=== PATIENT | female | born 1945 | race Caucasian/White ===

== ENCOUNTER → 2016-05-15 | Outpatient (CLI) | payer BC ==
[~2016-05-15] MED LIST: ACET-749 PO; ASCA500 PO; ASPCH81X PO; CALC500T83 PO; CARB1CAP10 PO; CHOL1000 PO; CHOL100010 PO; CYM20 PO; DXM/4 PO; EVS60 PO; GABA1CAP4 PO; GLUC1CAP33 PO; HYDC25 PO; HYDR25TA4 PO; IBRU1CAP; LCTX PO; MBXC PO; MISCCAP80 PO; MORP15TA PO; MORP1TAB13 PO; MRPSR15 PO; MULT-884 PO; NRN300 PO; NYSS/ PO; ONDA4TAB10 SL; OXYC-609 PO; PANT40TA PO; POLY335019 PO; POTA10TA PO; POTA10TA32 PO; PSYL48.59 PO; SENN-61 PO; TGRSR100 PO; VERA1TAB53 PO; VRPSR180 PO; ZCR40 PO
--- NOTE | 2016-05-15 10:49 | DIAGNOSTIC IMAGING REPORT ---
PET/CT HISTORY: Lymphoma LYMPHOMA TECHNIQUE: PET/CT was performed from the base of the skull through the pelvis following the intravenous administration of 15.4 mCi of F18-FDG. Non-contrast CT imaging was performed over the same range without breath-hold for attenuation correction of PET images and anatomic correlation, but not for primary interpretation as it is not of standard diagnostic quality. CT DOSE: COMPARISON: 09/20/2015 FINDINGS: HEAD AND NECK: Interval development of a 4 cm soft tissue mass occupying the bulk of the right parotid gland. SUVs are considerably increased approximately 15 at maximum. This is not seen in the prior study. The metabolic reactive node in the right cervical chain previously described has resolved. There is no significant residual diffuse CT component of the exam. CHEST: There is no FDG-avid disease in the chest. There is no axillary, mediastinal, or hilar lymphadenopathy. There is no pleural or pericardial effusion. There is no air-space disease or suspicious lung nodule. ABDOMEN/PELVIS: Below the diaphragm, tracer is distributed physiologically in the gastrointestinal and genitourinary tracts. There is no significant lymphadenopathy and no FDG-avid disease. MUSCULOSKELETAL: There is no FDG-avid or destructive bone lesion. IMPRESSION: 1. Interval development of intense metabolic activity lesion involving the right parotid gland. 2. This mass measures approximately 4 cm maximum dimension. Considerations include recurrent lymphoma, with the possibility of acute sialoadenitis considered extremely unlikely given its appearance as well as patient history. 3. The remainder of the study is unremarkable 4. The right cervical node previously described has resolved Electronically signed by: Rehan Buchanan M.D. 05/15/2016 10:48 AM Dictated Date/Time: 05/15/2016 10:41 AM
== END | disposition home or self-care (01) ==
LOC: C.PET 07:18
PROVIDERS: ATTEND Internal Medicine Hematology & Oncology
DX: C83.11 Mantle cell lymphoma, lymph nodes of head, face, and neck (principal)

== ENCOUNTER → 2016-06-18 | Outpatient (CLI) | payer BC ==
[~2016-06-18] MED LIST changes: -EVS60 PO; +RALO60TA31 PO
--- NOTE | 2016-06-18 16:52 | MAMMOGRAPHY REPORT ---
BILATERAL DIGITAL SCREENING MAMMOGRAM WITH CAD: 06/18/2016 CLINICAL HISTORY: Routine screening. Patient has no complaints. TECHNIQUE: Bilateral CC and MLO views were obtained. Additional cc views were performed with the ni pples in profile. Current study was also evaluated with a Computer Aided Detection (CAD) system. COMPARISON: Comparison is made to exams dated: 06/16/2015 mammogram, 06/15/2014 mammogram, 06/14/2013 mammogram, 06/12/2012 mammogram, 06/11/2011 mammogram, and 06/07/2009 mammogram - [facility]. BREAST COMPOSITION: There are scattered areas of fibroglandular density in both breasts. FINDINGS: There are benign-appearing rodlike, probable secretory calcifications in the breasts. No new suspicious mass, architectural distortion or cluster of microcalcifications is seen. IMPRESSION: ACR BI-RADS CATEGORY 1: NEGATIVE There is no mammographic evidence of malignancy. A 1 year screening mammogram is recommended. The p atient will receive written notification of the results. Approximately 10% of breast cancers are not detected with mammography. A negative mammographic repor t should not delay biopsy if a clinically suggestive mass is present. Leslie Gant M.D. ay/:06/18/2016 16:49:02 Security Representative: Mary Grace Lockwood, [facility] letter sent: Normal 1/2 BI-RADS Code: ACR BI-RADS Category 1: Negative
== END | disposition home or self-care (01) ==
LOC: C.MAMM 09:34
PROVIDERS: ATTEND Obstetrics & Gynecology
DX: Z12.31 Encounter for screening mammogram for malignant neoplasm of breast (principal); C83.19 Mantle cell lymphoma, extranodal and solid organ sites; C85.81 Other specified types of non-Hodgkin lymphoma, lymph nodes of head, face, and neck

== ENCOUNTER → 2016-08-01 | Outpatient (CLI) | payer BC ==
[~2016-08-01] MED LIST changes: +EVS60 PO; -RALO60TA31 PO
[2016-08-01 14:21] VITALS: BP 137/79; PULSE 78; TEMP 37.1; O2SAT 97
--- NOTE | 2016-08-01 17:56 | Radiation Oncology Follow-Up ---
Radiation Oncology Follow-Up Date of Visit Aug 01, 2016. Reason For Visit 6 month follow-up Radiation Completion Date 12/20/15 Diagnosis (1) Lymphoma Status: Chronic Onset Date: 07/07/2014 Permanent Comment: Self detected right neck mass FNA 07/07/2014 revealed malignant B-cell lymphoma Status post right parotidectomy and cervical lymph node excision 07/22/2014 Mantle cell lymphoma Stage II Status post systemic chemotherapy Left neck recurrent mass in July biopsy positive for lymphoma Mantle cell type 10/05/2015 Status post completion of radiation therapy 12/20/2015 received 4500 cGy Recurrent right neck mass March [address] revealing FDG avidity Initiation of immunotherapy with Impruvica Good response to therapy Last Edited By: Suzan Heller on Aug 01, 2016 17:51 History of Present Illness Patient was initially seen 08/11/2014. Ms. Packer is a 70-year-old female who presented with a palpable mass in the right side of the neck. She first noticed it in March 2014. Initially this was treated with antibiotics without clear improvement. Patient subsequent he noted that the mass was increasing in size and therefore on 06/23/2014 she underwent an ultrasound of the right neck mass this showed evidence of bilateral cervical adenopathy but primarily on the right neck. Maximal dimension R2 0.5 x 1.8 cm with smaller nodes in the range of 1.6 x 1.3 cm. Given the appearance they were thought to be suspicious for malignancy. On 07/07/2014 Dr. Eaton performed a fine-needle aspirate of a right parotid mass. His examination showed a 2 cm right supraclavicular mass and a 3 cm right parotid mass. The remainder of the head and neck exam was unremarkable. The final diagnosis of the FNA of the right parotid mass revealed a malignant B-cell lymphoma. The flow cytometry showed a monoclonal B-cell population with expression of CD5 and CD10. FISH studies were performed for the translocation seen in mantle cell lymphoma. This study met the criteria for presence of a t (11; 14) translocation however the number of positive signals was low and barely over the threshold for a positive result. The probe set for the BCL-2 rearrangement also showed similar findings nevertheless the presence of the translocation could not be excluded. Case: [id number]. A FNA of a right supraclavicular mass was also performed and this was nondiagnostic. Case: [id number]. The patient returned to see Dr. Santiago on 07/11/2014 to discuss these findings. The recommendation by the pathology department was that additional tissue would be important for a full diagnosis. Dr. Santiago therefore discussed with the patient additional parotid biopsies and partial neck dissection. The patient agreed. She ultimately underwent a superficial parotidectomy and partial right neck dissection on 07/22/2014. The right parotid gland and lymph node tissue confirmed mantle cell lymphoma. A lymph node labeled cervical lymph node 1 also revealed mantle cell lymphoma. Case: [id number]. Patient underwent additional staging procedures that included a PET/CT scan on 08/03/2014. The PET scan showed metabolically active lesion involving the right parotid gland with an SUV of 5.3. There is air within the tissue consistent with the patient' s history of surgery and biopsy. Several additional nodes were present deep to the posterior musculature as well as deep to the sternocleidomastoid muscle. These have SUVs extending to the 6.1 and 5.7 range respectively. Several additional nodes are present in the cervical chains bilaterally. There is evidence for a metabolically active nodes medial to the right clavicle with an SUV of 2.6 and a maximum dimension of 1.0 cm. Within the mediastinum and hilar region there is physiologic activity only. Lungs show no abnormal metabolic activity. Abdomen and pelvis show physiologic activity only. The appearance was felt to be consistent with that of a neoplastic process consistent with the patient's known diagnosis of mantle cell lymphoma confined to the soft tissue of the neck. The patient is scheduled to see Dr. Michael Castillo for medical oncology evaluation and oncologic systemic therapeutic recommendations. That appointment is scheduled for August 17. We were asked to see the patient in referral to review with her the potential roles of radiation. It is for that reason that the patient is seen in referral. Following the consultation the patient returned to Dr. Castillo and underwent systemic chemotherapy. This began as an inpatient and was given September 05 to the 2014. She then was on maintenance Rituxan until July 2015. She unfortunately developed a mass in the lower end of her right neck incision. She noted this in July. This is slowly become larger in size. Began the size of an almond. She generally has no pain associated unless it is touched. She has had no weight loss. She has no night sweats. She underwent a CT scan of the chest abdomen and pelvis 09/12/2015. Lungs were clear there is hepatic steatosis. No lymphadenopathy in the thorax. In the abdomen and pelvis questionable tiny hypodensities in the pancreas. duct is also slightly prominent. No evidence of lymphadenopathy. She went on to have a PET scan . This showed a 1.7 x 1.0 cm FDG avid right cervical lymph node. This is consistent with recurrent disease. No additional sites of FDG avid disease identified within the chest abdomen and pelvis. With this finding she was referred by Dr. Castillo to our office. Dr. Castillo will be leaving his practice this week and the patient will be following with Dr. Carnes. She has also been seen by Dr. Santiago. Her case was reviewed. The decision was to treat with radiation alone. Radiation therapy was completed 12/20/2015. She received 4500 cGy. Interim History She had been doing well until March 2016 when she developed a rapidly enlarging mass of the right neck. This was large and extended towards her ear. She was seen in medical oncology and was sent for a PET/CT. I was performed on 05/15/2016. This showed interval development of an intense metabolically active lesion involving the right parotid gland. His measures approximately 4 cm maximum dimension. With the new findings she was started on impruvica. She takes this on a monthly basis. She has received 3 cycles of treatment. It is planned that she will continue this medication until her next visit which is September. There is some difficulty with coverage of the medication. She is working with the pharmaceutical company that manufactures the medication. She also has connection to patient navigation. She feels that the mass of her right neck is 75% smaller since starting the immunotherapy. Allergies Coded Allergies: Propoxyphene (Verified Allergy, Intermediate, RASH, 02/16/15) Lisinopril (Verified Adverse Reaction, Mild, COUGH, 02/16/15) Home Medications Scheduled Ascorbic Acid (Vitamin C), 500 MG PO QAM Aspirin (Aspirin Chewable), 81 MG PO QPM Calcium (Calcium), 500 MG PO BID Cholecalciferol (Vitamin D), 1,000 INTER.UNIT PO QPM Glucosamine-Chondroitin (Glucosamine & Chondroitin 500-400 mg), 1 CAP PO BID Hydrochlorothiazide (Hctz *), 25 MG PO QAM Ibrutinib (Imbruvica), 4 TABS DAILYBB Multiple Vitamin (Multi Vitamin Daily), 1 TAB PO QAM Pantoprazole (Protonix), 40 MG PO DAILY Probiotic Product (Probiotic), DAILY Raloxifene (Evista), 60 MG PO QPM Simvastatin (Simvastatin), 40 MG PO HS Review of Systems Gastrointestinal: Symptoms: Constipation GI Comments: takes senna .metamucil , miralax last BM Oral: Symptoms: No Problems Other Oral Symptoms: dry mouth Respiratory: Symptoms: Dry Cough Respiratory Comments: dry cough in the evening Urinary: Symptoms: WNL Skin: Symptoms: No Problems Physical Exam Vital Signs Date Time Temp Pulse Resp B/P (MAP) Pulse Ox O2 Delivery O2 Flow Rate FiO2 08/01/16 14:21 37.1 78 16 137/79 97 Pain: Side: Bilateral Patient Pain Scale: 0 - 10 Initial Pain Intensity: 0.0 Fatigue: None General Appearance: no apparent distress Eyes: normal inspection, EOMI ENT: hearing grossly normal, pharynx normal Neck: supple, + pertinent finding (there is a mass of the right lateral neck which measures 4 x 7 cm. There is mild tenderness to palpation. There is no erythema or changes of the overlying skin.) Respiratory/Chest: lungs clear, no respiratory distress, no accessory muscle use Cardiovascular: regular rate, rhythm, no gallop, no murmur Extremities: no pedal edema Neurologic/Psychiatric: no motor/sensory deficits, alert, normal mood/affect Skin: warm/dry Laboratory Studies Test 05/20/16 09:10 06/18/16 08:13 06/18/16 08:21 08/01/16 15:17 White Blood Count 4.13 K/uL (4.8-10.8) 4.83 K/uL (4.8-10.8) Red Blood Count 3.97 M/uL (4.2-5.4) 3.83 M/uL (4.2-5.4) Hemoglobin 13.1 g/dL (12.0-16.0) 12.8 g/dL (12.0-16.0) Hematocrit 38.0 % (37-47) 38.0 % (37-47) Mean Corpuscular Volume 95.7 fL (80-100) 99.2 fL (80-100) Mean Corpuscular Hemoglobin 33.0 pg (25-34) 33.4 pg (25-34) Mean Corpuscular Hemoglobin Concent 34.5 g/dl (32-36) 33.7 g/dl (32-36) Platelet Count 203 K/uL (130-400) 140 K/uL (130-400) Mean Platelet Volume 10.5 fL (7.4-10.4) 12.0 fL (7.4-10.4) Neutrophils (%) (Auto) 67.6 % 66.4 % Lymphocytes (%) (Auto) 20.8 % 17.0 % Monocytes (%) (Auto) 8.0 % 13.7 % Eosinophils (%) (Auto) 2.7 % 2.1 % Basophils (%) (Auto) 0.7 % 0.6 % Neutrophils # (Auto) 2.79 K/uL (1.4-6.5) 3.21 K/uL (1.4-6.5) Lymphocytes # (Auto) 0.86 K/uL (1.2-3.4) 0.82 K/uL (1.2-3.4) Monocytes # (Auto) 0.33 K/uL (0.11-0.59) 0.66 K/uL (0.11-0.59) Eosinophils # (Auto) 0.11 K/uL (0-0.5) 0.10 K/uL (0-0.5) Basophils # (Auto) 0.03 K/uL (0-0.2) 0.03 K/uL (0-0.2) RDW Standard Deviation 44.1 fL (36.4-46.3) 46.6 fL (36.4-46.3) RDW Coefficient of Variation 12.6 % (11.5-14.5) 12.7 % (11.5-14.5) Immature Granulocyte % (Auto) 0.2 % 0.2 % Immature Granulocyte # (Auto) 0.01 K/uL (0.00-0.02) 0.01 K/uL (0.00-0.02) Sodium Level 141 mmol/L (136-145) 142 mmol/L (136-145) Potassium Level 3.5 mmol/L (3.5-5.1) 3.6 mmol/L (3.5-5.1) Chloride Level 103 mmol/L (98-107) 105 mmol/L (98-107) Carbon Dioxide Level 31 mmol/L (21-32) 34 mmol/L (21-32) Anion Gap 7.0 mmol/L (3-11) 3.0 mmol/L (3-11) Blood Urea Nitrogen 16 mg/dl (7-18) 12 mg/dl (7-18) Creatinine 0.87 mg/dl (0.60-1.20) 0.87 mg/dl (0.60-1.20) Est Creatinine Clear Calc Drug Dose 56.3 ml/min 56.3 ml/min Estimated GFR () 77.7 77.7 Estimated GFR (Non- 67.0 67.0 BUN/Creatinine Ratio 18.5 (10-20) 13.9 (10-20) Random Glucose 109 mg/dl (70-99) 83 mg/dl (70-99) Calcium Level 9.1 mg/dl (8.5-10.1) 9.1 mg/dl (8.5-10.1) Total Bilirubin 0.7 mg/dl (0.2-1) 0.8 mg/dl (0.2-1) Aspartate Amino Transferase (AST) 23 U/L (15-37) 27 U/L (15-37) Alanine Aminotransferase (ALT) 33 U/L (12-78) 44 U/L (12-78) Alkaline Phosphatase 31 U/L (45-117) 27 U/L (45-117) Lactate Dehydrogenase 213 U/L (84-246) 220 U/L (84-246) Total Protein 6.9 gm/dl (6.4-8.2) 6.7 gm/dl (6.4-8.2) Albumin 3.9 gm/dl (3.4-5.0) 3.9 gm/dl (3.4-5.0) Globulin 3.0 gm/dl (2.5-4.0) 2.8 gm/dl (2.5-4.0) Albumin/Globulin Ratio 1.3 (0.9-2) 1.4 (0.9-2) Carcinoembryonic Antigen < 0.5 ng/ml (0-2.5) Thyroid Stimulating Hormone (TSH) 4.900 uIu/ml (0.300-4.500) Assessment & Plan Plan: Continue follow-up with medical oncology. She continues on the immunotherapy. She will contact the patient navigation if she has difficulty with coverage of the medication. We asked her to return to our office in 1 year. She may call if she has any questions or concerns in the interim. Total Time In Follow-Up I spent 20 minutes speaking to the patient and performing examination. I spent 15 minutes reviewing information and completing this note. Copy To Shahzad Norton MD; Jaime Chaves MD Problem Qualifiers (1) Lymphoma: Lymphoma type: non-Hodgkin Non-Hodgkin lymphoma type: non-follicular Non- follicular lymphoma type: mantle cell Lymphoma site: neck Qualified Codes: C83.11 - Mantle cell lymphoma, lymph nodes of head, face, and neck
== END | disposition home or self-care (01) ==
LOC: C.ONC 14:15
PROVIDERS: ATTEND Physician Assistant Medical
DX: Z08 Encounter for follow-up examination after completed treatment for malignant neoplasm (principal); Z92.3 Personal history of irradiation; Z85.72 Personal history of non-Hodgkin lymphomas

== ENCOUNTER → 2016-08-26 | Outpatient (CLI) | payer BC ==
[~2016-08-26] MED LIST changes: -LCTX PO
--- NOTE | 2016-08-26 11:40 | DIAGNOSTIC IMAGING REPORT ---
PET/CT SKULL-THIGH HISTORY: 70-year-old female with history of mantle cell lymphoma of the head presents for restaging. COMPARISON: PET CT 05/15/2016, 09/20/2015, 01/30/2015, 08/03/2014 TECHNIQUE: The patient was injected with 14.16 mCi of F-18 fluorodeoxyglucose (FDG) and an emission scan was performed from the skull vertex to the toes. Noncontrast CT was performed for attenuation correction and anatomic localization. The blood glucose level was 87 mg/dl. FINDINGS: Head and Neck: Large soft tissue mass of the right neck in the region of the parotid gland is again seen measuring 3.6 x 3.7 cm in AP and transverse dimension, previously 4.6 x 3.6 cm on study dated 05/15/2016. This mass is markedly hypermetabolic with SUV max of 8.3, previously 17.3. Several mildly prominent level 2 lymph nodes on the right below the level of the hypermetabolic mass are seen with mild FDG activity, similar to and slightly above that of blood pool. For example, a 7 x 9 mm lymph node seen on image [address] series demonstrates SUV max of 3.0. No left-sided hypermetabolic activity identified. Chest: There is a physiologic distribution of activity, with no hypermetabolic mediastinal, hilar or pulmonary foci. Abdomen and Pelvis: There is a physiologic distribution of activity within the liver, spleen, adrenal glands, gastrointestinal and urinary tracts, with no hypermetabolic foci. Musculoskeletal System and Extremities: There is a physiologic distribution of activity within the bone marrow, with no hypermetabolic foci. Likely hemangioma involves the L4 vertebral body. Additional CT Findings: Left pectoral pacer is present. Prior cholecystectomy. Nonspecific low attenuating lesion near the kalin hepatis measures 1.3 x 1.3 cm as seen on image 78 of the axial series and is unchanged. IMPRESSION: 1. Large hypermetabolic soft tissue mass of the right neck in the region of the parotid gland has slightly decreased in size from comparison and has also decreased in FDG avidity. Findings suggest partial response to therapy. 2. Mildly prominent level 2 lymph nodes on the right just below the large soft tissue mass demonstrate SUV max similar to and slightly above that of blood pool. Findings may reflect progression of disease or inflammatory response. 3. No hypermetabolic activity within the chest, abdomen or pelvis. Electronically signed by: Connor Hsu 08/26/2016 11:38 AM Dictated Date/Time: 08/26/2016 10:37 AM
== END | disposition home or self-care (01) ==
LOC: C.PET 07:29
PROVIDERS: ATTEND Internal Medicine Hematology & Oncology
DX: C83.11 Mantle cell lymphoma, lymph nodes of head, face, and neck (principal)

== ENCOUNTER 2016-09-02 19:58 | Emergency (ER) | payer BC ==
[~2016-09-02] VITALS: Ht 154.9 cm; Wt 81.1 kg
[~2016-09-02 19:58] MED LIST changes: -ACET-749 PO; -ASPCH81X PO; -CARB1CAP10 PO; -CHOL1000 PO; -CYM20 PO; -DXM/4 PO; -EVS60 PO; -GABA1CAP4 PO; -HYDR25TA4 PO; -MBXC PO; -MORP15TA PO; -MORP1TAB13 PO; -MRPSR15 PO; -NRN300 PO; -NYSS/ PO; -ONDA4TAB10 SL; -OXYC-609 PO; -PANT40TA PO; -POLY335019 PO; -POTA10TA PO; -POTA10TA32 PO; -PSYL48.59 PO; -SENN-61 PO; -TGRSR100 PO; -VERA1TAB53 PO; -VRPSR180 PO; -ZCR40 PO
[2016-09-02 20:00] VITALS: TEMP 36.4; Ht 154.9 cm; Wt 81.1 kg
[2016-09-02] MEDS ORDERED: PROMETHAZINE HCL INJ 12.5 MG in SODIUM CHLORIDE 0.9% 50ML 50 ML IV STA (20:58)
[2016-09-02] MEDS ORDERED: MoRPHine SULFATE 4 MG/ML 1 ML CARP\\VIAL IV PRN (21:00)
--- NOTE | 2016-09-02 21:11 | EMERGENCY ROOM VISIT NOTE ---
History Report prepared by Doretha: Janell Mccoy Under the Supervision of: Dr. Sukhwinder Rader D.O. First contact with patient: 20:21 Chief Complaint: HEADACHE Stated Complaint: CA, HEADACHE, NAUSEA History of Present Illness The patient is a 70 year old female who presents to the Emergency Room with complaints of a constant headache beginning 3 days ago. The patient states that she has a lymphoma on the right side of her neck that she has completed chemotherapy and radiation for. She reports that her headache came on gradually 3 days ago and has persisted since it started. The patient complains of slightly blurry vision and squiggly lines in her vision that has resolved and vomiting. She denies any bloody vomit, fever, and chills. She notes that she has no sick contacts. She notes a history of hypertension and GERD. She rates her pain as a 10/10 in severity. She notes that she was on Imbruvica and her headache started after she stopped taking the medication. The patient reports that she took Tylenol with codeine today without relief of her symptoms. She notes that her lymphoma feels like it is getting bigger. Source of History: patient Onset: 3 days ago Position: head Symptom Intensity: 10/10 Quality: ache Timing: constant Associated Symptoms: + vomiting, No fevers, No chills Note: Pt complains of blurry vision. She denies any bloody vomit. Review of Systems See HPI for pertinent positives & negatives. A total of 10 systems reviewed and were otherwise negative. Past Medical & Surgical Medical Problems: (1) Gastroesophageal reflux disease (2) History of - hypertension (3) Lymphoma Family History No pertinent family history stated. Social History Smoking Status: Never Smoker Alcohol Use: none Drug Use: none Marital Status: Housing Status: lives with family Occupation Status: retired Current/Historical Medications Scheduled Ascorbic Acid (Vitamin C), 500 MG PO QAM Aspirin (Aspirin Chewable), 81 MG PO QPM Calcium (Calcium), 500 MG PO BID Cholecalciferol (Vitamin D), 1,000 INTER.UNIT PO QPM Glucosamine-Chondroitin (Glucosamine & Chondroitin 500-400 mg), 1 CAP PO BID Hydrochlorothiazide (Hctz), 25 MG PO QAM Ibrutinib (Imbruvica), 4 TABS DAILYBB Multiple Vitamin (Multi Vitamin Daily), 1 TAB PO QAM Pantoprazole (Protonix), 40 MG PO DAILY Probiotic Product (Probiotic), 1 CAP PO DAILY Raloxifene (Evista), 60 MG PO QPM Simvastatin (Simvastatin), 40 MG PO HS Scheduled PRN Acetaminophen/Codeine (Tylenol W/Codeine #3), 1 TAB PO Q4H PRN for Pain Allergies Coded Allergies: Propoxyphene (Verified Allergy, Intermediate, RASH, 02/16/15) Lisinopril (Verified Adverse Reaction, Mild, COUGH, 02/16/15) Physical Exam Vital Signs Date Time Temp Pulse Resp B/P (MAP) Pulse Ox O2 Delivery O2 Flow Rate FiO2 09/02/16 23:51 76 15 95 09/02/16 23:50 161/89 09/02/16 23:36 74 15 92 09/02/16 23:33 96 09/02/16 23:31 157/79 09/02/16 23:18 72 14 93 09/02/16 23:03 71 15 92 09/02/16 23:01 157/86 09/02/16 22:48 73 15 92 09/02/16 22:33 70 18 94 09/02/16 22:30 93 09/02/16 22:28 182/83 09/02/16 22:18 68 92 09/02/16 22:05 190/86 09/02/16 22:03 71 97 09/02/16 21:48 80 92 09/02/16 21:33 73 16 95 09/02/16 21:31 163/84 09/02/16 21:18 68 14 92 09/02/16 21:03 69 13 93 09/02/16 21:01 183/91 09/02/16 20:48 71 17 95 09/02/16 20:43 71 19 96 09/02/16 20:38 72 16 99 09/02/16 20:32 178/99 09/02/16 20:32 178/99 09/02/16 20:00 36.4 83 20 174/90 95 Room Air Physical Exam GENERAL: Patient is awake, alert, and in no acute distress. Patient is uncomfortable and is anxious appearing. EYES: The conjunctivae are clear. The pupils are round and reactive. EARS, NOSE, MOUTH AND THROAT: The nose is without any evidence of any deformity. Mucous membranes are moist tongue is midline NECK: There was tenderness and firmness noted to right lateral neck consistent with diagnosis of lymphoma RESPIRATORY: Normal respiratory effort is noted there is no evidence of wheezing rhonchi or rales CARDIOVASCULAR: Regular rate and rhythm noted there no murmurs rubs or gallops normal S1 normal S2 GASTROINTESTINAL: The abdomen is soft. Bowel sounds are present in all quadrants. Abdomen is nontender MUSCULOSKELETAL/EXTREMITIES: There is no evidence of gross deformity full range of motion is noted in the hips and shoulders SKIN: There is no obvious evidence of any rash. There are no petechiae, pallor or cyanosis noted. NEUROLOGIC: Patient is awake alert and oriented x3 strength is symmetric patellar reflexes are 2+ bilaterally Medical Decision & Procedures ER Provider Diagnostic Interpretation: CT results as stated below per my review and radiologist interpretation. CT HEAD WITHOUT CONTRAST (CT) FINDINGS: No intra or extra-axial mass lesions are visualized. There is no CT evidence of acute cortical infarction. There is no evidence of midline shift. There is no acute hemorrhage. No calvarial fractures are visualized. There are minimal white matter hypodensities likely on a small vessel basis. There is no evidence of pathologic ventricular dilatation. There is no evidence of acute sinusitis IMPRESSION: No acute intracranial findings Electronically signed by: Mohan Boone M.D. 09/02/2016 10:27 PM Dictated Date/Time: 09/02/2016 10:26 PM Laboratory Results 09/02/16 22:10 Red Blood Count 4.43, Mean Corpuscular Volume 95.0, Mean Corpuscular Hemoglobin 32.7, Mean Corpuscular Hemoglobin Concent 34.4, Mean Platelet Volume 12.0, Neutrophils (%) (Auto) 82.5, Lymphocytes (%) (Auto) 10.0, Monocytes (%) (Auto) 6.1, Eosinophils (%) (Auto) 0.3, Basophils (%) (Auto) 0.3, Neutrophils # (Auto) 6.18, Lymphocytes # (Auto) 0.75, Monocytes # (Auto) 0.46, Eosinophils # (Auto) 0.02, Basophils # (Auto) 0.02 09/02/16 22:10 Test 09/02/16 22:10 09/02/16 22:55 White Blood Count 7.49 K/uL (4.8-10.8) Red Blood Count 4.43 M/uL (4.2-5.4) Hemoglobin 14.5 g/dL (12.0-16.0) Hematocrit 42.1 % (37-47) Mean Corpuscular Volume 95.0 fL (80-100) Mean Corpuscular Hemoglobin 32.7 pg (25-34) Mean Corpuscular Hemoglobin Concent 34.4 g/dl (32-36) Platelet Count 153 K/uL (130-400) Mean Platelet Volume 12.0 fL (7.4-10.4) Neutrophils (%) (Auto) 82.5 % Lymphocytes (%) (Auto) 10.0 % Monocytes (%) (Auto) 6.1 % Eosinophils (%) (Auto) 0.3 % Basophils (%) (Auto) 0.3 % Neutrophils # (Auto) 6.18 K/uL (1.4-6.5) Lymphocytes # (Auto) 0.75 K/uL (1.2-3.4) Monocytes # (Auto) 0.46 K/uL (0.11-0.59) Eosinophils # (Auto) 0.02 K/uL (0-0.5) Basophils # (Auto) 0.02 K/uL (0-0.2) RDW Standard Deviation 42.7 fL (36.4-46.3) RDW Coefficient of Variation 12.4 % (11.5-14.5) Immature Granulocyte % (Auto) 0.8 % Immature Granulocyte # (Auto) 0.06 K/uL (0.00-0.02) Prothrombin Time 10.3 SECONDS (9.0-12.0) Prothromb Time International Ratio 1.0 (0.9-1.1) Activated Partial Thromboplast Time 24.2 SECONDS (21.0-31.0) Partial Thromboplastin Ratio 0.9 Anion Gap 11.0 mmol/L (3-11) Est Creatinine Clear Calc Drug Dose 63.0 ml/min Estimated GFR () 87.3 Estimated GFR (Non- 75.3 BUN/Creatinine Ratio 17.2 (10-20) Calcium Level 9.7 mg/dl (8.5-10.1) Total Bilirubin 1.0 mg/dl (0.2-1) Direct Bilirubin 0.2 mg/dl (0-0.2) Aspartate Amino Transf (AST/SGOT) 26 U/L (15-37) Alanine Aminotransferase (ALT/SGPT) 38 U/L (12-78) Alkaline Phosphatase 31 U/L (45-117) Total Protein 7.3 gm/dl (6.4-8.2) Albumin 4.1 gm/dl (3.4-5.0) Lipase 401 U/L (73-393) Urine Color YELLOW Urine Appearance CLEAR (CLEAR) Urine pH 6.5 (4.5-7.5) Urine Specific [place] 1.025 (1.000-1.030) Urine Protein TRACE (NEG) Urine Glucose (UA) NEG (NEG) Urine Ketones 1+ (NEG) Urine Occult Blood NEG (NEG) Urine Nitrite NEG (NEG) Urine Bilirubin NEG (NEG) Urine Urobilinogen NEG (NEG) Urine Leukocyte Esterase SMALL (NEG) Urine WBC (Auto) 10-30 /hpf (0-5) Urine RBC (Auto) 0-4 /hpf (0-4) Urine Hyaline Casts (Auto) 10-30 /lpf (0-5) Urine Epithelial Cells (Auto) 20-30 /lpf (0-5) Urine Bacteria (Auto) NEG (NEG) Laboratory results per my review. Medications Administered Medications (Trade) Dose Ordered Sig/Ant Route Start Time Stop Time Status Last Admin Dose Admin Promethazine HCl 12.5 mg/Sodium Chloride 50.5 ml @ 204 mls/hr NOW STAT IV 09/02/16 20:58 09/02/16 21:12 DC 09/02/16 22:07 204 MLS/HR Morphine Sulfate (MoRPHine SULFATE INJ) 4 mg Q15M PRN IV 09/02/16 21:00 09/16/16 20:59 09/02/16 22:05 4 MG Heparin Sodium (Porcine) (Heparin 100 Unit/ml 5ml Flush) 5 ml STK-MED ONCE .ROUTE 09/02/16 23:46 09/02/16 23:47 DC 09/02/16 23:51 5 ML ED Course 2020: The patient was evaluated in room C10. A complete history and physical examination were performed. 2057: Promethazine HCl 12.5mg/Sodium Chloride 50.5ml @ 204mls/hr IV. 2100: Morphine Sulfate 4mg PRN IV pain. 2308: I reevaluated the patient and updated her. 2333: Upon reevaluation, the patient is doing well. I discussed the results and treatment plan with the patient. She verbalized agreement of the treatment plan. The patient was discharged home. Medical Decision Differential diagnosis: Etiologies such as migraine headache, meningitis, sinusitis, CO exposure, ICH, SAH, infection, tumor, headache, sinus thrombosis, arterial dissection, as well as others were entertained. Medication Reconciliation: I attest that I have personally reviewed the patient' s current medications list. Blood pressure screening: Patient was found to have an elevated blood pressure and was referred to their primary doctor for recheck and further treatment. The patient is a 70-year-old female who presented to the emergency apartment for an evaluation of headache. The patient describes a diffuse headache which was gradual in onset. She does not have any meningismus or focal neurologic deficit. The patient has a history of lymphoma and is currently being treated for this. She has a large amount of cervical adenopathy consistent with her diagnosis. I did review the patient's previous medical records. She was treated with IV pain medication and IV antiemetics in the emergency department. On subsequent reevaluation she was feeling much better. The patient was encouraged to rest and avoid any strenuous activity. She was also encouraged to call her primary care physician as well as her oncologist in the morning to schedule a follow-up appointment. She was also encouraged return the emergency Department immediately if symptoms change worsen or the need arises. Impression Primary Impression: Acute headache Scribe Attestation The scribe's documentation has been prepared under my direction and personally reviewed by me in its entirety. I confirm that the note above accurately reflects all work, treatment, procedures, and medical decision making performed by me. Departure Information Dispostion Home / Self-Care Referrals Shahzad Norton MD (PCP) Forms HOME CARE DOCUMENTATION FORM, IMPORTANT VISIT INFORMATION Patient Instructions Headache Pain, My [facility] Additional Instructions Call your primary care physician as well as her primary oncologist in the morning. I would recommend a follow-up appointment with your family this week. Continue all medications as prescribed. Avoid any strenuous activity. Return to the emergency department immediately if symptoms change worsen or if the need arises. Problem Qualifiers Primary Impression: Acute headache Headache type: unspecified Intractability: not intractable Qualified Codes : R51 - Headache
[2016-09-02 22:19] LABS: BASO % 0.3 %; BASO ABS # 0.02 K/uL (0-0.2); COMPLETE YES; EOS % 0.3 %; HEMATOCRIT 42.1 % (37-47); IG% 0.8 %; LYMPH ABS # 0.75 K/uL (1.2-3.4); MEAN CORPUSCULAR HEMOGLOBIN 32.7 pg (25-34); MEAN CORPUSCULAR HGB CONC 34.4 g/dl (32-36); MONO % 6.1 %; NEUT % 82.5 %; PLATELET COUNT 153 K/uL (130-400); RED BLOOD COUNT 4.43 M/uL (4.2-5.4); WHITE BLOOD COUNT 7.49 K/uL (4.8-10.8)
[2016-09-02 22:28] LABS: PARTIAL THROMBOPLASTIN RATIO 0.9; PROTHROMBIN TIME (PATIENT) 10.3 SECONDS (9.0-12.0)
--- NOTE | 2016-09-02 22:29 | DIAGNOSTIC IMAGING REPORT ---
CT HEAD WITHOUT CONTRAST (CT) CLINICAL HISTORY: Headache. History of lymphoma. COMPARISON STUDY: No previous studies for comparison. TECHNIQUE: Axial CT of the brain is performed from the vertex to the skull base. IV contrast was not administered for this examination. CT DOSE: 537.48 mGy.cm FINDINGS: No intra or extra-axial mass lesions are visualized. There is no CT evidence of acute cortical infarction. There is no evidence of midline shift. There is no acute hemorrhage. No calvarial fractures are visualized. There are minimal white matter hypodensities likely on a small vessel basis. There is no evidence of pathologic ventricular dilatation. There is no evidence of acute sinusitis IMPRESSION: No acute intracranial findings Electronically signed by: Mohan Boone M.D. 09/02/2016 10:27 PM Dictated Date/Time: 09/02/2016 10:26 PM
[2016-09-02 22:36] LABS: BUN/CREATININE RATIO 17.2 (10-20); CALCIUM 9.7 mg/dl (8.5-10.1); CREATININE 0.79 mg/dl (0.60-1.20); POTASSIUM 3.6 mmol/L (3.5-5.1)
[2016-09-02 23:50] VITALS: BP 161/89
[2016-09-02 23:51] VITALS: PULSE 76; O2SAT 95
[2016-09-02 23:53] LABS: URINE APPEARANCE CLEAR (CLEAR); URINE BILIRUBIN NEG (NEG); URINE COLOR YELLOW; URINE EPITHELIAL CELL AUTO 20-30 /lpf (0-5); URINE NITRITE NEG (NEG); URINE PH 6.5 (4.5-7.5); URINE SPECIFIC GRAVITY 1.025 (1.000-1.030); UROBILINOGEN NEG (NEG)
[2016-09-02 23:57] LABS: MANUAL MICROSCOPIC REQUIRED? NO; REVIEW REQ? NO
[2016-09-10] MEDS ORDERED: VRPSR180 PO (11:52)
[2016-09-10] MEDS ORDERED: TGRSR100 PO (11:52)
[2016-09-10] MEDS ORDERED: NRN300 PO (11:52)
[2016-09-10] MEDS ORDERED: DXM/4 PO (11:52)
[2016-09-10] MEDS ORDERED: POTA10TA32 PO (12:01)
[2016-09-16] MEDS ORDERED: EVS60 PO (09:28)
[2016-09-16] MEDS ORDERED: ASPCH81X PO (09:28)
[2016-09-16] MEDS ORDERED: ZCR40 PO (09:28)
[2016-09-16] MEDS ORDERED: PANT40TA PO (14:37)
[2016-09-16] MEDS ORDERED: PSYL48.59 PO (15:10)
[2016-09-16] MEDS ORDERED: POLY335019 PO (15:10)
[2016-09-16] MEDS ORDERED: SENN-61 PO (15:10)
[2016-10-07] MEDS ORDERED: NYSS/ PO (18:35)
[2016-10-07] MEDS ORDERED: MBXC PO (18:35)
== END 2016-09-03 00:01 | disposition home or self-care (01) ==
LOC: C.EDB 19:59 → C.EDC 09-03 00:01
DX: R51 Headache (principal); I10 Essential (primary) hypertension; K21.9 Gastro-esophageal reflux disease without esophagitis; Z85.72 Personal history of non-Hodgkin lymphomas; Z79.82 Long term (current) use of aspirin; Z79.899 Other long term (current) drug therapy

== ENCOUNTER 2016-09-05 13:56 | Inpatient (IN) | payer BC, OTHER ==
[~2016-09-05] VITALS: Ht 152.4 cm; Wt 83.5 kg
[2016-09-05] VITALS (7 sets, daily range): BP systolic 176–196; BP diastolic 64–103; PULSE 61–86; TEMP 36.5–37; O2SAT 95–96; Ht 152.4 cm; Wt 83.5 kg
[~2016-09-05 13:56] MED LIST changes: -HYDC25 PO
[2016-09-05] MEDS ORDERED: ONDANSETRON INJ 2 MG/ML 2 ML VIAL IV STA (14:12)
[2016-09-05] MEDS ORDERED: MoRPHine SULFATE 4 MG/ML 1 ML CARP\\VIAL IV STA (14:12)
[2016-09-05] MEDS ORDERED: SODIUM CHLORIDE 0.9% 1000ML 1,000 ML IV SCH (14:12)
[2016-09-05] MEDS ORDERED: CHOL1000 PO (14:30)
[2016-09-05 14:32] LABS: BASO % 0.6 %; BASO ABS # 0.04 K/uL (0-0.2); COMPLETE YES; HEMATOCRIT 42.6 % (37-47); IG% 0.3 %; LYMPH % 15.9 %; MEAN CELL VOLUME 95.9 fL (80-100); MEAN CORPUSCULAR HEMOGLOBIN 33.3 pg (25-34); MEAN CORPUSCULAR HGB CONC 34.7 g/dl (32-36); MEAN PLATELET VOLUME 11.7 fL (7.4-10.4); MONO % 9.7 %; NEUT % 72.5 %; PLATELET COUNT 174 K/uL (130-400); RED BLOOD COUNT 4.44 M/uL (4.2-5.4); WHITE BLOOD COUNT 6.91 K/uL (4.8-10.8)
--- NOTE | 2016-09-05 14:33 | DIAGNOSTIC IMAGING REPORT ---
CT HEAD WITHOUT CONTRAST (CT) CLINICAL HISTORY: Stroke COMPARISON STUDY: 09/02/2016 TECHNIQUE: Axial CT of the brain is performed from the vertex to the skull base. IV contrast was not administered for this examination. CT DOSE: 537.48 mGy.cm FINDINGS: No intra or extra-axial mass lesions are visualized. There is no CT evidence of acute cortical infarction. There is no evidence of midline shift. There is no acute hemorrhage. No calvarial fractures are visualized. There are minimal white matter hypodensities likely on a small vessel basis. There is no evidence of pathologic ventricular dilatation. There is no evidence of acute sinusitis IMPRESSION: No acute intracranial findings Electronically signed by: Mohan Boone M.D. 09/05/2016 2:31 PM Dictated Date/Time: 09/05/2016 2:30 PM
[2016-09-05 14:53] LABS: PARTIAL THROMBOPLASTIN RATIO 0.9; PROTHROMBIN TIME (PATIENT) 10.2 SECONDS (9.0-12.0)
[2016-09-05 14:54] LABS: BUN/CREATININE RATIO 14.5 (10-20); CALCIUM 9.4 mg/dl (8.5-10.1); CREATININE 0.87 mg/dl (0.60-1.20)
[2016-09-05] MEDS ORDERED: MORP1TAB13 PO (15:10)
[2016-09-05] MEDS ORDERED: ONDANSETRON INJ 2 MG/ML 2 ML VIAL IV PRN (15:30)
[2016-09-05] MEDS ORDERED: HYDROmorphone INJ 2 MG/ML SYR/VIAL IV PRN (15:30)
[2016-09-05] MEDS ORDERED: MAGNESIUM HYDROXIDE SUSP 30 ML UDC PO PRN (15:30)
[2016-09-05] MEDS ORDERED: HYDROmorphone INJ 1 MG/ML SYR IV PRN (15:30)
[2016-09-05] MEDS ORDERED: ALUMINUM/MAGNESIUM/SIMETH (MAALOX MAX) 30 ML UDC PO PRN (15:30)
[2016-09-05] MEDS ORDERED: MoRPHine SULFATE CR 60 MG TAB (MS CONTIN) PO SCH (15:30)
[2016-09-05] MEDS ORDERED: POLYETHYLENE (MIRALAX) 17 GM PACK PO PRN (15:30)
[2016-09-05] MEDS ORDERED: ZOLPIDEM TARTRATE 5 MG TAB PO PRN (15:30)
--- NOTE | 2016-09-05 16:16 | History and Physical ---
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 She had undergone chemotherapy with Rituxan and Bendamustine in addition to radiation therapy. She recently developed progressive pain at the same site which has become intractable. She describes a severe R sided headache. She also states that she has had a poor appetite, nausea and one episode of vomiting the previous day. She was prescribed Morphine SR at 60 mg BID by her oncologist and states that this has not been effective. She is light headed and constipated likely due to the medication. The pt will be admitted for pain management and may also commence chemo while in the hospital. Past Medical/Surgical History Medical Problems: (1) Gastroesophageal reflux disease Status: Chronic (2) History of - hypertension Status: Chronic (3) Lymphoma Permanent Comment: Self detected right neck mass FNA 07/07/2014 revealed malignant B-cell lymphoma Status post right parotidectomy and cervical lymph node excision 07/22/2014 Mantle cell lymphoma Stage II Status post systemic chemotherapy Left neck recurrent mass in July biopsy positive for lymphoma Mantle cell type 10/05/2015 Status post completion of radiation therapy 12/20/2015 received 4500 cGy Recurrent right neck mass March [address] revealing FDG avidity Initiation of immunotherapy with Impruvica Good response to therapy Status: Chronic Family History FH: breast cancer FH: colon cancer Mother due to colon CA Father due to lung disease Social History Smoking Status: Never Smoker Drug Use: none Marital Status: Occupational Status: retired Immunizations History of Influenza Vaccine: Yes History of Tetanus Vaccine?: Yes History of Pneumococcal: Yes History of Hepatitis B Vaccine: Yes Multi-Drug Resistant Organisms History of MDRO: No Allergies Coded Allergies: Propoxyphene (Verified Allergy, Intermediate, RASH, 09/05/16) Lisinopril (Verified Adverse Reaction, Mild, COUGH, 09/05/16) Home Medications Scheduled Ascorbic Acid (Vitamin C), 500 MG PO QAM Aspirin (Aspirin Chewable), 81 MG PO QPM Calcium (Calcium), 500 MG PO BID Cholecalciferol (Vitamin D3), 1 TAB PO HS Glucosamine-Chondroitin (Glucosamine & Chondroitin 500-400 mg), 1 CAP PO BID Hydrochlorothiazide (Hctz), 25 MG PO QAM Ibrutinib (Imbruvica), 4 TABS DAILYBB Morphine Sulfate (Morphine Sulfate Er), 1 TAB PO Q3H Multiple Vitamin (Multi Vitamin Daily), 1 TAB PO QAM Pantoprazole (Protonix), 40 MG PO DAILY Polyethylene Glycol 3350 (Miralax), 17 GM PO DAILY Probiotic Product (Probiotic), 1 CAP PO DAILY Psyllium (Metamucil), 1 DOSE PO DAILY Raloxifene (Evista), 60 MG PO QPM Senna (Senokot), 1 TAB PO QAM Simvastatin (Simvastatin), 40 MG PO HS Scheduled PRN Acetaminophen/Codeine (Tylenol W/Codeine #3), 1 TAB PO Q4H PRN for Pain Review of Systems Constitutional: + weakness, + fatigue, No fever, No chills, No sweats Eyes: + problem reported ( unable to rik eye on R), No worsening of vision ENT: + problem reported (R sided facila paralyisis - unable to rik eye on R), No hearing loss, No unusual epistaxis, No nasal symptoms Respiratory: No cough, No sputum, No wheezing Cardiovascular: No chest pain, No orthopnea Abdomen: + nausea, + vomiting, + constipation, No pain Musculoskeletal: No joint pain, No muscle pain Genitourinary - Female: No dysuria, No urinary frequency, No urinary urgency Neurologic: + paralysis (paralysis of R face - CN VII), + weakness, No memory loss Psychiatric: + depression symptoms Endocrine: + fatigue Hematologic / Lymphatic: No abnormal bleeding/bruising Integumentary: No rash Allergic / Immunologic: No environmental allergies Physical Exam Vital Signs Date Time Temp Pulse Resp B/P (MAP) Pulse Ox O2 Delivery O2 Flow Rate FiO2 09/05/16 15:30 69 18 190/92 100 Nasal Cannula 2.0 09/05/16 15:00 68 16 175/92 96 Nasal Cannula 2.0 09/05/16 14:32 71 18 175/90 95 Room Air 09/05/16 14:06 99 Room Air 09/05/16 14:03 76 09/05/16 14:00 36.9 82 20 185/95 99 Room Air General Appearance: WD/WN, no apparent distress Head: normocephalic, + pertinent finding (Paralyisis - complete of R face ) Eyes: + pertinent finding (Pt cannot close R eye) ENT: normal ENT inspection, pharynx normal Neck: supple, thyroid normal Respiratory/Chest: chest non-tender, lungs clear, normal breath sounds, no respiratory distress, no accessory muscle use Cardiovascular: regular rate, rhythm, no edema, no gallop, no JVD, no murmur, normal peripheral pulses Abdomen/GI: normal bowel sounds, non tender, soft Back: normal inspection, no CVA tenderness, no muscle spasm, normal range of motion Extremities/Musculoskelatal: normal inspection, no calf tenderness, normal capillary refill, no pedal edema, normal range of motion Neurologic/Psych: normal mood/affect, normal reflexes, oriented x 3, + pertinent finding (R facial nerve paralysis) Skin: normal color, warm/dry, no rash Diagnostics Laboratory Results Results Past 24 Hours Test 09/05/16 14:15 09/05/16 14:19 Range/Units White Blood Count 6.91 4.8-10.8 K/uL Red Blood Count 4.44 4.2-5.4 M/uL Hemoglobin 14.8 12.0-16.0 g/dL Hematocrit 42.6 37-47 % Mean Corpuscular Volume 95.9 80-100 fL Mean Corpuscular Hemoglobin 33.3 25-34 pg Mean Corpuscular Hemoglobin Concent 34.7 32-36 g/dl Platelet Count 174 130-400 K/uL Mean Platelet Volume 11.7 7.4-10.4 fL Neutrophils (%) (Auto) 72.5 % Lymphocytes (%) (Auto) 15.9 % Monocytes (%) (Auto) 9.7 % Eosinophils (%) (Auto) 1.0 % Basophils (%) (Auto) 0.6 % Neutrophils # (Auto) 5.01 1.4-6.5 K/uL Lymphocytes # (Auto) 1.10 1.2-3.4 K/uL Monocytes # (Auto) 0.67 0.11-0.59 K/uL Eosinophils # (Auto) 0.07 0-0.5 K/uL Basophils # (Auto) 0.04 0-0.2 K/uL RDW Standard Deviation 44.3 36.4-46.3 fL RDW Coefficient of Variation 12.7 11.5-14.5 % Immature Granulocyte % (Auto) 0.3 % Immature Granulocyte # (Auto) 0.02 0.00-0.02 K/uL Prothrombin Time 10.2 9.0-12.0 SECONDS Prothromb Time International Ratio 1.0 0.9-1.1 Activated Partial Thromboplast Time 22.9 21.0-31.0 SECONDS Partial Thromboplastin Ratio 0.9 Sodium Level 135 136-145 mmol/L Potassium Level 3.0 3.5-5.1 mmol/L Chloride Level 94 98-107 mmol/L Carbon Dioxide Level 31 21-32 mmol/L Anion Gap 10.0 3-11 mmol/L Blood Urea Nitrogen 13 7-18 mg/dl Creatinine 0.87 0.60-1.20 mg/dl Est Creatinine Clear Calc Drug Dose 56.4 ml/min Estimated GFR () 77.7 Estimated GFR (Non- 67.0 BUN/Creatinine Ratio 14.5 10-20 Random Glucose 159 70-99 mg/dl Calcium Level 9.4 8.5-10.1 mg/dl Bedside Prothrombin Time INR 0.9 0.9-1.1 Diagnostic Radiology No acute findings on head CT Impression Assessment and Plan 70 y/o F Hx HTN, HPL, blastoid, 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 She had undergone chemotherapy with Rituxan and Bendamustine in addition to radiation therapy. She recently developed progressive pain at the same site which has become intractable. She describes a severe R sided headache. She also states that she has had a poor appetite, nausea and one episode of vomiting the previous day. She was prescribed Morphine SR at 60 mg BID by her oncologist and states that this has not been effective. She is light headed and constipated likely due to the medication. The pt will be admitted for pain management and may also commence chemo while in the hospital. 1) Mantle cell lymphoma - facial nerve invasion leading to R palsy with intractable pain. Pt will be evaluated by hematology. Will treat for intractable pain, a degree of dehydration and constipation in interim. Artificial tears provided - may be prudent to tape her R eye shut for time being. Start PRN IV Dilaudid to measure narcotic requirements. Start Gabapentin as pain is likely due to trigeminal invasion. Miralax, Reglan, Colace, Lactulose for constipation - suppository or enema PRN. 2) HTN - HCTZ held - can restart when hydrated or after initial chemo - will sub if needed 3) HPL - cont Statin 4) HypoK on initial labs - will replace - trend AM Full code - Heparin prophylaxis Total time for this admit including review of labs, meds, imaging, records - discussion with pt and ER attending - 38 min Level of Care Med/Surg Resuscitation Status FULL RESUSCITATION VTE Prophylaxis VTE Risk Assessment Done? Y/N: Yes Risk Level: Moderate Given or contraindicated: Unfractionated heparin SQ
[2016-09-05] MEDS ORDERED: BISACODYL 10 MG SUPP PR PRN (16:30)
[2016-09-05] MEDS ORDERED: SOD PHOSPHATE/SOD BIPHOSPHATE ENEMA 132 ML BTL PR PRN (16:30)
[2016-09-05] MEDS: METOCLOPRAMIDE HCL INJ 5 MG/ML 2 ML VIAL IV PRN (16:41)
[2016-09-05] MEDS ORDERED: MORP15TA PO (16:42)
[2016-09-05] MEDS: NSS + 20MEQ KCL 1000ML 1,000 ML IV SCH (17:26)
[2016-09-05] MEDS ORDERED: MAGNESIUM SULFATE 1GM / D5W 1 GM in PREMIXED IN D5W 100 ML IV ONE (17:30)
--- NOTE | 2016-09-05 18:08 | EMERGENCY ROOM VISIT NOTE ---
History Report prepared by Doretha: Cecy Kemp Under the Supervision of: Dr. Yaakov Mancia M.D. First contact with patient: 14:02 Chief Complaint: STROKE SYMPTOMS Stated Complaint: STROKE SYMPTOMS History of Present Illness The patient is a 70 year old female who presents to the Emergency Room with complaints of a facial droop beginning this morning. The patient states that she has mantle cell lymphoma and was in remission until March, but that the cancer is back. The patient reports having surgery for the cancer done 2 years ago and developed the facial droop thereafter which eventually resolved. She reports that her facial droop that began this morning was her third one since March. She has also had a severe headache that began 4 days ago. The patient reports being nauseous and vomiting yesterday and earlier in the week. She denies having a fever and numbness or weakness in her extremities. She reports that she was here 3 nights ago for a headache and had a CT scan done. The patient reports that Dr. Bauman is her cancer doctor and Dr. Norton is her PCP. Source of History: patient Onset: this morning Position: head (face) Quality: other (droop ) Timing: constant Associated Symptoms: + headache (severe ), + nausea, + vomiting, No fevers, No weakness (in extremities ) Review of Systems See HPI for pertinent positives & negatives. A total of 10 systems reviewed and were otherwise negative. Past Medical & Surgical Medical Problems: (1) Gastroesophageal reflux disease (2) History of - hypertension (3) Intractable pain (4) Lymphoma Family History FH: breast cancer FH: colon cancer Social History Smoking Status: Never Smoker Alcohol Use: none Drug Use: none Marital Status: Housing Status: lives with family Occupation Status: retired Current/Historical Medications Scheduled Ascorbic Acid (Vitamin C), 500 MG PO QAM Aspirin (Aspirin Chewable), 81 MG PO QPM Calcium (Calcium), 500 MG PO BID Cholecalciferol (Vitamin D3), 1 TAB PO HS Glucosamine-Chondroitin (Glucosamine & Chondroitin 500-400 mg), 1 CAP PO BID Hydrochlorothiazide (Hctz), 25 MG PO QAM Ibrutinib (Imbruvica), 4 TABS DAILYBB Multiple Vitamin (Multi Vitamin Daily), 1 TAB PO QAM Pantoprazole (Protonix), 40 MG PO DAILY Polyethylene Glycol 3350 (Miralax), 17 GM PO DAILY Probiotic Product (Probiotic), 1 CAP PO DAILY Psyllium (Metamucil), 1 DOSE PO DAILY Raloxifene (Evista), 60 MG PO QPM Senna (Senokot), 1 TAB PO QAM Simvastatin (Simvastatin), 40 MG PO HS Scheduled PRN Acetaminophen/Codeine (Tylenol W/Codeine #3), 1 TAB PO Q4H PRN for Pain Morphine Sulfate Ir (Morphine Sulfate Ir), 15 MG PO Q3H PRN for Pain Allergies Coded Allergies: Propoxyphene (Verified Allergy, Intermediate, RASH, 09/05/16) Lisinopril (Verified Adverse Reaction, Mild, COUGH, 09/05/16) Physical Exam Vital Signs Date Time Temp Pulse Resp B/P (MAP) Pulse Ox O2 Delivery O2 Flow Rate FiO2 09/05/16 15:30 69 18 190/92 100 Nasal Cannula 2.0 09/05/16 15:00 68 16 175/92 96 Nasal Cannula 2.0 09/05/16 14:32 71 18 175/90 95 Room Air 09/05/16 14:06 99 Room Air 09/05/16 14:03 76 09/05/16 14:00 36.9 82 20 185/95 99 Room Air Physical Exam Constitutional: Vital signs reviewed. Eyes: Pupils are equal round reactive to light. Conjunctiva are noninjected. ENT: Pharynx is clear without erythema or exudate. Mucous membranes are moist. Large firm mass to the right neck. Respiratory: Clear to auscultation bilaterally. Breath sounds are equal bilaterally. Cardiovascular: Regular rate and rhythm. No rubs or gallops. GI: Soft, nondistended and nontender. Bowel sounds are present. Musculoskeletal: No peripheral edema. No lower extremity tenderness. Integumentary: No cyanosis. Neurological: The patient is awake and alert. Cranial nerves II-XII are intact , except right facial droop with diminished sensation in right face sparing the forehead. . Motor is 5 out of 5 all extremities. Sensation is intact to light touch all extremities. Normal speech. No pronator drift. Psychiatric: Normal affect. Medical Decision & Procedures ER Provider Diagnostic Interpretation: CT results as stated below per my review and radiologist interpretation. CT HEAD WITHOUT CONTRAST (CT) CLINICAL HISTORY: Stroke COMPARISON STUDY: 09/02/2016 TECHNIQUE: Axial CT of the brain is performed from the vertex to the skull base. IV contrast was not administered for this examination. CT DOSE: 537.48 mGy.cm FINDINGS: No intra or extra-axial mass lesions are visualized. There is no CT evidence of acute cortical infarction. There is no evidence of midline shift. There is no acute hemorrhage. No calvarial fractures are visualized. There are minimal white matter hypodensities likely on a small vessel basis. There is no evidence of pathologic ventricular dilatation. There is no evidence of acute sinusitis IMPRESSION: No acute intracranial findings Electronically signed by: Mohan Boone M.D. 09/05/2016 2:31 PM Dictated Date/Time: 09/05/2016 2:30 PM Laboratory Results 09/05/16 14:15 Red Blood Count 4.44, Mean Corpuscular Volume 95.9, Mean Corpuscular Hemoglobin 33.3, Mean Corpuscular Hemoglobin Concent 34.7, Mean Platelet Volume 11.7, Neutrophils (%) (Auto) 72.5, Lymphocytes (%) (Auto) 15.9, Monocytes (%) (Auto) 9.7, Eosinophils (%) (Auto) 1.0, Basophils (%) (Auto) 0.6, Neutrophils # (Auto) 5.01, Lymphocytes # (Auto) 1.10, Monocytes # (Auto) 0.67, Eosinophils # (Auto) 0.07, Basophils # (Auto) 0.04 09/05/16 14:15 Test 09/05/16 14:15 09/05/16 14:19 White Blood Count 6.91 K/uL (4.8-10.8) Red Blood Count 4.44 M/uL (4.2-5.4) Hemoglobin 14.8 g/dL (12.0-16.0) Hematocrit 42.6 % (37-47) Mean Corpuscular Volume 95.9 fL (80-100) Mean Corpuscular Hemoglobin 33.3 pg (25-34) Mean Corpuscular Hemoglobin Concent 34.7 g/dl (32-36) Platelet Count 174 K/uL (130-400) Mean Platelet Volume 11.7 fL (7.4-10.4) Neutrophils (%) (Auto) 72.5 % Lymphocytes (%) (Auto) 15.9 % Monocytes (%) (Auto) 9.7 % Eosinophils (%) (Auto) 1.0 % Basophils (%) (Auto) 0.6 % Neutrophils # (Auto) 5.01 K/uL (1.4-6.5) Lymphocytes # (Auto) 1.10 K/uL (1.2-3.4) Monocytes # (Auto) 0.67 K/uL (0.11-0.59) Eosinophils # (Auto) 0.07 K/uL (0-0.5) Basophils # (Auto) 0.04 K/uL (0-0.2) RDW Standard Deviation 44.3 fL (36.4-46.3) RDW Coefficient of Variation 12.7 % (11.5-14.5) Immature Granulocyte % (Auto) 0.3 % Immature Granulocyte # (Auto) 0.02 K/uL (0.00-0.02) Prothrombin Time 10.2 SECONDS (9.0-12.0) Prothromb Time International Ratio 1.0 (0.9-1.1) Activated Partial Thromboplast Time 22.9 SECONDS (21.0-31.0) Partial Thromboplastin Ratio 0.9 Anion Gap 10.0 mmol/L (3-11) Est Creatinine Clear Calc Drug Dose 56.4 ml/min Estimated GFR () 77.7 Estimated GFR (Non- 67.0 BUN/Creatinine Ratio 14.5 (10-20) Calcium Level 9.4 mg/dl (8.5-10.1) Bedside Prothrombin Time INR 0.9 (0.9-1.1) Laboratory results as reviewed by me. Medications Administered Medications (Trade) Dose Ordered Sig/Ant Route Start Time Stop Time Status Last Admin Dose Admin Sodium Chloride 1,000 ml @ 50 mls/hr Q20H IV 09/05/16 14:12 09/05/16 17:03 DC 09/05/16 14:46 50 MLS/HR Morphine Sulfate (MoRPHine SULFATE INJ) 4 mg NOW STAT IV 09/05/16 14:12 09/05/16 14:18 DC 09/05/16 14:47 4 MG Ondansetron HCl (Zofran Inj) 4 mg NOW STAT IV 09/05/16 14:12 09/05/16 14:18 DC 09/05/16 14:47 4 MG Hydromorphone HCl (Dilaudid Inj) 2 mg Q3H PRN IV 09/05/16 15:30 09/19/16 15:29 09/05/16 16:15 2 MG ECG Indication: other (neurologic symptoms ) Rate (beats per minute): 68 Rhythm: normal sinus Findings: Q waves, no ectopy ED Course 1400: The patient was evaluated in room B1. A complete history and physical exam was performed. 1412: Ordered Ondansetron HCl 4 mg IV, Morphine Sulfate 4 mg IV, Sodium Chloride 1,000 ml @ 50 mls/hr IV. 1417: Dr Bauman says to get her admitted for pain control and he will start chemotherapy on her. 1445: I discussed her test results and we are still waiting for her pain medications. 1453: I spoke with Dr. Perez. We discussed the patient and her results. The patient will be further evaluated by Dr. Perez. Medical Decision This is a 70-year-old female who presents with facial droop and headache with mantle cell lymphoma. Differential diagnosis includes CVA, TIA, cranial hemorrhage, intracranial mass, metastatic disease, metabolic derangement, tumor invasion into the fascial and trigeminal nerve. I did perform a limited focused review of portions of the patient's old chart on the electronic medical record. The patient was seen here on September 02 for a headache. She had a CT scan of her head done which showed no acute findings. Blood Pressure Screening: Patient was found to have an elevated blood pressure and was referred to their primary doctor for recheck and further treatment. Medication Reconciliation: I attest that I have personally reviewed the patient' s current medication list. I did evaluate the patient as noted above. The patient is presenting with a right facial droop with numbness starting at 7 AM this morning. She states she had similar symptoms in the past after surgery for mantle cell lymphoma. She currently has a recurrence of her mantle cell lymphoma. IV access was established. 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 I did order and personally review the patient's 12-lead EKG and chest x-ray as described above. I did order and review the patient's blood work as noted in the electronic medical record. I did order a CT of the head. I did review the images myself as well as the radiology report as described above. There is no evidence of acute intracranial process. I did treat patient with morphine and Zofran IV. I did discuss case with Dr. Chaves who recommended admitting patient for pain control and initiation of chemotherapy. I did discuss case with the case technician and the hospitalist. I did discuss the test results with the patient and her . Consults Time Called: 1415 Consulting Physician: Dr. Bauman Returned Call: [phone] Dr Bauman says to get her admitted for pain control and he will start chemotherapy on her. Additional Consults: Time Called: 1430 Consulted Physician: Dr. Perez Returned Call: [phone] Additional Comments: I spoke with Dr. Perez. We discussed the patient and her results. The patient will be further evaluated by Dr. Perez. Impression Primary Impression: Mantle cell lymphoma Additional Impressions: Facial droop Right facial numbness Intractable headache Hypokalemia Scribe Attestation The scribe's documentation has been prepared under my direct and personally reviewed by me in its entirety. I confirm that the note above accurately reflects all work, treatment, procedures, and medical decision making performed by me. Departure Information Dispostion Being Evaluated By Hospitalist Referrals Shahzad Norton MD (PCP) Patient Instructions My [facility] Problem Qualifiers Primary Impression: Mantle cell lymphoma Lymphoma site: neck Qualified Codes: C83.11 - Mantle cell lymphoma, lymph nodes of head, face, and neck Additional Impressions: Intractable headache Headache type: unspecified Headache chronicity pattern: acute headache Qualified Codes: R51 - Headache
[2016-09-05] MEDS: POTASSIUM CHLR 10 MEQ / WTR 10 MEQ in PREMIXED WATER 100 ML IV SCH ×2 (18:38→20:00)
[2016-09-05] MEDS: OXYCODONE HCL 40 MG TABCR (OXYCONTIN) PO SCH (19:55)
[2016-09-05] MEDS: ASPIRIN 81 MG ECTAB PO SCH (19:56)
[2016-09-05] MEDS: POLYETHYLENE (MIRALAX) 17 GM PACK PO SCH (19:57)
[2016-09-05] MEDS: HEPARIN SOD 5000 UNIT/0.5 ML CARP SQ SCH (20:00)
[2016-09-05] MEDS ORDERED: ARTIFICIAL TEARS OP SOLN OPR PRN ×2 (20:15)
[2016-09-05] MEDS: HydrALAZINE HCL 20 MG/ML VIAL IV. PRN (20:54)
[2016-09-05] MEDS ORDERED: SIMVASTATIN 40 MG TAB PO SCH (21:00)
[2016-09-05] MEDS: ACETAMINOPHEN 325 MG TAB PO PRN (22:22)
[2016-09-05] MEDS ORDERED: NURSING VERBAL MED ORDER ONE (22:30)
[2016-09-05] MEDS: DILTIAZEM HCL 30 MG TAB PO SCH (22:35)
[2016-09-06] VITALS (11 sets, daily range): BP systolic 106–182; BP diastolic 65–91; PULSE 79–97; TEMP 36.5–37.1; O2SAT 92–99
[2016-09-06] MEDS: ACETAMINOPHEN 325 MG TAB PO PRN (03:42)
[2016-09-06] MEDS: DILTIAZEM HCL 30 MG TAB PO SCH ×4 (04:09→20:52)
[2016-09-06] MEDS: NSS + 20MEQ KCL 1000ML 1,000 ML IV SCH (04:11)
[2016-09-06] MEDS: HEPARIN SOD 5000 UNIT/0.5 ML CARP SQ SCH ×3 (05:43→20:52)
[2016-09-06] MEDS: HydrALAZINE HCL 20 MG/ML VIAL IV. PRN ×3 (05:43→23:54)
[2016-09-06 06:38] LABS: BUN/CREATININE RATIO 14.3 (10-20); CALCIUM 8.3 mg/dl (8.5-10.1); CREATININE 0.67 mg/dl (0.60-1.20); MAGNESIUM 2.5 mg/dl (1.8-2.4); POTASSIUM 3.5 mmol/L (3.5-5.1)
[2016-09-06] MEDS: OXYCODONE HCL 40 MG TABCR (OXYCONTIN) PO SCH (08:09)
[2016-09-06] MEDS: SENNA 8.6 MG TAB PO SCH (08:10)
[2016-09-06] MEDS: PANTOprazole SOD 40 MG TAB PO SCH (08:10)
[2016-09-06] MEDS: HYDROCHLOROTHIAZIDE 25 MG TAB PO SCH (08:10)
[2016-09-06] MEDS: POLYETHYLENE (MIRALAX) 17 GM PACK PO SCH ×2 (08:11→21:05)
[2016-09-06] MEDS: KETOROLAC TROMETHAMINE 15 MG/ML VIAL IV. PRN (08:18)
[2016-09-06] MEDS: METOCLOPRAMIDE HCL INJ 5 MG/ML 2 ML VIAL IV PRN ×2 (08:21→17:27)
--- NOTE | 2016-09-06 09:26 | Oncology Consultation ---
Oncology/Heme Consultation Date of Consultation: Sep 06, 2016. Attending Physician: Amadou Perez M.D. Reason for Consultation: Decline in performance status. 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 History of Present Illness Arlin is a pleasant 70-year-old female patient well-known to [facility] currently under Dr. 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 She had seen Dr. Chaves last on 08/28/2016 and had been on Ibrutinib up until that day. Over the past several days however she has developed progressive pain over the posterior right cervical region into her face. She describes a severe right-sided headache. Unfortunately this is resulted in anorexia, weight loss nausea and one episode of emesis. She was prescribed morphine SR 60 mg by mouth twice a day but unfortunately has not been effective. Arlin also complains of constipation and a minimal urinary stream. She was admitted to the hospitalist service basically for supportive care including pain management. CT scan of the head revealed no evidence of intracranial mass or vascular disease. In summary, Arlin was originally diagnosed in March 2014 with an enlarging right cervical mass. After failing antibiotic therapy and ultrasound performed in May 2014 revealed bilateral cervical lymphadenopathy. FNA revealed B-cell lymphoma that was difficult to further characterize with features of both follicular and mantle cell lymphoma. She underwent right parotidectomy with limited neck dissection in June 2014. The pathology [facility] where the diagnosis of blastoid variant mantle cell lymphoma was established. Arlin has been heavily pretreated with multiple chemotherapy regimens and radiation therapy. In May 2016 she was started on Ibrutinib which resulted in a modest transient response. According to Dr. Marilyn Paniagua's most recent clinical note, plans are underway to offer Arlin VR- CAP. However, in her present condition chemotherapy may prove to be more of a risk than benefit. Past Medical/Surgical History Medical Problems: (1) Acute headache Status: Acute (2) Facial droop Status: Acute (3) Hypokalemia Status: Acute (4) Intractable headache Status: Acute (5) Mantle cell lymphoma Status: Acute (6) Right facial numbness Status: Acute Family History FH: breast cancer FH: colon cancer Social History Smoking Status: Never Smoker Alcohol Use: none Drug Use: none Marital Status: Housing Status: lives with family Occupation Status: retired Allergies Coded Allergies: Propoxyphene (Verified Allergy, Intermediate, RASH, 09/05/16) Lisinopril (Verified Adverse Reaction, Mild, COUGH, 09/05/16) Home Medications Scheduled Ascorbic Acid (Vitamin C), 500 MG PO QAM Aspirin (Aspirin Chewable), 81 MG PO QPM Calcium (Calcium), 500 MG PO BID Cholecalciferol (Vitamin D3), 1 TAB PO HS Glucosamine-Chondroitin (Glucosamine & Chondroitin 500-400 mg), 1 CAP PO BID Hydrochlorothiazide (Hctz), 25 MG PO QAM Ibrutinib (Imbruvica), 4 TABS DAILYBB Multiple Vitamin (Multi Vitamin Daily), 1 TAB PO QAM Pantoprazole (Protonix), 40 MG PO DAILY Polyethylene Glycol 3350 (Miralax), 17 GM PO DAILY Probiotic Product (Probiotic), 1 CAP PO DAILY Psyllium (Metamucil), 1 DOSE PO DAILY Raloxifene (Evista), 60 MG PO QPM Senna (Senokot), 1 TAB PO QAM Simvastatin (Simvastatin), 40 MG PO HS Scheduled PRN Acetaminophen/Codeine (Tylenol W/Codeine #3), 1 TAB PO Q4H PRN for Pain Morphine Sulfate Ir (Morphine Sulfate Ir), 15 MG PO Q3H PRN for Pain Current Inpatient Medications Current Inpatient Medications Medications (Trade) Dose Ordered Sig/Ant Route Start Time Stop Time Status Last Admin Dose Admin Aspirin (Ecotrin Tab) 81 mg QPM PO 09/05/16 21:00 10/05/16 20:59 09/05/16 19:56 81 MG Hydrochlorothiazide (Hydrochlorothiazide Tab) 25 mg QAM PO 09/06/16 08:00 10/06/16 08:59 09/06/16 08:10 25 MG Pantoprazole Sodium (Protonix Tab) 40 mg DAILY PO 09/06/16 08:00 10/06/16 08:59 09/06/16 08:10 40 MG Senna (Senokot Tab) 8.6 mg QAM PO 09/06/16 08:00 10/06/16 08:59 09/06/16 08:10 8.6 MG Simvastatin (Zocor Tab) 40 mg HS PO 09/05/16 21:00 10/05/16 20:59 09/05/16 19:56 40 MG Polyethylene (Miralax Powder Packet) 17 gm DAILY PO 09/06/16 08:00 10/06/16 08:59 09/06/16 08:11 17 GM Heparin Sodium (Porcine) (Heparin Sq 5000 Unit/0.5ml) 5,000 unit Q8 SQ 09/05/16 22:00 10/05/16 21:59 09/05/16 20:00 5,000 UNIT Acetaminophen (Tylenol Tab) 650 mg Q4H PRN PO 09/05/16 15:30 10/05/16 15:29 09/06/16 03:42 650 MG Al Hydrox/Mg Hydrox/Simethicone (Maalox Max Susp) 15 ml Q4H PRN PO 09/05/16 15:30 10/05/16 15:29 Magnesium Hydroxide (Milk Of Magnesia Susp) 30 ml Q6H PRN PO 09/05/16 15:30 10/05/16 15:29 Polyethylene (Miralax Powder Packet) 17 gm DAILY PRN PO 09/05/16 15:30 10/05/16 15:29 Zolpidem Tartrate (Ambien Tab) 5 mg HSZ PRN PO 09/05/16 15:30 10/05/16 15:29 Hydromorphone HCl (Dilaudid Inj) 1 mg Q3H PRN IV 09/05/16 15:30 09/19/16 15:29 Hydromorphone HCl (Dilaudid Inj) 2 mg Q3H PRN IV 09/05/16 15:30 09/19/16 15:29 09/05/16 16:15 2 MG Metoclopramide HCl (Reglan Inj) 10 mg Q6H PRN IV 09/05/16 16:30 10/05/16 16:29 09/06/16 08:21 10 MG Sodium Biphosphate/ Sodium Phosphate (Fleet Enema) 132 ml DAILY PRN CO 09/05/16 16:30 10/05/16 16:29 Polyethylene (Miralax Powder Packet) 17 gm HS PO 09/05/16 21:00 10/05/16 20:59 09/05/16 19:57 17 GM Potassium Chloride/Sodium Chloride 1,000 ml @ 125 mls/hr Q8H IV 09/05/16 18:00 09/06/16 09:59 09/06/16 04:11 125 MLS/HR Bisacodyl (Dulcolax Supp) 10 mg DAILY PRN CO 09/05/16 16:30 10/05/16 16:29 Oxycodone HCl (Oxycontin Tab) 40 mg Q12H PO 09/05/16 20:00 09/19/16 19:59 09/06/16 08:09 40 MG Artificial Tears (Artificial Tears) 2 drops Q2H PRN OPR 09/05/16 20:15 10/05/16 20:14 Hydralazine HCl (HydrALAZINE INJ) 10 mg Q6 PRN IV. 09/05/16 21:00 10/05/16 20:59 09/06/16 05:43 10 MG Ketorolac Tromethamine (Toradol Inj) 15 mg Q6H PRN IV. 09/05/16 22:30 09/10/16 22:29 09/06/16 08:18 15 MG Diltiazem HCl (Cardizem Tab) 30 mg Q6H PO 09/05/16 22:30 10/05/16 22:29 09/06/16 04:09 30 MG Review of Systems Constitutional: + weight loss, + fatigue Eyes: + problem reported (left sided ptosis) ENT: + problem reported (right-sided facial pain, with associated facial droop) Respiratory: No cough, No sputum, No wheezing, No shortness of breath, No dyspnea on exertion, No dyspnea at rest, No hemoptysis, No problem reported Cardiovascular: No chest pain, No orthopnea, No PND, No edema, No claudication , No palpitations, No problem reported Abdomen: + nausea, + constipation Musculoskeletal: No joint pain, No muscle pain, No swelling, No calf pain, No problem reported Genitourinary - Female: + urinary retention Neurologic: + paralysis (facial paralysis) Psychiatric: No depression symptoms, No anhedonism, No anxiety, No insomnia, No substance abuse, No problem reported Endocrine: No fatigue, No excessive thirst, No excessive urination, No problem reported Hematologic / Lymphatic: No abnormal bleeding/bruising, No clotting problems, No swollen lymph nodes, No night sweats, No problem reported Integumentary: No rash, No itch, No new/changing skin lesions, No color change , No bleeding, No problem reported Physical Exam Date Time Temp Pulse Resp B/P (MAP) Pulse Ox O2 Delivery O2 Flow Rate FiO2 09/06/16 07:36 36.9 95 16 177/77 (110) 97 Room Air 09/06/16 05:44 176/84 (114) 09/06/16 04:14 36.5 80 18 181/84 (116) 95 Room Air 09/06/16 00:00 Room Air 09/05/16 23:52 181/84 (116) 09/05/16 22:39 37.0 86 14 193/103 (133) 96 Room Air 09/05/16 22:02 186/83 (117) 09/05/16 20:25 36.9 75 14 183/91 (121) 95 Room Air 09/05/16 17:52 66 176/83 (114) 09/05/16 17:45 36.5 61 12 196/64 (108) 95 Nasal Cannula 2.0 09/05/16 16:56 36.5 61 12 196/64 Nasal Cannula 2.0 09/05/16 16:45 64 16 191/99 95 09/05/16 16:00 67 16 185/93 98 Nasal Cannula 2.0 09/05/16 15:30 69 18 190/92 100 Nasal Cannula 2.0 09/05/16 15:00 68 16 175/92 96 Nasal Cannula 2.0 09/05/16 14:32 71 18 175/90 95 Room Air 09/05/16 14:06 99 Room Air 09/05/16 14:03 76 09/05/16 14:00 36.9 82 20 185/95 99 Room Air Head: normocephalic, atraumatic ENT: normal ENT inspection Neck: + pertinent finding (right posterior cervical mass) Respiratory/Chest: chest non-tender, lungs clear, normal breath sounds Cardiovascular: regular rate, rhythm, no edema, no JVD, no murmur Abdomen/GI: normal bowel sounds, non tender, soft, no organomegaly Extremities/Musculoskelatal: normal inspection, no calf tenderness, no pedal edema Skin: normal color, warm/dry, no rash Lymphatic: + cervical node abnormality Laboratory Results Last 24 Hours Test 09/05/16 14:15 09/05/16 14:19 09/05/16 14:24 09/06/16 05:24 White Blood Count 6.91 K/uL Red Blood Count 4.44 M/uL Hemoglobin 14.8 g/dL Hematocrit 42.6 % Mean Corpuscular Volume 95.9 fL Mean Corpuscular Hemoglobin 33.3 pg Mean Corpuscular Hemoglobin Concent 34.7 g/dl Platelet Count 174 K/uL Mean Platelet Volume 11.7 fL Neutrophils (%) (Auto) 72.5 % Lymphocytes (%) (Auto) 15.9 % Monocytes (%) (Auto) 9.7 % Eosinophils (%) (Auto) 1.0 % Basophils (%) (Auto) 0.6 % Neutrophils # (Auto) 5.01 K/uL Lymphocytes # (Auto) 1.10 K/uL Monocytes # (Auto) 0.67 K/uL Eosinophils # (Auto) 0.07 K/uL Basophils # (Auto) 0.04 K/uL RDW Standard Deviation 44.3 fL RDW Coefficient of Variation 12.7 % Immature Granulocyte % (Auto) 0.3 % Immature Granulocyte # (Auto) 0.02 K/uL Prothrombin Time 10.2 SECONDS Prothromb Time International Ratio 1.0 Activated Partial Thromboplast Time 22.9 SECONDS Partial Thromboplastin Ratio 0.9 Sodium Level 135 mmol/L 133 mmol/L Potassium Level 3.0 mmol/L 3.5 mmol/L Chloride Level 94 mmol/L 97 mmol/L Carbon Dioxide Level 31 mmol/L 30 mmol/L Anion Gap 10.0 mmol/L 6.0 mmol/L Blood Urea Nitrogen 13 mg/dl 10 mg/dl Creatinine 0.87 mg/dl 0.67 mg/dl Est Creatinine Clear Calc Drug Dose 56.4 ml/min 73.2 ml/min Estimated GFR () 77.7 102.5 Estimated GFR (Non- 67.0 88.4 BUN/Creatinine Ratio 14.5 14.3 Random Glucose 159 mg/dl 111 mg/dl Calcium Level 9.4 mg/dl 8.3 mg/dl Bedside Prothrombin Time INR 0.9 Bedside Glucose 150 mg/dl Magnesium Level 2.5 mg/dl Assessment & Plan 1 declining performance status 2. Right-sided facial pain/paralysis 3. Nausea and vomiting 4. Constipation 5. Blastoid variant mantle cell lymphoma. In summary, Arlin's pleasant 70-year-old female patient currently under the care here at the [facility] for recurrent blastoid variant mantle cell lymphoma. Over the past several days his complained of facial pain and inability to eat nausea and vomiting and constipation. She was last in the office on 28 August discussing therapeutic options with Dr. Marilyn Paniagua. Unfortunately, this heavily pretreated patient has not sustained a durable response. Last course of therapy was in the form of Ibrutinib which provided a very modest transient response. Informally discussed the case with Dr. Chaves and he is aware of her admission. Agree with current medical management to provide IV hydration, electrolyte replacement, and adequate pain management. Arlin is concerned because of her inability to eat and had inquired about placing a feeding tube. Dr. Chaves informed me if her performance status improves he plans to administer VR-CAP starting Saturday 09/09. We will continue to periodically follow her during her hospitalization. Thank you for allowing us to participate in her care.
[2016-09-06] MEDS ORDERED: SODIUM CHLORIDE 0.9% 1000ML 1,000 ML IV SCH (11:52)
[2016-09-06] MEDS ORDERED: BISACODYL 10 MG SUPP PR STA (11:52)
[2016-09-06] MEDS ORDERED: NALOXONE HCL 0.4 MG/1 ML VIAL/CARP IV PRN (12:00)
[2016-09-06] MEDS ORDERED: HYDROmorphone HCL 0.5MG/ML 50 ML CASSETTE IV PRN (12:00)
--- NOTE | 2016-09-06 13:50 | Progress Note ---
Subjective Date of Service: Sep 06, 2016. Subjective this pt is in significant pain , she had questions regarding nutrition and mentioned that Dr Bauman wanted her nutrition to improved as he was considering chemotherapy for her next week and due to her facial pain she had not been eating, we discussed a nasogastric feeding tube, she prefers to have augmented oral nutrition even with ensure boost etc and improved pain control to see if this helps her eat Problem List Medical Problems: (1) Acute headache Status: Acute (2) Facial droop Status: Acute (3) Hypokalemia Status: Acute (4) Intractable headache Status: Acute (5) Mantle cell lymphoma Status: Acute (6) Right facial numbness Status: Acute Review of Systems Constitutional: + weakness, + problem reported (haedache and right facial pain) , No fever, No chills Respiratory: No cough, No sputum, No shortness of breath Cardiac: No chest pain, No orthopnea, No PND, No edema Abdomen: No pain, No nausea, No vomiting, No diarrhea Female : No dysuria, No urinary frequency Neurologic: + weakness, + numbness/tingling, No memory loss, No paralysis Objective Vital Signs Date Time Temp Pulse Resp B/P (MAP) Pulse Ox O2 Delivery O2 Flow Rate FiO2 09/06/16 07:36 36.9 95 16 177/77 (110) 97 Room Air 09/06/16 05:44 176/84 (114) 09/06/16 04:14 36.5 80 18 181/84 (116) 95 Room Air 09/06/16 00:00 Room Air 09/05/16 23:52 181/84 (116) 09/05/16 22:39 37.0 86 14 193/103 (133) 96 Room Air 09/05/16 22:02 186/83 (117) 09/05/16 20:25 36.9 75 14 183/91 (121) 95 Room Air 09/05/16 17:52 66 176/83 (114) 09/05/16 17:45 36.5 61 12 196/64 (108) 95 Nasal Cannula 2.0 09/05/16 16:56 36.5 61 12 196/64 Nasal Cannula 2.0 09/05/16 16:45 64 16 191/99 95 09/05/16 16:00 67 16 185/93 98 Nasal Cannula 2.0 09/05/16 15:30 69 18 190/92 100 Nasal Cannula 2.0 09/05/16 15:00 68 16 175/92 96 Nasal Cannula 2.0 09/05/16 14:32 71 18 175/90 95 Room Air 09/05/16 14:06 99 Room Air 09/05/16 14:03 76 09/05/16 14:00 36.9 82 20 185/95 99 Room Air Physical Exam General Appearance: WD/WN, + moderate distress Eyes: + pertinent finding (rigth facial droop and lid closure issues) Respiratory/Chest: chest non-tender, lungs clear, normal breath sounds Cardiovascular: regular rate, rhythm, no murmur Abdomen: normal bowel sounds, non tender, soft Extremities: no pedal edema, no calf tenderness Laboratory Results Last 24 Hours Test 09/05/16 14:15 09/05/16 14:19 09/05/16 14:24 09/06/16 05:24 White Blood Count 6.91 K/uL Red Blood Count 4.44 M/uL Hemoglobin 14.8 g/dL Hematocrit 42.6 % Mean Corpuscular Volume 95.9 fL Mean Corpuscular Hemoglobin 33.3 pg Mean Corpuscular Hemoglobin Concent 34.7 g/dl Platelet Count 174 K/uL Mean Platelet Volume 11.7 fL Neutrophils (%) (Auto) 72.5 % Lymphocytes (%) (Auto) 15.9 % Monocytes (%) (Auto) 9.7 % Eosinophils (%) (Auto) 1.0 % Basophils (%) (Auto) 0.6 % Neutrophils # (Auto) 5.01 K/uL Lymphocytes # (Auto) 1.10 K/uL Monocytes # (Auto) 0.67 K/uL Eosinophils # (Auto) 0.07 K/uL Basophils # (Auto) 0.04 K/uL RDW Standard Deviation 44.3 fL RDW Coefficient of Variation 12.7 % Immature Granulocyte % (Auto) 0.3 % Immature Granulocyte # (Auto) 0.02 K/uL Prothrombin Time 10.2 SECONDS Prothromb Time International Ratio 1.0 Activated Partial Thromboplast Time 22.9 SECONDS Partial Thromboplastin Ratio 0.9 Sodium Level 135 mmol/L 133 mmol/L Potassium Level 3.0 mmol/L 3.5 mmol/L Chloride Level 94 mmol/L 97 mmol/L Carbon Dioxide Level 31 mmol/L 30 mmol/L Anion Gap 10.0 mmol/L 6.0 mmol/L Blood Urea Nitrogen 13 mg/dl 10 mg/dl Creatinine 0.87 mg/dl 0.67 mg/dl Est Creatinine Clear Calc Drug Dose 56.4 ml/min 73.2 ml/min Estimated GFR () 77.7 102.5 Estimated GFR (Non- 67.0 88.4 BUN/Creatinine Ratio 14.5 14.3 Random Glucose 159 mg/dl 111 mg/dl Calcium Level 9.4 mg/dl 8.3 mg/dl Bedside Prothrombin Time INR 0.9 Bedside Glucose 150 mg/dl Magnesium Level 2.5 mg/dl Assessment and Plan 70 y/o F with intractable head and facial pain at site of previous resection of tumor, failing out patient management, severe constipation from pain meds Hx HTN, HPL, blastoid, 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 She had undergone chemotherapy with Rituxan and Bendamustine in addition to radiation therapy.. Mantle cell lymphoma - facial nerve invasion leading to R palsy with intractable pain. PRN IV Dilaudid to measure narcotic requirements. Gabapentin as pain is likely due to trigeminal invasion. 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 HTN - HCTZ held - follow prn meds if needed Full code - Heparin prophylaxis
[2016-09-06] MEDS: GABAPENTIN 300 MG CAP PO SCH ×2 (14:39→21:05)
[2016-09-06] MEDS: DEXAMETHASONE INJ 4 MG in SYRINGE 0 ML IV SCH ×2 (14:52→20:52)
[2016-09-06] MEDS: SODIUM CHLORIDE 0.9% 1000ML 1,000 ML IV SCH (17:22)
[2016-09-06] MEDS: BOOST PLUS VANILLA PO SCH ×2 (17:22)
[2016-09-06] MEDS ORDERED: NURSING VERBAL MED ORDER ONE ×3 (19:00→19:15)
[2016-09-06] MEDS ORDERED: MoRPHine SULFATE 2 MG/ML CARP IV PRN (19:15)
[2016-09-06] MEDS ORDERED: MoRPHine SULFATE 4 MG/ML 1 ML CARP\\VIAL IV PRN ×2 (19:15)
[2016-09-06] MEDS ORDERED: DOCUSATE SODIUM/SENNA 50/8.6MG TAB PO SCH (20:00)
[2016-09-06] MEDS: CARBAMAZEPINE 100 MG TABCR PO SCH (21:06)
[2016-09-06] MEDS: ASPIRIN 81 MG ECTAB PO SCH (21:06)
[2016-09-07] VITALS (8 sets, daily range): BP systolic 157–192; BP diastolic 77–93; PULSE 83–101; TEMP 36.6–37.2; O2SAT 92–96
[2016-09-07] MEDS: METOCLOPRAMIDE HCL INJ 5 MG/ML 2 ML VIAL IV PRN (00:53)
[2016-09-07] MEDS: SODIUM CHLORIDE 0.9% 1000ML 1,000 ML IV SCH ×3 (00:54→20:17)
[2016-09-07] MEDS: KETOROLAC TROMETHAMINE 15 MG/ML VIAL IV. PRN ×2 (01:37→08:16)
[2016-09-07] MEDS ORDERED: OXYCODONE HCL IR 5 MG TAB (IMMEDIATE RELEASE) PO STA (01:46)
[2016-09-07] MEDS ORDERED: ONDANSETRON INJ 2 MG/ML 2 ML VIAL IV STA (01:46)
[2016-09-07] MEDS ORDERED: ONDANSETRON INJ 2 MG/ML 2 ML VIAL IV PRN (02:00)
[2016-09-07] MEDS: DILTIAZEM HCL 30 MG TAB PO SCH ×4 (03:59→22:05)
[2016-09-07] MEDS: ACETAMINOPHEN 325 MG TAB PO PRN (03:59)
[2016-09-07] MEDS: HEPARIN SOD 5000 UNIT/0.5 ML CARP SQ SCH ×3 (06:00→20:21)
[2016-09-07] MEDS: DEXAMETHASONE INJ 4 MG in SYRINGE 0 ML IV SCH ×3 (06:03→22:05)
[2016-09-07] MEDS: CARBAMAZEPINE 100 MG TABCR PO SCH ×2 (07:58→20:18)
[2016-09-07] MEDS: GABAPENTIN 300 MG CAP PO SCH ×3 (07:58→20:16)
[2016-09-07] MEDS: HYDROCHLOROTHIAZIDE 25 MG TAB PO SCH (07:58)
[2016-09-07] MEDS: POLYETHYLENE (MIRALAX) 17 GM PACK PO SCH ×2 (08:00→20:22)
[2016-09-07] MEDS: SENNA 8.6 MG TAB PO SCH (08:00)
[2016-09-07] MEDS: HydrALAZINE HCL 20 MG/ML VIAL IV. PRN (08:15)
[2016-09-07] MEDS: PANTOprazole SOD 40 MG TAB PO SCH (08:15)
[2016-09-07] MEDS: BOOST PLUS VANILLA PO SCH ×6 (08:16→17:00)
[2016-09-07] MEDS ORDERED: LORAZEPAM 2 MG/ML 1 ML VIAL ONE (09:09)
[2016-09-07] MEDS ORDERED: LORAZEPAM INJ 0.5 MG in SYRINGE 0.75 ML IV ONE (09:15)
[2016-09-07] MEDS ORDERED: NURSING VERBAL MED ORDER ONE (09:15)
[2016-09-07] MEDS ORDERED: LORAZEPAM 2 MG/ML 1 ML VIAL IV PRN ×2 (13:00)
[2016-09-07] MEDS ORDERED: LORAZEPAM 0.5 MG TAB PO PRN (13:00)
--- NOTE | 2016-09-07 13:07 | Progress Note ---
Subjective Date of Service: Sep 07, 2016. Subjective this pt had a difficult night and she required Ativan which had left her sleepy during my visit, her is at the bedside and was updated Problem List Medical Problems: (1) Acute headache Status: Acute (2) Facial droop Status: Acute (3) Hypokalemia Status: Acute (4) Intractable headache Status: Acute (5) Mantle cell lymphoma Status: Acute (6) Right facial numbness Status: Acute Review of Systems Constitutional: No fever, No chills Eyes: + eye pain, + problem reported (facial pain) Respiratory: No cough, No shortness of breath, No dyspnea on exertion Abdomen: + nausea, + vomiting, No pain, No diarrhea Psychiatric: + depression symptoms, + anxiety Objective Vital Signs Date Time Temp Pulse Resp B/P (MAP) Pulse Ox O2 Delivery O2 Flow Rate FiO2 09/07/16 07:22 37.0 84 16 176/77 (110) 94 Room Air 09/07/16 03:54 36.7 96 18 186/79 (114) 92 Room Air 09/07/16 01:35 183/79 (113) 09/07/16 00:00 Room Air 09/06/16 23:27 36.9 93 18 179/82 (114) 93 Room Air 09/06/16 22:44 88 162/80 (107) 09/06/16 19:45 36.9 97 18 179/91 (120) 99 Room Air 09/06/16 16:12 92 Room Air 09/06/16 16:07 36.6 79 18 177/74 (108) 92 Room Air 09/06/16 12:48 93 161/73 (102) 09/06/16 11:53 37.1 92 16 182/91 (121) 93 Room Air 09/06/16 09:56 90 164/78 (106) 09/06/16 08:30 Room Air Physical Exam General Appearance: WD/WN, + moderate distress Neck: supple, no JVD Respiratory/Chest: chest non-tender, lungs clear, normal breath sounds Cardiovascular: regular rate, rhythm, + JVD Abdomen: normal bowel sounds, non tender, soft Neurologic/Psychiatric: alert Assessment and Plan 70 y/o F with intractable head and facial pain at site of previous resection of tumor, failing out patient management, severe constipation from pain meds Hx HTN, HPL, blastoid, 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 She had undergone chemotherapy with Rituxan and Bendamustine in addition to radiation therapy.. Mantle cell lymphoma - facial nerve invasion leading to R palsy with intractable pain. did not tolerate diluadid, change back to morphine, will try tegretol and Gabapentin as pain is likely due to trigeminal invasion will treat like trigeminal neuralgia. intractable headache, conitnue prn morphine and steroids, consider pain consult Severe constipation Miralax, Reglan, Colace, Lactulose for constipation - suppository PRN without help eye mel paralysis, concern for dry cornea, supply eye drops and facial mask HTN - HCTZ held - follow prn meds if needed Full code - Heparin prophylaxis
[2016-09-07] MEDS ORDERED: LORAZEPAM INJ 1 MG in SYRINGE 0.5 ML IV PRN (13:15)
[2016-09-07] MEDS ORDERED: LORAZEPAM INJ 0.5 MG in SYRINGE 0.75 ML IV PRN (13:15)
[2016-09-07] MEDS: ASPIRIN 81 MG ECTAB PO SCH (20:17)
[2016-09-08 03:48] VITALS: BP 179/90; PULSE 85; TEMP 36.9; O2SAT 93
[2016-09-08] MEDS: DEXAMETHASONE INJ 4 MG in SYRINGE 0 ML IV SCH ×3 (05:06→21:59)
[2016-09-08] MEDS: DILTIAZEM HCL 30 MG TAB PO SCH (05:06)
[2016-09-08] MEDS: HEPARIN SOD 5000 UNIT/0.5 ML CARP SQ SCH ×3 (05:07→20:41)
[2016-09-08 06:52] LABS: HEMATOCRIT 39.5 % (37-47); MEAN CELL VOLUME 96.3 fL (80-100); MEAN CORPUSCULAR HGB CONC 33.2 g/dl (32-36); MEAN PLATELET VOLUME 11.2 fL (7.4-10.4); PLATELET COUNT 216 K/uL (130-400)
[2016-09-08 07:16] VITALS: BP 161/81; PULSE 87; TEMP 37.1; O2SAT 94
[2016-09-08] MEDS: POLYETHYLENE (MIRALAX) 17 GM PACK PO SCH ×2 (08:00→20:34)
[2016-09-08] MEDS: SODIUM CHLORIDE 0.9% 1000ML 1,000 ML IV SCH ×3 (08:12→19:54)
[2016-09-08] MEDS: BOOST PLUS VANILLA PO SCH ×6 (08:13→16:41)
[2016-09-08] MEDS: GABAPENTIN 300 MG CAP PO SCH ×3 (08:13→20:35)
[2016-09-08] MEDS: CARBAMAZEPINE 100 MG TABCR PO SCH ×2 (08:13→20:34)
[2016-09-08] MEDS: HYDROCHLOROTHIAZIDE 25 MG TAB PO SCH (08:14)
[2016-09-08] MEDS: PANTOprazole SOD 40 MG TAB PO SCH (08:14)
[2016-09-08] MEDS: SENNA 8.6 MG TAB PO SCH (08:14)
[2016-09-08] MEDS: VERAPAMIL HCL 180 MG TABCR PO SCH (11:09)
[2016-09-08 11:26] VITALS: BP 159/80; PULSE 85; TEMP 36.9; O2SAT 93
--- NOTE | 2016-09-08 12:17 | Progress Note ---
Subjective Date of Service: Sep 08, 2016. Subjective pt had a good night, facial pain and headache are better, nausea resolving and pt is eating more Problem List Medical Problems: (1) Acute headache Status: Acute (2) Facial droop Status: Acute (3) Hypokalemia Status: Acute (4) Intractable headache Status: Acute (5) Mantle cell lymphoma Status: Acute (6) Right facial numbness Status: Acute Review of Systems Constitutional: + weakness, No fever, No chills Eyes: + problem reported (excess tears right eye) Cardiac: + chest pain, + edema Abdomen: + pain, + nausea, + vomiting, + diarrhea Musculoskeletal: + muscle pain, No joint pain Neurologic: + paralysis (rigth face), No memory loss Objective Vital Signs Date Time Temp Pulse Resp B/P (MAP) Pulse Ox O2 Delivery O2 Flow Rate FiO2 09/08/16 11:26 36.9 85 18 159/80 (106) 93 Room Air 09/08/16 08:00 Room Air 09/08/16 07:16 37.1 87 16 161/81 (107) 94 Room Air 09/08/16 03:48 36.9 85 20 179/90 (119) 93 Room Air 09/08/16 00:00 Room Air 09/07/16 23:18 36.8 98 20 177/82 (113) 93 Room Air 09/07/16 19:19 36.9 18 157/91 (113) 95 Room Air 09/07/16 16:15 83 170/83 (112) 09/07/16 16:00 Room Air 09/07/16 15:09 37.2 100 20 192/93 (126) 95 Room Air Physical Exam General Appearance: WD/WN, + mild distress Eyes: PERRL, EOMI, + pertinent finding (cannot approximate right lids of eye requiring wetting and patching at times) Neck: supple, thyroid normal Respiratory/Chest: chest non-tender, lungs clear, no respiratory distress Cardiovascular: regular rate, rhythm, no murmur Laboratory Results Last 24 Hours Test 09/08/16 06:14 White Blood Count 9.50 K/uL Red Blood Count 4.10 M/uL Hemoglobin 13.1 g/dL Hematocrit 39.5 % Mean Corpuscular Volume 96.3 fL Mean Corpuscular Hemoglobin 32.0 pg Mean Corpuscular Hemoglobin Concent 33.2 g/dl RDW Standard Deviation 44.9 fL RDW Coefficient of Variation 13.0 % Platelet Count 216 K/uL Mean Platelet Volume 11.2 fL Assessment and Plan 70 y/o F with intractable head and facial pain at site of previous resection of tumor, failing out patient management, severe constipation from pain meds Hx HTN, HPL, blastoid, 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 She had undergone chemotherapy with Rituxan and Bendamustine in addition to radiation therapy.. Mantle cell lymphoma - facial nerve invasion leading to R palsy with intractable pain. did not tolerate diluadid, controlled with morphine, facial pain improved with tegretol and Gabapentin as thought maybe similar to trigeminal neuralgia. intractable headache, better now /10 conitnue prn morphine and steroids, consider pain consult Severe constipation climnically improved, Miralax, Reglan, Colace, Lactulose for constipation - suppository PRN eye mel paralysis, concern for dry cornea, supply eye drops and facial mask HTN - HCTZ held - follow prn meds if needed Full code - Heparin prophylaxis
[2016-09-08 15:39] VITALS: BP 147/75; PULSE 81; TEMP 36.8; O2SAT 95
[2016-09-08 19:19] VITALS: BP 159/80; PULSE 78; TEMP 36.9; O2SAT 95
[2016-09-08] MEDS: ASPIRIN 81 MG ECTAB PO SCH (20:36)
[2016-09-08 23:03] VITALS: BP 163/78; PULSE 71; TEMP 37; O2SAT 94
[2016-09-09] VITALS (7 sets, daily range): BP systolic 160–174; BP diastolic 76–88; PULSE 62–84; TEMP 36.7–37; O2SAT 93–96
[2016-09-09] MEDS: DEXAMETHASONE INJ 4 MG in SYRINGE 0 ML IV SCH ×3 (05:47→20:38)
[2016-09-09] MEDS: HEPARIN SOD 5000 UNIT/0.5 ML CARP SQ SCH ×3 (05:47→20:40)
[2016-09-09] MEDS: BOOST PLUS VANILLA PO SCH ×6 (08:00→17:00)
[2016-09-09] MEDS: GABAPENTIN 300 MG CAP PO SCH ×3 (08:18→20:38)
[2016-09-09] MEDS: CARBAMAZEPINE 100 MG TABCR PO SCH ×2 (08:18→20:38)
[2016-09-09] MEDS: PANTOprazole SOD 40 MG TAB PO SCH (08:18)
[2016-09-09] MEDS: HYDROCHLOROTHIAZIDE 25 MG TAB PO SCH (08:18)
[2016-09-09] MEDS: SENNA 8.6 MG TAB PO SCH (08:18)
[2016-09-09] MEDS: VERAPAMIL HCL 180 MG TABCR PO SCH (08:19)
[2016-09-09] MEDS: SODIUM CHLORIDE 0.9% 1000ML 1,000 ML IV SCH (08:19)
[2016-09-09] MEDS: POLYETHYLENE (MIRALAX) 17 GM PACK PO SCH ×2 (08:20→20:37)
--- NOTE | 2016-09-09 11:14 | Hematology/Oncology Prog Note ---
Hematology/Onc Progress Note Date of Service Sep 09, 2016. Diagnoses Blastoid variant of mantle cell lymphoma Medications Medications Administered Medications (Trade) Dose Ordered Sig/Ant Route Start Time Stop Time Status Last Admin Dose Admin Sodium Chloride 1,000 ml @ 50 mls/hr Q20H IV 09/05/16 14:12 09/05/16 17:03 DC 09/05/16 14:46 50 MLS/HR Morphine Sulfate (MoRPHine SULFATE INJ) 4 mg NOW STAT IV 09/05/16 14:12 09/05/16 14:18 DC 09/05/16 14:47 4 MG Ondansetron HCl (Zofran Inj) 4 mg NOW STAT IV 09/05/16 14:12 09/05/16 14:18 DC 09/05/16 14:47 4 MG Aspirin (Ecotrin Tab) 81 mg QPM PO 09/05/16 21:00 10/05/16 20:59 09/08/16 20:36 81 MG Hydrochlorothiazide (Hydrochlorothiazide Tab) 25 mg QAM PO 09/06/16 08:00 10/06/16 08:59 09/09/16 08:18 25 MG Pantoprazole Sodium (Protonix Tab) 40 mg DAILY PO 09/06/16 08:00 10/06/16 08:59 09/09/16 08:18 40 MG Senna (Senokot Tab) 8.6 mg QAM PO 09/06/16 08:00 10/06/16 08:59 09/09/16 08:18 8.6 MG Simvastatin (Zocor Tab) 40 mg HS PO 09/05/16 21:00 09/06/16 13:54 DC 09/05/16 19:56 40 MG Polyethylene (Miralax Powder Packet) 17 gm DAILY PO 09/06/16 08:00 10/06/16 08:59 09/09/16 08:20 17 GM Heparin Sodium (Porcine) (Heparin Sq 5000 Unit/0.5ml) 5,000 unit Q8 SQ 09/05/16 22:00 10/05/16 21:59 09/08/16 20:41 5,000 UNIT Acetaminophen (Tylenol Tab) 650 mg Q4H PRN PO 09/05/16 15:30 10/05/16 15:29 09/07/16 03:59 650 MG Al Hydrox/Mg Hydrox/Simethicone (Maalox Max Susp) 15 ml Q4H PRN PO 09/05/16 15:30 10/05/16 15:29 09/07/16 01:37 15 ML Hydromorphone HCl (Dilaudid Inj) 2 mg Q3H PRN IV 09/05/16 15:30 09/06/16 13:54 DC 09/05/16 16:15 2 MG Metoclopramide HCl (Reglan Inj) 10 mg Q6H PRN IV 09/05/16 16:30 10/05/16 16:29 09/07/16 00:53 10 MG Polyethylene (Miralax Powder Packet) 17 gm HS PO 09/05/16 21:00 10/05/16 20:59 09/08/16 20:34 17 GM Potassium Chloride 10 meq/ Prmx 100 ml @ 100 mls/hr Q1H IV 09/05/16 18:30 09/05/16 20:29 DC 09/05/16 20:00 100 MLS/HR Magnesium Sulfate 1 gm/Prmx 100 ml @ 100 mls/hr 1730 ONCE IV 09/05/16 17:30 09/05/16 18:29 DC 09/05/16 17:29 100 MLS/HR Potassium Chloride/Sodium Chloride 1,000 ml @ 125 mls/hr Q8H IV 09/05/16 18:00 09/06/16 09:59 DC 09/06/16 04:11 125 MLS/HR Bisacodyl (Dulcolax Supp) 10 mg DAILY PRN MI 09/05/16 16:30 10/05/16 16:29 09/06/16 12:02 10 MG Oxycodone HCl (Oxycontin Tab) 40 mg Q12H PO 09/05/16 20:00 09/19/16 19:59 Future Hold 09/06/16 08:09 40 MG Artificial Tears (Artificial Tears) 2 drops Q2H PRN OPR 09/05/16 20:15 10/05/16 20:14 09/06/16 09:30 2 DROPS Hydralazine HCl (HydrALAZINE INJ) 10 mg Q6 PRN IV. 09/05/16 21:00 10/05/16 20:59 09/07/16 08:15 10 MG Ketorolac Tromethamine (Toradol Inj) 15 mg Q6H PRN IV. 09/05/16 22:30 09/10/16 22:29 09/07/16 08:16 15 MG Diltiazem HCl (Cardizem Tab) 30 mg Q6H PO 09/05/16 22:30 09/08/16 07:42 DC 09/08/16 05:06 30 MG Hydromorphone HCl (Dilaudid [employer]) 25 mg PRN PRN IV 09/06/16 12:00 09/06/16 19:04 DC 09/06/16 12:43 25 MG Sodium Chloride 1,000 ml @ 15 mls/hr Q24H IV 09/06/16 11:52 09/06/16 19:05 DC 09/06/16 12:47 15 MLS/HR Gabapentin (Neurontin Cap) 300 mg TID PO 09/06/16 14:00 10/06/16 13:59 09/09/16 08:18 300 MG Dexamethasone Sodium Phosphate 4 mg/Syringe 1 ml @ 1 mls/min Q8H IV 09/06/16 14:00 10/06/16 13:59 09/09/16 05:47 1 MLS/MIN Carbamazepine (Tegretol-Xr) 100 mg BID PO 09/06/16 20:00 10/06/16 19:59 09/09/16 08:18 100 MG Enteral Nutritional Formula (Boost Plus Vanilla) 1 can TIDM PO 09/06/16 17:00 10/06/16 16:59 09/08/16 16:41 1 CAN Sodium Chloride 1,000 ml @ 80 mls/hr [id number] IV 09/06/16 15:30 10/06/16 15:29 09/09/16 08:19 80 MLS/HR Morphine Sulfate (MoRPHine SULFATE INJ) 2 mg Q4H PRN IV 09/06/16 19:15 09/20/16 19:14 09/06/16 21:07 2 MG Morphine Sulfate (MoRPHine SULFATE INJ) 4 mg Q4H PRN IV 09/06/16 19:15 09/20/16 19:14 09/06/16 23:55 4 MG Ondansetron HCl (Zofran Inj) 4 mg NOW STAT IV 09/07/16 01:46 09/07/16 01:58 DC 09/07/16 02:05 4 MG Ondansetron HCl (Zofran Inj) 4 mg Q4H PRN IV 09/07/16 02:00 10/07/16 01:59 09/07/16 08:15 4 MG Oxycodone HCl (Roxicodone Immediate Rel Tab) 10 mg NOW STAT PO 09/07/16 01:46 09/07/16 01:58 DC 09/07/16 02:06 10 MG Lorazepam (Ativan Inj) 2 mg STK-MED ONCE .ROUTE 09/07/16 09:09 09/07/16 09:10 DC 09/07/16 09:13 0.5 MG Verapamil HCl (Calan-Sr Tab) 180 mg QAM PO 09/08/16 08:00 10/08/16 07:59 09/09/16 08:19 180 MG Subjective She continues to have swelling and pain involving posterior aspect of the parotid area with a large fixed mass in this area Review of Systems: Constitutional: Negative for weight loss, night sweats, or fever Eyes: Negative for event change of vision ENT: She has a large fixed mass in the right parotid posterior to the parotid area with swelling. The right eye is currently covered with a patch Cardiovascular: Negative for chest pain, palpitations, dizziness, diaphoresis Respiratory: Negative for new shortness of breath,hemoptysis, or purulent cough Gastrointestinal: Negative for diarrhea, hematemesis, melena, nausea, vomiting , or dyspepsia Integumentary (skin): Negative for rash or jaundice discoloration Genitourinary: Negative for urinary frequency, hematuria, or dysuria Neurological: Negative for weakness, seizure activity, headache, or dizziness Lymphatic/Hematologic: Negative for petechiae, bleeding or new adenopathy Musculoskeletal: Negative for new joint or back pain Allergic/Immunologic: Negative for unusual rash or pruritis. Vital Signs Vital Signs Past 12 Hours Date Time Temp Pulse Resp B/P (MAP) Pulse Ox O2 Delivery O2 Flow Rate FiO2 09/09/16 07:48 36.8 84 16 174/84 (114) 96 Room Air 09/09/16 03:51 36.8 75 18 168/88 (114) 93 Room Air 09/09/16 00:00 Room Air Physical Exam Constitutional: vitals are stable. Eyes:. The left eye is tearing . The right eye is currently covered with a patched ENT: External examination was negative for masses. Neck: large fixed mass high in the cervical area that extends posteriorly behind the parotid Respiratory: Lung sounds were generally clear bilaterally Cardiovascular: Heart was RRR without significant murmur, gallops aoe rubs Gastrointestinal: No palpable hepatic or splenomegaly. The abdomen was soft with normal bowel sounds. Lymphatic system: there was no palpable peripheral lymphadenopathy Musculoskeletal System: The musculoskeletal system seemed concordant with age. Skin: The skin was negative for jaundice. Neurologic exam: The exam was negative for any focal findings. Deep tendon reflexes were equal and symmetrical. Psychiatric exam: Was essentially negative with normal mood and effect. 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 This progressed within treatment time with imbruvica. I did review the areas that were radiated in the past and this might be an area that could be irradiated. It does appear to be outside of the original area that was irradiated in October of last year. She is on steroids. I will ask for radiation therapy consultation. Regards systemic therapy I will review her records with Dr. Chaves that we might be able to deliver Rituxan or another monoclonal) either in the hospital shortly after discharge along with radiation therapy
[2016-09-09] MEDS: ACETAMINOPHEN 325 MG TAB PO PRN (11:53)
[2016-09-09] MEDS ORDERED: METOPROLOL TARTRATE 25 MG TAB PO STA (13:58)
[2016-09-09] MEDS ORDERED: SENNA 8.6 MG TAB PO ONE (15:30)
[2016-09-09] MEDS: PSYLLIUM 58.6% PWD PACK S\\F PO SCH (16:01)
--- NOTE | 2016-09-09 17:31 | Progress Note ---
Subjective Date of Service: Sep 09, 2016. Subjective Pt evaluation today including: conversation w/ patient, physical exam, chart review, lab review, review of inpatient medication list Pain: markedly improved on right face/neck PO Intake: improved Voiding: no voiding problems feels overall much better pain on face much improved still with elevated BPs anxious to get home seen by radiation oncology - plan is for outpatient radiation treatment to the right neck mass no bowel movement in 2-3 days Problem List Medical Problems: (1) Acute headache Status: Acute (2) Facial droop Status: Acute (3) Hypokalemia Status: Acute (4) Intractable headache Status: Acute (5) Mantle cell lymphoma Status: Acute (6) Right facial numbness Status: Acute Review of Systems Constitutional: No fever Respiratory: No shortness of breath, No dyspnea on exertion Cardiac: No chest pain, No orthopnea Abdomen: No pain Objective Vital Signs Date Time Temp Pulse Resp B/P (MAP) Pulse Ox O2 Delivery O2 Flow Rate FiO2 09/09/16 15:15 36.8 70 20 169/82 (111) 96 Room Air 09/09/16 11:39 36.7 77 16 160/80 (106) 95 09/09/16 08:30 Room Air 09/09/16 07:48 36.8 84 16 174/84 (114) 96 Room Air 09/09/16 03:51 36.8 75 18 168/88 (114) 93 Room Air 09/09/16 00:00 Room Air 09/08/16 23:03 37.0 71 18 163/78 (106) 94 Room Air 09/08/16 19:19 36.9 78 20 159/80 (106) 95 Room Air Physical Exam General Appearance: no apparent distress ENT: pharynx normal Neck: no JVD, + pertinent finding (mass, angle of jaw and inferior to such - very large in size) Respiratory/Chest: lungs clear, no respiratory distress, no accessory muscle use Cardiovascular: regular rate, rhythm, no gallop, no murmur Abdomen: normal bowel sounds, non tender, soft, no organomegaly Extremities: no pedal edema Neurologic/Psychiatric: alert, oriented x 3, + facial droop (right face - [place] Palsy) Assessment and Plan 70yo female - 1. facial pain/headache on right - improved. wean steroids to q12h. pain meds prn. cont gabapentin & tegretol if this was nerve pain in etiology. 2. mantel cell lymphoma - to have outpatient radiation oncology soon. Dr. Carnes and Dr. Chaves to discuss whether to initiate additional chemotherapy. 3. hypokalemia - recheck BMP in am. 4. hyponatremia - recheck BMP in am. 5. constipation - give additional senna this afternoon along with metamucil. Cont miralax. May need dulcolax suppos or enema if not improving. 6. FEN - d/c fluids. 7. HTN - likely exacerbated by the decadron. Already on HCTZ and verapamil. Metoprolol 25mg po x 1 and reassess. 8. DVT proph - heparin TID. Anticipate d/c in am. Continued [facility] stay due to: inadequate oral pain control Discharge planning: home
--- NOTE | 2016-09-09 17:57 | Medical Student: [facility] ---
Med Student Progress Note Date of Service Sep 09, 2016. Subjective Pt evaluation today including: conversation w/ patient Mrs. 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 In March 2016, she had recurrence of her mantel cell lymphoma and PET CT showed FDG avidity. She was then started on Ibrutinib for 3 months and just stopped that chemotherapy on August 28. She started to developed severe right sided CHERRY on August on September 03 she came to the ER where she was treated with morphine and antiemetics. She then returned on 09/05 for worsening CHERRY pain. 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 She then had a right parotidectomy and cervical lymph node excision on 07/22/14. She also underwent radiation and chemotherapy with Rituxan and Bendamustine. Today, her right sided CHERRY is much improved. She disclosed to me that at one point over the weekend her pain was so severe she wanted to . Additionally, she advanced to a normal diet yesterday and is tolerating that well. She continues to be constipated however and has not had a bowel movement since last Friday. She denies chest pain, SOB, abdominal pain, and diarrhea. She also denies pain of her right neck where her mantel cell lymphoma has recurred. Review of Systems Constitutional: + problem reported (right sided CHERRY ), No fever, No chills Eyes: + problem reported (patch over right eye ), No worsening of vision ENT: No hearing loss Respiratory: No cough, No sputum, No wheezing, No shortness of breath Cardiac: No chest pain, No edema, No palpitations Abdomen: + constipation, No pain, No nausea, No vomiting, No diarrhea Musculoskeletal: No joint pain, No muscle pain Female : No dysuria, No urinary frequency Endo: No fatigue Skin: No rash, No itch Objective Vital Signs Date Time Temp Pulse Resp B/P (MAP) Pulse Ox O2 Delivery O2 Flow Rate FiO2 09/09/16 15:15 36.8 70 20 169/82 (111) 96 Room Air 09/09/16 11:39 36.7 77 16 160/80 (106) 95 09/09/16 08:30 Room Air 09/09/16 07:48 36.8 84 16 174/84 (114) 96 Room Air 09/09/16 03:51 36.8 75 18 168/88 (114) 93 Room Air 09/09/16 00:00 Room Air 09/08/16 23:03 37.0 71 18 163/78 (106) 94 Room Air 09/08/16 19:19 36.9 78 20 159/80 (106) [address] HEAD WITHOUT CONTRAST (CT) CLINICAL HISTORY: Stroke COMPARISON STUDY: 09/02/2016 TECHNIQUE: Axial CT of the brain is performed from the vertex to the skull base. IV contrast was not administered for this examination. CT DOSE: 537.48 mGy.cm FINDINGS: No intra or extra-axial mass lesions are visualized. There is no CT evidence of acute cortical infarction. There is no evidence of midline shift. There is no acute hemorrhage. No calvarial fractures are visualized. There are minimal white matter hypodensities likely on a small vessel basis. There is no evidence of pathologic ventricular dilatation. There is no evidence of acute sinusitis IMPRESSION: No acute intracranial findings Physical Exam General Appearance: WD/WN, no apparent distress Eyes: bilateral eyes normal inspection, bilateral eyes PERRL, bilateral eyes EOMI ENT: normal ENT inspection, pharynx normal Neck: supple, no JVD, + adenopathy present, + pertinent finding (right sided firm nonmobile mass over posterior right cervical chain ) Respiratory/Chest: lungs clear, normal breath sounds, no respiratory distress, no accessory muscle use Cardiovascular: regular rate, rhythm, no edema, no gallop, no JVD, no murmur Abdomen: normal bowel sounds, non tender, soft, no organomegaly Extremities: normal inspection, no pedal edema, no calf tenderness Neurologic/Psychiatric: oriented x 3, + abnormal systems testing laboratory technician II-XII (CN V: decreased sensation over right side of face, especially V3 distribution, CN VII right sided facial droop ) Skin: normal color, warm/dry, no rash Assessment and Plan Assessment and Plan: Assessment: Mrs. 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 Head CT on 09/05 was negative for any acute intracranial pathology. The patient's nausea and right sided CHERRY have improved significantly since admission. She has experienced right facial nerve palsy and decreased sensation over the right side of her face since the parotidectomy in 2014. Her paralysis had actually worsened on admission and has since been improving. She is currently being managed for recurrence of her mantel cell lymphoma, improving CHERRY pain, constipation, and eyelid paralysis. Plan: Recurrence of Mantel Cell Lymphoma - discovered in March 2016 in her right posterior cervical chain region -facial nerve invasion with right palsy, pain and decreased sensation -continue morphine 2-4 mg q4hr depending on pain level -continue Tegretol 100 mg BID for neuropathic pain -continue gabapentin 300 mg TID for neuropathic pain -continue Toradol 15 mg q6hr for pain -Dr. Carnes consulted and recommendations appreciated - will discuss case with patient's primary oncologist Dr. Acuna for further chemotherapy. 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 I agree with her documentation as above. Great note. Lorenzo Menjivar MD Continued [facility] stay due to: inadequate oral pain control Discharge planning: home
--- NOTE | 2016-09-09 19:02 | Radiation Oncology Consult ---
Radiation Oncology Consult Date / Reason Sep 09, 2016. Physicians Medical Oncologist: Dr. Ricci Carnes Radiation Oncologist: Dr. Rupa Rothman Other Providers: Dr. Michael Menjivar Diagnosis (1) Lymphoma Onset Date: 07/07/2014 Permanent Comment: Self detected right neck mass FNA 07/07/2014 revealed malignant B-cell lymphoma Status post right parotidectomy and cervical lymph node excision 07/22/2014 revealed blastoid variant Mantle cell lymphoma, Stage IIE Status post systemic chemotherapy Left neck recurrent mass in July biopsy positive for lymphoma Mantle cell type 10/05/2015 Status post completion of radiation therapy 12/20/2015 received 4500 cGy Recurrent right neck mass March [address] revealing FDG avidity Initiation of immunotherapy with Ibrutinib - started May 2016 PET/CT in 08/2016 showed stable disease Patient admitted to hospital for pain control, further management Last Edited By: Rupa Rothman on Sep 09, 2016 19:02 History of Present Illness Ms. Packer is a 70-year-old female with a history as above. In summary, Ms. 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 She has previously been treated with chemotherapy and did undergo a course of radiation therapy which completed in November 2015. She was treated for radiation therapy for recurrent disease in the right lower cervical lymph node chain and did have a good response to treatment. Unfortunately, the patient did present with recurrent disease involving the right parotid gland in 2016 and was treated with Ibrutinib underneath the supervision of Dr. Jaime Paniagua for medical oncology. She did have a follow-up PET/CT scan on 2016 which revealed a large hypermetabolic soft tissue mass of the right neck involving the parotid gland that was slightly decreased in size suggesting a partial response to therapy as well as to mildly prominent level II lymph nodes on the right. Clinically, the patient's overall status has declined and she is having right facial nerve palsy and progression of the mass in the right parotid region. The patient was admitted to the hospital for pain management and further workup and evaluation. The patient has been seen by Dr. Ricci Carnes from medical oncology who is recommended consideration of radiation therapy with or without systemic chemotherapy. Pacemaker Hx Pacemaker: No Past History Past Medical/Surgical History: Reflux, Cancer, Hypertension Social History Smoking Status: Never Smoker Hx Tobacco Use In Past Year?: No Do You Dip or Chew Tobacco: No Hx Alcohol Use: No Hx Substance Use : No Allergies Coded Allergies: Propoxyphene (Verified Allergy, Intermediate, RASH, 09/05/16) Lisinopril (Verified Adverse Reaction, Mild, COUGH, 09/05/16) Home Medications Scheduled Ascorbic Acid (Vitamin C), 500 MG PO QAM Aspirin (Aspirin Chewable), 81 MG PO QPM Calcium (Calcium), 500 MG PO BID Cholecalciferol (Vitamin D3), 1 TAB PO HS Glucosamine-Chondroitin (Glucosamine & Chondroitin 500-400 mg), 1 CAP PO BID Hydrochlorothiazide (Hctz), 25 MG PO QAM Ibrutinib (Imbruvica), 4 TABS DAILYBB Multiple Vitamin (Multi Vitamin Daily), 1 TAB PO QAM Pantoprazole (Protonix), 40 MG PO DAILY Polyethylene Glycol 3350 (Miralax), 17 GM PO DAILY Probiotic Product (Probiotic), 1 CAP PO DAILY Psyllium (Metamucil), 1 DOSE PO DAILY Raloxifene (Evista), 60 MG PO QPM Senna (Senokot), 1 TAB PO QAM Simvastatin (Simvastatin), 40 MG PO HS Scheduled PRN Acetaminophen/Codeine (Tylenol W/Codeine #3), 1 TAB PO Q4H PRN for Pain Morphine Sulfate Ir (Morphine Sulfate Ir), 15 MG PO Q3H PRN for Pain Review of Systems Extremities: Hx Deep Vein Thrombosis: No Eyes: Hx Cataracts: Yes Ear/Hearing: Ear Side: Bilateral Hearing Ability: Normal Hearing Aid: None Edema: Present?: Yes Location Body Site Modifier: Right Type: Non-pitting Pain Management Side: Right Patient Preferred Pain Scale: 0 - 10 Initial Pain Intensity: 0.0 Physical Exam Height: 5 (Feet) 0.00 (Inches) 152.4 (Centimeters) 1.5240 (Meters) Weight: 181 (Pounds) 10.5 (Ounces) 82.400 (Kilograms) 36156.000 (Grams) Date Time Temp Pulse Resp B/P (MAP) Pulse Ox O2 Delivery O2 Flow Rate FiO2 09/09/16 16:20 Room Air 09/09/16 15:15 36.8 70 20 169/82 (111) 96 Room Air 09/09/16 11:39 36.7 77 16 160/80 (106) 95 09/09/16 08:30 Room Air 09/09/16 07:48 36.8 84 16 174/84 (114) 96 Room Air 09/09/16 03:51 36.8 75 18 168/88 (114) 93 Room Air 09/09/16 00:00 Room Air 09/08/16 23:03 37.0 71 18 163/78 (106) 94 Room Air 09/08/16 19:19 36.9 78 20 159/80 (106) 95 Room Air General Appearance: WD/WN, no apparent distress Head: normocephalic, atraumatic Eyes: normal inspection ENT: normal ENT inspection Neck: + pertinent finding (Large right preauricular mass extending into the neck that is fixed; the mass is fixed, non-ulcerative and measures at least 5 to 10 cm in greatest dimension) Respiratory/Chest: chest non-tender, lungs clear, normal breath sounds, no respiratory distress, no accessory muscle use Cardiovascular: regular rate, rhythm, no edema, no gallop, no JVD, no murmur Abdomen/GI: normal bowel sounds, non tender, soft, no organomegaly, no pulsatile mass Back: normal inspection, no CVA tenderness Extremities: normal inspection, no calf tenderness Neurologic/Psych: no motor/sensory deficits (Right facial droop), alert, oriented x 3, + abnormal set up mold technician II-XII, + pertinent finding Skin: normal color, warm/dry, no rash Imaging Imaging studies: were reviewed Imaging Comments PET/CT SKULL-THIGH HISTORY: 70-year-old female with history of mantle cell lymphoma of the head presents for restaging. COMPARISON: PET CT 05/15/2016, 09/20/2015, 01/30/2015, 08/03/2014 TECHNIQUE: The patient was injected with 14.16 mCi of F-18 fluorodeoxyglucose (FDG) and an emission scan was performed from the skull vertex to the toes. Noncontrast CT was performed for attenuation correction and anatomic localization. The blood glucose level was 87 mg/dl. FINDINGS: Head and Neck: Large soft tissue mass of the right neck in the region of the parotid gland is again seen measuring 3.6 x 3.7 cm in AP and transverse dimension, previously 4.6 x 3.6 cm on study dated 05/15/2016. This mass is markedly hypermetabolic with SUV max of 8.3, previously 17.3. Several mildly prominent level 2 lymph nodes on the right below the level of the hypermetabolic mass are seen with mild FDG activity, similar to and slightly above that of blood pool. For example, a 7 x 9 mm lymph node seen on image [address] series demonstrates SUV max of 3.0. No left-sided hypermetabolic activity identified. Chest: There is a physiologic distribution of activity, with no hypermetabolic mediastinal, hilar or pulmonary foci. Abdomen and Pelvis: There is a physiologic distribution of activity within the liver, spleen, adrenal glands, gastrointestinal and urinary tracts, with no hypermetabolic foci. Musculoskeletal System and Extremities: There is a physiologic distribution of activity within the bone marrow, with no hypermetabolic foci. Likely hemangioma involves the L4 vertebral body. Additional CT Findings: Left pectoral pacer is present. Prior cholecystectomy. Nonspecific low attenuating lesion near the kalin hepatis measures 1.3 x 1.3 cm as seen on image 78 of the axial series and is unchanged. IMPRESSION: 1. Large hypermetabolic soft tissue mass of the right neck in the region of the parotid gland has slightly decreased in size from comparison and has also decreased in FDG avidity. Findings suggest partial response to therapy. 2. Mildly prominent level 2 lymph nodes on the right just below the large soft tissue mass demonstrate SUV max similar to and slightly above that of blood pool. Findings may reflect progression of disease or inflammatory response. 3. No hypermetabolic activity within the chest, abdomen or pelvis. Assessment & Recommendations Ms. Packer is a 70-year-old female who presents with recurrence, localized blastoid variant mantle cell lymphoma involving the right parotid gland. The patient has been previously treated with Ibrutinib underneath the supervision of Dr. Jaime Chaves from medical oncology most recently. AVC, the patient was treated with radiation therapy in November 2015 for right cervical lymph node involvement. The patient has been admitted to the hospital due to pain management and for management decisions regarding her recurrent blastoid variant mantle cell lymphoma. Dr. Ricci Carnes from medical oncology has recommended consideration of radiation therapy with or without Rituxan. We are now seeing the patient in consultation to discuss the role of radiation therapy. Today, I have discussed the case with Dr. Ricci Carnes and we did review the previous radiation therapy marshall and I did explain to him that there is a good chance we can provide meaningful radiation therapy to the right parotid mass to help palliate the patient's symptoms. I did see the patient in evaluation today and have recommended definitive radiation therapy given the fact the patient has no other evidence of disease beyond the right neck. The patient will be brought back for CT simulation in the outpatient setting. We have explained the indications, alternatives, benefits, risks and side effects of radiation therapy for head/neck cancer. We have explained the most common side effects including but are not limited to skin erythema, skin break down, hair loss, fibrosis, adhesion development, heart failure and heart disease , esophagitis, bowel obstruction, urinary symptoms, thyroid disorders, mucositis , nauesea, vomiting, diarrhea, anemia, fatigue and development of secondary malignancy. Additionally, patients suffer may have xerostomia, stomatitis, glossitis, dysphagia, aspiration, mandibular osteoradionecrosis, mucocutaneous fistula formation, lymphedema in the neck, pharyngeal edema, mucositis, loss of taste. Women may also have early onset ovarian failure leading to premature menopause and may experience infertility issues depending on her age. We have explained the CT simulation process and treatment planning. We explained what to expect before, during and after treatment on a regular basis. We did also review with the patient that overlap from her previous radiation therapy and this course of radiation therapy will increase the risk of all side effects including but not limited to carotid artery blowout, soft tissue necrosis, spinal cord myelopathy, skin fibrosis, fistula formation. The patient understands and would be willing to consent to treatment. The patient and family had multiple questions which were answered to their full satisfaction. Thank you for allowing us to participate in the care of this patient. This chart was completed in part utilizing [employer] Speech Voice Recognition software. Attempts were made to minimize the grammatical errors, random word insertions, pronoun errors and incomplete sentences. Any formal questions or concerns about the content, text or information contained within the body of this dictation should be directly addressed to the provider for clarification. Rupa Rothman MD Department of Radiation Oncology [facility] Total Time In Consultation I spent 30 minutes examining and counseling the patient. I spent 15 minutes completing this note. Copy To Ricci Carnes D.O.; Lorenzo Menjivar MD
[2016-09-09] MEDS: ASPIRIN 81 MG ECTAB PO SCH (20:38)
[2016-09-10 03:43] VITALS: BP 163/79; PULSE 66; TEMP 36.9; O2SAT 97
[2016-09-10] MEDS: HEPARIN SOD 5000 UNIT/0.5 ML CARP SQ SCH (05:38)
[2016-09-10 07:13] LABS: BUN/CREATININE RATIO 20.1 (10-20); CALCIUM 8.8 mg/dl (8.5-10.1); CREATININE 0.83 mg/dl (0.60-1.20); POTASSIUM 3.7 mmol/L (3.5-5.1)
[2016-09-10 07:30] VITALS: BP 157/79; PULSE 75; TEMP 36.8; O2SAT 96
[2016-09-10] MEDS: POLYETHYLENE (MIRALAX) 17 GM PACK PO SCH (07:58)
[2016-09-10] MEDS: BOOST PLUS VANILLA PO SCH ×4 (07:59→12:30)
[2016-09-10] MEDS: HYDROCHLOROTHIAZIDE 25 MG TAB PO SCH (07:59)
[2016-09-10] MEDS: GABAPENTIN 300 MG CAP PO SCH ×2 (07:59→13:05)
[2016-09-10] MEDS: PANTOprazole SOD 40 MG TAB PO SCH (07:59)
[2016-09-10] MEDS: DEXAMETHASONE INJ 4 MG in SYRINGE 0 ML IV SCH (08:00)
[2016-09-10] MEDS: SENNA 8.6 MG TAB PO SCH (08:00)
[2016-09-10] MEDS: CARBAMAZEPINE 100 MG TABCR PO SCH (08:00)
[2016-09-10] MEDS: PSYLLIUM 58.6% PWD PACK S\\F PO SCH (08:00)
[2016-09-10] MEDS: VERAPAMIL HCL 180 MG TABCR PO SCH (08:00)
[2016-09-10] MEDS ORDERED: BISACODYL 10 MG SUPP PR ONE (08:45)
[2016-09-10] MEDS: ACETAMINOPHEN 325 MG TAB PO PRN (09:20)
--- NOTE | 2016-09-10 10:28 | Hematology/Oncology Prog Note ---
Hematology/Onc Progress Note Date of Service Sep 10, 2016. Diagnoses Blastoid variant of mantle cell lymphoma Medications Medications Administered Medications (Trade) Dose Ordered Sig/Ant Route Start Time Stop Time Status Last Admin Dose Admin Sodium Chloride 1,000 ml @ 50 mls/hr Q20H IV 09/05/16 14:12 09/05/16 17:03 DC 09/05/16 14:46 50 MLS/HR Morphine Sulfate (MoRPHine SULFATE INJ) 4 mg NOW STAT IV 09/05/16 14:12 09/05/16 14:18 DC 09/05/16 14:47 4 MG Ondansetron HCl (Zofran Inj) 4 mg NOW STAT IV 09/05/16 14:12 09/05/16 14:18 DC 09/05/16 14:47 4 MG Aspirin (Ecotrin Tab) 81 mg QPM PO 09/05/16 21:00 10/05/16 20:59 09/09/16 20:38 81 MG Hydrochlorothiazide (Hydrochlorothiazide Tab) 25 mg QAM PO 09/06/16 08:00 10/06/16 08:59 09/10/16 07:59 25 MG Pantoprazole Sodium (Protonix Tab) 40 mg DAILY PO 09/06/16 08:00 10/06/16 08:59 09/10/16 07:59 40 MG Senna (Senokot Tab) 8.6 mg QAM PO 09/06/16 08:00 10/06/16 08:59 09/10/16 08:00 8.6 MG Simvastatin (Zocor Tab) 40 mg HS PO 09/05/16 21:00 09/06/16 13:54 DC 09/05/16 19:56 40 MG Polyethylene (Miralax Powder Packet) 17 gm DAILY PO 09/06/16 08:00 10/06/16 08:59 09/10/16 07:58 17 GM Heparin Sodium (Porcine) (Heparin Sq 5000 Unit/0.5ml) 5,000 unit Q8 SQ 09/05/16 22:00 10/05/16 21:59 09/09/16 20:40 5,000 UNIT Acetaminophen (Tylenol Tab) 650 mg Q4H PRN PO 09/05/16 15:30 10/05/16 15:29 09/10/16 09:20 650 MG Al Hydrox/Mg Hydrox/Simethicone (Maalox Max Susp) 15 ml Q4H PRN PO 09/05/16 15:30 10/05/16 15:29 09/07/16 01:37 15 ML Hydromorphone HCl (Dilaudid Inj) 2 mg Q3H PRN IV 09/05/16 15:30 09/06/16 13:54 DC 09/05/16 16:15 2 MG Metoclopramide HCl (Reglan Inj) 10 mg Q6H PRN IV 09/05/16 16:30 10/05/16 16:29 09/07/16 00:53 10 MG Polyethylene (Miralax Powder Packet) 17 gm HS PO 09/05/16 21:00 10/05/16 20:59 09/09/16 20:37 17 GM Potassium Chloride 10 meq/ Prmx 100 ml @ 100 mls/hr Q1H IV 09/05/16 18:30 09/05/16 20:29 DC 09/05/16 20:00 100 MLS/HR Magnesium Sulfate 1 gm/Prmx 100 ml @ 100 mls/hr 1730 ONCE IV 09/05/16 17:30 09/05/16 18:29 DC 09/05/16 17:29 100 MLS/HR Potassium Chloride/Sodium Chloride 1,000 ml @ 125 mls/hr Q8H IV 09/05/16 18:00 09/06/16 09:59 DC 09/06/16 04:11 125 MLS/HR Bisacodyl (Dulcolax Supp) 10 mg DAILY PRN KS 09/05/16 16:30 10/05/16 16:29 09/06/16 12:02 10 MG Oxycodone HCl (Oxycontin Tab) 40 mg Q12H PO 09/05/16 20:00 09/19/16 19:59 Future Hold 09/06/16 08:09 40 MG Artificial Tears (Artificial Tears) 2 drops Q2H PRN OPR 09/05/16 20:15 10/05/16 20:14 09/06/16 09:30 2 DROPS Hydralazine HCl (HydrALAZINE INJ) 10 mg Q6 PRN IV. 09/05/16 21:00 10/05/16 20:59 09/07/16 08:15 10 MG Ketorolac Tromethamine (Toradol Inj) 15 mg Q6H PRN IV. 09/05/16 22:30 09/10/16 22:29 09/07/16 08:16 15 MG Diltiazem HCl (Cardizem Tab) 30 mg Q6H PO 09/05/16 22:30 09/08/16 07:42 DC 09/08/16 05:06 30 MG Hydromorphone HCl (Dilaudid Biofuels Production Manager) 25 mg PRN PRN IV 09/06/16 12:00 09/06/16 19:04 DC 09/06/16 12:43 25 MG Sodium Chloride 1,000 ml @ 15 mls/hr Q24H IV 09/06/16 11:52 09/06/16 19:05 DC 09/06/16 12:47 15 MLS/HR Gabapentin (Neurontin Cap) 300 mg TID PO 09/06/16 14:00 10/06/16 13:59 09/10/16 07:59 300 MG Dexamethasone Sodium Phosphate 4 mg/Syringe 1 ml @ 1 mls/min Q8H IV 09/06/16 14:00 09/09/16 14:07 DC 09/09/16 13:47 1 MLS/MIN Carbamazepine (Tegretol-Xr) 100 mg BID PO 09/06/16 20:00 10/06/16 19:59 09/10/16 08:00 100 MG Enteral Nutritional Formula (Boost Plus Vanilla) 1 can TIDM PO 09/06/16 17:00 10/06/16 16:59 09/10/16 07:59 1 CAN Sodium Chloride 1,000 ml @ 80 mls/hr [id number] IV 09/06/16 15:30 09/09/16 14:32 DC 09/09/16 08:19 80 MLS/HR Morphine Sulfate (MoRPHine SULFATE INJ) 2 mg Q4H PRN IV 09/06/16 19:15 09/20/16 19:14 09/06/16 21:07 2 MG Morphine Sulfate (MoRPHine SULFATE INJ) 4 mg Q4H PRN IV 09/06/16 19:15 09/20/16 19:14 09/06/16 23:55 4 MG Ondansetron HCl (Zofran Inj) 4 mg NOW STAT IV 09/07/16 01:46 09/07/16 01:58 DC 09/07/16 02:05 4 MG Ondansetron HCl (Zofran Inj) 4 mg Q4H PRN IV 09/07/16 02:00 10/07/16 01:59 09/07/16 08:15 4 MG Oxycodone HCl (Roxicodone Immediate Rel Tab) 10 mg NOW STAT PO 09/07/16 01:46 09/07/16 01:58 DC 09/07/16 02:06 10 MG Lorazepam (Ativan Inj) 2 mg STK-MED ONCE .ROUTE 09/07/16 09:09 09/07/16 09:10 DC 09/07/16 09:13 0.5 MG Verapamil HCl (Calan-Sr Tab) 180 mg QAM PO 09/08/16 08:00 10/08/16 07:59 09/10/16 08:00 180 MG Dexamethasone Sodium Phosphate 4 mg/Syringe 1 ml @ 1 mls/min Q12 IV 09/09/16 21:00 10/06/16 13:59 09/10/16 08:00 1 MLS/MIN Metoprolol Tartrate (Lopressor Tab) 25 mg NOW STAT PO 09/09/16 13:58 09/09/16 14:17 DC 09/09/16 14:57 25 MG Psyllium Hydrophilic Mucilloid (Metamucil Powder) 1 pkt QAM PO 09/09/16 15:30 10/09/16 15:29 09/10/16 08:00 1 PKT Senna (Senokot Tab) 8.6 mg NOW ONCE PO 09/09/16 15:30 09/09/16 15:31 DC 09/09/16 16:01 8.6 MG Subjective Radiation did visit with the patient yesterday. I understand radiation will most likely start . She states the pain seems to be fairly tolerable Review of Systems: Constitutional: Negative for weight loss, night sweats, or fever Eyes: Negative for event change of vision ENT: Negative for epistaxis sore throat or nasal discharge Cardiovascular: Negative for chest pain, palpitations, dizziness, diaphoresis Respiratory: Negative for new shortness of breath,hemoptysis, or purulent cough Gastrointestinal: Negative for diarrhea, hematemesis, melena, nausea, vomiting , or dyspepsia Integumentary (skin): Negative for rash or jaundice discoloration Genitourinary: Negative for urinary frequency, hematuria, or dysuria Neurological: Negative for weakness, seizure activity, headache, or dizziness Lymphatic/Hematologic: Negative for petechiae, bleeding or new adenopathy Musculoskeletal: Negative for new joint or back pain Allergic/Immunologic: Negative for unusual rash or pruritis. Vital Signs Vital Signs Past 12 Hours Date Time Temp Pulse Resp B/P (MAP) Pulse Ox O2 Delivery O2 Flow Rate FiO2 09/10/16 08:00 Room Air 09/10/16 07:30 36.8 75 18 157/79 (105) 96 Room Air 09/10/16 03:43 36.9 66 16 163/79 (107) 97 Room Air 09/10/16 00:00 Room Air 09/09/16 23:11 37.0 62 20 166/80 (108) 95 Room Air Physical Exam Constitutional: vitals are stable. Eyes: Eyes are PERRLA EOMI some restricted movement of the right eye is noted ENT: External examination was negative for masses. Neck: Hard fixed at least 4-5 cm mass noted posterior to the parotid area at the right TMJ area Respiratory: Lung sounds were generally clear bilaterally Cardiovascular: Heart was RRR without significant murmur, gallops aoe rubs Gastrointestinal: No palpable hepatic or splenomegaly. The abdomen was soft with normal bowel sounds. Lymphatic system: there was no palpable peripheral lymphadenopathy Musculoskeletal System: The musculoskeletal system seemed concordant with age. Skin: The skin was negative for jaundice. Neurologic exam: The exam was negative for any focal findings. Deep tendon reflexes were equal and symmetrical. Psychiatric exam: Was essentially negative with normal mood and effect. Breast exam: Not done Extremities: Negative for edema erythema Laboratory Last 24 Hours Test 09/10/16 06:04 Sodium Level 138 mmol/L Potassium Level 3.7 mmol/L Chloride Level 105 mmol/L Carbon Dioxide Level 27 mmol/L Anion Gap 6.0 mmol/L Blood Urea Nitrogen 17 mg/dl Creatinine 0.83 mg/dl Est Creatinine Clear Calc Drug Dose 59.6 ml/min Estimated GFR () 82.2 Estimated GFR (Non- 70.9 BUN/Creatinine Ratio 20.1 Random Glucose 118 mg/dl Calcium Level 8.8 mg/dl Assessment & Plan Radiation therapy will be ongoing. The patient's pain seems to be fairly well controlled. I would anticipate discharge being very soon. We still do anticipate beginning systemic chemotherapy once radiation therapy has come to an end and we will arrange for follow-up to occur in our clinic in 10-14 days. Her pain seems for now tolerable. Thank you for your help. We will be signing off for please not hesitate to reconsult if needed
[2016-09-10 11:31] VITALS: BP 146/87; PULSE 73; TEMP 36.8; O2SAT 96
[2016-09-10] MEDS ORDERED: TGRSR100 PO (11:52)
[2016-09-10] MEDS ORDERED: DXM/4 PO (11:52)
[2016-09-10] MEDS ORDERED: NRN300 PO (11:52)
[2016-09-10] MEDS ORDERED: VRPSR180 PO (11:52)
--- NOTE | 2016-09-10 11:59 | Discharge Instructions ---
Discharge Instructions Date of Service Sep 10, 2016. Admission Reason for Admission: Intractable Pain, Lymphoma Discharge Discharge Diagnosis / Problem: right sided facial pain improved Discharge Goals Goal(s): Decrease discomfort, Improve disease control, Learn about illness, Diagnostic testing, Therapeutic intervention Activity Recommendations Activity Limitations: resume your previous activity . Instructions / Follow-Up Instructions / Follow-Up 1. Facial pain & headache: This was felt to be due to nerve pain perhaps due to compression from the tumor in your neck. Please take the following medications for pain: * Gabapentin 3 times daily * Carbamazepine 2 times daily * Dexamethasone for 5 days (start morning of 09/11) * Tylenol with Codeine as needed * if pain is worsening or not controlled with medications above, please contract Dr. Norton or Dr. Chaves 2. Hypertension: We have started you on Verapamil once daily, please start this morning of 09/11. Continue your hydrochlorothiazide as previous. Please check your blood pressure at least every other day at home and show these to Dr. Norton at time of follow up. 3. Constipation: Continue bowel regiment from home 4. Lymphoma: Please follow up with Dr. Rothman in the Radiation Oncology clinic on (09/12) 5. Please follow up with Dr. Norton within one week Return to [facility] if: * pain not controlled * fever >100.5 * severe constipation not relieved by medications * difficulty breathing * inability to eat or drink Current Hospital Diet Patient's current hospital diet: Regular Diet Discharge Diet Recommended Diet: Regular Diet Procedures Procedures Performed: CAT scan of head normal Pending Studies Studies pending at discharge: no Medical Emergencies . Who to Call and When: Medical Emergencies: If at any time you feel your situation is an emergency, please call 911 immediately. . Non-Emergent Contact Non-Emergency issues call your: Oncologist Call Non-Emergent contact if: temperature is above 100.5, your pain is not controlled, your pain is worsening, your pain is concerning you, you have any medication questions . . "Provider Documentation" section prepared by Lorenzo Menjivar. . VTE Core Measure Inpt VTE Proph given/why not?: Unfractionated heparin SQ
[2016-09-10] MEDS ORDERED: POTA10TA32 PO (12:01)
--- NOTE | 2016-09-10 17:40 | Medical Student: [facility] ---
Med Student Progress Note Date of Service Sep 10, 2016. Subjective No acute events overnight. Given Miralax, metamucil and Senna last night and this morning and still no BM. Otherwise, patient denies CHERRY, chest pain, SOB, and abdominal pain. She is having mild right neck pain however. She is ready to go home today. Review of Systems Constitutional: No fever, No chills Eyes: No worsening of vision ENT: + problem reported (pain over right neck ), No hearing loss Respiratory: No cough, No sputum, No wheezing, No shortness of breath Cardiac: No chest pain, No edema, No palpitations Abdomen: + constipation, No pain, No nausea, No vomiting, No diarrhea Musculoskeletal: No joint pain Female : No dysuria Endo: No fatigue Skin: No rash, No itch Objective Vital Signs Date Time Temp Pulse Resp B/P (MAP) Pulse Ox O2 Delivery O2 Flow Rate FiO2 09/10/16 11:31 36.8 73 18 146/87 (106) 96 Room Air 09/10/16 08:00 Room Air 09/10/16 07:30 36.8 75 18 157/79 (105) 96 Room Air 09/10/16 03:43 36.9 66 16 163/79 (107) 97 Room Air 09/10/16 00:00 Room Air 09/09/16 23:11 37.0 62 20 166/80 (108) 95 Room Air 09/09/16 19:10 36.9 67 20 164/76 (105) [address] HEAD WITHOUT CONTRAST (CT) CLINICAL HISTORY: Stroke COMPARISON STUDY: 09/02/2016 TECHNIQUE: Axial CT of the brain is performed from the vertex to the skull base. IV contrast was not administered for this examination. CT DOSE: 537.48 mGy.cm FINDINGS: No intra or extra-axial mass lesions are visualized. There is no CT evidence of acute cortical infarction. There is no evidence of midline shift. There is no acute hemorrhage. No calvarial fractures are visualized. There are minimal white matter hypodensities likely on a small vessel basis. There is no evidence of pathologic ventricular dilatation. There is no evidence of acute sinusitis IMPRESSION: No acute intracranial findings Physical Exam General Appearance: WD/WN, no apparent distress Eyes: bilateral eyes normal inspection, bilateral eyes PERRL, bilateral eyes EOMI ENT: + pertinent finding (hard, fixed, immobile mass over posterior cervical area of right neck ) Neck: thyroid normal, no JVD, + adenopathy present Respiratory/Chest: lungs clear, normal breath sounds, no respiratory distress, no accessory muscle use Cardiovascular: regular rate, rhythm, no edema, no gallop, no JVD, no murmur Abdomen: normal bowel sounds, non tender, soft, no organomegaly Extremities: no pedal edema, no calf tenderness Neurologic/Psychiatric: alert, + 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 Head CT on 09/05 was negative for any acute intracranial pathology. The patient's nausea and right sided CHERRY have improved significantly since admission. She has experienced right facial nerve palsy and decreased sensation over the right side of her face since the parotidectomy in 2014. Her paralysis had actually worsened on admission and has since been improving. She is currently being managed for recurrence of her mantel cell lymphoma, improving CHERRY pain, constipation, and eyelid paralysis. Plan: Recurrence of Mantel Cell Lymphoma - discovered in March 2016 in her right posterior cervical chain region -facial nerve invasion with right palsy, pain and decreased sensation -continue Tegretol 100 mg BID for neuropathic pain -continue gabapentin 300 mg TID for neuropathic pain -Dr. Carnes consulted and recommendations appreciated - agreed to f/u appointment outpatient to discuss resuming chemotherapy -Dr. Rothman consulted and recommendations appreciated - f/u with Dr. 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
--- NOTE | 2016-09-12 11:09 | Discharge Summary ---
Discharge Summary Date of Service Sep 12, 2016. Discharge Summary Admission Date: Sep 05, 2016 at 15:34 Discharge Date: Sep 10, 2016 Discharge Disposition: Home Principal Diagnosis: right-sided facial pain/headache - resolved Problems/Secondary Diagnoses: 1. mild hyponatremia & hypokalemia - resolved 2. blastoid mantle cell lymphoma 3. right-sided facial paralysis 4. right parotidectomy with limited neck dissection in June 2014 5. HTN 6. Hyperlipidemia 7. GERD 8. constipation Immunizations: Have You Had Influenza Vaccine: Yes History of Tetanus Vaccine?: Yes History of Pneumococcal: Yes History of Hepatitis B Vaccine: Yes Procedures: CT head - normal Consultations: 1. radiation oncology - Rupa Rothman MD 2. hematology/oncology - Claudy Carey DO Medication Reconciliation New Medications: Dexamethasone (Decadron) 4 Mg Tab 4 MG PO QAM for 5 Days, #5 TAB start morning of 09/11 Potassium Chloride Microencaps (Potassium Chloride Er) 10 Meq Tab 1 TAB PO DAILY for 30 Days, #30 TAB 5 Refills Carbamazepine (Tegretol-Xr) 100 Mg Tab 100 MG PO BID, #60 TAB 5 Refills for nerve pain of the face Gabapentin (Gabapentin) 300 Mg Cap 300 MG PO TID, #90 CAP 5 Refills for nerve pain of the face Verapamil HCl (Verapamil HCl ER) 180 Mg Tabcr 180 MG PO QAM, #30 TAB 5 Refills Continued Medications: Acetaminophen/Codeine (Tylenol W/Codeine #3) 300 Mg/30 Mg Tab 1 TAB PO Q4H PRN for Pain, TAB Ascorbic Acid (Vitamin C) 500 Mg Tab 500 MG PO QAM Aspirin (Aspirin Chewable) 81 Mg Chew 81 MG PO QPM, TAB Calcium (Calcium) 500 Mg Tab 500 MG PO BID Cholecalciferol (Vitamin D3) 1,000 Unit Tab 1 TAB PO HS, TAB Glucosamine-Chondroitin (Glucosamine & Chondroitin 500-400 mg) 1 Cap Cap 1 CAP PO BID Hydrochlorothiazide (Hctz) 25 Mg Tab 25 MG PO QAM, TAB Multiple Vitamin (Multi Vitamin Daily) 1 Tab Tab 1 TAB PO QAM Pantoprazole (Protonix) 40 Mg Tab 40 MG PO DAILY, TAB Polyethylene Glycol 3350 (Miralax) 1 Pow Pow 17 GM PO DAILY Probiotic Product (Probiotic) 1 Cap Cap 1 CAP PO DAILY Psyllium (Metamucil) 48.57 % Pow 1 DOSE PO DAILY Raloxifene (Evista) 60 Mg Tab 60 MG PO QPM Senna (Senokot) 8.6 Mg Tab 1 TAB PO QAM, TAB Simvastatin (Simvastatin) 40 Mg Tab 40 MG PO HS Discontinued Medications: Ibrutinib (Imbruvica) 140 Mg Cap 4 TABS DAILYBB Morphine Sulfate Ir (Morphine Sulfate Ir) 15 Mg Tab 15 MG PO Q3H PRN for Pain, TAB Referrals At Discharge Follow up Referrals: Oncology/Hematology Referral - 09/12/16 with Veeral. Rothman MD Discharge Exam Physical Exam: General Appearance: no apparent distress, + obese ENT: pharynx normal, + pertinent finding (right-sided Gilbert's Palsy) Neck: + pertinent finding (large mass at the angle of the jaw/upper right neck) Respiratory/Chest: lungs clear, no respiratory distress, no accessory muscle use Cardiovascular: regular rate, rhythm, no gallop, no murmur, normal peripheral pulses Abdomen / GI: normal bowel sounds, non tender, soft, no organomegaly Extremities: no pedal edema Neurologic/Psychiatric: alert, oriented x 3, + facial droop (right - complete facial paralysis ) Hospital Course HISTORY OF PRESENT ILLNESS: 70yo female with history of blastoid, mantle cell lymphoma with invasion into the parotid gland who had developed right-sided facial paralysis 10/2014. She underwent surgical resection of the mass and subsequently chemotherapy with Rituxan and Bendamustine in addition to radiation therapy. She recently developed progressive pain at the same site which has become intractable. She describes a severe right-sided headache. She also states that she has had a poor appetite, nausea and one episode of vomiting the previous day. She was prescribed Morphine SR at 60 mg BID by her oncologist and states that this has not been effective for her pain. She is light-headed and constipated likely due to the medication. HOSPITAL COURSE: The patient's severe facial pain/headache on the right was felt to be neuropathic in origin. She was treated with a combination of IV steroids, tegretol, gabapentin, and narcotics. With these measures her pain/headache ultimately improved and then finally resolved. She will discharge home on a short course of oral dexamethasone and remain on tegretol/gabapentin - potentially long-term. With improvement in her pain she was finally able to eat and tolerate a diet. She was seen in consult by oncology for her mantle cell lymphoma and they felt that a course of radiation would be best. For that reason Dr. Rupa Rothman from radiation oncology was consulted. He will arrange outpatient follow-up to initiate additional radiation therapy. She may resume additional chemotherapy in the future under the direction of Dr. Jaime Chaves. Other issues addressed included hyponatremia & hypokalemia both felt secondary to poor oral intake in the setting of her severe right-sided facial pain. Chronic HCTZ use may have contributed as well. She will take a low-dose potassium supplement after discharge. High blood pressure was problematic while hospitalized part of which may have been due to pain. [id number] she was started on verapamil in addition to her HCTZ. Her BPs improved prior to discharge with the verapamil. Lastly, the patient had significant constipation - likely multifactorial - and will remain on an aggressive bowel regimen after discharge. Total Time Spent: Greater than 30 minutes This includes examination of the patient, discharge planning, medication reconciliation, and communication with other providers. Discharge Instructions Please refer to the electronic Patient Visit Report (Discharge Instructions) for additional information. Follow-Up 1. Dr. Shahzad Norton on FridaySeptember 17 at 3:[address] Rupa Rothman, radiation oncology, on September [address] Jaime Chaves, oncology, within 1-2 weeks Additional Copies To Shahzad Norton MD; Jaime Chaves MD; Veeral. Rothman MD
[2016-09-16] MEDS ORDERED: EVS60 PO (09:28)
[2016-09-16] MEDS ORDERED: ZCR40 PO (09:28)
[2016-09-16] MEDS ORDERED: ASPCH81X PO (09:28)
[2016-09-16] MEDS ORDERED: PANT40TA PO (14:37)
[2016-09-16] MEDS ORDERED: PSYL48.59 PO (15:10)
[2016-09-16] MEDS ORDERED: POLY335019 PO (15:10)
[2016-09-16] MEDS ORDERED: SENN-61 PO (15:10)
[2016-10-07] MEDS ORDERED: MBXC PO (18:35)
[2016-10-07] MEDS ORDERED: NYSS/ PO (18:35)
== END 2016-09-10 13:38 | disposition home or self-care (01) | DRG 841 ==
LOC: C.EDB 13:58 → C.4E 15:34 → ENRESERV 16:28
PROVIDERS: ADMIT Internal Medicine; ATTEND Internal Medicine
DX: C83.11 Mantle cell lymphoma, lymph nodes of head, face, and neck (principal); C79.49 Secondary malignant neoplasm of other parts of nervous system; G51.9 Disorder of facial nerve, unspecified; K21.9 Gastro-esophageal reflux disease without esophagitis; R51 Headache; E87.6 Hypokalemia; I10 Essential (primary) hypertension; E78.5 Hyperlipidemia, unspecified; K59.00 Constipation, unspecified; Z92.3 Personal history of irradiation; Z79.52 Long term (current) use of systemic steroids; Z80.3 Family history of malignant neoplasm of breast; Z80.0 Family history of malignant neoplasm of digestive organs; Z79.82 Long term (current) use of aspirin; Z79.899 Other long term (current) drug therapy

== ENCOUNTER 2016-09-16 19:07 | Inpatient (IN) | payer BC, OTHER ==
[~2016-09-16] VITALS: Ht 152.4 cm; Wt 78.5 kg
[~2016-09-16 19:07] MED LIST changes: +ASPCH81X PO; +CHOL1000 PO; -CHOL100010 PO; +DXM/4 PO; +EVS60 PO; -IBRU1CAP; +NRN300 PO; +PANT40TA PO; +POLY335019 PO; +POTA10TA32 PO; +PSYL48.59 PO; +SENN-61 PO; +TGRSR100 PO; +VRPSR180 PO; +ZCR40 PO
[2016-09-16] MEDS ORDERED: ONDANSETRON INJ 2 MG/ML 2 ML VIAL IV STA ×2 (20:02→23:13)
[2016-09-16] MEDS ORDERED: SODIUM CHLORIDE 0.9% 1000ML 1,000 ML IV STA (20:02)
--- NOTE | 2016-09-16 20:07 | EMERGENCY ROOM VISIT NOTE ---
History Report prepared by Doretha: Jyotsna Hazel Under the Supervision of: Dr. Sukhwinder Rader D.O. First contact with patient: 19:54 Chief Complaint: HEADACHE Stated Complaint: HEADACHE, NAUSEA, VOMITING, CA PT History of Present Illness The patient is a 70 year old female who presents to the Emergency Room with complaints of a persistent headache for the past 1 week. She rates her pain as a 10/10 in severity. She also complains of persistent nausea and vomiting for the past several days. She was in the hospital until approximately 1 week ago for nausea and vomiting and received IV fluids. She states she did "really well " while she was in the hospital. The patient does have a history of lymphoma of the neck but is not currently taking chemotherapy. Her PCP is Dr. Norton with [facility]. 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 A total of 10 systems reviewed and were otherwise negative. Past Medical & Surgical Medical Problems: (1) Gastroesophageal reflux disease (2) History of - hypertension (3) Intractable pain (4) Lymphoma Family History FH: breast cancer FH: colon cancer Social History Smoking Status: Never Smoker Alcohol Use: none Drug Use: none Marital Status: Housing Status: lives with family Occupation Status: retired Current/Historical Medications Scheduled Acetaminophen/Codeine (Tylenol W/Codeine #3), 1 TAB PO Q4 Aspirin (Aspirin Chewable), 81 MG PO QPM Carbamazepine Extended Release (Tegretol Xr), 100 MG PO BID Gabapentin (Gabapentin), 300 MG PO TID Hydrochlorothiazide (Hctz), 25 MG PO QAM Polyethylene Glycol 3350 (Miralax), 17 GM PO DAILY Potassium Chloride (K-Tabs), 10 MEQ PO DAILY Psyllium (Metamucil), 1 DOSE PO DAILY Raloxifene (Evista), 60 MG PO QPM Senna (Senokot), 1 TAB PO QAM Simvastatin (Simvastatin), 40 MG PO HS Verapamil Hcl (Verapamil Hcl Er), 180 MG PO DAILY Scheduled PRN Oxycodone HCl (Oxycodone HCl), 5 MG PO Q4 PRN for Pain Pantoprazole (Protonix), 40 MG PO DAILY PRN for Dyspepsia Allergies Coded Allergies: Propoxyphene (Verified Allergy, Intermediate, RASH, 09/05/16) Lisinopril (Verified Adverse Reaction, Mild, COUGH, 09/05/16) Physical Exam Vital Signs Date Time Temp Pulse Resp B/P (MAP) Pulse Ox O2 Delivery O2 Flow Rate FiO2 09/16/16 21:06 65 09/16/16 19:12 36.7 83 18 149/97 96 Room Air Physical Exam GENERAL: Patient is awake, alert, very anxious and appears uncomfortable. EYES: The conjunctivae are clear. The pupils are round and reactive. Significant ptosis noted in right eye. EARS, NOSE, MOUTH AND THROAT: The nose is without any evidence of any deformity. Mucous membranes are moist tongue is midline NECK: Significant induration and swelling over right lateral neck consistent with patients previous history. RESPIRATORY: Normal respiratory effort is noted there is no evidence of wheezing rhonchi or rales CARDIOVASCULAR: Regular rate and rhythm noted there no murmurs rubs or gallops normal S1 normal S2 GASTROINTESTINAL: The abdomen is soft. Bowel sounds are present in all quadrants. Abdomen is nontender MUSCULOSKELETAL/EXTREMITIES: There is no evidence of gross deformity full range of motion is noted in the hips and shoulders SKIN: There is no obvious evidence of any rash. There are no petechiae, pallor or cyanosis noted. NEUROLOGIC: Patient is awake alert and oriented x3 strength is symmetric patellar reflexes are 2+ bilaterally. Right facial droop noted. Medical Decision & Procedures Laboratory Results 09/16/16 20:25 Red Blood Count 4.47, Mean Corpuscular Volume 96.0, Mean Corpuscular Hemoglobin 33.1, Mean Corpuscular Hemoglobin Concent 34.5, Mean Platelet Volume 9.9, Neutrophils (%) (Auto) 82.2, Lymphocytes (%) (Auto) 8.7, Monocytes (%) (Auto) 7.7, Eosinophils (%) (Auto) 1.0, Basophils (%) (Auto) 0.0, Neutrophils # (Auto) 6.56, Lymphocytes # (Auto) 0.69, Monocytes # (Auto) 0.61, Eosinophils # (Auto) 0.08, Basophils # (Auto) 0.00 09/16/16 20:25 Test 09/16/16 20:25 09/16/16 21:00 White Blood Count 7.97 K/uL (4.8-10.8) Red Blood Count 4.47 M/uL (4.2-5.4) Hemoglobin 14.8 g/dL (12.0-16.0) Hematocrit 42.9 % (37-47) Mean Corpuscular Volume 96.0 fL (80-100) Mean Corpuscular Hemoglobin 33.1 pg (25-34) Mean Corpuscular Hemoglobin Concent 34.5 g/dl (32-36) Platelet Count 200 K/uL (130-400) Mean Platelet Volume 9.9 fL (7.4-10.4) Neutrophils (%) (Auto) 82.2 % Lymphocytes (%) (Auto) 8.7 % Monocytes (%) (Auto) 7.7 % Eosinophils (%) (Auto) 1.0 % Basophils (%) (Auto) 0.0 % Neutrophils # (Auto) 6.56 K/uL (1.4-6.5) Lymphocytes # (Auto) 0.69 K/uL (1.2-3.4) Monocytes # (Auto) 0.61 K/uL (0.11-0.59) Eosinophils # (Auto) 0.08 K/uL (0-0.5) Basophils # (Auto) 0.00 K/uL (0-0.2) RDW Standard Deviation 45.1 fL (36.4-46.3) RDW Coefficient of Variation 12.8 % (11.5-14.5) Immature Granulocyte % (Auto) 0.4 % Immature Granulocyte # (Auto) 0.03 K/uL (0.00-0.02) Anion Gap 8.0 mmol/L (3-11) Est Creatinine Clear Calc Drug Dose 52.5 ml/min Estimated GFR () 73.6 Estimated GFR (Non- 63.5 BUN/Creatinine Ratio 20.1 (10-20) Calcium Level 9.2 mg/dl (8.5-10.1) Total Bilirubin 0.6 mg/dl (0.2-1) Direct Bilirubin 0.1 mg/dl (0-0.2) Aspartate Amino Transf (AST/SGOT) 17 U/L (15-37) Alanine Aminotransferase (ALT/SGPT) 39 U/L (12-78) Alkaline Phosphatase 35 U/L (45-117) Total Protein 7.2 gm/dl (6.4-8.2) Albumin 3.9 gm/dl (3.4-5.0) Lipase 242 U/L (73-393) Urine Color DK YELLOW Urine Appearance CLOUDY (CLEAR) Urine pH 5.5 (4.5-7.5) Urine Specific [place] 1.026 (1.000-1.030) Urine Protein NEG (NEG) Urine Glucose (UA) NEG (NEG) Urine Ketones NEG (NEG) Urine Occult Blood NEG (NEG) Urine Nitrite NEG (NEG) Urine Bilirubin NEG (NEG) Urine Urobilinogen NEG (NEG) Urine Leukocyte Esterase TRACE (NEG) Urine WBC (Auto) 5-10 /hpf (0-5) Urine RBC (Auto) 0-4 /hpf (0-4) Urine Hyaline Casts (Auto) 1-5 /lpf (0-5) Urine Epithelial Cells (Auto) >30 /lpf (0-5) Urine Bacteria (Auto) NEG (NEG) Urine Pathogenic Casts /lpf (0) Urine Mucus PRESENT (NONE PRSENT) Laboratory results per my review. Medications Administered Medications (Trade) Dose Ordered Sig/Ant Route Start Time Stop Time Status Last Admin Dose Admin Sodium Chloride 1,000 ml @ 999 mls/hr Q1H1M STAT IV 09/16/16 20:02 09/16/16 21:02 DC 09/16/16 20:02 999 MLS/HR Ondansetron HCl (Zofran Inj) 4 mg NOW STAT IV 09/16/16 20:02 09/16/16 20:03 DC 09/16/16 20:45 4 MG Morphine Sulfate (MoRPHine SULFATE INJ) 4 mg Q15M PRN IV 09/16/16 20:15 09/30/16 20:14 09/16/16 22:56 4 MG Ketorolac Tromethamine (Toradol Inj) 30 mg NOW STAT IV 09/16/16 22:41 09/16/16 22:42 DC 09/16/16 22:56 30 MG Lactated Ringer's 1,000 ml @ 100 mls/hr Q10H IV 09/16/16 22:45 10/16/16 22:44 09/17/16 02:07 100 MLS/HR Ondansetron HCl (Zofran Inj) 4 mg Q6H PRN IV 09/16/16 22:45 10/16/16 22:44 09/16/16 23:21 4 MG ED Course 1999: The patient was evaluated in room A11B. A complete history and physical examination were performed. 2001: Zofran 4 mg IV, NSS 1000 ml @ 999 mls/hr IV. 2014: Morphine Sulfate 4 mg IV. 2139: I discussed the patients case with Dr. Delatorre [facility]. The patient will be further evaluated. Medical Decision Prior records/ancillary studies reviewed. Triage Nursing notes reviewed. The patient's history was concerning for headache. Differential diagnosis: Etiologies such as migraine headache, meningitis, sinusitis, CO exposure, ICH, SAH, infection, tumor, headache, sinus thrombosis, arterial dissection, as well as others were entertained. The patient is a 71-year-old female who has a history of lymphoma who is been suffering with headaches over the last month. She was recently admitted to our facility for similar complaints. She was sent home on pain medication and I am unsure how compliant she is what this pain medication regimen. She was treated with IV fluids IV pain medicine IV antiemetics. On subsequent reevaluation she was feeling somewhat improved but because the patient's symptoms duration She was concerned that the headache would not resolve. This reason I'll discuss her case with the on-call [facility] hospitalist group. They've agreed to evaluate the patient in the emergency department for further management and disposition. I did review the patient's recent CT the head which was done earlier this month. Medication Reconcilliation Current Medication List: was personally reviewed by me Blood Pressure Screening Patient's blood pressure: Elevated blood pressure Blood pressure disposition: Referred to PCP Consults Time Called: 2138 Consulting Physician: Dr. Delatorre [facility] Returned Call: [phone] I discussed the patients case with Dr. Delatorre [facility]. The patient will be further evaluated. Impression Primary Impression: Intractable headache Additional Impression: Lymphoma Scribe Attestation The scribe's documentation has been prepared under my direction and personally reviewed by me in its entirety. I confirm that the note above accurately reflects all work, treatment, procedures, and medical decision making performed by me. Departure Information Dispostion Being Evaluated By Hospitalist Referrals Jaime Chaves MD (PCP) Patient Instructions My [facility] Problem Qualifiers Primary Impression: Intractable headache Headache type: unspecified Headache chronicity pattern: unspecified pattern Qualified Codes: R51 - Headache Additional Impression: Lymphoma Lymphoma type: unspecified type Lymphoma site: unspecified region Qualified Codes: C85.90 - Non-Hodgkin lymphoma, unspecified, unspecified site
[2016-09-16 20:39] LABS: COMPLETE YES; HEMATOCRIT 42.9 % (37-47); IG% 0.4 %; LYMPH % 8.7 %; LYMPH ABS # 0.69 K/uL (1.2-3.4); MEAN CORPUSCULAR HEMOGLOBIN 33.1 pg (25-34); MEAN CORPUSCULAR HGB CONC 34.5 g/dl (32-36); MEAN PLATELET VOLUME 9.9 fL (7.4-10.4); MONO % 7.7 %; NEUT % 82.2 %; PLATELET COUNT 200 K/uL (130-400); RED BLOOD COUNT 4.47 M/uL (4.2-5.4); WHITE BLOOD COUNT 7.97 K/uL (4.8-10.8)
[2016-09-16] MEDS: MoRPHine SULFATE 4 MG/ML 1 ML CARP\\VIAL IV PRN ×2 (20:45→22:56)
[2016-09-16 21:01] LABS: BUN/CREATININE RATIO 20.1 (10-20); CALCIUM 9.2 mg/dl (8.5-10.1); CREATININE 0.91 mg/dl (0.60-1.20)
[2016-09-16] MEDS ORDERED: POTA10TA PO (21:01)
[2016-09-16] MEDS ORDERED: GABA1CAP4 PO (21:01)
[2016-09-16] MEDS ORDERED: CARB1CAP10 PO (21:01)
[2016-09-16] MEDS ORDERED: VERA1TAB53 PO (21:01)
[2016-09-16] MEDS ORDERED: OXYC-609 PO (21:02)
[2016-09-16 21:12] LABS: URINE APPEARANCE CLOUDY (CLEAR); URINE BILIRUBIN NEG (NEG); URINE COLOR DK YELLOW; URINE EPITHELIAL CELL AUTO >30 /lpf (0-5); URINE NITRITE NEG (NEG); URINE PH 5.5 (4.5-7.5); URINE SPECIFIC GRAVITY 1.026 (1.000-1.030); UROBILINOGEN NEG (NEG)
[2016-09-16 21:15] LABS: MANUAL MICROSCOPIC REQUIRED? NO; REVIEW REQ? YES
[2016-09-16 21:24] LABS: URINE MUCUS PRESENT (NONE PRSENT)
[2016-09-16] MEDS ORDERED: ACET-749 PO (21:33)
[2016-09-16] MEDS ORDERED: HYDR25TA4 PO (21:34)
--- NOTE | 2016-09-16 22:03 | History and Physical ---
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 She was recently hospitalized for similar symptoms from to 10 September 2016 which were so severe she was unable to eat or drink. She was started on carbamazepine 100mg BID, Decadron 4mg daily (for 5 days, starting 09/11), gabapentin 300 mg TID and verapamil 180mg PO daily. She had a CT head on that occasion (09/05/16) which did not show any acute intracranial findings. Her current pain is 10/10 in severity right sided, same as previously. She denies any new motor or sensory loss, change in vision, hearing or speech. She has associated nausea since discharge and vomiting today. Taking Tylenol with codeine every 3 hours but only helping slightly. Plan is for radiation which she is due on . Past Medical/Surgical History Medical Problems: (1) Gastroesophageal reflux disease Status: Chronic (2) History of - hypertension Status: Chronic (3) Lymphoma Permanent Comment: Self detected right neck mass FNA 07/07/2014 revealed malignant B-cell lymphoma Status post right parotidectomy and cervical lymph node excision 07/22/2014 revealed blastoid variant Mantle cell lymphoma, Stage IIE Status post systemic chemotherapy Left neck recurrent mass in July biopsy positive for lymphoma Mantle cell type 10/05/2015 Status post completion of radiation therapy 12/20/2015 received 4500 cGy Recurrent right neck mass March [address] revealing FDG avidity Initiation of immunotherapy with Ibrutinib - started May 2016 PET/CT in 08/2016 showed stable disease Patient admitted to hospital for pain control, further management Status: Chronic Family History FH: breast cancer FH: colon cancer Social History Smoking Status: Never Smoker Smokeless Tobacco Use: No Alcohol Use: none Drug Use: none Marital Status: Housing status: lives with significant other (Duonebs every 4 hours while awake and every 2 hours when necessary.) Occupational Status: retired Immunizations History of Influenza Vaccine: Yes History of Tetanus Vaccine?: Yes History of Pneumococcal: Yes History of Hepatitis B Vaccine: Yes Multi-Drug Resistant Organisms History of MDRO: No Allergies Coded Allergies: Propoxyphene (Verified Allergy, Intermediate, RASH, 09/05/16) Lisinopril (Verified Adverse Reaction, Mild, COUGH, 09/05/16) Home Medications Scheduled Acetaminophen/Codeine (Tylenol W/Codeine #3), 1 TAB PO Q4 Aspirin (Aspirin Chewable), 81 MG PO QPM Carbamazepine Extended Release (Tegretol Xr), 100 MG PO BID Dexamethasone (Decadron), 4 MG PO DAILY Duloxetine HCl (Duloxetine HCl), 20 MG PO QAM Gabapentin (Gabapentin), 300 MG PO TID Hydrochlorothiazide (Hctz), 25 MG PO QAM Morphine Sulfate (Morphine Sulfate ER), 15 MG PO UD Ondasetron Odt (Zofran Odt), 4 MG SL Q6H Polyethylene Glycol 3350 (Miralax), 17 GM PO DAILY Potassium Chloride (K-Tabs), 10 MEQ PO DAILY Psyllium (Metamucil), 1 DOSE PO DAILY Raloxifene (Evista), 60 MG PO QPM Senna (Senokot), 1 TAB PO QAM Simvastatin (Simvastatin), 40 MG PO HS Verapamil Hcl (Verapamil Hcl Er), 180 MG PO DAILY Scheduled PRN Oxycodone HCl (Oxycodone HCl), 5 MG PO QID PRN for Pain Pantoprazole (Protonix), 40 MG PO DAILY PRN for Dyspepsia Physical Exam Vital Signs Date Time Temp Pulse Resp B/P (MAP) Pulse Ox O2 Delivery O2 Flow Rate FiO2 09/16/16 21:06 65 09/16/16 19:12 36.7 83 18 149/97 96 Room Air General Appearance: WD/WN, + moderate distress (from pain) Eyes: + pertinent finding (unable to close right eye) Neck: + pertinent finding (right sided neck swelling, adjacent to jaw, dark erythematous, tender to palpation) Respiratory/Chest: chest non-tender, lungs clear, normal breath sounds, no respiratory distress, no accessory muscle use Cardiovascular: regular rate, rhythm, no edema, no murmur, normal peripheral pulses Abdomen/GI: normal bowel sounds, non tender, soft Extremities/Musculoskelatal: no calf tenderness, normal capillary refill, no pedal edema Neurologic/Psych: no motor/sensory deficits (in upper or lower extremities), alert, oriented x 3, + 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 (right sided facial droop (since 09/05 )) Skin: warm/dry, + pertinent finding (neck swelling as above) Diagnostics Laboratory Results Results Past 24 Hours Test 09/16/16 20:25 09/16/16 21:00 Range/Units White Blood Count 7.97 4.8-10.8 K/uL Red Blood Count 4.47 4.2-5.4 M/uL Hemoglobin 14.8 12.0-16.0 g/dL Hematocrit 42.9 37-47 % Mean Corpuscular Volume 96.0 80-100 fL Mean Corpuscular Hemoglobin 33.1 25-34 pg Mean Corpuscular Hemoglobin Concent 34.5 32-36 g/dl Platelet Count 200 130-400 K/uL Mean Platelet Volume 9.9 7.4-10.4 fL Neutrophils (%) (Auto) 82.2 % Lymphocytes (%) (Auto) 8.7 % Monocytes (%) (Auto) 7.7 % Eosinophils (%) (Auto) 1.0 % Basophils (%) (Auto) 0.0 % Neutrophils # (Auto) 6.56 1.4-6.5 K/uL Lymphocytes # (Auto) 0.69 1.2-3.4 K/uL Monocytes # (Auto) 0.61 0.11-0.59 K/uL Eosinophils # (Auto) 0.08 0-0.5 K/uL Basophils # (Auto) 0.00 0-0.2 K/uL RDW Standard Deviation 45.1 36.4-46.3 fL RDW Coefficient of Variation 12.8 11.5-14.5 % Immature Granulocyte % (Auto) 0.4 % Immature Granulocyte # (Auto) 0.03 0.00-0.02 K/uL Sodium Level 134 136-145 mmol/L Potassium Level 4.0 3.5-5.1 mmol/L Chloride Level 98 98-107 mmol/L Carbon Dioxide Level 28 21-32 mmol/L Anion Gap 8.0 3-11 mmol/L Blood Urea Nitrogen 18 7-18 mg/dl Creatinine 0.91 0.60-1.20 mg/dl Est Creatinine Clear Calc Drug Dose 52.5 ml/min Estimated GFR () 73.6 Estimated GFR (Non- 63.5 BUN/Creatinine Ratio 20.1 10-20 Random Glucose 123 70-99 mg/dl Calcium Level 9.2 8.5-10.1 mg/dl Total Bilirubin 0.6 0.2-1 mg/dl Direct Bilirubin 0.1 0-0.2 mg/dl Aspartate Amino Transf (AST/SGOT) 17 15-37 U/L Alanine Aminotransferase (ALT/SGPT) 39 12-78 U/L Alkaline Phosphatase 35 45-117 U/L Total Protein 7.2 6.4-8.2 gm/dl Albumin 3.9 3.4-5.0 gm/dl Lipase 242 73-393 U/L Urine Color DK YELLOW Urine Appearance CLOUDY CLEAR Urine pH 5.5 4.5-7.5 Urine Specific [place] 1.026 1.000-1.030 Urine Protein NEG NEG Urine Glucose (UA) NEG NEG Urine Ketones NEG NEG Urine Occult Blood NEG NEG Urine Nitrite NEG NEG Urine Bilirubin NEG NEG Urine Urobilinogen NEG NEG Urine Leukocyte Esterase TRACE NEG Urine WBC (Auto) 5-10 0-5 /hpf Urine RBC (Auto) 0-4 0-4 /hpf Urine Hyaline Casts (Auto) 1-5 0-5 /lpf Urine Epithelial Cells (Auto) >30 0-5 /lpf Urine Bacteria (Auto) NEG NEG Urine Pathogenic Casts 0 /lpf Urine Mucus PRESENT NONE PRSENT Impression Assessment and Plan 70 year old female blastoid, mantle cell lymphoma with invasion into the parotid gland. Recent admission for similar complaints Right severe headache with right sided facial droop - secondary to local invasion of mantle cell lymphoma of facial nerve. CT head from previous admission negative for acute pathological change - observation status for intractable pain - continue outpatient medication and start oxycodone 5mg IR - increase Decadron to IV 10mg stat then Q6H 4mg EVA - pain management consult - heme/onc consult Opiate induced constipation - Continue colace, miralax, and lactulose. - monitor BM Hypertension - continue HCZT and verpamil Hyperlipidemia - cont simvastatin GERD - pantoprazole 40mg PO daily VTE Prophylaxis - heparin 5000 units Q8H SQ Code - Full as discussed with the patient Disposition - observation status for intractable pain and unable to eat and drink Attending Addendum: I have physically seen and examined this patient, have supervised the medical residents activities, and agree with the H&P as noted above with the following exceptions: NONE The patient is awake, well-developed and adequately nourished, alert and oriented 3, normocephalic and atraumatic, lying in bed and in no acute distress. HEENT--PERRL, EOMI, unable close right eye, mucous membranes and oropharynx dry. Neck-mild swelling right side of neck and jawline, tender and ecchymotic, no JVD or bruits, thyroid normal, trachea midline, no adenopathy. Heart--normal S1 and S2, no extra beats, no murmurs, rubs or gallops. Lungs--clear bilaterally with good air movement, no respiratory distress, no accessory muscle use. Abdomen--normal bowel sounds and soft, nontender and nondistended, no hernias or masses, no organomegaly. Extremities--no cyanosis, clubbing or edema. There are good distal pulses b/l. Dermatologic--normal skin turgor, normal color, warm and dry, no abnormal lymph nodes, no rash. Neurologic--right facial droop, otherwise cranial nerves II through XII grossly intact. Rheumatologic--normal range of motion, nontender, muscles and joints. Psychiatric--normal affect. Assessment and Plan: 1. Severe right-sided headache/right-sided facial droop/local invasion of mantle cell lymphoma into facial nerve. Admitted to medical surgical floor for pain management. Continue outpatient dosing of oxycodone 5 mg IR every 4 hours when necessary. Start Decadron 10 mg IV now, and then place on 4 mg IV every 6 hours. Consider Dilaudid 0.5 mg IV every 2 hours when necessary for severe breakthrough pain. Consult her oncologist. Level of Care Med/Surg Advanced Directives Existing Advance Directive: No Existing Living Will: No Existing Power of Tool Design Draftsperson: No Resuscitation Status FULL RESUSCITATION VTE Prophylaxis VTE Risk Assessment Done? Y/N: Yes Risk Level: Moderate Given or contraindicated: Unfractionated heparin SQ Additional Copies To Shahzad Norton MD Resident Tracking Resident Involvement: Resident Care Provided Care Provided: Adult [facility] Medicine
[2016-09-16] MEDS ORDERED: KETOROLAC TROMETHAMINE 30 MG/ML VIAL IV STA (22:41)
[2016-09-16] MEDS ORDERED: PANTOprazole SOD 40 MG TAB PO PRN (22:45)
[2016-09-16] MEDS ORDERED: METOCLOPRAMIDE HCL 10 MG TAB PO PRN (23:00)
[2016-09-16] MEDS ORDERED: PSYLLIUM 58.6% PWD PACK S\\F PO ONE (23:13)
[2016-09-16] MEDS ORDERED: PROMETHAZINE HCL INJ 12.5 MG in SODIUM CHLORIDE 0.9% 50ML 50 ML IV STA (23:13)
[2016-09-16] MEDS ORDERED: CARBAMAZEPINE 100 MG TABCR PO ONE (23:13)
[2016-09-16] MEDS ORDERED: PROMETHAZINE HCL INJ 12.5 MG in SODIUM CHLORIDE 0.9% 50ML 50 ML IV PRN (23:15)
[2016-09-16] MEDS ORDERED: RANITIDINE HCL 50 MG/100 ML D5W IV STA (23:19)
[2016-09-16] MEDS: ONDANSETRON INJ 2 MG/ML 2 ML VIAL IV PRN (23:21)
[2016-09-16] MEDS ORDERED: DEXAMETHASONE SOD INJ 10 MG/ML VIAL IV ONE (23:30)
[2016-09-16] MEDS ORDERED: IV FLUIDS COMPLETED PRN (23:30)
[2016-09-17] MEDS ORDERED: DEXAMETHASONE INJ 10 MG in SYRINGE 0 ML IV ONE (00:30)
[2016-09-17] MEDS: LACTATED RINGER'S 1000ML 1,000 ML IV SCH ×3 (02:07→19:09)
[2016-09-17 04:44] VITALS: BP 186/93; PULSE 76; TEMP 36.7; Ht 152.4 cm; Wt 78.5 kg
[2016-09-17 05:46] LABS: PROTHROMBIN TIME (PATIENT) 10.3 SECONDS (9.0-12.0)
[2016-09-17] MEDS: DEXAMETHASONE INJ 4 MG in SYRINGE 0 ML IV SCH ×4 (05:55→23:37)
[2016-09-17] MEDS: HEPARIN SOD 5000 UNIT/0.5 ML CARP SQ SCH ×3 (06:34→20:50)
[2016-09-17 07:37] VITALS: BP 159/85; PULSE 74; TEMP 37.1; O2SAT 95
[2016-09-17] MEDS: POLYETHYLENE (MIRALAX) 17 GM PACK PO SCH (07:57)
[2016-09-17] MEDS: HYDROCHLOROTHIAZIDE 25 MG TAB PO SCH (07:57)
[2016-09-17] MEDS: PANTOprazole SOD 40 MG TAB PO SCH (07:57)
[2016-09-17] MEDS: SENNA 8.6 MG TAB PO SCH (07:57)
[2016-09-17] MEDS: GABAPENTIN 300 MG CAP PO SCH ×3 (07:57→20:46)
[2016-09-17] MEDS: POTASSIUM CHLORIDE 10 MEQ TABCR PO SCH (07:57)
[2016-09-17] MEDS: PSYLLIUM 58.6% PWD PACK S\\F PO SCH ×2 (07:57→20:48)
[2016-09-17] MEDS: VERAPAMIL HCL 180 MG TABCR PO SCH (07:58)
[2016-09-17] MEDS: CARBAMAZEPINE 100 MG TABCR PO SCH ×2 (07:58→20:47)
[2016-09-17] MEDS ORDERED: BOOST VANILLA PO SCH ×2 (08:00)
[2016-09-17] MEDS: MoRPHine SULFATE 4 MG/ML 1 ML CARP\\VIAL IV PRN ×3 (08:48→20:57)
--- NOTE | 2016-09-17 10:35 | Pain Management Consultation ---
Pain Management Consultation Date of Consultation Sep 17, 2016. Reason for Consultation right facial pain/headaches History Mrs. Packer is a 71 year old white female that has been seen in consultation at the [facility] for right sided facial pain and headache. 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 She describes a deep ache and throbbing sensation along the right auricular region and on the top of her head. There is a constant throbbing on the right side of her face. She has been previously hospitalized with these symptoms on 09/05/16 for several days which was managed by medications while in the hospital. When she was discharged , she noticed the headache and facial pain worsening. She returned to the hospital for further medical management. Today she states that her headache is well controlled. She describes a mild aching pain along the right side of her face. Pain is 3/10 currently. She has used Morphine 4mg IV x3 over the last 12 hours and has not used any oral Oxycodone. She did get fitted for a mask so that she can receive radiation. Patient is unable to close her right eye so she is wearing an eye patch. There is a right facial droop. Patient denies any fevers, chills, vision changes, dizziness, difficulty swallowing. Case discussed with Dr. Jackson Past Medical/Surgical History (1) Gastroesophageal reflux disease (2) History of - hypertension (3) Lymphoma Family History FH: breast cancer FH: colon cancer Social / Work History Smokeless Tobacco Use: No Alcohol Use: none Drug Use: none Marital Status: Housing Status: lives with family Occupation: retired Allergies Coded Allergies: Propoxyphene (Verified Allergy, Intermediate, RASH, 09/05/16) Lisinopril (Verified Adverse Reaction, Mild, COUGH, 09/05/16) Medications Current Inpatient Medications Medications (Trade) Dose Ordered Sig/Ant Route Start Time Stop Time Status Last Admin Dose Admin Morphine Sulfate (MoRPHine SULFATE INJ) 4 mg Q15M PRN IV 09/16/16 20:15 09/30/16 20:14 09/17/16 08:48 4 MG Lactated Ringer's 1,000 ml @ 100 mls/hr Q10H IV 09/16/16 22:45 10/16/16 22:44 09/17/16 08:43 100 MLS/HR Aspirin (Ecotrin Tab) 81 mg QPM PO 09/17/16 21:00 10/17/16 20:59 Gabapentin (Neurontin Cap) 300 mg TID PO 09/17/16 08:00 10/17/16 08:59 09/17/16 07:57 300 MG Hydrochlorothiazide (Hydrochlorothiazide Tab) 25 mg QAM PO 09/17/16 08:00 10/17/16 08:59 09/17/16 07:57 25 MG Raloxifene HCl (Evista Tab) 60 mg QPM PO 09/17/16 21:00 10/17/16 20:59 Senna (Senokot Tab) 8.6 mg QAM PO 09/17/16 08:00 10/17/16 08:59 09/17/16 07:57 8.6 MG Simvastatin (Zocor Tab) 40 mg HS PO 09/17/16 21:00 10/17/16 20:59 Verapamil HCl (Calan-Sr Tab) 180 mg DAILY PO 09/17/16 08:00 10/17/16 08:59 09/17/16 07:58 180 MG Potassium Chloride (Klor-Con M10) 10 meq DAILY PO 09/17/16 08:00 10/17/16 08:59 09/17/16 07:57 10 MEQ Psyllium Hydrophilic Mucilloid (Metamucil Powder) 1 pkt DAILY PO 09/17/16 08:00 10/17/16 08:59 09/17/16 07:57 1 PKT Carbamazepine (Tegretol-Xr) 100 mg BID PO 09/17/16 08:00 10/17/16 08:59 09/17/16 07:58 100 MG Polyethylene (Miralax Powder Packet) 17 gm DAILY PO 09/17/16 08:00 10/17/16 08:59 09/17/16 07:57 17 GM Heparin Sodium (Porcine) (Heparin Sq 5000 Unit/0.5ml) 5,000 unit Q8H SQ 09/17/16 06:00 10/17/16 05:59 09/17/16 06:34 5,000 UNIT Ondansetron HCl (Zofran Inj) 4 mg Q6H PRN IV 09/16/16 22:45 10/16/16 22:44 09/16/16 23:21 4 MG Enteral Nutritional Formula (Boost) 1 can BID PO 09/17/16 08:00 10/17/16 08:59 09/17/16 08:02 1 CAN Oxycodone HCl (Roxicodone Immediate Rel Tab) 5 mg Q2H PRN PO 09/16/16 23:00 09/30/16 22:59 Miscellaneous (Iv Fluids Completed) 1 ea PRN PRN N/A 09/16/16 23:30 09/16/17 23:29 Pantoprazole Sodium (Protonix Tab) 40 mg DAILY PO 09/17/16 08:00 10/16/16 22:44 09/17/16 07:57 40 MG Psyllium Hydrophilic Mucilloid (Metamucil Powder) 1 pkt QPM PO 09/17/16 21:00 10/17/16 20:59 Promethazine HCl 12.5 mg/Sodium Chloride 50.5 ml @ 204 mls/hr Q6H PRN IV 09/16/16 23:15 10/16/16 23:14 Dexamethasone Sodium Phosphate 4 mg/Syringe 1 ml @ 1 mls/min Q6H IV 09/17/16 06:00 10/17/16 05:59 09/17/16 05:55 1 MLS/MIN Review of Systems Denies any constitutional, cardiac, pulmonary, neurological, GI, , extremity, endocrine, neuro, ENT, dermatological, or musculoskeletal complaints other than stated in HPI Physical Exam Height & Weight: Height 5 feet, 0.00 inches. Weight 78.500 (Kilograms) 173 (Pounds) Last Vital Signs Documentation Date Time Temp Pulse Resp B/P (MAP) Pulse Ox O2 Delivery O2 Flow Rate FiO2 09/17/16 08:00 Room Air 09/17/16 07:37 37.1 74 18 159/85 (109) 95 Exam: GENERAL: Mrs. Packer is a 71 y/o white female that appears her stated age. Speech and cognition is intact. Mood and affect is appropriate. DOes not appear to be in any acute distress. HEAD: Normocephalic; atraumatic. Tenderness along the right mandible. No allodynia. EYES: Wearing a patch over the right eye. ENT: No external ear discharge or lesions. No rhinorrhea or epistaxis. No mucosal lesions. NECK: There is a large mass on the right neck, underneath the right ear. Diffuse tenderness along the right side of the neck. CHEST: Regular chest respiration and excursion. NEURO: AAO x 3. Laboratory Laboratory Results (Last CBC): 09/16/16 20:25 Red Blood Count 4.47, Mean Corpuscular Volume 96.0, Mean Corpuscular Hemoglobin 33.1, Mean Corpuscular Hemoglobin Concent 34.5, Mean Platelet Volume 9.9, Neutrophils (%) (Auto) 82.2, Lymphocytes (%) (Auto) 8.7, Monocytes (%) (Auto) 7.7, Eosinophils (%) (Auto) 1.0, Basophils (%) (Auto) 0.0, Neutrophils # (Auto) 6.56 H, Lymphocytes # (Auto) 0.69 L, Monocytes # (Auto) 0.61 H, Eosinophils # ( Auto) 0.08, Basophils # (Auto) 0.00 Imaging Radiology Findings PET scan 08/26/16 1. Large hypermetabolic soft tissue mass of the right neck in the region of the parotid gland has slightly decreased in size from comparison and has also decreased in FDG avidity. Findings suggest partial response to therapy. 2. Mildly prominent level 2 lymph nodes on the right just below the large soft tissue mass demonstrate SUV max similar to and slightly above that of blood pool. Findings may reflect progression of disease or inflammatory response. 3. No hypermetabolic activity within the chest, abdomen or pelvis. Assessment 1. Lymphoma with invasion into the parotid gland 2. Right-sided cervical pain 3. Headache Recommendations 1. I have emphasized to the patient that she does have Oxycodone ordered for pain and she should try it and see if it does control her pain 2. Morphine 4mg IV has been changed from x 15 minutes to 2 hours. 3. Will check on the patient tomorrow to see if the pain is controlled and if not consider adding a long acting agent.
[2016-09-17 11:50] VITALS: BP 162/83; PULSE 74; TEMP 37.2; O2SAT 96
--- NOTE | 2016-09-17 14:54 | Family Medicine Progress Note ---
Progress Note Date of Service Sep 17, 2016. Subjective Pain: pain along right side of face PO Intake: good Voiding: no voiding problems feels her headache is better now and right sided facial pain is better controlled. denies any new onset numbness and tingling and motor weakness. she states that she has a facial droop due to her cancer. Constitutional: No fever, No chills ENT: No hearing loss Respiratory: No cough, No shortness of breath Cardiovascular: No chest pain Abdomen: + nausea, + vomiting, No pain Musculoskeletal: No joint pain Female : No dysuria Neurologic: + problem reported (pain along right side of face and a headcahe ) Endo: No fatigue Medications Current Inpatient Medications Medications (Trade) Dose Ordered Sig/Ant Route Start Time Stop Time Status Last Admin Dose Admin Lactated Ringer's 1,000 ml @ 100 mls/hr Q10H IV 09/16/16 22:45 10/16/16 22:44 09/17/16 08:43 100 MLS/HR Aspirin (Ecotrin Tab) 81 mg QPM PO 09/17/16 21:00 10/17/16 20:59 Gabapentin (Neurontin Cap) 300 mg TID PO 09/17/16 08:00 10/17/16 08:59 09/17/16 07:57 300 MG Hydrochlorothiazide (Hydrochlorothiazide Tab) 25 mg QAM PO 09/17/16 08:00 10/17/16 08:59 09/17/16 07:57 25 MG Raloxifene HCl (Evista Tab) 60 mg QPM PO 09/17/16 21:00 10/17/16 20:59 Senna (Senokot Tab) 8.6 mg QAM PO 09/17/16 08:00 10/17/16 08:59 09/17/16 07:57 8.6 MG Simvastatin (Zocor Tab) 40 mg HS PO 09/17/16 21:00 10/17/16 20:59 Verapamil HCl (Calan-Sr Tab) 180 mg DAILY PO 09/17/16 08:00 10/17/16 08:59 09/17/16 07:58 180 MG Potassium Chloride (Klor-Con M10) 10 meq DAILY PO 09/17/16 08:00 10/17/16 08:59 09/17/16 07:57 10 MEQ Psyllium Hydrophilic Mucilloid (Metamucil Powder) 1 pkt DAILY PO 09/17/16 08:00 10/17/16 08:59 09/17/16 07:57 1 PKT Carbamazepine (Tegretol-Xr) 100 mg BID PO 09/17/16 08:00 10/17/16 08:59 09/17/16 07:58 100 MG Polyethylene (Miralax Powder Packet) 17 gm DAILY PO 09/17/16 08:00 10/17/16 08:59 09/17/16 07:57 17 GM Heparin Sodium (Porcine) (Heparin Sq 5000 Unit/0.5ml) 5,000 unit Q8H SQ 09/17/16 06:00 10/17/16 05:59 09/17/16 06:34 5,000 UNIT Ondansetron HCl (Zofran Inj) 4 mg Q6H PRN IV 09/16/16 22:45 10/16/16 22:44 09/16/16 23:21 4 MG Enteral Nutritional Formula (Boost) 1 can BID PO 09/17/16 08:00 10/17/16 08:59 09/17/16 08:02 1 CAN Oxycodone HCl (Roxicodone Immediate Rel Tab) 5 mg Q2H PRN PO 09/16/16 23:00 09/30/16 22:59 Miscellaneous (Iv Fluids Completed) 1 ea PRN PRN N/A 09/16/16 23:30 09/16/17 23:29 Pantoprazole Sodium (Protonix Tab) 40 mg DAILY PO 09/17/16 08:00 10/16/16 22:44 09/17/16 07:57 40 MG Psyllium Hydrophilic Mucilloid (Metamucil Powder) 1 pkt QPM PO 09/17/16 21:00 10/17/16 20:59 Promethazine HCl 12.5 mg/Sodium Chloride 50.5 ml @ 204 mls/hr Q6H PRN IV 09/16/16 23:15 10/16/16 23:14 Dexamethasone Sodium Phosphate 4 mg/Syringe 1 ml @ 1 mls/min Q6H IV 09/17/16 06:00 10/17/16 05:59 09/17/16 11:49 1 MLS/MIN Morphine Sulfate (MoRPHine SULFATE INJ) 4 mg Q2HWA PRN IV 09/17/16 12:00 09/30/16 20:14 Objective Vital Signs Date Time Temp Pulse Resp B/P (MAP) Pulse Ox O2 Delivery O2 Flow Rate FiO2 09/17/16 11:50 37.2 74 18 162/83 (109) 96 09/17/16 08:00 Room Air 09/17/16 07:37 37.1 74 18 159/85 (109) 95 Room Air 09/17/16 04:44 36.7 76 18 186/93 Room Air 09/16/16 23:22 71 18 186/93 94 Room Air 09/16/16 21:06 65 09/16/16 19:12 36.7 83 18 149/97 96 Room Air Physical Exam General Appearance: no apparent distress Eyes: normal inspection ENT: hearing grossly normal Neck: no adenopathy Respiratory/Chest: normal breath sounds, no respiratory distress, no accessory muscle use Cardiovascular: regular rate, rhythm Abdomen: non tender, soft Extremities: non-tender, no pedal edema Neurologic/Psychiatric: alert, normal mood/affect, oriented x 3, + pertinent finding (right facial droop sec to cancer.) Skin: normal color Laboratory Results 09/16/16 20:25 Red Blood Count 4.47, Mean Corpuscular Volume 96.0, Mean Corpuscular Hemoglobin 33.1, Mean Corpuscular Hemoglobin Concent 34.5, Mean Platelet Volume 9.9, Neutrophils (%) (Auto) 82.2, Lymphocytes (%) (Auto) 8.7, Monocytes (%) (Auto) 7.7, Eosinophils (%) (Auto) 1.0, Basophils (%) (Auto) 0.0, Neutrophils # (Auto) 6.56, Lymphocytes # (Auto) 0.69, Monocytes # (Auto) 0.61, Eosinophils # (Auto) 0.08, Basophils # (Auto) 0.00 09/16/16 20:25 Test 09/16/16 20:25 09/16/16 21:00 09/17/16 05:22 White Blood Count 7.97 K/uL (4.8-10.8) Red Blood Count 4.47 M/uL (4.2-5.4) Hemoglobin 14.8 g/dL (12.0-16.0) Hematocrit 42.9 % (37-47) Mean Corpuscular Volume 96.0 fL (80-100) Mean Corpuscular Hemoglobin 33.1 pg (25-34) Mean Corpuscular Hemoglobin Concent 34.5 g/dl (32-36) Platelet Count 200 K/uL (130-400) Mean Platelet Volume 9.9 fL (7.4-10.4) Neutrophils (%) (Auto) 82.2 % Lymphocytes (%) (Auto) 8.7 % Monocytes (%) (Auto) 7.7 % Eosinophils (%) (Auto) 1.0 % Basophils (%) (Auto) 0.0 % Neutrophils # (Auto) 6.56 K/uL (1.4-6.5) Lymphocytes # (Auto) 0.69 K/uL (1.2-3.4) Monocytes # (Auto) 0.61 K/uL (0.11-0.59) Eosinophils # (Auto) 0.08 K/uL (0-0.5) Basophils # (Auto) 0.00 K/uL (0-0.2) RDW Standard Deviation 45.1 fL (36.4-46.3) RDW Coefficient of Variation 12.8 % (11.5-14.5) Immature Granulocyte % (Auto) 0.4 % Immature Granulocyte # (Auto) 0.03 K/uL (0.00-0.02) Anion Gap 8.0 mmol/L (3-11) Est Creatinine Clear Calc Drug Dose 52.5 ml/min Estimated GFR () 73.6 Estimated GFR (Non- 63.5 BUN/Creatinine Ratio 20.1 (10-20) Calcium Level 9.2 mg/dl (8.5-10.1) Total Bilirubin 0.6 mg/dl (0.2-1) Direct Bilirubin 0.1 mg/dl (0-0.2) Aspartate Amino Transf (AST/SGOT) 17 U/L (15-37) Alanine Aminotransferase (ALT/SGPT) 39 U/L (12-78) Alkaline Phosphatase 35 U/L (45-117) Total Protein 7.2 gm/dl (6.4-8.2) Albumin 3.9 gm/dl (3.4-5.0) Lipase 242 U/L (73-393) Urine Color DK YELLOW Urine Appearance CLOUDY (CLEAR) Urine pH 5.5 (4.5-7.5) Urine Specific [place] 1.026 (1.000-1.030) Urine Protein NEG (NEG) Urine Glucose (UA) NEG (NEG) Urine Ketones NEG (NEG) Urine Occult Blood NEG (NEG) Urine Nitrite NEG (NEG) Urine Bilirubin NEG (NEG) Urine Urobilinogen NEG (NEG) Urine Leukocyte Esterase TRACE (NEG) Urine WBC (Auto) 5-10 /hpf (0-5) Urine RBC (Auto) 0-4 /hpf (0-4) Urine Hyaline Casts (Auto) 1-5 /lpf (0-5) Urine Epithelial Cells (Auto) >30 /lpf (0-5) Urine Bacteria (Auto) NEG (NEG) Urine Pathogenic Casts /lpf (0) Urine Mucus PRESENT (NONE PRSENT) Prothrombin Time 10.3 SECONDS (9.0-12.0) Prothromb Time International Ratio 1.0 (0.9-1.1) Assessment and Plan 70 year old female blastoid, mantle cell lymphoma with invasion into the parotid gland. 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 - started on oxycodone IR 5 mg Q2h PRN with morphine 4 mg q2h for breakthrough pain. - continue carbamazepine , Gabapentin and Decadron 4 mg q6h - appreciate pain mgmt recs - scheduled for radiation therapy tomorrow per patient Constipation: likely sec to opioid medication - Continue colace, miralax, and lactulose. - last BM about 4-5 days ago, Dulcolax supp Hypertension - continue HCZT and verpamil ( verapamil was added during last admission) Hyperlipidemia - continue simvastatin GERD - Pantoprazole 40mg PO daily DVT Prophylaxis - heparin 5000 units Q8H SQ Code - Full Disposition In [facility] Resident Physician Supervision Note: I interviewed and examined the patient. Discussed with Dr. Trimble and agree with findings and plan as documented in the note. Any exceptions or clarifications are listed here: None Documented By: Victor Hugo Tejinder headache does better w morphine. afriad to go home without good pain control. optimistic XRT will help - notes that it did before - but also notes that it will take a while. all other ROS otherwise negative except for as above vitals noted nad breathing unlabored no pallor or icterus ongoing facial droop mantle cell lymphoma w intractable headache - controlled on IV morphine - will llook for control w PO oxycodone and then try to better tailor pain regimen she can tolerate and have relief from at home Resident Tracking Resident Involvement: Resident Care Provided Care Provided: Adult Hospital Medicine
[2016-09-17 16:12] VITALS: BP 166/81; PULSE 72; TEMP 37.2; O2SAT 94
[2016-09-17] MEDS: BOOST VANILLA PO SCH ×2 (17:00)
--- NOTE | 2016-09-17 17:08 | Oncology Consultation ---
Oncology/Heme Consultation Date of Consultation: Sep 17, 2016. Attending Physician: Alexandre Archer M.D. Reason for Consultation: Mantle cell lymphoma Pain History of Present Illness Ms. 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 She was just admitted with markedly progressive , exquisitely painful disease at the base of her skull. She is currently undergoing planning for RT and was supposed to start SURENDRA. She is on a regimen of pain medications arranged by palliative care, which helps some. However, she felt the burden of her pain was too much and decided to return to the ER. She has no pain outside this area and no other worsening issues. Past Medical/Surgical History Medical Problems: (1) Acute headache Status: Acute (2) Facial droop Status: Acute (3) Hypokalemia Status: Acute (4) Intractable headache Status: Acute (5) Intractable headache Status: Acute (6) Lymphoma Permanent Comment: Self detected right neck mass FNA 07/07/2014 revealed malignant B-cell lymphoma Status post right parotidectomy and cervical lymph node excision 07/22/2014 revealed blastoid variant Mantle cell lymphoma, Stage IIE Status post systemic chemotherapy Left neck recurrent mass in July biopsy positive for lymphoma Mantle cell type 10/05/2015 Status post completion of radiation therapy 12/20/2015 received 4500 cGy Recurrent right neck mass March [address] revealing FDG avidity Initiation of immunotherapy with Ibrutinib - started May 2016 PET/CT in 08/2016 showed stable disease Patient admitted to hospital for pain control, further management Status: Chronic (7) Mantle cell lymphoma Status: Acute (8) Right facial numbness Status: Acute Family History FH: breast cancer FH: colon cancer Social History Smoking Status: Never Smoker Smokeless Tobacco Use: No Alcohol Use: none Drug Use: none Marital Status: Housing Status: lives with family Occupation Status: retired Allergies Coded Allergies: Propoxyphene (Verified Allergy, Intermediate, RASH, 09/05/16) Lisinopril (Verified Adverse Reaction, Mild, COUGH, 09/05/16) Home Medications Scheduled Acetaminophen/Codeine (Tylenol W/Codeine #3), 1 TAB PO Q4 Aspirin (Aspirin Chewable), 81 MG PO QPM Carbamazepine Extended Release (Tegretol Xr), 100 MG PO BID Gabapentin (Gabapentin), 300 MG PO TID Hydrochlorothiazide (Hctz), 25 MG PO QAM Polyethylene Glycol 3350 (Miralax), 17 GM PO DAILY Potassium Chloride (K-Tabs), 10 MEQ PO DAILY Psyllium (Metamucil), 1 DOSE PO DAILY Raloxifene (Evista), 60 MG PO QPM Senna (Senokot), 1 TAB PO QAM Simvastatin (Simvastatin), 40 MG PO HS Verapamil Hcl (Verapamil Hcl Er), 180 MG PO DAILY Scheduled PRN Oxycodone HCl (Oxycodone HCl), 5 MG PO Q4 PRN for Pain Pantoprazole (Protonix), 40 MG PO DAILY PRN for Dyspepsia Current Inpatient Medications Current Inpatient Medications Medications (Trade) Dose Ordered Sig/Ant Route Start Time Stop Time Status Last Admin Dose Admin Lactated Ringer's 1,000 ml @ 100 mls/hr Q10H IV 09/16/16 22:45 10/16/16 22:44 09/17/16 08:43 100 MLS/HR Aspirin (Ecotrin Tab) 81 mg QPM PO 09/17/16 21:00 10/17/16 20:59 Gabapentin (Neurontin Cap) 300 mg TID PO 09/17/16 08:00 10/17/16 08:59 09/17/16 13:28 300 MG Hydrochlorothiazide (Hydrochlorothiazide Tab) 25 mg QAM PO 09/17/16 08:00 10/17/16 08:59 09/17/16 07:57 25 MG Raloxifene HCl (Evista Tab) 60 mg QPM PO 09/17/16 21:00 10/17/16 20:59 Senna (Senokot Tab) 8.6 mg QAM PO 09/17/16 08:00 10/17/16 08:59 09/17/16 07:57 8.6 MG Simvastatin (Zocor Tab) 40 mg HS PO 09/17/16 21:00 10/17/16 20:59 Verapamil HCl (Calan-Sr Tab) 180 mg DAILY PO 09/17/16 08:00 10/17/16 08:59 09/17/16 07:58 180 MG Potassium Chloride (Klor-Con M10) 10 meq DAILY PO 09/17/16 08:00 10/17/16 08:59 09/17/16 07:57 10 MEQ Psyllium Hydrophilic Mucilloid (Metamucil Powder) 1 pkt DAILY PO 09/17/16 08:00 10/17/16 08:59 09/17/16 07:57 1 PKT Carbamazepine (Tegretol-Xr) 100 mg BID PO 09/17/16 08:00 10/17/16 08:59 09/17/16 07:58 100 MG Polyethylene (Miralax Powder Packet) 17 gm DAILY PO 09/17/16 08:00 10/17/16 08:59 09/17/16 07:57 17 GM Heparin Sodium (Porcine) (Heparin Sq 5000 Unit/0.5ml) 5,000 unit Q8H SQ 09/17/16 06:00 10/17/16 05:59 09/17/16 13:32 5,000 UNIT Ondansetron HCl (Zofran Inj) 4 mg Q6H PRN IV 09/16/16 22:45 10/16/16 22:44 09/16/16 23:21 4 MG Oxycodone HCl (Roxicodone Immediate Rel Tab) 5 mg Q2H PRN PO 09/16/16 23:00 09/30/16 22:59 Miscellaneous (Iv Fluids Completed) 1 ea PRN PRN N/A 09/16/16 23:30 09/16/17 23:29 Pantoprazole Sodium (Protonix Tab) 40 mg DAILY PO 09/17/16 08:00 10/16/16 22:44 09/17/16 07:57 40 MG Psyllium Hydrophilic Mucilloid (Metamucil Powder) 1 pkt QPM PO 09/17/16 21:00 10/17/16 20:59 Promethazine HCl 12.5 mg/Sodium Chloride 50.5 ml @ 204 mls/hr Q6H PRN IV 09/16/16 23:15 10/16/16 23:14 Dexamethasone Sodium Phosphate 4 mg/Syringe 1 ml @ 1 mls/min Q6H IV 09/17/16 06:00 10/17/16 05:59 09/17/16 11:49 1 MLS/MIN Morphine Sulfate (MoRPHine SULFATE INJ) 4 mg Q2HWA PRN IV 09/17/16 12:00 09/30/16 20:14 09/17/16 14:47 4 MG Enteral Nutritional Formula (Boost) 1 can BIDM PO 09/17/16 17:00 10/17/16 16:59 Review of Systems Constitutional: + fatigue (due to pain), No fever, No weight loss ENT: No hearing loss, No unusual epistaxis Respiratory: No cough, No shortness of breath Cardiovascular: No chest pain Abdomen: No pain, No nausea, No vomiting Musculoskeletal: No joint pain, No muscle pain Genitourinary - Female: No dysuria, No hematuria Neurologic: No weakness, No numbness/tingling Hematologic / Lymphatic: + swollen lymph nodes, No abnormal bleeding/bruising Physical Exam Date Time Temp Pulse Resp B/P (MAP) Pulse Ox O2 Delivery O2 Flow Rate FiO2 09/17/16 16:12 37.2 72 16 166/81 (109) 94 Room Air 09/17/16 15:55 Room Air 09/17/16 11:50 37.2 74 18 162/83 (109) 96 09/17/16 08:00 Room Air 09/17/16 07:37 37.1 74 18 159/85 (109) 95 Room Air 09/17/16 04:44 36.7 76 18 186/93 Room Air 09/16/16 23:22 71 18 186/93 94 Room Air 09/16/16 21:06 65 09/16/16 19:12 36.7 83 18 149/97 96 Room Air General Appearance: WD/WN, no apparent distress Eyes: + pertinent finding (right eye covered with a bandage.) Neck: + adenopathy present (tender, markedly enlarged posterior auricular lymphadenopathy on the right) Respiratory/Chest: lungs clear, no respiratory distress Cardiovascular: regular rate, rhythm Abdomen/GI: non tender, soft Extremities/Musculoskelatal: no pedal edema, normal range of motion Neurologic/Psych: alert, oriented x 3, + facial droop (on the right) Skin: warm/dry, no rash Lymphatic: + cervical node abnormality Laboratory Results Last 24 Hours Test 09/16/16 20:25 09/16/16 21:00 09/17/16 05:22 White Blood Count 7.97 K/uL Red Blood Count 4.47 M/uL Hemoglobin 14.8 g/dL Hematocrit 42.9 % Mean Corpuscular Volume 96.0 fL Mean Corpuscular Hemoglobin 33.1 pg Mean Corpuscular Hemoglobin Concent 34.5 g/dl Platelet Count 200 K/uL Mean Platelet Volume 9.9 fL Neutrophils (%) (Auto) 82.2 % Lymphocytes (%) (Auto) 8.7 % Monocytes (%) (Auto) 7.7 % Eosinophils (%) (Auto) 1.0 % Basophils (%) (Auto) 0.0 % Neutrophils # (Auto) 6.56 K/uL Lymphocytes # (Auto) 0.69 K/uL Monocytes # (Auto) 0.61 K/uL Eosinophils # (Auto) 0.08 K/uL Basophils # (Auto) 0.00 K/uL RDW Standard Deviation 45.1 fL RDW Coefficient of Variation 12.8 % Immature Granulocyte % (Auto) 0.4 % Immature Granulocyte # (Auto) 0.03 K/uL Sodium Level 134 mmol/L Potassium Level 4.0 mmol/L Chloride Level 98 mmol/L Carbon Dioxide Level 28 mmol/L Anion Gap 8.0 mmol/L Blood Urea Nitrogen 18 mg/dl Creatinine 0.91 mg/dl Est Creatinine Clear Calc Drug Dose 52.5 ml/min Estimated GFR () 73.6 Estimated GFR (Non- 63.5 BUN/Creatinine Ratio 20.1 Random Glucose 123 mg/dl Calcium Level 9.2 mg/dl Total Bilirubin 0.6 mg/dl Direct Bilirubin 0.1 mg/dl Aspartate Amino Transf (AST/SGOT) 17 U/L Alanine Aminotransferase (ALT/SGPT) 39 U/L Alkaline Phosphatase 35 U/L Total Protein 7.2 gm/dl Albumin 3.9 gm/dl Lipase 242 U/L Urine Color DK YELLOW Urine Appearance CLOUDY Urine pH 5.5 Urine Specific [place] 1.026 Urine Protein NEG Urine Glucose (UA) NEG Urine Ketones NEG Urine Occult Blood NEG Urine Nitrite NEG Urine Bilirubin NEG Urine Urobilinogen NEG Urine Leukocyte Esterase TRACE Urine WBC (Auto) 5-10 /hpf Urine RBC (Auto) 0-4 /hpf Urine Hyaline Casts (Auto) 1-5 /lpf Urine Epithelial Cells (Auto) >30 /lpf Urine Bacteria (Auto) NEG Urine Pathogenic Casts /lpf Urine Mucus PRESENT Prothrombin Time 10.3 SECONDS Prothromb Time International Ratio 1.0 Assessment & Plan Ms. Packer has recurrent, progressive mantle cell lymphoma in her right neck. It appears to be her only site of disease, based on her PET. As a result, Dr. Carnes had arranged with radiation oncology to plan RT to the progressive lesion, given that it was her only site of disease and the likelihood of a more rapid response than with systemic therapy alone. However, unfortunately it has taken longer than anticipated to plan her therapy, due to overlapping marshall with previous RT. I spoke with Dr. Rothman from radiation oncology, who thinks he could get her started as early as tomorrow. If there is going to be a significant further delay, we could attempt some systemic therapy, but I doubt we would see a very rapid response. In the meantime, I would suggest supportive care. I will check back in tomorrow to make sure things are moving forward.
[2016-09-17] MEDS: OXYCODONE HCL IR 5 MG TAB (IMMEDIATE RELEASE) PO PRN ×2 (19:09→22:22)
[2016-09-17 20:19] VITALS: BP 162/82; PULSE 68; TEMP 37.2; O2SAT 95
[2016-09-17] MEDS: ASPIRIN 81 MG ECTAB PO SCH (20:47)
[2016-09-17] MEDS: SIMVASTATIN 40 MG TAB PO SCH (20:48)
[2016-09-17] MEDS: RALOXIFENE 60 MG TAB PO SCH (20:48)
[2016-09-17 23:37] VITALS: BP 147/78; PULSE 61; TEMP 37; O2SAT 95
[2016-09-18] VITALS (7 sets, daily range): BP systolic 161–192; BP diastolic 79–93; PULSE 64–85; TEMP 36.4–36.9; O2SAT 92–96
[2016-09-18] MEDS: OXYCODONE HCL IR 5 MG TAB (IMMEDIATE RELEASE) PO PRN ×5 (04:13→19:18)
[2016-09-18] MEDS: LACTATED RINGER'S 1000ML 1,000 ML IV SCH ×3 (05:02→23:28)
[2016-09-18] MEDS: DEXAMETHASONE INJ 4 MG in SYRINGE 0 ML IV SCH ×4 (05:04→23:27)
[2016-09-18] MEDS: HEPARIN SOD 5000 UNIT/0.5 ML CARP SQ SCH ×3 (05:06→20:39)
[2016-09-18] MEDS: VERAPAMIL HCL 180 MG TABCR PO SCH (08:17)
[2016-09-18] MEDS: BOOST VANILLA PO SCH ×4 (08:17→17:00)
[2016-09-18] MEDS: POLYETHYLENE (MIRALAX) 17 GM PACK PO SCH (08:18)
[2016-09-18] MEDS: GABAPENTIN 300 MG CAP PO SCH ×3 (08:18→20:34)
[2016-09-18] MEDS: CARBAMAZEPINE 100 MG TABCR PO SCH ×2 (08:18→20:35)
[2016-09-18] MEDS: HYDROCHLOROTHIAZIDE 25 MG TAB PO SCH (08:18)
[2016-09-18] MEDS: PANTOprazole SOD 40 MG TAB PO SCH (08:18)
[2016-09-18] MEDS: SENNA 8.6 MG TAB PO SCH (08:18)
[2016-09-18] MEDS: PSYLLIUM 58.6% PWD PACK S\\F PO SCH ×2 (08:18→20:36)
[2016-09-18] MEDS: POTASSIUM CHLORIDE 10 MEQ TABCR PO SCH (08:19)
[2016-09-18] MEDS: MoRPHine SULFATE 4 MG/ML 1 ML CARP\\VIAL IV PRN ×2 (09:28→15:55)
--- NOTE | 2016-09-18 09:46 | Pain Clinic Return Visit ---
Pain Clinic Return Visit Date of Service Sep 18, 2016. Reason For Visit Medication management Pain Location 1 - Subjective Mrs. Packer is a 71 year old white female that has been seen in consultation at the [facility] for right sided facial pain and headache. 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 She describes a deep ache and throbbing sensation along the right auricular region and on the top of her head. There is a constant throbbing and pressure feeling on the right side of her face. She has been previously hospitalized with these symptoms on 09/05/16 for several days which was managed by medications while in the hospital however upon discharge she failed conservative outpatient therapy and return for further treatment. Pain ranges between 1 and 3 out of 10 at current time. She has utilize oxycodone 20 mg and Morphine 4mg IV x3 over the last 24 hours. She reports an impairment in her pain from yesterday. Patient denies any fevers, chills, vision changes, dizziness, difficulty swallowing, or medication side effects at this time. Home Medications Scheduled Acetaminophen/Codeine (Tylenol W/Codeine #3), 1 TAB PO Q4 Aspirin (Aspirin Chewable), 81 MG PO QPM Carbamazepine Extended Release (Tegretol Xr), 100 MG PO BID Gabapentin (Gabapentin), 300 MG PO TID Hydrochlorothiazide (Hctz), 25 MG PO QAM Polyethylene Glycol 3350 (Miralax), 17 GM PO DAILY Potassium Chloride (K-Tabs), 10 MEQ PO DAILY Psyllium (Metamucil), 1 DOSE PO DAILY Raloxifene (Evista), 60 MG PO QPM Senna (Senokot), 1 TAB PO QAM Simvastatin (Simvastatin), 40 MG PO HS Verapamil Hcl (Verapamil Hcl Er), 180 MG PO DAILY Scheduled PRN Oxycodone HCl (Oxycodone HCl), 5 MG PO Q4 PRN for Pain Pantoprazole (Protonix), 40 MG PO DAILY PRN for Dyspepsia Allergies Coded Allergies: Propoxyphene (Verified Allergy, Intermediate, RASH, 09/05/16) Lisinopril (Verified Adverse Reaction, Mild, COUGH, 09/05/16) Medications & Allergies Reconciled: Yes Review of Systems 10 point review of systems was otherwise negative aside from HPI Objective Date Time Temp Pulse Resp B/P (MAP) Pulse Ox O2 Delivery O2 Flow Rate FiO2 09/18/16 07:30 36.7 85 18 165/79 (107) 96 Room Air 09/18/16 04:02 36.9 71 20 161/88 (112) 96 Room Air 09/18/16 00:00 Room Air 09/17/16 23:37 37.0 61 20 147/78 (101) 95 Room Air 09/17/16 20:19 37.2 68 18 162/82 (108) 95 Room Air 09/17/16 16:12 37.2 72 16 166/81 (109) 94 Room Air 09/17/16 15:55 Room Air 09/17/16 11:50 37.2 74 18 162/83 (109) 96 Height 5 feet, 0.00 inches. Weight 78.500 (Kilograms) 173 (Pounds) Physical Exam GENERAL: Mrs. Packer is a 71 y/o white female that appears her stated age. Speech and cognition is intact. Mood and affect is appropriate and she is not in any distress HEAD: Normocephalic; atraumatic. Tenderness along the right mandible. No allodynia. EYES: Wearing a patch over the right eye. There is right-sided facial droop ENT: No external ear discharge or lesions. No rhinorrhea or epistaxis. No mucosal lesions. NECK: There is a large mass on the right neck, underneath the right ear. Diffuse tenderness along the right side of the neck. CHEST: Regular chest respiration and excursion. NEURO: AAO x 3. Laboratory Laboratory Findings Test 08/01/16 15:17 08/28/16 11:39 09/05/16 14:15 09/05/16 14:19 Range/Units Thyroid Stimulating Hormone (TSH) 4.900 H 0.300-4.500 uIu/ml Platelet Estimate DECREASED L Giant Platelets 1+ Hypochromasia PRESENT Lactate Dehydrogenase 280 H 84-246 U/L Globulin 2.7 2.5-4.0 gm/dl Albumin/Globulin Ratio 1.5 0.9-2 PTT 22.9 21.0-31.0 SECONDS Partial Thromboplastin Ratio 0.9 POC Prothrombin Time INR 0.9 0.9-1.1 Test 09/06/16 05:24 09/16/16 20:25 09/16/16 21:00 09/17/16 05:22 Range/Units Magnesium Level 2.5 H 1.8-2.4 mg/dl White Blood Count 7.97 4.8-10.8 K/uL Red Blood Count 4.47 4.2-5.4 M/uL Hemoglobin 14.8 12.0-16.0 g/dL Hematocrit 42.9 37-47 % Mean Corpuscular Volume 96.0 80-100 fL Mean Corpuscular Hemoglobin 33.1 25-34 pg Mean Corpuscular Hemoglobin Concent 34.5 32-36 g/dl Platelet Count 200 130-400 K/uL Mean Platelet Volume 9.9 7.4-10.4 fL Neutrophils (%) (Auto) 82.2 % Lymphocytes (%) (Auto) 8.7 % Monocytes (%) (Auto) 7.7 % Eosinophils (%) (Auto) 1.0 % Basophils (%) (Auto) 0.0 % Neutrophils # (Auto) 6.56 H 1.4-6.5 K/uL Lymphocytes # (Auto) 0.69 L 1.2-3.4 K/uL Monocytes # (Auto) 0.61 H 0.11-0.59 K/uL Eosinophils # (Auto) 0.08 0-0.5 K/uL Basophils # (Auto) 0.00 0-0.2 K/uL RDW Standard Deviation 45.1 36.4-46.3 fL RDW Coefficient of Variation 12.8 11.5-14.5 % Immature Granulocyte % (Auto) 0.4 % Immature Granulocyte # (Auto) 0.03 H 0.00-0.02 K/uL Sodium Level 134 L 136-145 mmol/L Potassium Level 4.0 3.5-5.1 mmol/L Chloride Level 98 98-107 mmol/L Carbon Dioxide Level 28 21-32 mmol/L Anion Gap 8.0 3-11 mmol/L Blood Urea Nitrogen 18 7-18 mg/dl Creatinine 0.91 0.60-1.20 mg/dl Est Creatinine Clear Calc Drug Dose 52.5 ml/min Estimated GFR () 73.6 Estimated GFR (Non- 63.5 BUN/Creatinine Ratio 20.1 H 10-20 Random Glucose 123 H 70-99 mg/dl Calcium Level 9.2 8.5-10.1 mg/dl Total Bilirubin 0.6 0.2-1 mg/dl Direct Bilirubin 0.1 0-0.2 mg/dl Aspartate Amino Transferase (AST) 17 15-37 U/L Alanine Aminotransferase (ALT) 39 12-78 U/L Alkaline Phosphatase 35 L 45-117 U/L Total Protein 7.2 6.4-8.2 gm/dl Albumin 3.9 3.4-5.0 gm/dl Lipase 242 73-393 U/L Urine Color DK YELLOW Urine Appearance CLOUDY CLEAR Urine pH 5.5 4.5-7.5 Urine Specific [place] 1.026 1.000-1.030 Urine Protein NEG NEG Urine Glucose (UA) NEG NEG Urine Ketones NEG NEG Urine Occult Blood NEG NEG Urine Nitrite NEG NEG Urine Bilirubin NEG NEG Urine Urobilinogen NEG NEG Urine Leukocyte Esterase TRACE H NEG Urine WBC (Auto) 5-10 H 0-5 /hpf Urine RBC (Auto) 0-4 0-4 /hpf Urine Hyaline Casts (Auto) 1-5 0-5 /lpf Urine Epithelial Cells (Auto) >30 H 0-5 /lpf Urine Bacteria (Auto) NEG NEG Urine Pathogenic Casts 0 /lpf Urine Mucus PRESENT H NONE PRSENT Prothrombin Time 10.3 9.0-12.0 SECONDS Prothrombin Time INR 1.0 0.9-1.1 Test 09/18/16 07:57 Range/Units POC Glucose 156 H 70-90 mg/dl Assessment 1. Lymphoma with invasion into the parotid gland 2. Right-sided cervical pain 3. Headache Recommendations 1. We'll initiate Cymbalta 20 mg by mouth every morning. She was counseled on the risks and benefits of this medication and agrees to proceed. 2. Continue oxycodone as currently prescribed she understands that she should be using morphine only as a backup pain control at this time. 3. She declines long-acting narcotic at this time as she states that her pain is fairly well-controlled 4. She was given our office contact information should she have any questions we'll be happy to see her as an outpatient at that time.
[2016-09-18] MEDS: DULOXETINE HCL 20 MG CAP PO SCH (10:18)
[2016-09-18] MEDS ORDERED: BISACODYL 10 MG SUPP PR STA (16:27)
--- NOTE | 2016-09-18 16:30 | Family Medicine Progress Note ---
Progress Note Date of Service Sep 18, 2016. Subjective Pt evaluation today including: conversation w/ patient, conversation w/ family Pain: well-controlled PO Intake: tara Had a session of radiotherapy this afternoon. She states that her pain is fairly well-controlled with oxycodone and morphine as needed for breakthrough pain. Constitutional: No fever, No chills Eyes: No worsening of vision Respiratory: No cough, No shortness of breath Cardiovascular: No chest pain Breast: No breast lump Abdomen: No pain, No nausea, No vomiting Female : No dysuria Neurologic: + problem reported (right-sided facial pain), No memory loss Psychiatric: No depression symptoms Heme: No abnormal bleeding/bruising Endo: No fatigue Medications Current Inpatient Medications Medications (Trade) Dose Ordered Sig/Ant Route Start Time Stop Time Status Last Admin Dose Admin Lactated Ringer's 1,000 ml @ 100 mls/hr Q10H IV 09/16/16 22:45 10/16/16 22:44 09/18/16 13:46 100 MLS/HR Aspirin (Ecotrin Tab) 81 mg QPM PO 09/17/16 21:00 10/17/16 20:59 09/17/16 20:47 81 MG Gabapentin (Neurontin Cap) 300 mg TID PO 09/17/16 08:00 10/17/16 08:59 09/18/16 13:45 300 MG Hydrochlorothiazide (Hydrochlorothiazide Tab) 25 mg QAM PO 09/17/16 08:00 10/17/16 08:59 09/18/16 08:18 25 MG Raloxifene HCl (Evista Tab) 60 mg QPM PO 09/17/16 21:00 10/17/16 20:59 09/17/16 20:48 60 MG Senna (Senokot Tab) 8.6 mg QAM PO 09/17/16 08:00 10/17/16 08:59 09/18/16 08:18 8.6 MG Simvastatin (Zocor Tab) 40 mg HS PO 09/17/16 21:00 10/17/16 20:59 09/17/16 20:48 40 MG Verapamil HCl (Calan-Sr Tab) 180 mg DAILY PO 09/17/16 08:00 10/17/16 08:59 09/18/16 08:17 180 MG Potassium Chloride (Klor-Con M10) 10 meq DAILY PO 09/17/16 08:00 10/17/16 08:59 09/18/16 08:19 10 MEQ Psyllium Hydrophilic Mucilloid (Metamucil Powder) 1 pkt DAILY PO 09/17/16 08:00 10/17/16 08:59 09/18/16 08:18 1 PKT Carbamazepine (Tegretol-Xr) 100 mg BID PO 09/17/16 08:00 10/17/16 08:59 09/18/16 08:18 100 MG Polyethylene (Miralax Powder Packet) 17 gm DAILY PO 09/17/16 08:00 10/17/16 08:59 09/18/16 08:18 17 GM Heparin Sodium (Porcine) (Heparin Sq 5000 Unit/0.5ml) 5,000 unit Q8H SQ 09/17/16 06:00 10/17/16 05:59 09/18/16 13:46 5,000 UNIT Ondansetron HCl (Zofran Inj) 4 mg Q6H PRN IV 09/16/16 22:45 10/16/16 22:44 09/16/16 23:21 4 MG Oxycodone HCl (Roxicodone Immediate Rel Tab) 5 mg Q2H PRN PO 09/16/16 23:00 09/30/16 22:59 09/18/16 14:23 5 MG Miscellaneous (Iv Fluids Completed) 1 ea PRN PRN N/A 09/16/16 23:30 09/16/17 23:29 Pantoprazole Sodium (Protonix Tab) 40 mg DAILY PO 09/17/16 08:00 10/16/16 22:44 09/18/16 08:18 40 MG Psyllium Hydrophilic Mucilloid (Metamucil Powder) 1 pkt QPM PO 09/17/16 21:00 10/17/16 20:59 09/17/16 20:48 1 PKT Promethazine HCl 12.5 mg/Sodium Chloride 50.5 ml @ 204 mls/hr Q6H PRN IV 09/16/16 23:15 10/16/16 23:14 Dexamethasone Sodium Phosphate 4 mg/Syringe 1 ml @ 1 mls/min Q6H IV 09/17/16 06:00 10/17/16 05:59 09/18/16 11:30 1 MLS/MIN Morphine Sulfate (MoRPHine SULFATE INJ) 4 mg Q2HWA PRN IV 09/17/16 12:00 09/30/16 20:14 09/18/16 15:55 4 MG Enteral Nutritional Formula (Boost) 1 can BIDM PO 09/17/16 17:00 10/17/16 16:59 09/18/16 08:17 1 CAN Duloxetine HCl (Cymbalta Cap) 20 mg QAM PO 09/18/16 10:00 10/18/16 09:59 09/18/16 10:18 20 MG Objective Vital Signs Date Time Temp Pulse Resp B/P (MAP) Pulse Ox O2 Delivery O2 Flow Rate FiO2 09/18/16 16:00 64 18 175/82 (113) 94 09/18/16 15:19 36.6 72 18 184/91 (122) 96 Room Air 09/18/16 09:00 Room Air 09/18/16 07:30 36.7 85 18 165/79 (107) 96 Room Air 09/18/16 04:02 36.9 71 20 161/88 (112) 96 Room Air 09/18/16 00:00 Room Air 09/17/16 23:37 37.0 61 20 147/78 (101) 95 Room Air 09/17/16 20:19 37.2 68 18 162/82 (108) 95 Room Air Physical Exam General Appearance: WD/WN, no apparent distress ENT: hearing grossly normal Neck: supple Respiratory/Chest: lungs clear, normal breath sounds, no respiratory distress, no accessory muscle use Cardiovascular: regular rate, rhythm Abdomen: normal bowel sounds, non tender, soft Extremities: non-tender, no pedal edema Neurologic/Psychiatric: alert, normal mood/affect, oriented x 3, + facial droop (right-sided , incomplete closure of right eye ) Skin: normal color Laboratory Results Test 09/18/16 12:12 Bedside Glucose 112 mg/dl (70-90) Assessment and Plan 70 year old female blastoid, mantle cell lymphoma with invasion into the parotid gland. 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 - started on oxycodone IR 5 mg Q2h PRN with morphine 4 mg q2h for breakthrough pain. - continue carbamazepine , Gabapentin and Decadron 4 mg q6h - appreciate pain mgmt recs , Cymbalta 20 mg added today -Received radiation therapy today which she tolerated well - Was considering adding a long-acting pain medication to better control her pain but she declines Constipation: likely sec to opioid medication - Continue colace, miralax, and lactulose. - last BM about 4-5 days ago, Dulcolax supp Hypertension - continue HCZT and verpamil ( verapamil was added during last admission) Hyperlipidemia - continue simvastatin GERD - Pantoprazole 40mg PO daily DVT Prophylaxis - heparin 5000 units Q8H SQ Code - Full Disposition In [facility] Resident Physician Supervision Note: I interviewed and examined the patient. Discussed with Dr. Trimble and agree with findings and plan as documented in the note. Any exceptions or clarifications are listed here: None Documented By: Victor Hugo Tejinder had XRT went well. headache donig better but needing oxycodone frequently to stay ahead of pain. all other ROS otherwise negative except for as above vitals noted nad breathing unlaobred mantle cell CA w headache from invasion - improved w oxycodone - but off/on pain relief - add ms contin bid, keep oxy for breakthrough. hopefully home in next 1-2 days as pain better controlled Resident Tracking Resident Involvement: Resident Care Provided Care Provided: Adult Hospital Medicine
[2016-09-18] MEDS ORDERED: METOPROLOL TARTRATE 25 MG TAB PO ONE (20:15)
[2016-09-18] MEDS: MoRPHine SULFATE CR 15 MG TAB (MS CONTIN) PO SCH (20:35)
[2016-09-18] MEDS: ASPIRIN 81 MG ECTAB PO SCH (20:36)
[2016-09-18] MEDS: SIMVASTATIN 40 MG TAB PO SCH (20:36)
[2016-09-18] MEDS: RALOXIFENE 60 MG TAB PO SCH (20:37)
[2016-09-18] MEDS ORDERED: LOSARTAN POTASSIUM 25 MG TAB PO ONE (21:00)
[2016-09-19] MEDS: OXYCODONE HCL IR 5 MG TAB (IMMEDIATE RELEASE) PO PRN ×2 (00:01→10:13)
[2016-09-19 04:09] VITALS: BP 161/92; PULSE 78; TEMP 37.1; O2SAT 95
[2016-09-19] MEDS: HEPARIN SOD 5000 UNIT/0.5 ML CARP SQ SCH ×3 (06:00→20:17)
[2016-09-19] MEDS: DEXAMETHASONE INJ 4 MG in SYRINGE 0 ML IV SCH ×3 (06:26→17:26)
[2016-09-19] MEDS: ONDANSETRON INJ 2 MG/ML 2 ML VIAL IV PRN (06:29)
[2016-09-19 07:49] VITALS: BP 186/70; PULSE 69; TEMP 37; O2SAT 95
[2016-09-19] MEDS: SENNA 8.6 MG TAB PO SCH (08:04)
[2016-09-19] MEDS: LOSARTAN POTASSIUM 25 MG TAB PO SCH (08:04)
[2016-09-19] MEDS: PANTOprazole SOD 40 MG TAB PO SCH (08:04)
[2016-09-19] MEDS: GABAPENTIN 300 MG CAP PO SCH ×3 (08:04→20:16)
[2016-09-19] MEDS: HYDROCHLOROTHIAZIDE 25 MG TAB PO SCH (08:04)
[2016-09-19] MEDS: CARBAMAZEPINE 100 MG TABCR PO SCH ×2 (08:05→20:16)
[2016-09-19] MEDS: DULOXETINE HCL 20 MG CAP PO SCH (08:05)
[2016-09-19] MEDS: POTASSIUM CHLORIDE 10 MEQ TABCR PO SCH (08:06)
[2016-09-19] MEDS: POLYETHYLENE (MIRALAX) 17 GM PACK PO SCH (08:06)
[2016-09-19] MEDS: VERAPAMIL HCL 120 MG TABCR PO SCH (08:06)
[2016-09-19] MEDS: PSYLLIUM 58.6% PWD PACK S\\F PO SCH ×2 (08:06→20:17)
[2016-09-19] MEDS: MoRPHine SULFATE CR 15 MG TAB (MS CONTIN) PO SCH (08:12)
[2016-09-19] MEDS: BOOST VANILLA PO SCH ×4 (08:16→17:00)
--- NOTE | 2016-09-19 09:44 | Radiation Oncology Progress Nt ---
Radiation Oncology Progress Nt Date of Service Date of Service: Sep 18, 2016. Reason For Admission Dehydration/Poor Oral Intake, Intractable pain Progression of disease involving the right neck. Unable to manage symptoms properly at home. 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, Stage IIE Status post systemic chemotherapy Left neck recurrent mass in July biopsy positive for lymphoma Mantle cell type 10/05/2015 Status post completion of radiation therapy 12/20/2015 received 4500 cGy Recurrent right neck mass March [address] revealing FDG avidity Initiation of immunotherapy with Ibrutinib - started May 2016 PET/CT in 08/2016 showed stable disease Patient admitted to hospital for pain control, further management Last Edited By: Rupa Rothman on Sep 09, 2016 19:02 Subjective Pt evaluation today including: chart review, conversation w/ philatelic consultant ( Primary Team), review of inpatient medication list Radiation Therapy Has patient started Radiation: No Number of Treatments Planned: 25 Current Chemotherapy: No Additional Chemotherapy Dr. Chaves may consider concurrent chemotherapy with radiation therapy. Objective Vital Signs Date Time Temp Pulse Resp B/P (MAP) Pulse Ox O2 Delivery O2 Flow Rate FiO2 09/19/16 07:49 37.0 69 16 186/70 (108) 95 Room Air 09/19/16 07:37 Room Air 09/19/16 04:09 37.1 78 20 161/92 (115) 95 Room Air 09/18/16 23:53 Room Air 09/18/16 23:32 36.8 68 18 168/84 (112) 94 Room Air 09/18/16 19:51 36.4 69 16 192/93 (126) 95 Room Air 09/18/16 16:43 65 174/82 (112) 92 09/18/16 16:00 94 Room Air 09/18/16 16:00 64 18 175/82 (113) 94 09/18/16 15:19 36.6 72 18 184/91 (122) 96 Room Air Physical Exam General Appearance: + moderate distress ENT: + pertinent finding (Increased edema/swelling in the right neck with large mass involving right level II and pre/post auricular region on the right) Neck: + adenopathy present Laboratory Results Last 24 Hours Test 09/18/16 12:12 09/18/16 16:53 09/18/16 20:09 09/19/16 07:22 Bedside Glucose 112 mg/dl 125 mg/dl 129 mg/dl 93 mg/dl Assessment and Plan We have discussed the patients care with the primary hospital service. The primary hospital service has requested that the patient start radiation therapy while in the inpatient setting. I have also spoken with Dr. Chaves regarding this patient as well who is also in agreement. The patient was evaluated in our department and will start with radiation therapy during this hospital course. Please call us with any further questions or concerns or if the patients condition changes during her hospital admission.
[2016-09-19] MEDS: LACTATED RINGER'S 1000ML 1,000 ML IV SCH ×2 (10:06→20:22)
[2016-09-19 11:30] VITALS: BP 133/93; PULSE 80; TEMP 36.4; O2SAT 95
[2016-09-19] MEDS ORDERED: MoRPHine SULFATE CR 15 MG TAB (MS CONTIN) PO STA (11:45)
--- NOTE | 2016-09-19 14:27 | Hematology/Oncology Prog Note ---
Hematology/Onc Progress Note Date of Service Sep 19, 2016. Diagnoses Blastoid mantle cell lymphoma Medications Medications Administered Medications (Trade) Dose Ordered Sig/Ant Route Start Time Stop Time Status Last Admin Dose Admin Sodium Chloride 1,000 ml @ 999 mls/hr Q1H1M STAT IV 09/16/16 20:02 09/16/16 21:02 DC 09/16/16 20:02 999 MLS/HR Ondansetron HCl (Zofran Inj) 4 mg NOW STAT IV 09/16/16 20:02 09/16/16 20:03 DC 09/16/16 20:45 4 MG Morphine Sulfate (MoRPHine SULFATE INJ) 4 mg Q15M PRN IV 09/16/16 20:15 09/17/16 10:36 DC 09/17/16 08:48 4 MG Ketorolac Tromethamine (Toradol Inj) 30 mg NOW STAT IV 09/16/16 22:41 09/16/16 22:42 DC 09/16/16 22:56 30 MG Lactated Ringer's 1,000 ml @ 100 mls/hr Q10H IV 09/16/16 22:45 10/16/16 22:44 09/19/16 10:06 100 MLS/HR Aspirin (Ecotrin Tab) 81 mg QPM PO 09/17/16 21:00 10/17/16 20:59 09/18/16 20:36 81 MG Gabapentin (Neurontin Cap) 300 mg TID PO 09/17/16 08:00 10/17/16 08:59 09/19/16 13:23 300 MG Hydrochlorothiazide (Hydrochlorothiazide Tab) 25 mg QAM PO 09/17/16 08:00 10/17/16 08:59 09/19/16 08:04 25 MG Raloxifene HCl (Evista Tab) 60 mg QPM PO 09/17/16 21:00 10/17/16 20:59 09/18/16 20:37 60 MG Senna (Senokot Tab) 8.6 mg QAM PO 09/17/16 08:00 10/17/16 08:59 09/19/16 08:04 8.6 MG Simvastatin (Zocor Tab) 40 mg HS PO 09/17/16 21:00 10/17/16 20:59 09/18/16 20:36 40 MG Verapamil HCl (Calan-Sr Tab) 180 mg DAILY PO 09/17/16 08:00 09/18/16 20:00 DC 09/18/16 08:17 180 MG Potassium Chloride (Klor-Con M10) 10 meq DAILY PO 09/17/16 08:00 10/17/16 08:59 09/19/16 08:06 10 MEQ Psyllium Hydrophilic Mucilloid (Metamucil Powder) 1 pkt DAILY PO 09/17/16 08:00 10/17/16 08:59 09/19/16 08:06 1 PKT Carbamazepine (Tegretol-Xr) 100 mg BID PO 09/17/16 08:00 10/17/16 08:59 09/19/16 08:05 100 MG Polyethylene (Miralax Powder Packet) 17 gm DAILY PO 09/17/16 08:00 10/17/16 08:59 09/19/16 08:06 17 GM Heparin Sodium (Porcine) (Heparin Sq 5000 Unit/0.5ml) 5,000 unit Q8H SQ 09/17/16 06:00 10/17/16 05:59 09/18/16 20:39 5,000 UNIT Ondansetron HCl (Zofran Inj) 4 mg Q6H PRN IV 09/16/16 22:45 10/16/16 22:44 09/19/16 06:29 4 MG Enteral Nutritional Formula (Boost) 1 can BID PO 09/17/16 08:00 09/17/16 13:52 DC 09/17/16 08:02 1 CAN Oxycodone HCl (Roxicodone Immediate Rel Tab) 5 mg Q2H PRN PO 09/16/16 23:00 09/30/16 22:59 09/19/16 10:13 5 MG Pantoprazole Sodium (Protonix Tab) 40 mg DAILY PO 09/17/16 08:00 10/16/16 22:44 09/19/16 08:04 40 MG Psyllium Hydrophilic Mucilloid (Metamucil Powder) 1 pkt QPM PO 09/17/16 21:00 10/17/16 20:59 09/18/16 20:36 1 PKT Ondansetron HCl (Zofran Inj) 4 mg NOW STAT IV 09/16/16 23:13 09/17/16 00:15 DC 09/17/16 00:45 4 MG Carbamazepine (Tegretol-Xr) 100 mg 2313 ONCE PO 09/16/16 23:13 09/17/16 00:15 DC 09/17/16 00:38 100 MG Promethazine HCl 12.5 mg/Sodium Chloride 50.5 ml @ 204 mls/hr NOW STAT IV 09/16/16 23:13 09/17/16 00:15 DC 09/17/16 00:49 204 MLS/HR Promethazine HCl 12.5 mg/Sodium Chloride 50.5 ml @ 204 mls/hr Q6H PRN IV 09/16/16 23:15 10/16/16 23:14 09/19/16 10:07 204 MLS/HR Ranitidine HCl (zANTac IV) 50 mg NOW STAT IV 09/16/16 23:19 09/17/16 00:15 DC 09/17/16 02:07 50 MG Dexamethasone Sodium Phosphate 4 mg/Syringe 1 ml @ 1 mls/min Q6H IV 09/17/16 06:00 10/17/16 05:59 09/19/16 11:40 1 MLS/MIN Dexamethasone Sodium Phosphate 10 mg/Syringe 2.5 ml @ 1 mls/min NOW ONCE IV 09/17/16 00:30 09/17/16 00:32 DC 09/17/16 00:39 1 MLS/MIN Morphine Sulfate (MoRPHine SULFATE INJ) 4 mg Q2HWA PRN IV 09/17/16 12:00 09/30/16 20:14 09/18/16 15:55 4 MG Enteral Nutritional Formula (Boost) 1 can BIDM PO 09/17/16 17:00 10/17/16 16:59 09/19/16 08:16 1 CAN Duloxetine HCl (Cymbalta Cap) 20 mg QAM PO 09/18/16 10:00 10/18/16 09:59 09/19/16 08:05 20 MG Bisacodyl (Dulcolax Supp) 10 mg NOW STAT NM 09/18/16 16:27 09/18/16 16:29 DC 09/18/16 16:40 10 MG Morphine Sulfate (Oramorph Sr Tab) 15 mg Q12H PO 09/18/16 20:30 09/19/16 12:10 DC 09/19/16 08:12 15 MG Verapamil HCl (Calan-Sr Tab) 240 mg DAILY PO 09/19/16 08:00 10/17/16 08:59 09/19/16 08:06 240 MG Losartan Potassium (coZAAR TAB) 25 mg 2100 ONCE PO 09/18/16 21:00 09/18/16 21:01 DC 09/18/16 20:36 25 MG Losartan Potassium (coZAAR TAB) 25 mg QAM PO 09/19/16 08:00 10/19/16 07:59 09/19/16 08:04 25 MG Morphine Sulfate (Oramorph Sr Tab) 15 mg ONE STAT PO 09/19/16 11:45 09/19/16 12:05 DC 09/19/16 13:21 15 MG Subjective Ms. Packer feels better today. Her current pain regimen is helping and her energy is up. Review of Systems: Constitutional: + fatigue, No fever Eyes: No worsening of vision ENT: No hearing loss Respiratory: No shortness of breath Cardiovascular: No chest pain Abdomen: + nausea, No pain Female : No dysuria Heme: No abnormal bleeding/bruising Vital Signs Vital Signs Past 12 Hours Date Time Temp Pulse Resp B/P (MAP) Pulse Ox O2 Delivery O2 Flow Rate FiO2 09/19/16 11:30 36.4 80 18 133/93 (106) 95 Room Air 09/19/16 07:49 37.0 69 16 186/70 (108) 95 Room Air 09/19/16 07:37 Room Air 09/19/16 04:09 37.1 78 20 161/92 (115) 95 Room Air Physical Exam Constitutional: Level of Distress: NAD, chronically ill Psychiatric: Mental Status: active & alert Orientation: oriented except where noted Eyes: EOM: pertinent finding (left eye covered by eyepatch) Neck: pertinent finding (bulky cervical lymphadenopathy, stable) Lungs: Auscuitation: CTA except as noted Cardiovascular: Heart Auscultation: RRR Abdomen: Inspection & Palpation: soft, no tenderness, guarding & rebound Extremities: no edema Neurologic: Cranial Nerves: abnormal Laboratory Last 24 Hours Test 09/18/16 16:53 09/18/16 20:09 09/19/16 07:22 09/19/16 12:52 Bedside Glucose 125 mg/dl 129 mg/dl 93 mg/dl 89 mg/dl Assessment & Plan Ms. Falls looks better today. Her pain regimen seems to be working well for her , though her blood sugars are up a bit and she's a little nauseous. Hopefully, as RT shrinks her mass, her requirements will go down. For now, she is continuing with RT. I would continue with supportive care as per pain and palliative care. She has an appointment with me next Friday she should keep. Otherwise, we will sign off for now unless additional issues or questions arise.
[2016-09-19 15:57] VITALS: BP 151/80; PULSE 77; TEMP 36.9; O2SAT 95
[2016-09-19 16:00] VITALS: O2SAT 95
[2016-09-19 19:34] VITALS: BP 168/91; PULSE 93; TEMP 37; O2SAT 92
[2016-09-19] MEDS: ASPIRIN 81 MG ECTAB PO SCH (20:16)
[2016-09-19] MEDS: RALOXIFENE 60 MG TAB PO SCH (20:17)
[2016-09-19] MEDS: SIMVASTATIN 40 MG TAB PO SCH (20:17)
[2016-09-19] MEDS ORDERED: MoRPHine SULFATE CR 15 MG TAB (MS CONTIN) PO SCH (21:00)
--- NOTE | 2016-09-19 21:03 | Family Medicine Progress Note ---
Progress Note Date of Service Sep 19, 2016. Subjective Pt evaluation today including: conversation w/ patient, physical exam, chart review Pain: Decrease in pain PO Intake: Tolerating PO intake Voiding: no voiding problems Ms. Packer reports that her pain is improved, but that she still required a dose of her breakthrough morphine as her headache was still painful. She also reports nausea, for which she took zofran, but denies any episodes of vomiting. She had a bowel movement yesterday, and denies the presence of blood. She also had one session of radiotherapy today. Constitutional: No fever, No chills, No sweats, No weight loss, No weakness Respiratory: No cough, No sputum, No wheezing, No shortness of breath Cardiovascular: No chest pain, No orthopnea, No PND, No edema, No claudication Abdomen: No pain, No nausea, No vomiting Neurologic: + problem reported (headache) All Other Systems: Reviewed and Negative Medications Current Inpatient Medications Medications (Trade) Dose Ordered Sig/Ant Route Start Time Stop Time Status Last Admin Dose Admin Lactated Ringer's 1,000 ml @ 100 mls/hr Q10H IV 09/16/16 22:45 10/16/16 22:44 09/19/16 20:22 100 MLS/HR Aspirin (Ecotrin Tab) 81 mg QPM PO 09/17/16 21:00 10/17/16 20:59 09/19/16 20:16 81 MG Gabapentin (Neurontin Cap) 300 mg TID PO 09/17/16 08:00 10/17/16 08:59 09/19/16 20:16 300 MG Hydrochlorothiazide (Hydrochlorothiazide Tab) 25 mg QAM PO 09/17/16 08:00 10/17/16 08:59 09/19/16 08:04 25 MG Raloxifene HCl (Evista Tab) 60 mg QPM PO 09/17/16 21:00 10/17/16 20:59 09/19/16 20:17 60 MG Senna (Senokot Tab) 8.6 mg QAM PO 09/17/16 08:00 10/17/16 08:59 09/19/16 08:04 8.6 MG Simvastatin (Zocor Tab) 40 mg HS PO 09/17/16 21:00 10/17/16 20:59 09/19/16 20:17 40 MG Potassium Chloride (Klor-Con M10) 10 meq DAILY PO 09/17/16 08:00 10/17/16 08:59 09/19/16 08:06 10 MEQ Psyllium Hydrophilic Mucilloid (Metamucil Powder) 1 pkt DAILY PO 09/17/16 08:00 10/17/16 08:59 09/19/16 08:06 1 PKT Carbamazepine (Tegretol-Xr) 100 mg BID PO 09/17/16 08:00 10/17/16 08:59 09/19/16 20:16 100 MG Polyethylene (Miralax Powder Packet) 17 gm DAILY PO 09/17/16 08:00 10/17/16 08:59 09/19/16 08:06 17 GM Heparin Sodium (Porcine) (Heparin Sq 5000 Unit/0.5ml) 5,000 unit Q8H SQ 09/17/16 06:00 10/17/16 05:59 09/18/16 20:39 5,000 UNIT Ondansetron HCl (Zofran Inj) 4 mg Q6H PRN IV 09/16/16 22:45 10/16/16 22:44 09/19/16 06:29 4 MG Oxycodone HCl (Roxicodone Immediate Rel Tab) 5 mg Q2H PRN PO 09/16/16 23:00 09/30/16 22:59 09/19/16 10:13 5 MG Miscellaneous (Iv Fluids Completed) 1 ea PRN PRN N/A 09/16/16 23:30 09/16/17 23:29 Pantoprazole Sodium (Protonix Tab) 40 mg DAILY PO 09/17/16 08:00 10/16/16 22:44 09/19/16 08:04 40 MG Psyllium Hydrophilic Mucilloid (Metamucil Powder) 1 pkt QPM PO 09/17/16 21:00 10/17/16 20:59 09/19/16 20:17 1 PKT Promethazine HCl 12.5 mg/Sodium Chloride 50.5 ml @ 204 mls/hr Q6H PRN IV 09/16/16 23:15 10/16/16 23:14 09/19/16 10:07 204 MLS/HR Dexamethasone Sodium Phosphate 4 mg/Syringe 1 ml @ 1 mls/min Q6H IV 09/17/16 06:00 10/17/16 05:59 09/19/16 17:26 1 MLS/MIN Morphine Sulfate (MoRPHine SULFATE INJ) 4 mg Q2HWA PRN IV 09/17/16 12:00 09/30/16 20:14 09/18/16 15:55 4 MG Enteral Nutritional Formula (Boost) 1 can BIDM PO 09/17/16 17:00 10/17/16 16:59 09/19/16 17:00 1 CAN Duloxetine HCl (Cymbalta Cap) 20 mg QAM PO 09/18/16 10:00 10/18/16 09:59 09/19/16 08:05 20 MG Verapamil HCl (Calan-Sr Tab) 240 mg DAILY PO 09/19/16 08:00 10/17/16 08:59 09/19/16 08:06 240 MG Losartan Potassium (coZAAR TAB) 25 mg QAM PO 09/19/16 08:00 10/19/16 07:59 09/19/16 08:04 25 MG Morphine Sulfate (Oramorph Sr Tab) 15 mg QPM PO 09/19/16 21:00 10/03/16 20:59 09/19/16 20:17 15 MG Morphine Sulfate (Oramorph Sr Tab) 30 mg QAM PO 09/20/16 08:00 10/04/16 07:59 Objective Vital Signs Date Time Temp Pulse Resp B/P (MAP) Pulse Ox O2 Delivery O2 Flow Rate FiO2 09/19/16 19:34 37.0 93 16 168/91 (116) 92 Room Air 09/19/16 16:00 95 Room Air 09/19/16 15:57 36.9 77 18 151/80 (103) 95 Room Air 09/19/16 11:30 36.4 80 18 133/93 (106) 95 Room Air 09/19/16 07:49 37.0 69 16 186/70 (108) 95 Room Air 09/19/16 07:37 Room Air 09/19/16 04:09 37.1 78 20 161/92 (115) 95 Room Air 09/18/16 23:53 Room Air 09/18/16 23:32 36.8 68 18 168/84 (112) 94 Room Air Physical Exam General Appearance: WD/WN, no apparent distress Neck: supple, no adenopathy Respiratory/Chest: chest non-tender, lungs clear, normal breath sounds, no respiratory distress, no accessory muscle use Cardiovascular: regular rate, rhythm, no edema, no gallop, no JVD, no murmur Abdomen: normal bowel sounds, non tender, soft, no organomegaly, no pulsatile mass Neurologic/Psychiatric: + facial droop (right sided facial droop) Laboratory Results Test 09/19/16 20:11 Bedside Glucose 116 mg/dl (70-90) Assessment and Plan 70 year old female with blastoid, 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 - increased oramorph Sr to 30mg AM and 15mg at night to try and reduce need for breakthrough morphine - continue Carbamazepine, Gabapentin and Decadron 4 mg q6h - Continue cymbalta 20 mg - Received radiation therapy today which she tolerated well Constipation: likely secondary to opioid medication - Bowel movement yesterday after suppository Hypertension - continue HCZT and verapamil Hyperlipidemia - continue simvastatin GERD - Pantoprazole 40mg PO daily DVT Prophylaxis - heparin 5000 units Q8H SQ Code - Full Disposition Likely d/c tomorrow, depending on adequate pain control Resident Physician Supervision Note: I interviewed and examined the patient. Discussed with Dr. Campo and agree with findings and plan as documented in the note. Any exceptions or clarifications are listed here: None Documented By: Victor Hugo Marr feeling better but not yet great. headache still fairly bad. worse during the day germán noted nad breathing unlabored no pallor or icterus headache - improving but not yet ready for home. increase AM MS Contin. Resident Tracking Resident Involvement: Resident Care Provided Care Provided: Adult Hospital Medicine
[2016-09-19] MEDS: MoRPHine SULFATE 4 MG/ML 1 ML CARP\\VIAL IV PRN (21:50)
[2016-09-20] MEDS: DEXAMETHASONE INJ 4 MG in SYRINGE 0 ML IV SCH ×3 (00:14→11:21)
[2016-09-20 00:22] VITALS: BP 170/76; PULSE 63; TEMP 36.8; O2SAT 94
[2016-09-20 00:58] VITALS: BP 162/84; PULSE 66
[2016-09-20 04:20] VITALS: BP 160/77; PULSE 73; TEMP 37; O2SAT 95
[2016-09-20] MEDS: HEPARIN SOD 5000 UNIT/0.5 ML CARP SQ SCH ×2 (05:05→06:11)
[2016-09-20] MEDS: LACTATED RINGER'S 1000ML 1,000 ML IV SCH (06:15)
[2016-09-20] MEDS: DULOXETINE HCL 20 MG CAP PO SCH (07:48)
[2016-09-20] MEDS: LOSARTAN POTASSIUM 25 MG TAB PO SCH (07:48)
[2016-09-20] MEDS: HYDROCHLOROTHIAZIDE 25 MG TAB PO SCH (07:49)
[2016-09-20] MEDS: SENNA 8.6 MG TAB PO SCH (07:49)
[2016-09-20] MEDS: PANTOprazole SOD 40 MG TAB PO SCH (07:49)
[2016-09-20] MEDS: GABAPENTIN 300 MG CAP PO SCH (07:49)
[2016-09-20] MEDS: POTASSIUM CHLORIDE 10 MEQ TABCR PO SCH (07:50)
[2016-09-20] MEDS: PSYLLIUM 58.6% PWD PACK S\\F PO SCH (07:51)
[2016-09-20] MEDS: VERAPAMIL HCL 120 MG TABCR PO SCH (07:51)
[2016-09-20] MEDS: POLYETHYLENE (MIRALAX) 17 GM PACK PO SCH (07:51)
[2016-09-20] MEDS: CARBAMAZEPINE 100 MG TABCR PO SCH (07:51)
[2016-09-20 07:53] VITALS: BP 177/93; PULSE 78; TEMP 37; O2SAT 95
[2016-09-20] MEDS ORDERED: MoRPHine SULFATE CR 15 MG TAB (MS CONTIN) PO SCH (08:00)
[2016-09-20 08:31] LABS: HEMATOCRIT 38.8 % (37-47); MEAN CELL VOLUME 98.2 fL (80-100); MEAN CORPUSCULAR HEMOGLOBIN 33.7 pg (25-34); MEAN CORPUSCULAR HGB CONC 34.3 g/dl (32-36); MEAN PLATELET VOLUME 10.3 fL (7.4-10.4); PLATELET COUNT 164 K/uL (130-400); RED BLOOD COUNT 3.95 M/uL (4.2-5.4); WHITE BLOOD COUNT 8.05 K/uL (4.8-10.8)
[2016-09-20] MEDS: BOOST VANILLA PO SCH ×2 (08:49)
[2016-09-20] MEDS: MoRPHine SULFATE 4 MG/ML 1 ML CARP\\VIAL IV PRN (08:51)
[2016-09-20] MEDS ORDERED: POLY335019 PO (09:24)
[2016-09-20] MEDS ORDERED: MRPSR15 PO (09:24)
[2016-09-20] MEDS ORDERED: OXYC-609 PO (09:24)
[2016-09-20] MEDS ORDERED: CYM20 PO (09:24)
[2016-09-20] MEDS ORDERED: ONDA4TAB10 SL (09:24)
[2016-09-20] MEDS ORDERED: DXM/4 PO (09:25)
--- NOTE | 2016-09-20 09:36 | Discharge Instructions ---
Discharge Instructions Date of Service Sep 20, 2016. Admission Reason for Admission: Intractable Headache, Intractable Pain, Lymphoma Discharge Discharge Diagnosis / Problem: headache related to lymphoma Discharge Goals Goal(s): Decrease discomfort Activity Recommendations Activity Limitations: resume your previous activity . Instructions / Follow-Up Instructions / Follow-Up we're attacking the headache in multiple ways: "root cause" -since the main cause of the headache is the lymphoma, ultimately our hope is that with radiation treatment, things will shrink enough that pain will improve over time -continue your treatments with Dr Rothman in this regard -the steroids (decadron) are to shrink swelling surrounding the lymphoma, we will try to use that for as short a course as possible - at this point 5 more days; if you notice an increase in pain 24-72 hours after your last dose of the decadron, then Dr Norton or Dr Acuna might need to keep you on it longer nerve pain -the nerve irritation is obviously one of the biggest "fallouts" from the lymphoma causing the pain - 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 studies definitely show a strong benefit from meds in this class on settling down nerve pain, however, the medication takes weeks to truly take effect. -for now we have you on 20mg, but if the med seems to be helping "but not enough" Dr Norton can slowly increase it to as much as 120mg over time "covering the pain" -for now, since the pain is intense, and the treatments that will be more successful over the fdc take time, we'll be using narcotics to cover the pain, or to "make life livable" until the more effective fdc treatments kick in -we have you on a long acting pain medicine (MS Contin, or Morphine Sulfate controlled release) as an [id number] pain med -- at this point you're doing pretty well at 30mg in the morning, and 15mg at bedtime -as you get better with the radiation and cymbalta, hopefully Dr Norton will be able to wean this medication down -if you're noticing that you're needing the short acting pain med (see below) routinely 4 times a day or more, then he might need to think about increasing the long-acting morphine (as well as increasing the cymbalta, possibly resuming the decadron, etc) -for what's called "breakthrough pain" -- pain that is too bad to handle despite the long acting morphine, we have the short acting oxycodone as a " quick relief" med. you can take it up to every 6 hours as needed; and if you' re having pain on top of what the meds above are relieving, it's ok to take it. if you're needing it more than 4 times a day, it's a pretty good sign that the baseline pain control meds (cymbalta, MSContin, steroids) may need to be altered constipation -unfortunately a notoriously common side effect of narcotics is cement-like constipation. we want to stay ahead of this -miralax (polyethelyne glycol) is a really potent stool softener - as we discussed, while a "dose" is a capful (or 17 grams) it really has a wide range of dosing because of it coming as a powder. for reference, with children we'll sometimes go as low as 1/4 capful, and as an alternative method for a bowel prep for a colonoscopy, some gastroenterologists will use 4-5 capfuls in succession to "clean things out" -with this in mind, dose each day with a goal of having at least one bowel movement, and base today's dose on yesterday's results. so if yesterday you had a lot of diarrhea, today you might not take any miralax, but if yesterday you didn't have any bowel movement, today might be a day that you do have to stack 3-4 doses in a row until you see good results. -as a "safety net" if you have a day that you haven't had a bowel movement despite 4 doses (and/or your belly is getting uncomfortable) then it would be time to call Dr Norton for further guidance. Current Hospital Diet Patient's current hospital diet: Regular Diet Discharge Diet Recommended Diet: Regular Diet Pending Studies Studies pending at discharge: no Medical Emergencies . Who to Call and When: Medical Emergencies: If at any time you feel your situation is an emergency, please call 911 immediately. . Non-Emergent Contact Non-Emergency issues call your: Primary Care Provider, Oncologist . . "Provider Documentation" section prepared by Victor Hugo Marr. . VTE Core Measure Inpt VTE Proph given/why not?: Unfractionated heparin SQ
[2016-09-20 10:32] VITALS: BP 177/93; PULSE 78; TEMP 37; O2SAT 95
[2016-09-20 11:07] VITALS: BP 170/90; PULSE 89; TEMP 36.8; O2SAT 93
--- NOTE | 2016-09-20 11:31 | Discharge Summary ---
Discharge Summary Date of Service Sep 20, 2016. (Mario Campo M.D.) Discharge Summary Admission Date: Sep 17, 2016 at 19:01 Discharge Date: Sep 20, 2016 Discharge Disposition: Home Principal Diagnosis: Intractable headache related to lymphoma Problems/Secondary Diagnoses: (1) Lymphoma Status: Chronic Immunizations: Have You Had Influenza Vaccine: Yes History of Tetanus Vaccine?: Yes History of Pneumococcal: Yes History of Hepatitis B Vaccine: Yes (Mario Campo M.D.) Medication Reconciliation New Medications: Dexamethasone (Decadron) 4 Mg Tab 4 MG PO DAILY, #5 TAB Ondasetron Odt (Zofran Odt) 4 Mg Tab 4 MG SL Q6H for Nausea, #30 TAB Duloxetine HCl (Duloxetine HCl) 20 Mg Cap 20 MG PO QAM, #30 CAP Morphine Sulfate (Morphine Sulfate ER) 15 Mg Tabcr 15 MG PO UD, #90 2 pills (30mg) in AM, 1 pill (15mg) in PM Changed Medications: Oxycodone HCl (Oxycodone HCl) 5 Mg Tab 5 MG PO QID PRN for Pain, #90 (Changed from: Q4) Polyethylene Glycol 3350 (Miralax) 1 Pow Pow 17 GM PO DAILY, #1 BTL (Medication details modified) take 17g daily, increase as instructed prn refractory constipation Continued Medications: Acetaminophen/Codeine (Tylenol W/Codeine #3) 300 Mg/30 Mg Tab 1 TAB PO Q4, TAB Aspirin (Aspirin Chewable) 81 Mg Chew 81 MG PO QPM, TAB Carbamazepine Extended Release (Tegretol Xr) 100 Mg Tabcr 100 MG PO BID, TAB Gabapentin (Gabapentin) 300 Mg Cap 300 MG PO TID, #90 Hydrochlorothiazide (Hctz) 25 Mg Tab 25 MG PO QAM, TAB Pantoprazole (Protonix) 40 Mg Tab 40 MG PO DAILY PRN for Dyspepsia, TAB Potassium Chloride (K-Tabs) 10 Meq Tab 10 MEQ PO DAILY Psyllium (Metamucil) 48.57 % Pow 1 DOSE PO DAILY Raloxifene (Evista) 60 Mg Tab 60 MG PO QPM Senna (Senokot) 8.6 Mg Tab 1 TAB PO QAM, TAB Simvastatin (Simvastatin) 40 Mg Tab 40 MG PO HS Verapamil Hcl (Verapamil Hcl Er) 180 Mg Tab 180 MG PO DAILY, #30 Discharge Exam Ms. Packer reported that she felt better today, her headache was down to a 1/10 in severity. She denied nausea, vomiting, and reported that she had a bowel movement yesterday. She states that she is happy with her current pain management regimen, and that she feels less anxious about being discharged home after her radiotherapy today. Review of Systems: Constitutional: No fever, No chills, No sweats Respiratory: No cough, No sputum, No wheezing, No shortness of breath Cardiovascular: No chest pain, No orthopnea, No PND, No edema Abdomen: No pain, No nausea, No vomiting, No constipation Physical Exam: General Appearance: WD/WN, no apparent distress Eyes: + pertinent finding (patch over right eye) Respiratory/Chest: chest non-tender, lungs clear, normal breath sounds, no respiratory distress, no accessory muscle use Cardiovascular: regular rate, rhythm, no edema, no gallop, no JVD, no murmur , normal peripheral pulses Abdomen / GI: normal bowel sounds, non tender, soft, no organomegaly, no pulsatile mass Neurologic/Psychiatric: alert, normal mood/affect, oriented x 3, + facial droop (right sided facial droop) (Mario Campo M.D.) Hospital Course Ms. 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 Her recent CT brain on did not show any intracranial findings, and therefore this admission focused on pain management. She now reports that her pain is well-controlled with 30mg of MS Contin in the morning and 15mg at night, with oxycodone 5mg for breakthrough pain. She has also been placed on Cymbalta to try and target the neuropathic pain. She was also counselled on following up with her PCP once a week, especially if she experiences worsening pain despite her medication regimen. She will also continue her radiotherapy with Dr. Rothman in the hopes of reducing the size of her lymphoma, as well as steroids to reduce the inflammation surrounding the tumor. "root cause" Due to taking her pain medications, Ms. Packer unfortunately develops constipation as a side effect. She is currently having bowel movements, however she was prophylactically discharged with Miralax to prevent further episodes of constipation. Total Time Spent: Less than 30 minutes This includes examination of the patient, discharge planning, medication reconciliation, and communication with other providers. (Mario Campo M.D.) Resident Physician Supervision Note: I interviewed and examined the patient. Discussed with Dr. Campo and agree with findings and plan as documented in the note. Any exceptions or clarifications are listed here: None Documented By: Victor Hugo Marr feeling better feeling up to go home no new complaints had BM. vitals noted nad breathing unlabored no pallor or icterus headache - pain meds as above, titrate cymbalta. f/u PCP. as XRT and cymbalta improve situation plastic surgeon then wean pain meds. miralax for constipation (Victor Hugo Marr, D.O.) Discharge Instructions Please refer to the electronic Patient Visit Report (Discharge Instructions) for additional information. (Mario Campo M.D.) Additional Copies To Shahzad Norton MD
[2016-10-07] MEDS ORDERED: MBXC PO (18:35)
[2016-10-07] MEDS ORDERED: NYSS/ PO (18:35)
== END 2016-09-20 13:33 | disposition home or self-care (01) | DRG 841 ==
LOC: C.EDB 19:10 → C.4E 22:50 → ENRESERV 23:03 → OBSVTOIN 09-17 19:01
PROVIDERS: ADMIT Hospitalist; ATTEND Hospitalist
DX: C83.19 Mantle cell lymphoma, extranodal and solid organ sites (principal); C79.9 Secondary malignant neoplasm of unspecified site; E78.5 Hyperlipidemia, unspecified; K21.9 Gastro-esophageal reflux disease without esophagitis; I10 Essential (primary) hypertension; R29.810 Facial weakness; K59.03 Drug induced constipation; T40.2X5A Adverse effect of other opioids, initial encounter; Z80.8 Family history of malignant neoplasm of other organs or systems; Z80.3 Family history of malignant neoplasm of breast; Z79.82 Long term (current) use of aspirin; Z79.899 Other long term (current) drug therapy; Z88.8 Allergy status to other drugs, medicaments and biological substances; Z88.5 Allergy status to narcotic agent; E86.0 Dehydration

== ENCOUNTER → 2016-11-04 | Outpatient (CLI) | payer BC ==
[~2016-11-04] MED LIST changes: -ASCA500 PO; -CALC500T83 PO; -CHOL1000 PO; -DXM/4 PO; +GABA1CAP4 PO; -GLUC1CAP33 PO; +HYDR25TA4 PO; -MISCCAP80 PO; -MULT-884 PO; -NRN300 PO; +ONDA4TAB10 SL; +POTA10TA PO; -POTA10TA32 PO; -TGRSR100 PO; +VERA1TAB53 PO; -VRPSR180 PO
== END | disposition home or self-care (01) ==
LOC: C.PAPS 11:30
PROVIDERS: ATTEND Obstetrics & Gynecology
DX: Z01.419 Encounter for gynecological examination (general) (routine) without abnormal findings (principal); Z78.0 Asymptomatic menopausal state

== ENCOUNTER → 2016-11-22 | Outpatient (CLI) | payer BC ==
[2016-11-22 10:12] VITALS: BP 116/72; PULSE 73; TEMP 36.7; O2SAT 96
--- NOTE | 2016-11-22 10:58 | Radiation Oncology Follow-Up ---
Radiation Oncology Follow-Up Date of Visit Nov 22, 2016. Reason For Visit One-month follow-up Radiation Completion Date finished 12-20-2015 and 10-22-16 Diagnosis (1) Lymphoma Status: Chronic Onset Date: 07/07/2014 Permanent Comment: Self detected right neck mass FNA 07/07/2014 revealed malignant B-cell lymphoma Status post right parotidectomy and cervical lymph node excision 07/22/2014 revealed blastoid variant Mantle cell lymphoma, Stage IIE Status post systemic chemotherapy Left neck recurrent mass in July biopsy positive for lymphoma Mantle cell type 10/05/2015 Status post completion of radiation therapy 12/20/2015 received 4500 cGy Recurrent right neck mass March [address] revealing FDG avidity Initiation of immunotherapy with Ibrutinib - started May 2016 PET/CT in 08/2016 showed stable disease Patient admitted to hospital for pain control, further management Status post completion of radiation therapy 10/22/2016 received 4500 cGy Last Edited By: Suzan Heller on Oct 29, 2016 17:22 History of Present Illness Ms. Packer is a 70-year-old female with a history as above. In summary, Ms. 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 She has previously been treated with chemotherapy and did undergo a course of radiation therapy which completed in November 2015. She was treated for radiation therapy for recurrent disease in the right lower cervical lymph node chain and did have a good response to treatment. Unfortunately, the patient did present with recurrent disease involving the right parotid gland in 2016 and was treated with Ibrutinib underneath the supervision of Dr. Jaime Chaves for medical oncology. She did have a follow-up PET/CT scan on 08/26/2016 which revealed a large hypermetabolic soft tissue mass of the right neck involving the parotid gland that was slightly decreased in size suggesting a partial response to therapy as well as to mildly prominent level II lymph nodes on the right. Clinically, the patient's overall status has declined and she is having right facial nerve palsy and progression of the mass in the right parotid region. The patient was admitted to the hospital for pain management and further workup and evaluation. The patient has been seen by Dr. Ricci Carnes from medical oncology who is recommended consideration of radiation therapy with or without systemic chemotherapy. She completed radiation therapy 10/22/2016. She received 4500 cGy Interim History She's been doing well over the past month. They irritation of her mouth has steadily improved. She did have thrush and this has resolved. Again she continues with the nystatin and is hoping to be able to stop this medication. Her taste has improved. She feels this that this is back about 80%. She previously stopped in because she was having constant taste of salts in her mouth with anything she ate or drank. This is now improved. Xerostomia of the mouth has resolved. She no longer requires use of Biotene products. The right facial paralysis continues. She feels that there is some improvement in the movement of her eyelid. At that time she can better shot her eye. She has excess tearing from the eye. She is using eyedrops. She no longer requires any pain medication. She is on gabapentin and this is being decreased by Dr. Marilyn Paniagua. She is now on one pill twice daily. There are plans for a PET scan in 2 months. Allergies Coded Allergies: Propoxyphene (Verified Allergy, Intermediate, RASH, 09/05/16) Lisinopril (Verified Adverse Reaction, Mild, COUGH, 09/05/16) Home Medications Scheduled Aspirin (Aspirin Chewable), 81 MG PO QPM Gabapentin (Gabapentin), 300 MG PO BID Hydrochlorothiazide (Hctz), 25 MG PO QAM Ondasetron Odt (Zofran Odt), 4 MG SL Q6H Polyethylene Glycol 3350 (Miralax), 17 GM PO DAILY Potassium Chloride (K-Tabs), 10 MEQ PO DAILY Psyllium (Metamucil), 1 DOSE PO DAILY Raloxifene (Evista), 60 MG PO QPM Senna (Senokot), 1 TAB PO QAM Simvastatin (Simvastatin), 40 MG PO HS Verapamil Hcl (Verapamil Hcl Er), 180 MG PO DAILY Scheduled PRN Pantoprazole (Protonix), 40 MG PO DAILY PRN for Dyspepsia Review of Systems Gastrointestinal: Symptoms: WNL Oral: Symptoms: Adequate Saliva Quantity Other Oral Symptoms: " sore spot on roof of mouth, getting better " Respiratory: Symptoms: WNL Urinary: Symptoms: Nocturia Comments: nocturia times 2 - 3 Skin: Symptoms: No Problems Physical Exam Vital Signs Date Time Temp Pulse Resp B/P (MAP) Pulse Ox O2 Delivery O2 Flow Rate FiO2 11/22/16 10:12 36.7 73 16 116/72 96 Pain: Side: Bilateral Patient Pain Scale: 0 - 10 Initial Pain Intensity: 0.0 Fatigue: None General Appearance: no apparent distress Eyes: PERRL, + pertinent finding (right lid lag. Mild excess tearing.) ENT: hearing grossly normal, pharynx normal, + pertinent finding (right facial droop) Neck: supple, + pertinent finding (mild fullness below the right TMJ. The mass of the central neck has resolved. There is slight hyperpigmentation. There is no tenderness.) Respiratory/Chest: lungs clear, no respiratory distress, no accessory muscle use Cardiovascular: regular rate, rhythm, no gallop, no murmur Extremities: no pedal edema Neurologic/Psychiatric: no motor/sensory deficits, alert, normal mood/affect Laboratory Studies Test 08/28/16 11:39 09/02/16 22:10 09/02/16 22:55 09/05/16 14:15 Platelet Estimate DECREASED Giant Platelets 1+ Hypochromasia PRESENT PTT 24.2 SECONDS (21.0-31.0) 22.9 SECONDS (21.0-31.0) Partial Thromboplastin Ratio 0.9 0.9 Direct Bilirubin 0.2 mg/dl (0-0.2) Lipase 401 U/L (73-393) Urine Color YELLOW Urine Appearance CLEAR (CLEAR) Urine pH 6.5 (4.5-7.5) Urine Specific [place] 1.025 (1.000-1.030) Urine Protein TRACE (NEG) Urine Glucose (UA) NEG (NEG) Urine Ketones 1+ (NEG) Urine Occult Blood NEG (NEG) Urine Nitrite NEG (NEG) Urine Bilirubin NEG (NEG) Urine Urobilinogen NEG (NEG) Urine Leukocyte Esterase SMALL (NEG) Urine WBC (Auto) 10-30 /hpf (0-5) Urine RBC (Auto) 0-4 /hpf (0-4) Urine Hyaline Casts (Auto) 10-30 /lpf (0-5) Urine Epithelial Cells (Auto) 20-30 /lpf (0-5) Urine Bacteria (Auto) NEG (NEG) Prothrombin Time 10.2 SECONDS (9.0-12.0) Prothrombin Time INR 1.0 (0.9-1.1) Test 09/05/16 14:19 09/06/16 05:24 09/16/16 20:25 09/16/16 21:00 POC Prothrombin Time INR 0.9 (0.9-1.1) Magnesium Level 2.5 mg/dl (1.8-2.4) Direct Bilirubin 0.1 mg/dl (0-0.2) Lipase 242 U/L (73-393) Urine Color DK YELLOW Urine Appearance CLOUDY (CLEAR) Urine pH 5.5 (4.5-7.5) Urine Specific [place] 1.026 (1.000-1.030) Urine Protein NEG (NEG) Urine Glucose (UA) NEG (NEG) Urine Ketones NEG (NEG) Urine Occult Blood NEG (NEG) Urine Nitrite NEG (NEG) Urine Bilirubin NEG (NEG) Urine Urobilinogen NEG (NEG) Urine Leukocyte Esterase TRACE (NEG) Urine WBC (Auto) 5-10 /hpf (0-5) Urine RBC (Auto) 0-4 /hpf (0-4) Urine Hyaline Casts (Auto) 1-5 /lpf (0-5) Urine Epithelial Cells (Auto) >30 /lpf (0-5) Urine Bacteria (Auto) NEG (NEG) Urine Pathogenic Casts /lpf (0) Urine Mucus PRESENT (NONE PRSENT) Test 09/17/16 05:22 09/20/16 07:47 09/20/16 11:22 10/22/16 13:57 Prothrombin Time 10.3 SECONDS (9.0-12.0) Prothrombin Time INR 1.0 (0.9-1.1) POC Glucose 95 mg/dl (70-90) 119 mg/dl (70-90) White Blood Count 6.07 K/uL (4.8-10.8) Red Blood Count 3.88 M/uL (4.2-5.4) Hemoglobin 12.5 g/dL (12.0-16.0) Hematocrit 37.8 % (37-47) Mean Corpuscular Volume 97.4 fL (80-100) Mean Corpuscular Hemoglobin 32.2 pg (25-34) Mean Corpuscular Hemoglobin Concent 33.1 g/dl (32-36) Platelet Count 246 K/uL (130-400) Mean Platelet Volume 10.4 fL (7.4-10.4) Neutrophils (%) (Auto) 63.4 % Lymphocytes (%) (Auto) 19.8 % Monocytes (%) (Auto) 14.0 % Eosinophils (%) (Auto) 2.1 % Basophils (%) (Auto) 0.7 % Neutrophils # (Auto) 3.85 K/uL (1.4-6.5) Lymphocytes # (Auto) 1.20 K/uL (1.2-3.4) Monocytes # (Auto) 0.85 K/uL (0.11-0.59) Eosinophils # (Auto) 0.13 K/uL (0-0.5) Basophils # (Auto) 0.04 K/uL (0-0.2) RDW Standard Deviation 50.2 fL (36.4-46.3) RDW Coefficient of Variation 14.1 % (11.5-14.5) Immature Granulocyte % (Auto) 0.0 % Immature Granulocyte # (Auto) 0.00 K/uL (0.00-0.02) Sodium Level 137 mmol/L (136-145) Potassium Level 3.0 mmol/L (3.5-5.1) Chloride Level 100 mmol/L (98-107) Carbon Dioxide Level 30 mmol/L (21-32) Anion Gap 7.0 mmol/L (3-11) Blood Urea Nitrogen 8 mg/dl (7-18) Creatinine 0.67 mg/dl (0.60-1.20) Est Creatinine Clear Calc Drug Dose 72.0 ml/min Estimated GFR () 101.8 Estimated GFR (Non- 87.8 BUN/Creatinine Ratio 11.8 (10-20) Random Glucose 132 mg/dl (70-99) Calcium Level 8.9 mg/dl (8.5-10.1) Total Bilirubin 0.4 mg/dl (0.2-1) Aspartate Amino Transferase (AST) 25 U/L (15-37) Alanine Aminotransferase (ALT) 38 U/L (12-78) Alkaline Phosphatase 40 U/L (45-117) Lactate Dehydrogenase 248 U/L (84-246) Total Protein 6.3 gm/dl (6.4-8.2) Albumin 3.5 gm/dl (3.4-5.0) Globulin 2.8 gm/dl (2.5-4.0) Albumin/Globulin Ratio 1.3 (0.9-2) Test 11/19/16 09:05 White Blood Count 3.97 K/uL (4.8-10.8) Red Blood Count 3.78 M/uL (4.2-5.4) Hemoglobin 12.3 g/dL (12.0-16.0) Hematocrit 37.4 % (37-47) Mean Corpuscular Volume 98.9 fL (80-100) Mean Corpuscular Hemoglobin 32.5 pg (25-34) Mean Corpuscular Hemoglobin Concent 32.9 g/dl (32-36) Platelet Count 202 K/uL (130-400) Mean Platelet Volume 10.6 fL (7.4-10.4) Neutrophils (%) (Auto) 52.1 % Lymphocytes (%) (Auto) 33.0 % Monocytes (%) (Auto) 10.8 % Eosinophils (%) (Auto) 2.8 % Basophils (%) (Auto) 1.0 % Neutrophils # (Auto) 2.07 K/uL (1.4-6.5) Lymphocytes # (Auto) 1.31 K/uL (1.2-3.4) Monocytes # (Auto) 0.43 K/uL (0.11-0.59) Eosinophils # (Auto) 0.11 K/uL (0-0.5) Basophils # (Auto) 0.04 K/uL (0-0.2) RDW Standard Deviation 50.2 fL (36.4-46.3) RDW Coefficient of Variation 13.9 % (11.5-14.5) Immature Granulocyte % (Auto) 0.3 % Immature Granulocyte # (Auto) 0.01 K/uL (0.00-0.02) Sodium Level 141 mmol/L (136-145) Potassium Level 3.3 mmol/L (3.5-5.1) Chloride Level 104 mmol/L (98-107) Carbon Dioxide Level 31 mmol/L (21-32) Anion Gap 6.0 mmol/L (3-11) Blood Urea Nitrogen 12 mg/dl (7-18) Creatinine 0.59 mg/dl (0.60-1.20) Est Creatinine Clear Calc Drug Dose 81.8 ml/min Estimated GFR () 106.1 Estimated GFR (Non- 91.6 BUN/Creatinine Ratio 20.8 (10-20) Random Glucose 83 mg/dl (70-99) Calcium Level 9.2 mg/dl (8.5-10.1) Total Bilirubin 0.7 mg/dl (0.2-1) Aspartate Amino Transferase (AST) 18 U/L (15-37) Alanine Aminotransferase (ALT) 24 U/L (12-78) Alkaline Phosphatase 29 U/L (45-117) Lactate Dehydrogenase 218 U/L (84-246) Total Protein 6.6 gm/dl (6.4-8.2) Albumin 3.9 gm/dl (3.4-5.0) Globulin 2.7 gm/dl (2.5-4.0) Albumin/Globulin Ratio 1.4 (0.9-2) Assessment & Plan Plan: We discussed stopping the nystatin now that the thrush has resolved. Continue regular follow-up with Dr. Chaves area there are plans for a PET scan in 2 months. She is steadily being weaned off of gabapentin. We asked her return to our office in 6 months. She may call if she has any questions or concerns in the interim. Total Time In Follow-Up I spent 20 minutes speaking to the patient and performing examination. I spent 15 minutes reviewing information and completing a note. Copy To Shahzad Norton MD; Jaime Chaves MD Problem Qualifiers (1) Lymphoma: Lymphoma type: non-Hodgkin Non-Hodgkin lymphoma type: non-follicular Non- follicular lymphoma type: mantle cell Lymphoma site: neck Qualified Codes: C83.11 - Mantle cell lymphoma, lymph nodes of head, face, and neck
== END | disposition home or self-care (01) ==
LOC: C.ONC 09:50
PROVIDERS: ATTEND Physician Assistant Medical
DX: Z08 Encounter for follow-up examination after completed treatment for malignant neoplasm (principal); Z92.3 Personal history of irradiation; Z85.72 Personal history of non-Hodgkin lymphomas

== ENCOUNTER → 2017-01-08 | Outpatient (CLI) | payer BC ==
[~2017-01-08] MED LIST changes: -EVS60 PO; +RALO60TA31 PO
--- NOTE | 2017-01-08 11:48 | DIAGNOSTIC IMAGING REPORT ---
PET/CT HISTORY: LYMPHOMA TECHNIQUE: PET/CT was performed from the skull vertex through the pelvis following the intravenous administration of 13.5 mCi of F18-FDG. Non-contrast CT imaging was performed over the same range without breath-hold for attenuation correction of PET images and anatomic correlation, but not for primary interpretation as it is not of standard diagnostic quality. CT DOSE: COMPARISON: Head CT 08/26/2016. FINDINGS: HEAD AND NECK: Interval decrease in size with near complete resolution of the FDG uptake within the right upper cervical mass deep to the sternocleidomastoid muscle. The ill-defined soft tissue mass at this location currently measures approximately 2.5 x 2.0 cm, previous measuring 3.7 x 3.6 cm. This demonstrates an SUV max of 2, some of which could related to posttreatment changes.. Focal FDG uptake within the muscles posterior to the right C1-C2 level demonstrate an SUV max of 4. This may related to physiologic or posttreatment changes. FDG avid right cervical lymph nodes have essentially resolved in the interval. CHEST: There is no FDG-avid disease in the chest. There is no axillary, mediastinal, or hilar lymphadenopathy. There is no pleural or pericardial effusion. There is no air-space disease or suspicious lung nodule. FDG uptake within the right trapezius muscle is likely physiologic. Left subclavian Port-A-Cath terminates in the SVC. ABDOMEN/PELVIS: Below the diaphragm, tracer is distributed physiologically in the gastrointestinal and genitourinary tracts. There is no significant lymphadenopathy and no FDG-avid disease. MUSCULOSKELETAL: There is no FDG-avid or destructive bone lesion. IMPRESSION: 1. Interval decrease in size within the right upper neck mass as described above. There is also significant improvement in the FDG uptake with only mild FDG uptake remaining at this location which could be due to posttreatment changes. 2. Interval resolution of the FDG avid right cervical lymphadenopathy. 3. No FDG avid disease identified within the chest, abdomen, or pelvis. Electronically signed by: Micah Agee M.D. 01/08/2017 11:46 AM Dictated Date/Time: 01/08/2017 11:33 AM
== END | disposition home or self-care (01) ==
LOC: C.PET 07:59
PROVIDERS: ATTEND Internal Medicine Hematology & Oncology
DX: C83.11 Mantle cell lymphoma, lymph nodes of head, face, and neck (principal)

== ENCOUNTER → 2017-03-25 | Outpatient (CLI) | payer BC ==
[~2017-03-25] MED LIST changes: +CALC-51 PO; +CHOL200010 PO; +GLUC500C4 PO; +OMEG10007 PO; -ONDA4TAB10 SL
[2017-03-25 14:32] VITALS: BP 150/72; PULSE 83; TEMP 37.3; O2SAT 95
--- NOTE | 2017-03-25 15:57 | Radiation Oncology Follow-Up ---
Radiation Oncology Follow-Up Date of Visit Mar 25, 2017. 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 Packer has a history as above. In summary, Ms. 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 She has previously been treated with chemotherapy and did undergo a course of radiation therapy which completed in November 2015. She was treated for radiation therapy for recurrent disease in the right lower cervical lymph node chain and did have a good response to treatment. Unfortunately, the patient did present with recurrent disease involving the right parotid gland in 2016 and was treated with Ibrutinib underneath the supervision of Dr. Jaime Chaves for medical oncology. She did have a follow-up PET/CT scan on 08/26/2016 which revealed a large hypermetabolic soft tissue mass of the right neck involving the parotid gland that was slightly decreased in size suggesting a partial response to therapy as well as to mildly prominent level II lymph nodes on the right. Clinically, the patient's overall status has declined and she is having right facial nerve palsy and progression of the mass in the right parotid region. The patient was admitted to the hospital for pain management and further workup and evaluation. The patient has been seen by Dr. Ricci Carnes from medical oncology who is recommended consideration of radiation therapy with or without systemic chemotherapy. She completed radiation therapy 10/22/2016. She received 4500 cGy Interim History She's been doing well in regards to the treatment to her neck. She has noted no masses. She called due to a rash. She has had dryness and itching of the lower scalp for several months. More recently she has developed a rash on the right side of her neck. She did use a new type of cleansing products in this area. Previously she had some mild erythema following treatment and was prescribed fluocinonide 0.05%. She tried this medication and it did not help the rash. She also was using Aquaphor. She has been followed closely by Dr. Marilyn Paniagua and had a recheck PET scan in December. This showed decrease in size of the right upper neck mass. There was improvement of FDG activity. There was resolution of the FDG avid right cervical lymphadenopathy. There was no activity in the chest, abdomen, or pelvis. Allergies Coded Allergies: Propoxyphene (Verified Allergy, Intermediate, RASH, 09/05/16) Lisinopril (Verified Adverse Reaction, Mild, COUGH, 09/05/16) Home Medications Scheduled Aspirin (Aspirin Chewable), 81 MG PO QPM Calcium Carbonate-Vitamin D (Calcium), 1 TAB PO DAILY Cholecalciferol (Vitamin D), 1 CAP PO DAILY Fish Oil (Ona-3), 1 CAP PO DAILY Glucosamine Sulfate (Glucosamine), 1 CAP PO DAILY Polyethylene Glycol 3350 (Miralax), 17 GM PO DAILY Potassium Chloride (K-Tabs), 10 MEQ PO DAILY Psyllium (Metamucil), 1 DOSE PO DAILY Raloxifene (Evista), 60 MG PO QPM Senna (Senokot), 1 TAB PO QAM Simvastatin (Simvastatin), 40 MG PO HS Verapamil Hcl (Verapamil Hcl Er), 180 MG PO DAILY Scheduled PRN Pantoprazole (Protonix), 40 MG PO DAILY PRN for Dyspepsia Review of Systems Gastrointestinal: Symptoms: WNL GI Comments: Constipation managed with meds on eMAR Oral: Symptoms: No Problems Respiratory: Symptoms: WNL Urinary: Symptoms: WNL Skin: Symptoms: Dry Desquamation Other Skin Symptoms: Rash and flaking skin on right side of head, right neck area with pink rash Physical Exam Vital Signs Date Time Temp Pulse Resp B/P (MAP) Pulse Ox O2 Delivery O2 Flow Rate FiO2 03/25/17 14:32 37.3 83 16 150/72 95 Fatigue: None General Appearance: no apparent distress Eyes: normal inspection, EOMI ENT: normal ENT inspection, hearing grossly normal Neck: no adenopathy, thyroid normal, + pertinent finding (well-healed incision in the right neck. There is a very fine maculopapular rash over the right anterior neck.) Skin: + pertinent finding (there is dryness of the scalp with flaking and erythema coming down to the hairline at the posterior neck. The redness and dryness extends upward [place]. This does not extend to the frontal scalp.) Lymphatic: no adenopathy Pain Management Patient Reports Pain: No Pain Management Plan She denies pain therefore requires no pain management. Laboratory Laboratory Results: not applicable Pathology Pathology Results: not applicable Imaging Imaging Studies: were reviewed, and pertinent findings noted below Imaging Comments Patient: PADMAJA PACKER Address1: [address] [place] [address] Rec: [id number] Address2: Acct ID: [id number] [facility] Zip: [place] [id number] Date: 1945 Sex: F Room/Bed: Ref Phy: SC: C.PET Att Phy: Jaime Chaves MD Report #: [id number] Amrita Phy: Shahzad Norton MD Test: PETCTST Admit Phy: Publicist: RAIN Interpreting Phy: Micah Agee MD Diagnosis: C83.11 MANTLE CELL LYMPHOMA,LYMP NODES OF HEAD, Ordering Phy: Jaime Chaves MD Service Date: 01/08/17 Admit Date: 01/08/17 MNE: [id number] CONF: DICTATED BY: Micah Aege M.D.]] CC: Shahzad Norton MD O'Donnell, Sean B., MD Endcc: [~ rep ct add3]] PET/CT HISTORY: LYMPHOMA TECHNIQUE: PET/CT was performed from the skull vertex through the pelvis following the intravenous administration of 13.5 mCi of F18-FDG. Non-contrast CT imaging was performed over the same range without breath-hold for attenuation correction of PET images and anatomic correlation, but not for primary interpretation as it is not of standard diagnostic quality. CT DOSE: COMPARISON: Head CT 08/26/2016. FINDINGS: HEAD AND NECK: Interval decrease in size with near complete resolution of the FDG uptake within the right upper cervical mass deep to the sternocleidomastoid muscle. The ill-defined soft tissue mass at this location currently measures approximately 2.5 x 2.0 cm, previous measuring 3.7 x 3.6 cm. This demonstrates an SUV max of 2, some of which could related to posttreatment changes.. Focal FDG uptake within the muscles posterior to the right C1-C2 level demonstrate an SUV max of 4. This may related to physiologic or posttreatment changes. FDG avid right cervical lymph nodes have essentially resolved in the interval. CHEST: There is no FDG-avid disease in the chest. There is no axillary, mediastinal, or hilar lymphadenopathy. There is no pleural or pericardial effusion. There is no air-space disease or suspicious lung nodule. FDG uptake within the right trapezius muscle is likely physiologic. Left subclavian Port-A-Cath terminates in the SVC. ABDOMEN/PELVIS: Below the diaphragm, tracer is distributed physiologically in the gastrointestinal and genitourinary tracts. There is no significant lymphadenopathy and no FDG-avid disease. MUSCULOSKELETAL: There is no FDG-avid or destructive bone lesion. IMPRESSION: 1. Interval decrease in size within the right upper neck mass as described above. There is also significant improvement in the FDG uptake with only mild FDG uptake remaining at this location which could be due to posttreatment changes. 2. Interval resolution of the FDG avid right cervical lymphadenopathy. 3. No FDG avid disease identified within the chest, abdomen, or pelvis. Electronically signed by: Micah Agee M.D. 01/08/2017 11:46 AM Dictated Date/Time: 01/08/2017 11:33 AM Assessment & Plan Plan: The patient was seen and examined by Dr. Rothman. He did review her recent PET/CT. He discussed the rash with associated itching. She will stop the cleansing product that she had previously used on the right side of her neck. I 've asked her to provide cool compresses. She can use [id number] Benadryl cream to this rash. For the areas of erythema and dry flaking scalp I' ve asked her to try Selsun Blue. If she continues to have issues with itching she should see her primary care physician. We asked her to return to our office in 6 months. She will call if she has any questions or concerns in the interim. Assessment & Plan (Attending) I agree with note created by Suzan Heller PA-C. I reviewed the patient's chart and information with her. I have examined and evaluated the patient. I reviewed relevant clinical information and answered the patient's and/or family' s questions. [employer]GICAL [employer] FABRICATOR Total Time In Follow-Up I spent 20 minutes speaking to the patient and performing examination. I spent 15 minutes reviewing information in completing this note. AK Total Time (Attending) In Follow-Up I spent 15 minutes examining and counseling the patient. SURGICAL [employer]CE[employer] FABRICATOR Copy To Shahzad Norton MD; Jaime Chaves MD
== END | disposition home or self-care (01) ==
LOC: C.ONC 14:00
PROVIDERS: ATTEND Physician Assistant Medical
DX: R21 Rash and other nonspecific skin eruption (principal); Z85.72 Personal history of non-Hodgkin lymphomas; Z92.3 Personal history of irradiation

== ENCOUNTER → 2017-04-29 | Outpatient (CLI) | payer BC ==
[~2017-04-29] MED LIST changes: -GABA1CAP4 PO; -HYDR25TA4 PO; +OPTIRAY 320 IV PRN
--- NOTE | 2017-04-29 08:19 | DIAGNOSTIC IMAGING REPORT ---
CT HEAD COMBO CT DOSE: 1541.26 mGy.cm TECHNIQUE: Noncontrast images were obtained through the brain in the axial plane. The sequence was repeated following administration of 92 Optiray 320. A dose lowering technique was utilized adhering to the principles of ALARA. HISTORY: MENTAL CELL LYMPHOMA COMPARISON: 09/05/2016 FINDINGS: No intra or extra-axial mass lesions are visualized. There is no CT evidence of acute cortical infarction. There is no evidence of midline shift. There is no acute hemorrhage. No calvarial fractures are visualized. There are minimal white matter hypodensities likely on a small vessel basis. There is no evidence of pathologic ventricular dilatation. There is no evidence of acute sinusitis Postcontrast images reveal no pathologically enhancing masses. There is parotid gland asymmetry with increased density and infiltration of the visualized portion of the right parotid gland. This will be described separately in a CT scan of the neck. IMPRESSION: 1. No acute intracranial findings 2. Right parotid gland and periauricular asymmetry. This will be described separately in a CT scan of the neck. Electronically signed by: Mohan Boone M.D. 04/29/2017 8:18 AM Dictated Date/Time: 04/29/2017 8:14 AM
--- NOTE | 2017-04-29 08:31 | DIAGNOSTIC IMAGING REPORT ---
SOFT TISSUE NECK WITH HISTORY: 71 years-old Female MANTLE CELL LYMPHOMA follow-up study in a patient with lymphoma. History of soft tissue mass within the region of the right parotid gland. COMPARISON: PET CT 01/08/2017, CT head of same day TECHNIQUE: Multiple axial CT images of the soft tissues of the neck were obtained following the intravenous administration of 92 mL Optiray 320 IV contrast. A dose lowering technique was used consistent with the principals of ALARA. FINDINGS: There is asymmetric atrophy with ill-defined stranding within the distribution of the right parotid gland, likely posttreatment related. The previously described soft tissue mass of the right neck is not definitively identified. There is ill-defined stranding within the right posterior neck, also likely posttreatment related. The left parotid gland, submandibular glands and sublingual glands appear to be unremarkable. There is no pathologic adenopathy of the neck identified. The oral pharynx, nasopharynx and hypopharynx appear patent and within normal limits. No prevertebral soft tissue swelling. Orbits appear symmetric. No dominant thyroid nodule identified. Lung apices appear clear. Left subclavian [id number] catheter is noted with distal tip coursing into the SVC outside the [id number]. Image intracranial structures demonstrate no acute abnormality. Mastoid air cells and middle ear cavities are clear. Degenerative changes of the cervical spine. No suspicious lytic or blastic bony lesions. IMPRESSION: 1. Previously described mass of the right upper neck within the distribution of the right parotid gland is no longer identified. Asymmetric atrophy of the right parotid gland along with subcutaneous and deep tissue stranding about the right neck is likely posttreatment related. Continued follow-up recommended. 2. No new adenopathy identified. The above report was generated using voice recognition software. It may contain grammatical, syntax or spelling errors. Electronically signed by: Connor Hsu M.D. 04/29/2017 8:30 AM Dictated Date/Time: 04/29/2017 8:22 AM
== END | disposition home or self-care (01) ==
LOC: C.CTS 07:50
PROVIDERS: ATTEND Internal Medicine Hematology & Oncology
DX: C83.11 Mantle cell lymphoma, lymph nodes of head, face, and neck (principal)

== ENCOUNTER 2017-05-27 11:09 | Inpatient (IN) | payer BC, OTHER ==
[~2017-05-27] VITALS: Ht 152.4 cm; Wt 77.2 kg
[~2017-05-27 11:09] MED LIST changes: -OPTIRAY 320 IV PRN
[2017-05-27] MEDS ORDERED: METOCLOPRAMIDE HCL INJ 5 MG/ML 2 ML VIAL IV STA (11:31)
[2017-05-27] MEDS ORDERED: MoRPHine SULFATE 4 MG/ML 1 ML CARP\\VIAL IV STA (11:31)
[2017-05-27] MEDS ORDERED: OPTIRAY 320 IV PRN (11:45)
--- NOTE | 2017-05-27 11:52 | DIAGNOSTIC IMAGING REPORT ---
SINGLE VIEW CHEST CLINICAL HISTORY: Dyspnea. FINDINGS: An AP, portable, upright chest radiograph is compared to study dated 08/24/2014 and correlated with chest CT dated 01/29/2016. The examination is degraded by portable technique and patient rotation. A left subclavian central venous infusion port is unchanged in position. The cardiomediastinal silhouette is unremarkable. There is a layering right pleural effusion with right basilar consolidation. Minimal atelectasis is seen at the left lung base. No pneumothorax is seen. The skeletal structures are osteopenic. Arthritic change is noted in the shoulders and thoracic spine. Cholecystectomy clips are noted. IMPRESSION: There is a small right pleural effusion with associated right basilar consolidation. This likely represents atelectasis. Clinical correlation will be required. Electronically signed by: Kristopher Betancourt M.D. 05/27/2017 11:51 AM Dictated Date/Time: 05/27/2017 11:50 AM
[2017-05-27] MEDS ORDERED: ALBUTEROL 0.083% NEBU SOLN 3 ML VIAL INH STA (11:59)
[2017-05-27] MEDS ORDERED: POLY335019 PO (12:06)
--- NOTE | 2017-05-27 12:10 | EMERGENCY ROOM VISIT NOTE ---
History Report prepared by Doretha: Albina Da Silva Under the Supervision of: Dr. Oswaldo Alcaraz M.D. First contact with patient: 11:18 Chief Complaint: SHORTNESS OF BREATH Stated Complaint: SOB History of Present Illness The patient is a 71 year old female who presents to the Emergency Room with complaints of constant shortness of breath for the past week. She has tightness in her chest and feels constantly short of breath but she reports that her symptoms are worsened with exertion. She is also experiencing abdominal distention and bloating. She reports a 5 pound weight gain over the past week despite having no appetite and eating very little. Last night she took Miralax and stool softeners. She had a small bowel movement this morning but did not feel any better. The patient rates her current pain as an 8/10. She notes that she has not been sleeping well for the past week and feels exhausted. She also notes nausea. The patient denies chest pain and any significant cardiac history. She has never had a stress test. She has a history of non-Hodgkin's lymphoma. Source of History: patient Onset: 1 week ago Position: chest Symptom Intensity: 8/10 Quality: other (shortness of breath) Timing: constant Modifying Factors (Worsening): exertion Associated Symptoms: + nausea, No chest pain Note: Pt notes abdominal distention and bloating. Review of Systems See HPI for pertinent positives & negatives. A total of 10 systems reviewed and were otherwise negative. Past Medical & Surgical Medical Problems: (1) Gastroesophageal reflux disease (2) GI bleed (3) History of - hypertension (4) Intractable pain (5) Lymphoma Family History FH: breast cancer FH: colon cancer Social History Smoking Status: Never Smoker Alcohol Use: none Drug Use: none Marital Status: Housing Status: lives with family Occupation Status: retired Current/Historical Medications Scheduled Aspirin (Aspirin Chewable), 81 MG PO QPM Calcium Carbonate-Vitamin D (Calcium), 1 TAB PO DAILY Cholecalciferol (Vitamin D), 1 CAP PO DAILY Fish Oil ([place]-3), 1 CAP PO DAILY Glucosamine Sulfate (Glucosamine), 1 CAP PO DAILY Polyethylene Glycol 3350 (Miralax), 17 GM PO DAILY Potassium Chloride (K-Tabs), 10 MEQ PO DAILY Psyllium (Metamucil), 1 DOSE PO DAILY Raloxifene (Evista), 60 MG PO QPM Senna (Senokot), 1 TAB PO QPM Simvastatin (Simvastatin), 40 MG PO HS Verapamil Hcl (Verapamil Hcl Er), 180 MG PO DAILY Scheduled PRN Pantoprazole (Protonix), 40 MG PO DAILY PRN for Dyspepsia Allergies Coded Allergies: Propoxyphene (Verified Allergy, Intermediate, RASH, 09/05/16) Lisinopril (Verified Adverse Reaction, Mild, COUGH, 09/05/16) Physical Exam Vital Signs Date Time Temp Pulse Resp B/P (MAP) Pulse Ox O2 Delivery O2 Flow Rate FiO2 05/27/17 13:41 96 Nasal Cannula 2.0 05/27/17 13:41 93 24 146/79 96 Nasal Cannula 2.0 05/27/17 12:38 91 Room Air 05/27/17 12:31 100 21 138/82 93 Room Air 05/27/17 12:29 105 05/27/17 11:51 96 Room Air 05/27/17 11:51 96 Room Air 05/27/17 11:11 36.7 118 20 149/82 95 Room Air Physical Exam GENERAL: Awake, alert, well-appearing, in no acute distress HENT: Normocephalic, atraumatic. Oropharynx unremarkable. EYES: Normal conjunctiva. Sclera non-icteric. NECK: Supple. No nuchal rigidity. FROM. No JVD. RESPIRATORY: Clear to auscultation. CARDIAC: Regular rate, normal rhythm. Extremities warm and well perfused. Pulses equal. ABDOMEN: Soft, non-distended. Diffuse abdominal pain. No rebound or guarding. No masses. RECTAL: Heme positive, large amount of external hemorrhoids. MUSCULOSKELETAL: Chest examination reveals no tenderness. The back is symmetrical on inspection without obvious abnormality. There is no CVA tenderness to palpation. No joint edema. LOWER EXTREMITIES: Calves are equal size bilaterally and non-tender. No edema. No discoloration. NEURO: Normal sensorium. No sensory or motor deficits noted. SKIN: No rash or jaundice noted. Medical Decision & Procedures ER Provider Diagnostic Interpretation: Radiology results as stated below per my review and radiologist interpretation: SINGLE VIEW CHEST CLINICAL HISTORY: Dyspnea. FINDINGS: An AP, portable, upright chest radiograph is compared to study dated 08/24/2014 and correlated with chest CT dated 01/29/2016. The examination is degraded by portable technique and patient rotation. A left subclavian central venous infusion port is unchanged in position. The cardiomediastinal silhouette is unremarkable. There is a layering right pleural effusion with right basilar consolidation. Minimal atelectasis is seen at the left lung base. No pneumothorax is seen. The skeletal structures are osteopenic. Arthritic change is noted in the shoulders and thoracic spine. Cholecystectomy clips are noted. IMPRESSION: There is a small right pleural effusion with associated right basilar consolidation. This likely represents atelectasis. Clinical correlation will be required. Electronically signed by: Kristopher Betancourt M.D. 05/27/2017 11:51 AM Dictated Date/Time: 05/27/2017 11:[address] ANGIOGRAPHY OF THE CHEST, PULMONARY EMBOLUS PROTOCOL CLINICAL HISTORY: Chest pain and shortness of breath. Lymphoma. COMPARISON STUDY: Chest CT January 29, 2016 and PET/CT January 08, 2017. TECHNIQUE: Following IV administration of 119 mL of Optiray-320, helical axial images of the chest were obtained utilizing the pulmonary embolus protocol. Maximal intensity projections and sagittal and coronal reformats were viewed on an independent 3D workstation. IV contrast was administered without complication. A dose lowering technique was utilized adhering to the principles of ALARA. FINDINGS: No pulmonary emboli are identified although the segmental and subsegmental pulmonary arteries are suboptimally assessed due to respiratory motion. Size of the heart is normal. There is no pericardial effusion. Large right and small left pleural effusions have developed since prior PET/CT. There is a probable 0.7 cm enhancing nodule within the posterior inferior right hemithorax shown better on the abdominal CT. There has been interval development of several moderately enlarged right cardiophrenic angle lymph nodes since PET/CT of January 08, 2017. Index node measured 2.4 cm. There is no axillary or hilar lymphadenopathy. There is been interval development of enlarged bilateral internal mammary chain lymph nodes. Index left internal mammary chain node measures 1.7 cm. There is no pneumothorax. No suspicious osseous lesions are present. The abdomen and pelvis will be reported separately however there has been interval development of a large perigastric/gastric mass since prior PET/CT. IMPRESSION: 1. No pulmonary emboli identified although segmental and subsegmental pulmonary arteries suboptimally assessed due to respiratory motion. 2. Interval development of large right and small left pleural effusions with suspected 7 mm enhancing right pleural nodule. These effusions may be secondary to lymphomatous involvement. 3. Interval development of right cardiophrenic angle and bilateral internal mammary chain lymphadenopathy consistent with recurrent lymphoma. 4. Large perigastric/gastric mass which is better depicted on the abdominal CT but suggests recurrent lymphoma. Electronically signed by: Joseph Genao M.D. 05/27/2017 2:33 PM Dictated Date/Time: 05/27/2017 2:[address] SCAN OF THE ABDOMEN AND PELVIS WITH IV CONTRAST CLINICAL HISTORY: Hematochezia. History of lymphoma. COMPARISON STUDY: Abdominal CT dated 01/29/2016. PET/CT dated 01/08/2017. TECHNIQUE: Following the IV administration of 118 cc of Optiray 320, CT scan of the abdomen and pelvis is performed from the lung bases to the proximal femora. Images are reviewed in the axial, sagittal, and coronal planes. IV contrast was administered without complication. A dose lowering technique was utilized adhering to the principles of ALARA. CT DOSE: 1007.18 mGy.cm FINDINGS: Lung bases: The heart is normal in size and without pericardial effusion. There are moderate right and small left pleural effusions with associated atelectasis. Liver: The contrast-enhanced liver is normal in size, contour, and attenuation. There is no intrahepatic biliary ductal dilatation. The hepatic veins and portal veins are patent. Gallbladder: Surgically absent noting clips in the gallbladder fossa. Spleen: Normal in size and attenuation, measuring 8.6 cm in length. A subcentimeter hepatic hypodensity seen on image #80 and unchanged from prior studies. Pancreas: Moderately atrophic and grossly unremarkable. Adrenal glands: Unremarkable. Kidneys: The contrast enhanced kidneys are atrophic and without hydronephrosis. The kidneys enhance symmetrically. A 1.3 cm cyst is noted in the right lobe. Additional subcentimeter hepatic hypodensities also likely represent cysts but are too small for definitive characterization. Abdominal vasculature: The abdominal aorta is normal in course and caliber noting mild atherosclerotic calcification. Stomach and bowel: There is marked gastric wall thickening which measures up to 4 cm, with an exophytic and central necrotic mass arising from the inferior aspect of the stomach. This measures approximately 6 x 10 x 13 cm as seen on image #203. 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 No extraluminal contrast is seen. No bowel obstruction is identified. Moderate fecal retention is noted in the right colon. The appendix is not identified and reported surgically absent. Peritoneum: There is a small volume of abdominopelvic ascites. There is diffuse infiltration of the mesentery which is greatest anteriorly. Peritoneal thickening and enhancement is identified in the pelvis. Foci of peritoneal thickening and nodularity are seen along the anterior omentum and below the right hemidiaphragm. Lymphadenopathy: A right cardiophrenic node on image #56 measures 2.5 x 1.6 cm. Enlarged upper retroperitoneal node on image #134 measures 1.7 x 1.3 cm. There is no pelvic sidewall or inguinal lymphadenopathy. As noted above there is diffuse infiltration of the mesentery with numerous tiny mesenteric lymph nodes which measure up to 7 mm in short axis. Pelvic viscera: The bladder is decompressed and grossly unremarkable. The endometrium appears thickened for age, measuring up to 8 mm. No adnexal lesion is seen Skeletal structures: The skeletal structures are osteopenic. A large hemangioma is noted in the body of L4. No lytic or blastic lesions are seen. Mild spondylotic change is noted in the lumbar spine. IMPRESSION: 1. There is marked gastric wall thickening, with a large exophytic mass lesion arising from the inferior aspect of the stomach. 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 2. There are moderate right and small left pleural effusions. 3. There is a small volume of abdominopelvic ascites. 4. There is extensive infiltration of the mesentery with foci of nodularity and peritoneal thickening/enhancement. Additionally, there are numerous tiny mesenteric lymph nodes. This likely represents lymphomatous involvement. Peritonitis is considered much less likely but is the top differential consideration. Clinical correlation will be required. 5. There are enlarged right cardiophrenic and upper retroperitoneal lymph nodes. 6. There is thickening of the endometrium which measures up to 8 mm. This is a nonspecific but abnormal finding in this age group. Nonemergent pelvic ultrasound is recommended for further assessment. 7. Additional findings as above. Electronically signed by: Kristopher Betancourt M.D. 05/27/2017 2:28 PM Dictated Date/Time: 05/27/2017 2:10 PM Laboratory Results Test 05/27/17 12:15 05/27/17 12:44 05/27/17 13:15 Immature Granulocyte % (Auto) 0.3 % White Blood Count 10.78 K/uL (4.8-10.8) Red Blood Count 2.99 M/uL (4.2-5.4) Hemoglobin 8.8 g/dL (12.0-16.0) Hematocrit 27.0 % (37-47) Mean Corpuscular Volume 90.3 fL (80-100) Mean Corpuscular Hemoglobin 29.4 pg (25-34) Mean Corpuscular Hemoglobin Concent 32.6 g/dl (32-36) Platelet Count 390 K/uL (130-400) Mean Platelet Volume 9.3 fL (7.4-10.4) Neutrophils (%) (Auto) 82.0 % Lymphocytes (%) (Auto) 8.2 % Monocytes (%) (Auto) 8.6 % Eosinophils (%) (Auto) 0.6 % Basophils (%) (Auto) 0.3 % Neutrophils # (Auto) 8.85 K/uL (1.4-6.5) Lymphocytes # (Auto) 0.88 K/uL (1.2-3.4) Monocytes # (Auto) 0.93 K/uL (0.11-0.59) Eosinophils # (Auto) 0.06 K/uL (0-0.5) Basophils # (Auto) 0.03 K/uL (0-0.2) Immature Granulocyte # (Auto) 0.03 K/uL (0.00-0.02) Large Platelets 1+ Hypochromasia PRESENT Poikilocytosis PRESENT Anisocytosis PRESENT Prothrombin Time 10.2 SECONDS (9.0-12.0) Prothromb Time International Ratio 1.0 (0.9-1.1) Activated Partial Thromboplast Time 22.5 SECONDS (21.0-31.0) Partial Thromboplastin Ratio 0.9 D-Dimer 2710 ug/L FEU (0-500) Total Bilirubin 0.3 mg/dl (0.2-1) Aspartate Amino Transf (AST/SGOT) 28 U/L (15-37) Alanine Aminotransferase (ALT/SGPT) 21 U/L (12-78) Alkaline Phosphatase 28 U/L (45-117) Total Creatine Kinase 160 U/L (26-192) Creatine Kinase MB 5.9 ng/ml (0.5-3.6) Creatine Kinase MB Ratio 3.7 (0-3.0) Troponin I < 0.015 ng/ml (0-0.045) Pro-B-Type Natriuretic Peptide 129 pg/ml (0-900) Total Protein 6.0 gm/dl (6.4-8.2) Albumin 2.7 gm/dl (3.4-5.0) Globulin 3.3 gm/dl (2.5-4.0) Albumin/Globulin Ratio 0.8 (0.9-2) Lipase 112 U/L (73-393) Influenza Type A Antigen Neg for Influ A (NEG) Influenza Type B Antigen Neg for Influ B (NEG) Urine Color YELLOW Urine Appearance CLEAR (CLEAR) Urine pH 6.5 (4.5-7.5) Urine Specific [place] 1.022 (1.000-1.030) Urine Protein NEG (NEG) Urine Glucose (UA) NEG (NEG) Urine Ketones 1+ (NEG) Urine Occult Blood NEG (NEG) Urine Nitrite NEG (NEG) Urine Bilirubin NEG (NEG) Urine Urobilinogen NEG (NEG) Urine Leukocyte Esterase TRACE (NEG) Urine WBC (Auto) 1-5 /hpf (0-5) Urine RBC (Auto) 0-4 /hpf (0-4) Urine Hyaline Casts (Auto) 1-5 /lpf (0-5) Urine Epithelial Cells (Auto) 10-20 /lpf (0-5) Urine Bacteria (Auto) NEG (NEG) Labs reviewed by ED physician. Medications Administered Medications (Trade) Dose Ordered Sig/Ant Route Start Time Stop Time Status Last Admin Dose Admin Morphine Sulfate (MoRPHine SULFATE INJ) 4 mg NOW STAT IV 05/27/17 11:31 05/27/17 11:34 DC 05/27/17 12:22 4 MG Metoclopramide HCl (Reglan Inj) 10 mg NOW STAT IV 05/27/17 11:31 05/27/17 11:34 DC 05/27/17 12:22 10 MG Albuterol Sulfate (Ventolin 0.083% 2.5MG/3ML Neb) 2.5 mg NOW STAT INH 05/27/17 11:59 05/27/17 12:01 DC 05/27/17 12:23 2.5 MG Pantoprazole Sodium 80 mg/ Dextrose 120 ml @ 480 mls/hr 1245 IV 05/27/17 12:45 05/27/17 12:59 DC 05/27/17 13:12 480 MLS/HR Pantoprazole Sodium 40 mg/ Dextrose 100 ml @ 20 mls/hr Q5H IV 05/27/17 13:00 06/26/17 12:59 05/28/17 08:14 20 MLS/HR Ondansetron HCl (Zofran Inj) 4 mg Q6H PRN IV 05/27/17 15:30 06/26/17 15:29 05/28/17 11:19 4 MG ECG Per My Interpretation Indication: abdominal pain, SOB/dyspnea Rate (beats per minute): 105 Rhythm: sinus tachycardia Findings: other (no ST elevation or depression; normal axis) ED Course 1118: Past medical records reviewed. The patient was evaluated in room C12B. A complete history and physical examination was performed. 1131: Reglan 10 mg IV, Morphine sulfate 4 mg IV 1159: Albuterol sulfate 2.5 mg INH 1237: The patient informed me that she has been having black tarry stools for the past 4 days. I performed a rectal examination at this time. 1245: Pantoprazole Sodium 80 mg/Dextrose 120 ml @ 480 mls/hr IV 1255: I reevaluated the patient and she is doing well. 1300: Pantoprazole Sodium 40 mg/Dextrose 100 ml @ 20 mls/hr IV 1441: I spoke with LISSET Rodriguez. We discussed the patient's case. The patient will be evaluated by the [facility] for further management. 1444: I reassessed the patient at this time. She is resting comfortably. I discussed the results and treatment plan with the patient. I answered all pertaining questions that she had. She expressed understanding and verbalized agreement. Medical Decision Differential diagnosis: Etiologies such as infections, reactive airway disease, pneumonia, pneumothorax , COPD, CHF, cardiac ischemia, pulmonary embolism, musculoskeletal, gastrointestinal, as well as others were entertained. This is a 71-year-old female who presents the emergency department complaining of weakness along with shortness of breath. Patient is also complaining of abdominal distention. In addition the patient is anemic and does appear to have a GI bleed. For this reason the patient was given Protonix bolus as well as a drip. The patient has a diffuse amount of lymphoma on CAT scan of the chest as well as her abdomen. Based on all of these findings I feel that the patient should be admitted to the hospitalist service so I did discuss the case with the hospitalist who agreed to admit the patient. Patient was in agreement with the treatment plan. Medication Reconcilliation Current Medication List: was personally reviewed by me Blood Pressure Screening Patient's blood pressure: Elevated blood pressure Referred to hospitalist Consults Time Called: 1438 Consulting Physician: LISSET Rodriguez Returned Call: 1441 I spoke with LISSET Rodriguez. We discussed the patient's case. The patient will be evaluated by the [facility] for further management. Impression Primary Impression: Anemia Additional Impression: Abdominal mass Scribe Attestation The scribe's documentation has been prepared under my direction and personally reviewed by me in its entirety. I confirm that the note above accurately reflects all work, treatment, procedures, and medical decision making performed by me. Departure Information Dispostion Being Evaluated By Hospitalist Referrals Shahzad Norton MD (PCP) Patient Instructions My [facility] Problem Qualifiers Primary Impression: Anemia Anemia type: unspecified type Qualified Codes: D64.9 - Anemia, unspecified Additional Impression: Abdominal mass Abdominal location: generalized Qualified Codes: R19.07 - Generalized intra- abdominal and pelvic swelling, mass and lump
[2017-05-27 12:26] LABS: BASO % 0.3 %; BASO ABS # 0.03 K/uL (0-0.2); EOS % 0.6 %; EOS ABS # 0.06 K/uL (0-0.5); HEMOGLOBIN 8.8 g/dL (12.0-16.0); IG# 0.03 K/uL (0.00-0.02); LYMPH % 8.2 %; LYMPH ABS # 0.88 K/uL (1.2-3.4); MEAN CELL VOLUME 90.3 fL (80-100); MEAN CORPUSCULAR HEMOGLOBIN 29.4 pg (25-34); MEAN CORPUSCULAR HGB CONC 32.6 g/dl (32-36); MEAN PLATELET VOLUME 9.3 fL (7.4-10.4); MONO % 8.6 %; MONO ABS # 0.93 K/uL (0.11-0.59); NEUT ABS # 8.85 K/uL (1.4-6.5); PLATELET COUNT 390 K/uL (130-400); RED CELL DISTRIBUTION WIDTH CV 13.9 % (11.5-14.5); RED CELL DISTRIBUTION WIDTH SD 45.9 fL (36.4-46.3); WHITE BLOOD COUNT 10.78 K/uL (4.8-10.8)
[2017-05-27] MEDS ORDERED: PANTOprazole INJ 40 MG in SYRINGE 0 ML IV STA (12:39)
[2017-05-27 12:41] LABS: ALBUMIN 2.7 gm/dl (3.4-5.0); ALT/SGPT 21 U/L (12-78); BLOOD UREA NITROGEN 11 mg/dl (7-18); CALCIUM 8.7 mg/dl (8.5-10.1); CARBON DIOXIDE 26 mmol/L (21-32); CREATININE 0.59 mg/dl (0.60-1.20); GLUCOSE 129 mg/dl (70-99); LIPASE 112 U/L (73-393); POTASSIUM 3.7 mmol/L (3.5-5.1); SODIUM 135 mmol/L (136-145)
[2017-05-27] MEDS ORDERED: PANTOprazole INJ 80 MG in DEXTROSE 5% 100ML IV SCH (12:45)
[2017-05-27 12:46] LABS: ALKALINE PHOSPHATASE 28 U/L (45-117); AST/SGOT 28 U/L (15-37); CKMB 5.9 ng/ml (0.5-3.6)
[2017-05-27 12:55] LABS: PTT PATIENT 22.5 SECONDS (21.0-31.0)
[2017-05-27] MEDS: PANTOprazole INJ 40 MG in DEXTROSE 5% 100ML IV SCH ×3 (13:33→22:07)
[2017-05-27 13:37] LABS: INFLUENZA B ANTIGEN Neg for Influ B (NEG)
--- NOTE | 2017-05-27 14:30 | DIAGNOSTIC IMAGING REPORT ---
CT SCAN OF THE ABDOMEN AND PELVIS WITH IV CONTRAST CLINICAL HISTORY: Hematochezia. History of lymphoma. COMPARISON STUDY: Abdominal CT dated 01/29/2016. PET/CT dated 01/08/2017. TECHNIQUE: Following the IV administration of 118 cc of Optiray 320, CT scan of the abdomen and pelvis is performed from the lung bases to the proximal femora. Images are reviewed in the axial, sagittal, and coronal planes. IV contrast was administered without complication. A dose lowering technique was utilized adhering to the principles of ALARA. CT DOSE: 1007.18 mGy.cm FINDINGS: Lung bases: The heart is normal in size and without pericardial effusion. There are moderate right and small left pleural effusions with associated atelectasis. Liver: The contrast-enhanced liver is normal in size, contour, and attenuation. There is no intrahepatic biliary ductal dilatation. The hepatic veins and portal veins are patent. Gallbladder: Surgically absent noting clips in the gallbladder fossa. Spleen: Normal in size and attenuation, measuring 8.6 cm in length. A subcentimeter hepatic hypodensity seen on image #80 and unchanged from prior studies. Pancreas: Moderately atrophic and grossly unremarkable. Adrenal glands: Unremarkable. Kidneys: The contrast enhanced kidneys are atrophic and without hydronephrosis. The kidneys enhance symmetrically. A 1.3 cm cyst is noted in the right lobe. Additional subcentimeter hepatic hypodensities also likely represent cysts but are too small for definitive characterization. Abdominal vasculature: The abdominal aorta is normal in course and caliber noting mild atherosclerotic calcification. Stomach and bowel: There is marked gastric wall thickening which measures up to 4 cm, with an exophytic and central necrotic mass arising from the inferior aspect of the stomach. This measures approximately 6 x 10 x 13 cm as seen on image #203. 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 No extraluminal contrast is seen. No bowel obstruction is identified. Moderate fecal retention is noted in the right colon. The appendix is not identified and reported surgically absent. Peritoneum: There is a small volume of abdominopelvic ascites. There is diffuse infiltration of the mesentery which is greatest anteriorly. Peritoneal thickening and enhancement is identified in the pelvis. Foci of peritoneal thickening and nodularity are seen along the anterior omentum and below the right hemidiaphragm. Lymphadenopathy: A right cardiophrenic node on image #56 measures 2.5 x 1.6 cm. Enlarged upper retroperitoneal node on image #134 measures 1.7 x 1.3 cm. There is no pelvic sidewall or inguinal lymphadenopathy. As noted above there is diffuse infiltration of the mesentery with numerous tiny mesenteric lymph nodes which measure up to 7 mm in short axis. Pelvic viscera: The bladder is decompressed and grossly unremarkable. The endometrium appears thickened for age, measuring up to 8 mm. No adnexal lesion is seen Skeletal structures: The skeletal structures are osteopenic. A large hemangioma is noted in the body of L4. No lytic or blastic lesions are seen. Mild spondylotic change is noted in the lumbar spine. IMPRESSION: 1. There is marked gastric wall thickening, with a large exophytic mass lesion arising from the inferior aspect of the stomach. 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 2. There are moderate right and small left pleural effusions. 3. There is a small volume of abdominopelvic ascites. 4. There is extensive infiltration of the mesentery with foci of nodularity and peritoneal thickening/enhancement. Additionally, there are numerous tiny mesenteric lymph nodes. This likely represents lymphomatous involvement. Peritonitis is considered much less likely but is the top differential consideration. Clinical correlation will be required. 5. There are enlarged right cardiophrenic and upper retroperitoneal lymph nodes. 6. There is thickening of the endometrium which measures up to 8 mm. This is a nonspecific but abnormal finding in this age group. Nonemergent pelvic ultrasound is recommended for further assessment. 7. Additional findings as above. Electronically signed by: Kristopher Betancourt M.D. 05/27/2017 2:28 PM Dictated Date/Time: 05/27/2017 2:10 PM
--- NOTE | 2017-05-27 14:34 | DIAGNOSTIC IMAGING REPORT ---
CT ANGIOGRAPHY OF THE CHEST, PULMONARY EMBOLUS PROTOCOL CLINICAL HISTORY: Chest pain and shortness of breath. Lymphoma. COMPARISON STUDY: Chest CT January 29, 2016 and PET/CT January 08, 2017. TECHNIQUE: Following IV administration of 119 mL of Optiray-320, helical axial images of the chest were obtained utilizing the pulmonary embolus protocol. Maximal intensity projections and sagittal and coronal reformats were viewed on an independent 3D workstation. IV contrast was administered without complication. A dose lowering technique was utilized adhering to the principles of ALARA. FINDINGS: No pulmonary emboli are identified although the segmental and subsegmental pulmonary arteries are suboptimally assessed due to respiratory motion. Size of the heart is normal. There is no pericardial effusion. Large right and small left pleural effusions have developed since prior PET/CT. There is a probable 0.7 cm enhancing nodule within the posterior inferior right hemithorax shown better on the abdominal CT. There has been interval development of several moderately enlarged right cardiophrenic angle lymph nodes since PET/CT of January 08, 2017. Index node measured 2.4 cm. There is no axillary or hilar lymphadenopathy. There is been interval development of enlarged bilateral internal mammary chain lymph nodes. Index left internal mammary chain node measures 1.7 cm. There is no pneumothorax. No suspicious osseous lesions are present. The abdomen and pelvis will be reported separately however there has been interval development of a large perigastric/gastric mass since prior PET/CT. IMPRESSION: 1. No pulmonary emboli identified although segmental and subsegmental pulmonary arteries suboptimally assessed due to respiratory motion. 2. Interval development of large right and small left pleural effusions with suspected 7 mm enhancing right pleural nodule. These effusions may be secondary to lymphomatous involvement. 3. Interval development of right cardiophrenic angle and bilateral internal mammary chain lymphadenopathy consistent with recurrent lymphoma. 4. Large perigastric/gastric mass which is better depicted on the abdominal CT but suggests recurrent lymphoma. Electronically signed by: Joseph Genao M.D. 05/27/2017 2:33 PM Dictated Date/Time: 05/27/2017 2:18 PM
[2017-05-27] MEDS ORDERED: METOPROLOL TARTRATE 1 MG/ML VIAL IV PRN (15:30)
[2017-05-27] MEDS ORDERED: ACETAMINOPHEN 325 MG TAB PO PRN (15:30)
[2017-05-27] MEDS ORDERED: LORAZEPAM 0.5 MG TAB PO PRN (15:30)
--- NOTE | 2017-05-27 16:07 | History and Physical ---
History & Physical Date & Time of Service: May 27, 2017 at 15:10 Chief Complaint: SOB Primary Care Physician: Shahzad Norton MD History of Present Illness Ms. Packer has been experiencing sob especially with exertion for about a week, no cough, no cp, no recent illness. Today the sob is the worst its been so she presented to the ED. She is requiring 2L of oxygen which she does not wear at home. She has had very little appetite and has dark tarry stools. She feels weak and fatigued. She has been finished with her radiation since September and finished with chemotherapy. Pmhx: lymphoma, cholecystectomy, appendix surgery 2014, 2014 lymphoma surgery in her neck, htn ROS Constitutional: no chills, aches, sweats or fever Respiratory: see HPI Cardiac: no palpitations, edema, orthopnea or lightheadedness GI: see HPI. : no dysuria or hesitancy Extremities: no joint pain Skin: radiation rashes on hair and shoulders All other systems reviewed and negative Past Medical/Surgical History Medical Problems: (1) Acute headache (2) Chronic cholecystitis (3) Facial droop (4) Gastroesophageal reflux disease (5) History of - hypertension (6) Hypokalemia (7) Intractable headache (8) Intractable headache (9) Intractable pain (10) Lymphoma (11) Mantle cell lymphoma (12) Right facial numbness Family History FH: breast cancer FH: colon cancer non contributory Social History Smoking Status: Never Smoker Smokeless Tobacco Use: No Alcohol Use: none Drug Use: none Marital Status: Housing status: lives with significant other Occupational Status: retired Immunizations History of Influenza Vaccine: Yes History of Tetanus Vaccine?: Yes History of Pneumococcal: Yes History of Hepatitis B Vaccine: Yes Allergies Coded Allergies: Propoxyphene (Verified Allergy, Intermediate, RASH, 09/05/16) Lisinopril (Verified Adverse Reaction, Mild, COUGH, 09/05/16) Home Medications Scheduled Aspirin (Aspirin Chewable), 81 MG PO QPM Calcium Carbonate-Vitamin D (Calcium), 1 TAB PO DAILY Cholecalciferol (Vitamin D), 1 CAP PO DAILY Fish Oil ([place]-3), 1 CAP PO DAILY Glucosamine Sulfate (Glucosamine), 1 CAP PO DAILY Polyethylene Glycol 3350 (Miralax), 17 GM PO DAILY Potassium Chloride (K-Tabs), 10 MEQ PO DAILY Psyllium (Metamucil), 1 DOSE PO DAILY Raloxifene (Evista), 60 MG PO QPM Senna (Senokot), 1 TAB PO QPM Simvastatin (Simvastatin), 40 MG PO HS Verapamil Hcl (Verapamil Hcl Er), 180 MG PO DAILY Scheduled PRN Pantoprazole (Protonix), 40 MG PO DAILY PRN for Dyspepsia Physical Exam Vital Signs Date Time Temp Pulse Resp B/P (MAP) Pulse Ox O2 Delivery O2 Flow Rate FiO2 05/27/17 13:41 96 Nasal Cannula 2.0 05/27/17 13:41 93 24 146/79 96 Nasal Cannula 2.0 05/27/17 12:38 91 Room Air 05/27/17 12:31 100 21 138/82 93 Room Air 05/27/17 12:29 105 05/27/17 11:51 96 Room Air 05/27/17 11:51 96 Room Air 05/27/17 11:11 36.7 118 20 149/82 95 Room Air General: no distress Eyes: normal inspection, PERLL Respiratory: chest non tender, clear to auscultation, diminished bilateral bases , no respiratory distress, no accessory muscle use Cardiac: regular rate and rhythm, no rub or gallop, no murmur, no edema, no jvd GI/: active bowel sounds, mild diffuse tenderness to palpation, soft, distended Extremities: normal range of motion, normal strength, non tender Neuro/Psych: alert and oriented x 3, normal mood and affect Skin: pale skin, dry, pink rash upper shoulders (radiation) Diagnostics Laboratory Results Results Past 24 Hours Test 05/27/17 12:15 05/27/17 12:44 05/27/17 13:15 Range/Units White Blood Count 10.78 4.8-10.8 K/uL Red Blood Count 2.99 4.2-5.4 M/uL Hemoglobin 8.8 12.0-16.0 g/dL Hematocrit 27.0 37-47 % Mean Corpuscular Volume 90.3 80-100 fL Mean Corpuscular Hemoglobin 29.4 25-34 pg Mean Corpuscular Hemoglobin Concent 32.6 32-36 g/dl Platelet Count 390 130-400 K/uL Mean Platelet Volume 9.3 7.4-10.4 fL Neutrophils (%) (Auto) 82.0 % Lymphocytes (%) (Auto) 8.2 % Monocytes (%) (Auto) 8.6 % Eosinophils (%) (Auto) 0.6 % Basophils (%) (Auto) 0.3 % Neutrophils # (Auto) 8.85 1.4-6.5 K/uL Lymphocytes # (Auto) 0.88 1.2-3.4 K/uL Monocytes # (Auto) 0.93 0.11-0.59 K/uL Eosinophils # (Auto) 0.06 0-0.5 K/uL Basophils # (Auto) 0.03 0-0.2 K/uL RDW Standard Deviation 45.9 36.4-46.3 fL RDW Coefficient of Variation 13.9 11.5-14.5 % Immature Granulocyte % (Auto) 0.3 % Immature Granulocyte # (Auto) 0.03 0.00-0.02 K/uL Large Platelets 1+ Hypochromasia PRESENT Poikilocytosis PRESENT Anisocytosis PRESENT Prothrombin Time 10.2 9.0-12.0 SECONDS Prothromb Time International Ratio 1.0 0.9-1.1 Activated Partial Thromboplast Time 22.5 21.0-31.0 SECONDS Partial Thromboplastin Ratio 0.9 D-Dimer 2710 0-500 ug/L FEU Sodium Level 135 136-145 mmol/L Potassium Level 3.7 3.5-5.1 mmol/L Chloride Level 100 98-107 mmol/L Carbon Dioxide Level 26 21-32 mmol/L Anion Gap 9.0 3-11 mmol/L Blood Urea Nitrogen 11 7-18 mg/dl Creatinine 0.59 0.60-1.20 mg/dl Est Creatinine Clear Calc Drug Dose 79.4 ml/min Estimated GFR () 106.1 Estimated GFR (Non- 91.6 BUN/Creatinine Ratio 18.6 10-20 Random Glucose 129 70-99 mg/dl Calcium Level 8.7 8.5-10.1 mg/dl Total Bilirubin 0.3 0.2-1 mg/dl Aspartate Amino Transf (AST/SGOT) 28 15-37 U/L Alanine Aminotransferase (ALT/SGPT) 21 12-78 U/L Alkaline Phosphatase 28 45-117 U/L Total Creatine Kinase 160 26-192 U/L Creatine Kinase MB 5.9 0.5-3.6 ng/ml Creatine Kinase MB Ratio 3.7 0-3.0 Troponin I < 0.015 0-0.045 ng/ml Pro-B-Type Natriuretic Peptide 129 0-900 pg/ml Total Protein 6.0 6.4-8.2 gm/dl Albumin 2.7 3.4-5.0 gm/dl Globulin 3.3 2.5-4.0 gm/dl Albumin/Globulin Ratio 0.8 0.9-2 Lipase 112 73-393 U/L Influenza Type A Antigen Neg for Influ A NEG Influenza Type B Antigen Neg for Influ B NEG Urine Color YELLOW Urine Appearance CLEAR CLEAR Urine pH 6.5 4.5-7.5 Urine Specific [place] 1.022 1.000-1.030 Urine Protein NEG NEG Urine Glucose (UA) NEG NEG Urine Ketones 1+ NEG Urine Occult Blood NEG NEG Urine Nitrite NEG NEG Urine Bilirubin NEG NEG Urine Urobilinogen NEG NEG Urine Leukocyte Esterase TRACE NEG Urine WBC (Auto) 1-5 0-5 /hpf Urine RBC (Auto) 0-4 0-4 /hpf Urine Hyaline Casts (Auto) 1-5 0-5 /lpf Urine Epithelial Cells (Auto) 10-20 0-5 /lpf Urine Bacteria (Auto) NEG NEG Diagnostic Radiology CT SCAN OF THE ABDOMEN AND PELVIS WITH IV CONTRAST CLINICAL HISTORY: Hematochezia. History of lymphoma. COMPARISON STUDY: Abdominal CT dated 01/29/2016. PET/CT dated 01/08/2017. TECHNIQUE: Following the IV administration of 118 cc of Optiray 320, CT scan of the abdomen and pelvis is performed from the lung bases to the proximal femora. Images are reviewed in the axial, sagittal, and coronal planes. IV contrast was administered without complication. A dose lowering technique was utilized adhering to the principles of ALARA. CT DOSE: 1007.18 mGy.cm FINDINGS: Lung bases: The heart is normal in size and without pericardial effusion. There are moderate right and small left pleural effusions with associated atelectasis. Liver: The contrast-enhanced liver is normal in size, contour, and attenuation. There is no intrahepatic biliary ductal dilatation. The hepatic veins and portal veins are patent. Gallbladder: Surgically absent noting clips in the gallbladder fossa. Spleen: Normal in size and attenuation, measuring 8.6 cm in length. A subcentimeter hepatic hypodensity seen on image #80 and unchanged from prior studies. Pancreas: Moderately atrophic and grossly unremarkable. Adrenal glands: Unremarkable. Kidneys: The contrast enhanced kidneys are atrophic and without hydronephrosis. The kidneys enhance symmetrically. A 1.3 cm cyst is noted in the right lobe. Additional subcentimeter hepatic hypodensities also likely represent cysts but are too small for definitive characterization. Abdominal vasculature: The abdominal aorta is normal in course and caliber noting mild atherosclerotic calcification. Stomach and bowel: There is marked gastric wall thickening which measures up to 4 cm, with an exophytic and central necrotic mass arising from the inferior aspect of the stomach. This measures approximately 6 x 10 x 13 cm as seen on image #203. 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 No extraluminal contrast is seen. No bowel obstruction is identified. Moderate fecal retention is noted in the right colon. The appendix is not identified and reported surgically absent. Peritoneum: There is a small volume of abdominopelvic ascites. There is diffuse infiltration of the mesentery which is greatest anteriorly. Peritoneal thickening and enhancement is identified in the pelvis. Foci of peritoneal thickening and nodularity are seen along the anterior omentum and below the right hemidiaphragm. Lymphadenopathy: A right cardiophrenic node on image #56 measures 2.5 x 1.6 cm. Enlarged upper retroperitoneal node on image #134 measures 1.7 x 1.3 cm. There is no pelvic sidewall or inguinal lymphadenopathy. As noted above there is diffuse infiltration of the mesentery with numerous tiny mesenteric lymph nodes which measure up to 7 mm in short axis. Pelvic viscera: The bladder is decompressed and grossly unremarkable. The endometrium appears thickened for age, measuring up to 8 mm. No adnexal lesion is seen Skeletal structures: The skeletal structures are osteopenic. A large hemangioma is noted in the body of L4. No lytic or blastic lesions are seen. Mild spondylotic change is noted in the lumbar spine. IMPRESSION: 1. There is marked gastric wall thickening, with a large exophytic mass lesion arising from the inferior aspect of the stomach. 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 2. There are moderate right and small left pleural effusions. 3. There is a small volume of abdominopelvic ascites. 4. There is extensive infiltration of the mesentery with foci of nodularity and peritoneal thickening/enhancement. Additionally, there are numerous tiny mesenteric lymph nodes. This likely represents lymphomatous involvement. Peritonitis is considered much less likely but is the top differential consideration. Clinical correlation will be required. 5. There are enlarged right cardiophrenic and upper retroperitoneal lymph nodes. 6. There is thickening of the endometrium which measures up to 8 mm. This is a nonspecific but abnormal finding in this age group. Nonemergent pelvic ultrasound is recommended for further assessment. 7. Additional findings as above. Electronically signed by: Kristopher Betancourt M.D. 05/27/2017 2:[address] ANGIOGRAPHY OF THE CHEST, PULMONARY EMBOLUS PROTOCOL CLINICAL HISTORY: Chest pain and shortness of breath. Lymphoma. COMPARISON STUDY: Chest CT January 29, 2016 and PET/CT January 08, 2017. TECHNIQUE: Following IV administration of 119 mL of Optiray-320, helical axial images of the chest were obtained utilizing the pulmonary embolus protocol. Maximal intensity projections and sagittal and coronal reformats were viewed on an independent 3D workstation. IV contrast was administered without complication. A dose lowering technique was utilized adhering to the principles of ALARA. FINDINGS: No pulmonary emboli are identified although the segmental and subsegmental pulmonary arteries are suboptimally assessed due to respiratory motion. Size of the heart is normal. There is no pericardial effusion. Large right and small left pleural effusions have developed since prior PET/CT. There is a probable 0.7 cm enhancing nodule within the posterior inferior right hemithorax shown better on the abdominal CT. There has been interval development of several moderately enlarged right cardiophrenic angle lymph nodes since PET/CT of January 08, 2017. Index node measured 2.4 cm. There is no axillary or hilar lymphadenopathy. There is been interval development of enlarged bilateral internal mammary chain lymph nodes. Index left internal mammary chain node measures 1.7 cm. There is no pneumothorax. No suspicious osseous lesions are present. The abdomen and pelvis will be reported separately however there has been interval development of a large perigastric/gastric mass since prior PET/CT. IMPRESSION: 1. No pulmonary emboli identified although segmental and subsegmental pulmonary arteries suboptimally assessed due to respiratory motion. 2. Interval development of large right and small left pleural effusions with suspected 7 mm enhancing right pleural nodule. These effusions may be secondary to lymphomatous involvement. 3. Interval development of right cardiophrenic angle and bilateral internal mammary chain lymphadenopathy consistent with recurrent lymphoma. 4. Large perigastric/gastric mass which is better depicted on the abdominal CT but suggests recurrent lymphoma. Electronically signed by: Joseph Genao M.D. 05/27/2017 2:33 PM EKG Sinus tachycardia Otherwise normal ECG When compared with ECG of 05-SEP-2016 14:38, Vent. rate has increased BY 37 BPM Impression Assessment and Plan Ms. Packer is a 71 year old woman here for GI bleed GI bleed, SOB, abdominal distention, hemorrhagic anemia, lymphoma - admit telemetry - D-dimer was elevated at 2710 - CT negative for PE - CT abdomen showed new mass typical of lymphoma of the bowel not seen on comparison PET scan from December. Also showed small amount of ascites and small pleural effusion - Hgb 8.8 down from baseline 12 - repeat hgb now, will start q4h serial h&h if decreasing - Rapid flu negative - consult heme/onc - patient sees Dr. Chaves - prn IV metoprolol if tachycardia exceeds 120 bpm - protonix gtt, patient typed and crossed in ED - consult GI - patient sees Russ HTN - continue home verapamil DNR Hold chemoprophylaxis due to GI bleed, SCDs Advanced Directives Existing Advance Directive: Yes Existing Living Will: Yes Existing Power of Shuttle Buggy Operator: Yes ([place] ()) Resuscitation Status DNR VTE Prophylaxis Will order VTE Prophylaxis: Yes Reason for no VTE drug order: Contraindicated
[2017-05-27] MEDS ORDERED: SODIUM CHLORIDE 0.9% 1000ML 1,000 ML IV SCH (16:15)
[2017-05-27 17:14] VITALS: BP 172/74; PULSE 98; TEMP 36.9; O2SAT 93; Ht 152.4 cm; Wt 77.2 kg
[2017-05-27] MEDS ORDERED: NURSING VERBAL MED ORDER ONE (17:45)
[2017-05-27 17:51] LABS: HEMATOCRIT 26.8 % (37-47); HEMOGLOBIN 8.8 g/dL (12.0-16.0)
[2017-05-27] MEDS ORDERED: MoRPHine SULFATE 2 MG/ML CARP IV PRN (18:00)
[2017-05-27 19:40] VITALS: BP 150/80; PULSE 105; TEMP 37.1; O2SAT 92
[2017-05-27] MEDS ORDERED: PANTOprazole INJ 40 MG in SYRINGE 0 ML IV SCH (21:00)
[2017-05-27] MEDS: SIMVASTATIN 40 MG TAB PO SCH ×2 (21:40→22:07)
[2017-05-27] MEDS: RALOXIFENE 60 MG TAB PO SCH (21:40)
[2017-05-27] MEDS: SENNA 8.6 MG TAB PO SCH (21:40)
[2017-05-27 23:38] VITALS: BP 155/71; PULSE 106; TEMP 36.9; O2SAT 93
[2017-05-28] VITALS (9 sets, daily range): BP systolic 95–167; BP diastolic 62–94; PULSE 102–112; TEMP 36.4–37.6; O2SAT 91–97
[2017-05-28 02:21] LABS: HEMATOCRIT 25.7 % (37-47); HEMOGLOBIN 8.2 g/dL (12.0-16.0)
[2017-05-28] MEDS: ONDANSETRON INJ 2 MG/ML 2 ML VIAL IV PRN ×2 (02:47→11:19)
[2017-05-28] MEDS: PANTOprazole INJ 40 MG in DEXTROSE 5% 100ML IV SCH ×4 (03:44→20:29)
[2017-05-28] MEDS: POTASSIUM CHLORIDE 10 MEQ TABCR PO SCH (09:00)
[2017-05-28] MEDS: CHOLECALCIFEROL 1000 INTER.UNIT TAB PO SCH (09:00)
[2017-05-28] MEDS: PSYLLIUM 58.6% PWD PACK S\\F PO SCH (09:00)
[2017-05-28] MEDS: POLYETHYLENE (MIRALAX) 17 GM PACK PO SCH (09:00)
[2017-05-28] MEDS: CALCIUM 600MG + VIT D 400 IU TAB PO SCH (09:00)
[2017-05-28] MEDS: VERAPAMIL HCL 180 MG TABCR PO SCH (09:08)
[2017-05-28 10:21] LABS: HEMOGLOBIN 9.1 g/dL (12.0-16.0); MEAN CELL VOLUME 90.9 fL (80-100); MEAN CORPUSCULAR HEMOGLOBIN 29.5 pg (25-34); MEAN CORPUSCULAR HGB CONC 32.5 g/dl (32-36); MEAN PLATELET VOLUME 9.5 fL (7.4-10.4); PLATELET COUNT 417 K/uL (130-400); RED CELL DISTRIBUTION WIDTH CV 13.9 % (11.5-14.5); WHITE BLOOD COUNT 8.44 K/uL (4.8-10.8)
[2017-05-28 10:49] LABS: CALCIUM 8.7 mg/dl (8.5-10.1); CREATININE 0.54 mg/dl (0.60-1.20); POTASSIUM 3.8 mmol/L (3.5-5.1)
--- NOTE | 2017-05-28 11:39 | Oncology Consultation ---
Oncology/Heme Consultation Date of Consultation: May 28, 2017. Attending Physician: Florentin Nuno D.O. Reason for Consultation: Blastoid-variant mantle cell lymphoma GI bleed CT-evidence of gastric mass and lymphadenopathy History of Present Illness Ms. Packer is a 71 year old woman with blastoid-variant mantle cell lymphoma. She was initially diagnosed and treated in 2014 and has seen multiple lines of therapy. Her last two relapses have been contained to her right neck and were treated with RT. She has felt increasingly weak and short of breath over the last month or so and presented last night with severe fatigue, NICHOLAS, and melanotic stools. She was found to have a hemoglobin of 8.8 and was started on a PPI drip. She is scheduled for an EGD today. A CT in the ER last night revealed marked gastric wall thickening with a large exophytic mass lesion arising from the inferior aspect of the stomach. Also seen were extensive infiltration of the mesentery with foci of nodularity and peritoneal thickening/ enhancement, numerous tiny mesenteric lymph nodes, and enlarged right cardiophrenic and upper retroperitoneal lymph nodes. She has been fatigued to varying degrees since she finished RT in August of last year. She denies any fevers, night sweats, or weight loss. Past Medical/Surgical History Medical Problems: (1) Abdominal mass Status: Acute (2) Acute headache Status: Acute (3) Anemia Status: Acute (4) Facial droop Status: Acute (5) Hypokalemia Status: Acute (6) Intractable headache Status: Acute (7) Intractable headache Status: Acute (8) Mantle cell lymphoma Status: Acute (9) Right facial numbness Status: Acute Family History FH: breast cancer FH: colon cancer Social History Smoking Status: Never Smoker Smokeless Tobacco Use: No Alcohol Use: none Drug Use: none Marital Status: Housing Status: lives with family Occupation Status: retired Allergies Coded Allergies: Propoxyphene (Verified Allergy, Intermediate, RASH, 09/05/16) Lisinopril (Verified Adverse Reaction, Mild, COUGH, 09/05/16) Home Medications Scheduled Aspirin (Aspirin Chewable), 81 MG PO QPM Calcium Carbonate-Vitamin D (Calcium), 1 TAB PO DAILY Cholecalciferol (Vitamin D), 1 CAP PO DAILY Fish Oil ([place]-3), 1 CAP PO DAILY Glucosamine Sulfate (Glucosamine), 1 CAP PO DAILY Polyethylene Glycol 3350 (Miralax), 17 GM PO DAILY Potassium Chloride (K-Tabs), 10 MEQ PO DAILY Psyllium (Metamucil), 1 DOSE PO DAILY Raloxifene (Evista), 60 MG PO QPM Senna (Senokot), 1 TAB PO QPM Simvastatin (Simvastatin), 40 MG PO HS Verapamil Hcl (Verapamil Hcl Er), 180 MG PO DAILY Scheduled PRN Pantoprazole (Protonix), 40 MG PO DAILY PRN for Dyspepsia Current Inpatient Medications Current Inpatient Medications Medications (Trade) Dose Ordered Sig/Ant Route Start Time Stop Time Status Last Admin Dose Admin Ioversol (Optiray 320) 125 ml UD PRN IV 05/27/17 11:45 05/31/17 11:44 Pantoprazole Sodium 40 mg/ Dextrose 100 ml @ 20 mls/hr Q5H IV 05/27/17 13:00 06/26/17 12:59 05/28/17 08:14 20 MLS/HR Acetaminophen (Tylenol Tab) 650 mg Q4H PRN PO 05/27/17 15:30 06/26/17 15:29 Ondansetron HCl (Zofran Inj) 4 mg Q6H PRN IV 05/27/17 15:30 06/26/17 15:29 05/28/17 11:19 4 MG Raloxifene HCl (Evista Tab) 60 mg QPM PO 05/27/17 21:00 06/26/17 20:59 05/27/17 21:40 60 MG Senna (Senokot Tab) 8.6 mg QPM PO 05/27/17 21:00 06/26/17 20:59 05/27/17 21:40 8.6 MG Simvastatin (Zocor Tab) 40 mg HS PO 05/27/17 21:00 06/26/17 20:59 05/27/17 22:07 40 MG Verapamil HCl (Calan-Sr Tab) 180 mg DAILY PO 05/28/17 09:00 06/27/17 08:59 05/28/17 09:08 180 MG Calcium/Vitamin D (Caltrate Plus Tab) 1 tab DAILY PO 05/28/17 09:00 06/27/17 08:59 Cholecalciferol (Vitamin D Tab) 2,000 inter.unit DAILY PO 05/28/17 09:00 06/27/17 08:59 Polyethylene (Miralax Powder Packet) 17 gm DAILY PO 05/28/17 09:00 06/27/17 08:59 Potassium Chloride (Klor-Con M10) 10 meq DAILY PO 05/28/17 09:00 06/27/17 08:59 Psyllium Hydrophilic Mucilloid (Metamucil Powder) 1 pkt DAILY PO 05/28/17 09:00 06/27/17 08:59 Metoprolol Tartrate (Lopressor Iv) 5 mg Q4 PRN IV 05/27/17 15:30 06/26/17 15:29 Lorazepam (Ativan Tab) 0.5 mg Q4H PRN PO 05/27/17 15:30 06/26/17 15:29 Morphine Sulfate (MoRPHine SULFATE INJ) 2 mg Q4H PRN IV 05/27/17 18:00 06/10/17 17:59 05/27/17 17:57 2 MG Review of Systems Constitutional: + weakness, + fatigue, No fever Respiratory: + dyspnea on exertion, No cough, No hemoptysis Cardiovascular: No chest pain Abdomen: + GI bleeding, No pain Musculoskeletal: No joint pain, No muscle pain Hematologic / Lymphatic: No abnormal bleeding/bruising, No swollen lymph nodes , No night sweats Integumentary: No rash Physical Exam Date Time Temp Pulse Resp B/P (MAP) Pulse Ox O2 Delivery O2 Flow Rate FiO2 05/28/17 08:00 Room Air 05/28/17 07:23 37.0 112 20 154/79 (104) 91 Room Air 05/28/17 03:40 37.0 106 19 136/65 (88) 97 Room Air 05/28/17 03:11 Room Air 05/27/17 23:38 36.9 106 20 155/71 (99) 93 Room Air 05/27/17 23:30 Room Air 05/27/17 21:30 Room Air 05/27/17 19:40 37.1 105 20 150/80 (103) 92 Room Air 05/27/17 17:14 36.9 98 20 172/74 93 Room Air 05/27/17 16:50 22 144/82 96 05/27/17 16:42 94 22 144/82 96 Room Air 05/27/17 15:44 95 20 134/76 97 Nasal Cannula 2.0 05/27/17 13:41 96 Nasal Cannula 2.0 05/27/17 13:41 93 24 146/79 96 Nasal Cannula 2.0 05/27/17 12:38 91 Room Air 05/27/17 12:31 100 21 138/82 93 Room Air 05/27/17 12:29 105 05/27/17 11:51 96 Room Air 05/27/17 11:51 96 Room Air General Appearance: WD/WN, no apparent distress ENT: pharynx normal (mucous membranes moist) Respiratory/Chest: lungs clear Cardiovascular: regular rate, rhythm Abdomen/GI: non tender, soft Extremities/Musculoskelatal: no pedal edema Neurologic/Psych: alert, oriented x 3 Skin: no rash Lymphatic: no adenopathy Laboratory Results Last 24 Hours Test 05/27/17 12:15 05/27/17 12:44 05/27/17 13:15 05/27/17 17:43 White Blood Count 10.78 K/uL Red Blood Count 2.99 M/uL Hemoglobin 8.8 g/dL 8.8 g/dL Hematocrit 27.0 % 26.8 % Mean Corpuscular Volume 90.3 fL Mean Corpuscular Hemoglobin 29.4 pg Mean Corpuscular Hemoglobin Concent 32.6 g/dl Platelet Count 390 K/uL Mean Platelet Volume 9.3 fL Neutrophils (%) (Auto) 82.0 % Lymphocytes (%) (Auto) 8.2 % Monocytes (%) (Auto) 8.6 % Eosinophils (%) (Auto) 0.6 % Basophils (%) (Auto) 0.3 % Neutrophils # (Auto) 8.85 K/uL Lymphocytes # (Auto) 0.88 K/uL Monocytes # (Auto) 0.93 K/uL Eosinophils # (Auto) 0.06 K/uL Basophils # (Auto) 0.03 K/uL RDW Standard Deviation 45.9 fL RDW Coefficient of Variation 13.9 % Immature Granulocyte % (Auto) 0.3 % Immature Granulocyte # (Auto) 0.03 K/uL Large Platelets 1+ Hypochromasia PRESENT Poikilocytosis PRESENT Anisocytosis PRESENT Prothrombin Time 10.2 SECONDS Prothromb Time International Ratio 1.0 Activated Partial Thromboplast Time 22.5 SECONDS Partial Thromboplastin Ratio 0.9 D-Dimer 2710 ug/L FEU Sodium Level 135 mmol/L Potassium Level 3.7 mmol/L Chloride Level 100 mmol/L Carbon Dioxide Level 26 mmol/L Anion Gap 9.0 mmol/L Blood Urea Nitrogen 11 mg/dl Creatinine 0.59 mg/dl Est Creatinine Clear Calc Drug Dose 79.4 ml/min Estimated GFR () 106.1 Estimated GFR (Non- 91.6 BUN/Creatinine Ratio 18.6 Random Glucose 129 mg/dl Calcium Level 8.7 mg/dl Total Bilirubin 0.3 mg/dl Aspartate Amino Transf (AST/SGOT) 28 U/L Alanine Aminotransferase (ALT/SGPT) 21 U/L Alkaline Phosphatase 28 U/L Total Creatine Kinase 160 U/L Creatine Kinase MB 5.9 ng/ml Creatine Kinase MB Ratio 3.7 Troponin I < 0.015 ng/ml Pro-B-Type Natriuretic Peptide 129 pg/ml Total Protein 6.0 gm/dl Albumin 2.7 gm/dl Globulin 3.3 gm/dl Albumin/Globulin Ratio 0.8 Lipase 112 U/L Influenza Type A Antigen Neg for Influ A Influenza Type B Antigen Neg for Influ B Urine Color YELLOW Urine Appearance CLEAR Urine pH 6.5 Urine Specific [place] 1.022 Urine Protein NEG Urine Glucose (UA) NEG Urine Ketones 1+ Urine Occult Blood NEG Urine Nitrite NEG Urine Bilirubin NEG Urine Urobilinogen NEG Urine Leukocyte Esterase TRACE Urine WBC (Auto) 1-5 /hpf Urine RBC (Auto) 0-4 /hpf Urine Hyaline Casts (Auto) 1-5 /lpf Urine Epithelial Cells (Auto) 10-20 /lpf Urine Bacteria (Auto) NEG Test 05/28/17 01:48 05/28/17 09:59 Hemoglobin 8.2 g/dL 9.1 g/dL Hematocrit 25.7 % 28.0 % White Blood Count 8.44 K/uL Red Blood Count 3.08 M/uL Mean Corpuscular Volume 90.9 fL Mean Corpuscular Hemoglobin 29.5 pg Mean Corpuscular Hemoglobin Concent 32.5 g/dl RDW Standard Deviation 46.0 fL RDW Coefficient of Variation 13.9 % Platelet Count 417 K/uL Mean Platelet Volume 9.5 fL Sodium Level 134 mmol/L Potassium Level 3.8 mmol/L Chloride Level 99 mmol/L Carbon Dioxide Level 26 mmol/L Anion Gap 9.0 mmol/L Blood Urea Nitrogen 7 mg/dl Creatinine 0.54 mg/dl Est Creatinine Clear Calc Drug Dose 86.7 ml/min Estimated GFR () 109.3 Estimated GFR (Non- 94.3 BUN/Creatinine Ratio 13.7 Random Glucose 101 mg/dl Calcium Level 8.7 mg/dl Assessment & Plan Ms. Packer labs and imaging are very concerning for recurrence of her lymphoma, leading to an upper GI bleed. She will undergo EGD later today which will provide a final answer. If we can control her bleeding, we can plan for chemotherapy as an outpatient. However, if we cannot get her bleeding under control, we may need to consider some sort of local therapy (either RT or even surgery) prior to starting chemo. I will check back in tomorrow after her EGD to discuss further plans.
--- NOTE | 2017-05-28 15:32 | Progress Note ---
Subjective Date of Service: May 28, 2017. Subjective Pt evaluation today including: conversation w/ patient, physical exam, lab review, conversation w/ [employer] security consultant, review of inpatient medication list Pain: no pain PO Intake: NPO for EGD Voiding: no voiding problems says she feels better today, no nausea, less bloating labs reviewed, Hb was 8.2 but then went up to 9.1 BP stable, still with tachycardia discussed with Dr. Solano, plans for EGD today discussed with Dr. Chaves, needs to get bleeding under control, he will discuss chemo as outpatient Problem List Medical Problems: (1) Abdominal mass Status: Acute (2) Acute headache Status: Acute (3) Anemia Status: Acute (4) Facial droop Status: Acute (5) Hypokalemia Status: Acute (6) Intractable headache Status: Acute (7) Intractable headache Status: Acute (8) Mantle cell lymphoma Status: Acute (9) Right facial numbness Status: Acute Review of Systems Constitutional: + weakness Respiratory: + dyspnea on exertion All Other Systems: Reviewed and Negative Medications Current Inpatient Medications Medications (Trade) Dose Ordered Sig/Ant Route Start Time Stop Time Status Last Admin Dose Admin Ioversol (Optiray 320) 125 ml UD PRN IV 05/27/17 11:45 05/31/17 11:44 Pantoprazole Sodium 40 mg/ Dextrose 100 ml @ 20 mls/hr Q5H IV 05/27/17 13:00 06/26/17 12:59 05/28/17 14:20 20 MLS/HR Acetaminophen (Tylenol Tab) 650 mg Q4H PRN PO 05/27/17 15:30 06/26/17 15:29 Ondansetron HCl (Zofran Inj) 4 mg Q6H PRN IV 05/27/17 15:30 06/26/17 15:29 05/28/17 11:19 4 MG Raloxifene HCl (Evista Tab) 60 mg QPM PO 05/27/17 21:00 06/26/17 20:59 05/27/17 21:40 60 MG Senna (Senokot Tab) 8.6 mg QPM PO 05/27/17 21:00 06/26/17 20:59 05/27/17 21:40 8.6 MG Simvastatin (Zocor Tab) 40 mg HS PO 05/27/17 21:00 06/26/17 20:59 05/27/17 22:07 40 MG Verapamil HCl (Calan-Sr Tab) 180 mg DAILY PO 05/28/17 09:00 06/27/17 08:59 05/28/17 09:08 180 MG Calcium/Vitamin D (Caltrate Plus Tab) 1 tab DAILY PO 05/28/17 09:00 06/27/17 08:59 Cholecalciferol (Vitamin D Tab) 2,000 inter.unit DAILY PO 05/28/17 09:00 06/27/17 08:59 Polyethylene (Miralax Powder Packet) 17 gm DAILY PO 05/28/17 09:00 06/27/17 08:59 Potassium Chloride (Klor-Con M10) 10 meq DAILY PO 05/28/17 09:00 06/27/17 08:59 Psyllium Hydrophilic Mucilloid (Metamucil Powder) 1 pkt DAILY PO 05/28/17 09:00 06/27/17 08:59 Metoprolol Tartrate (Lopressor Iv) 5 mg Q4 PRN IV 05/27/17 15:30 06/26/17 15:29 Lorazepam (Ativan Tab) 0.5 mg Q4H PRN PO 05/27/17 15:30 06/26/17 15:29 Morphine Sulfate (MoRPHine SULFATE INJ) 2 mg Q4H PRN IV 05/27/17 18:00 06/10/17 17:59 05/27/17 17:57 2 MG Objective Vital Signs Date Time Temp Pulse Resp B/P (MAP) Pulse Ox O2 Delivery O2 Flow Rate FiO2 05/28/17 12:00 Room Air 05/28/17 12:00 36.5 107 18 167/94 (118) 92 Room Air 05/28/17 08:00 Room Air 05/28/17 07:23 37.0 112 20 154/79 (104) 91 Room Air 05/28/17 03:40 37.0 106 19 136/65 (88) 97 Room Air 05/28/17 03:11 Room Air 05/27/17 23:38 36.9 106 20 155/71 (99) 93 Room Air 05/27/17 23:30 Room Air 05/27/17 21:30 Room Air 05/27/17 19:40 37.1 105 20 150/80 (103) 92 Room Air 05/27/17 17:14 36.9 98 20 172/74 93 Room Air 05/27/17 16:50 22 144/82 96 05/27/17 16:42 94 22 144/82 96 Room Air 05/27/17 15:44 95 20 134/76 97 Nasal Cannula 2.0 Physical Exam General Appearance: WD/WN, no apparent distress Eyes: normal inspection, EOMI, sclerae normal ENT: normal ENT inspection, hearing grossly normal, pharynx normal Neck: supple, no adenopathy, no JVD, trachea midline Respiratory/Chest: chest non-tender, lungs clear, normal breath sounds, no respiratory distress, no accessory muscle use Cardiovascular: no edema, no gallop, no JVD, no murmur, + tachycardia Abdomen: normal bowel sounds, soft, no organomegaly, + tenderness (epigastric) Extremities: normal range of motion, non-tender, normal inspection, no pedal edema, no calf tenderness Neurologic/Psychiatric: matcher II-XII nml as tested, no motor/sensory deficits, alert, normal mood/affect, oriented x 3 Skin: normal color, warm/dry, no rash Laboratory Results Last 24 Hours Test 05/27/17 17:43 05/28/17 01:48 05/28/17 09:59 Hemoglobin 8.8 g/dL 8.2 g/dL 9.1 g/dL Hematocrit 26.8 % 25.7 % 28.0 % White Blood Count 8.44 K/uL Red Blood Count 3.08 M/uL Mean Corpuscular Volume 90.9 fL Mean Corpuscular Hemoglobin 29.5 pg Mean Corpuscular Hemoglobin Concent 32.5 g/dl RDW Standard Deviation 46.0 fL RDW Coefficient of Variation 13.9 % Platelet Count 417 K/uL Mean Platelet Volume 9.5 fL Sodium Level 134 mmol/L Potassium Level 3.8 mmol/L Chloride Level 99 mmol/L Carbon Dioxide Level 26 mmol/L Anion Gap 9.0 mmol/L Blood Urea Nitrogen 7 mg/dl Creatinine 0.54 mg/dl Est Creatinine Clear Calc Drug Dose 86.7 ml/min Estimated GFR () 109.3 Estimated GFR (Non- 94.3 BUN/Creatinine Ratio 13.7 Random Glucose 101 mg/dl Calcium Level 8.7 mg/dl Assessment and Plan 71 yo female with h/o Mantle cell lymphoma in the neck, presents with melena and bloating and early satiety, dyspnea - GI bleed with acute blood loss anemia most likely due to gastric mass/lymphoma seen on CT continue Protonix IV Hb was lower this AM at 8.2 but up to 9.1 later today, blood pressure stable , tachycardia Dr. Solano will take for EGD this afternoon - h/o Mantle cell lymphoma in right neck, now with lymphedema, gastric mass on CT last treatment for lymphoma was in summer had a PET scan in the fall that was normal CT beginning of April of neck was normal discussed with Dr. Chaves, will wait for bleeding to be worked up, controlled she will need chemotherapy and possible radiation to the mass patient understands this - Sinus tachycardia: likely due to anemia no evidence of PE on CTA chest - HTN: BP stable, continue Verapamil DVT prophylaxis: SCD only due to bleeding
[2017-05-28] MEDS ORDERED: PROPOFOL IV EMULSION 10 MG/ML 20 ML VIAL IV ONE (15:59)
[2017-05-28] MEDS ORDERED: LIDOCAINE HCL 2% 2 ML VIAL (20MG/ML) ONE (15:59)
--- NOTE | 2017-05-28 16:09 | Endo History and Physical ---
History & Physical Date of Service: May 28, 2017. Chief Complaint: anemia, abnl CT Referring Physician: Dr Norton History of Present Illness For EGD Past Medical History Reflux, Cancer, Hypertension Past Surgical History Hx Cardiac Surgery: No Hx Pacemaker: No Hx Abdominal Surgery: Yes (gall bladder and appendectomy) Hx Post-Op Nausea and Vomiting: No Hx Cancer Surgery: Yes (nonhodgkins lymphoma 2015) Hx Thoracic Surgery: No Hx Orthopedic: No Hx Urinary Tract Surgery: No Social History Smoking Status: Never Smoker Smokeless Tobacco Use: No Hx Substance Use: No Hx Alcohol Use: No Allergies Coded Allergies: Propoxyphene (Verified Allergy, Intermediate, RASH, 09/05/16) Lisinopril (Verified Adverse Reaction, Mild, COUGH, 09/05/16) Current Medications Reported Home Medications Medications Dose Route/Sig Max Daily Dose Days Date Category Miralax (Polyethylene Glycol 3350) 1 Pow Pow 17 Gm PO DAILY 05/27/17 Reported Glucosamine (Glucosamine Sulfate) 500 Mg Cap 1 Cap PO DAILY 03/25/17 Reported [place]-3 (Fish Oil) 1 Ea Cap 1 Cap PO DAILY 03/25/17 Reported Calcium (Calcium Carbonate-Vitamin D) 1 Tab Tab 1 Tab PO DAILY 03/25/17 Reported Vitamin D (Cholecalciferol) 2,000 Unit Cap 1 Cap PO DAILY 03/25/17 Reported Verapamil Hcl Er (Verapamil Hcl) 180 Mg Tab 180 Mg PO DAILY 09/16/16 Reported K-Tabs (Potassium Chloride) 10 Meq Tab 10 Meq PO DAILY 09/16/16 Reported Metamucil (Psyllium) 48.57 % Pow 1 Dose PO DAILY 09/05/16 Reported Senokot (Senna) 8.6 Mg Tab 1 Tab PO QPM 09/05/16 Reported Protonix (Pantoprazole Sodium) 40 Mg Tab 40 Mg PO DAILY PRN 08/01/16 Reported Simvastatin 40 Mg Tab 40 Mg PO HS 07/20/14 Reported Aspirin Chewable (Aspirin) 81 Mg Chew 81 Mg PO QPM 07/20/14 Reported Evista (Raloxifene) 60 Mg Tab 60 Mg PO QPM 07/20/14 Reported Vital Signs Weight (Kilograms): 77.500 Height (Feet): 5 Height (Inches): 0.00 Date Time Temp Pulse Resp B/P (MAP) Pulse Ox O2 Delivery O2 Flow Rate FiO2 05/28/17 15:49 37.2 113 22 168/93 (118) 93 Room Air 05/28/17 12:00 Room Air 05/28/17 12:00 36.5 107 18 167/94 (118) 92 Room Air 05/28/17 08:00 Room Air 05/28/17 07:23 37.0 112 20 154/79 (104) 91 Room Air 05/28/17 03:40 37.0 106 19 136/65 (88) 97 Room Air 05/28/17 03:11 Room Air 05/27/17 23:38 36.9 106 20 155/71 (99) 93 Room Air 05/27/17 23:30 Room Air 05/27/17 21:30 Room Air 05/27/17 19:40 37.1 105 20 150/80 (103) 92 Room Air 05/27/17 17:14 36.9 98 20 172/74 93 Room Air 05/27/17 16:50 22 144/82 96 05/27/17 16:42 94 22 144/82 96 Room Air Physical Exam General Appearance: WD/WN Respiratory/Chest: Respiratory effort: no dyspnea Cardiovascular: Heart Auscultation: RRR Abdomen: Inspection & Palpation: distended Assessment and Plan Abnl CT for EGD
[2017-05-28] MEDS ORDERED: EpHEDrine SULFATE INJ 50 MG/ML AMP IV PRN (16:15)
[2017-05-28] MEDS ORDERED: ATROPINE SULFATE 0.1 MG/ML 5ML SYR IV PRN (16:15)
[2017-05-28] MEDS ORDERED: ESMOLOL HCL 10 MG/ML 10 ML VIAL ONE (16:20)
[2017-05-28] MEDS ORDERED: LABETALOL HCL IV 5 MG/ML 20ML IV ONE (16:27)
--- NOTE | 2017-05-28 16:27 | Discharge Instructions ---
Endoscopy Patient Instructions Date / Procedure(s) Performed May 28, 2017. EGD Allergy Information Coded Allergies: Propoxyphene (Verified Allergy, Intermediate, RASH, 09/05/16) Lisinopril (Verified Adverse Reaction, Mild, COUGH, 09/05/16) Discharge Date / Findings May 28, 2017. Necrotic gastric mass Medication Instructions Restart Stopped Medication(s): resume meds Current Inpatient Medications Medications (Trade) Dose Ordered Sig/Ant Route Start Time Stop Time Status Last Admin Dose Admin Ioversol (Optiray 320) 125 ml UD PRN IV 05/27/17 11:45 05/31/17 11:44 Pantoprazole Sodium 40 mg/ Dextrose 100 ml @ 20 mls/hr Q5H IV 05/27/17 13:00 06/26/17 12:59 05/28/17 14:20 20 MLS/HR Acetaminophen (Tylenol Tab) 650 mg Q4H PRN PO 05/27/17 15:30 06/26/17 15:29 Ondansetron HCl (Zofran Inj) 4 mg Q6H PRN IV 05/27/17 15:30 06/26/17 15:29 05/28/17 11:19 4 MG Raloxifene HCl (Evista Tab) 60 mg QPM PO 05/27/17 21:00 06/26/17 20:59 05/27/17 21:40 60 MG Senna (Senokot Tab) 8.6 mg QPM PO 05/27/17 21:00 06/26/17 20:59 05/27/17 21:40 8.6 MG Simvastatin (Zocor Tab) 40 mg HS PO 05/27/17 21:00 06/26/17 20:59 05/27/17 22:07 40 MG Verapamil HCl ([place]-Sr Tab) 180 mg DAILY PO 05/28/17 09:00 06/27/17 08:59 05/28/17 09:08 180 MG Calcium/Vitamin D (Caltrate Plus Tab) 1 tab DAILY PO 05/28/17 09:00 06/27/17 08:59 Cholecalciferol (Vitamin D Tab) 2,000 inter.unit DAILY PO 05/28/17 09:00 06/27/17 08:59 Polyethylene (Miralax Powder Packet) 17 gm DAILY PO 4/4/18 09:00 06/27/17 08:59 Potassium Chloride (Klor-Con M10) 10 meq DAILY PO 05/28/17 09:00 06/27/17 08:59 Psyllium Hydrophilic Mucilloid (Metamucil Powder) 1 pkt DAILY PO 05/28/17 09:00 06/27/17 08:59 Metoprolol Tartrate (Lopressor Iv) 5 mg Q4 PRN IV 05/27/17 15:30 06/26/17 15:29 Lorazepam (Ativan Tab) 0.5 mg Q4H PRN PO 05/27/17 15:30 06/26/17 15:29 Morphine Sulfate (MoRPHine SULFATE INJ) 2 mg Q4H PRN IV 05/27/17 18:00 06/10/17 17:59 05/27/17 17:57 2 MG Provider Instructions Activity Restrictions - No exercising or heavy lifting for 24 hours. - Do not drink alcohol the day of the procedure. - Do not drive a car or operate machinery until the day after the procedure. - Do not make any important decisions or sign important papers in 24 hours after the procedure. Following Day: - Return to full activity which may include returning to work/school. Diet Start your diet with liquids and light foods (jello, soup, juice, toast). Then eat your usual diet if not nauseated. Treatment For Common After Affects For mild abdominal pain, bloating, or excessive gas: - Rest - Eat lightly - Lie on right side Follow-Up Information Follow-up with as scheduled Anesthesia Information What You Should Know You have had a procedure that required some medicine to reduce anxiety and discomfort. This treatment is called moderate sedation. After receiving the treatment, you may be sleepy, but you will be able to breathe on your own. The effects of the treatment may last for several hours. Follow these instructions along with Activity/Diet recommendations noted above: * Do NOT do anything where dizziness or clumsiness would be dangerous. * Rest quietly at home today, then you can be up and about tomorrow. * Have a responsible person stay with you the rest of today. * You may have had an I.V. today. If so, you may take the dressing off later today. Recommendations Call your doctor if: * Trouble breathing * Continuous vomiting for more than 24 hours * Temperature above 101 degrees * Severe abdominal pain or bloating * Pain not relieved by pain medicine ordered * There is increased drainage or redness from any incision * A large amount of rectal bleeding greater than 2-3 tablespoons. (If you had a polyp/s removed or have hemorrhoids, a small amount of blood - from the rectum is to be expected.) * You have any unanswered questions or concerns. IN THE EVENT OF A SERIOUS EMERGENCY, GO TO THE NEAREST EMERGENCY ROOM Your discharge instructions were prepared by provider Deon Solano. Patient Instructions Signature Page Arlin Packer Patient (or Guardian) Signature/Date: I have read and understand the instructions given to me by my caregivers. Caregiver/RN/Doctor Signature/Date: The above-named patient and/or guardian has received patient instructions on this date. + Original Patient Signature Page (only) stays with chart. Please make copy for patient.
--- NOTE | 2017-05-28 16:30 | GI REPORT ---
Procedure Date: 05/28/2017 4:16 PM Procedure: Upper GI endoscopy Indications: Acute post hemorrhagic anemia, Abnormal CT of the GI tract Medicines: Propofol total dose 200 mg IV, Lidocaine 80 mg IV Complications: No immediate complications. Estimated Blood Loss: Estimated blood loss was minimal. Procedure: Pre-Anesthesia Assessment: - Prior to the procedure, a History and Physical was performed, and patient medications, allergies and sensitivities were reviewed. The patient's tolerance of previous anesthesia was reviewed. - The risks and benefits of the procedure and the sedation options and risks were discussed with the patient. All questions were answered and informed consent was obtained. After obtaining informed consent, the endoscope was passed under direct vision. Throughout the procedure, the patient's blood pressure, pulse, and oxygen saturations were monitored continuously. The On-site loaner was introduced through the mouth, and advanced to the second part of duodenum. The upper GI endoscopy was accomplished without difficulty. The patient tolerated the procedure well. Findings: The examined esophagus was normal. A large, ulcerated, partially circumferential (involving one-half of the lumen circumference) mass with no bleeding and no stigmata of recent bleeding was found in the gastric body. Biopsies were taken with a cold forceps for histology. Estimated blood loss was minimal. The examined duodenum was normal. Impression: - Normal esophagus. 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 Biopsied. - Normal examined duodenum. Recommendation: - Return patient to [facility] for ongoing care. - Await pathology results. Deon Solano M.D. Deon Solano MD 05/28/2017 4:30:02 PM This report has been signed electronically. Note Initiated On: 05/28/2017 4:16 PM I attest to the content of the Intraoperative Record and orders documented therein, exceptions below
--- NOTE | 2017-05-28 16:36 | Anesthesiology Progress Note ---
Anesthesia Post Op Note Date & Time May 28, 2017 at 16:35 Vital Signs Pain Intensity: 0.0 Vital Signs Past 12 Hours Date Time Temp Pulse Resp B/P (MAP) Pulse Ox O2 Delivery O2 Flow Rate FiO2 05/28/17 15:49 37.2 113 22 168/93 (118) 93 Room Air 05/28/17 12:00 Room Air 05/28/17 12:00 36.5 107 18 167/94 (118) 92 Room Air 05/28/17 08:00 Room Air 05/28/17 07:23 37.0 112 20 154/79 (104) 91 Room Air Notes Mental Status: alert / awake / arousable, participated in evaluation Pt Amnestic to Procedure: Yes Nausea / Vomiting: adequately controlled Pain: adequately controlled Airway Patency, RR, SpO2: stable & adequate BP & HR: stable & adequate Hydration State: stable & adequate Anesthetic Complications: no major complications apparent
--- NOTE | 2017-05-28 17:11 | GASTROINTESTINAL CONSULTATION ---
DATE OF CONSULTATION: 05/28/2017 REASON FOR EVALUATION: GI bleeding and abnormal CAT scan. 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 She presented to the hospital with shortness of breath and was found to be anemic with melenic stools, which she has had for the last few days. Her last radiation and chemo was this past September and was to her neck area. The patient underwent a CAT scan and was noted to have a large mass in the stomach, which was felt to be possible recurrent lymphoma. EGD has been requested. PAST MEDICAL HISTORY: Remarkable for lymphoma, cholecystectomy, appendectomy, hyperlipidemia, and hypertension. MEDICATIONS: Baby aspirin, calcium, vitamin D, omega 3, glucosamine, MiraLax, K tabs, Metamucil, Evista, Senokot, simvastatin, verapamil and also Protonix. ALLERGIES: PROPOXYPHENE AND LISINOPRIL. FAMILY HISTORY: Positive for breast and colon cancer. SOCIAL HISTORY: The patient is , lives with her , does not smoke, and does not drink. REVIEW OF SYSTEMS: Positive for some weakness and shortness of breath with exertion. PHYSICAL EXAMINATION: GENERAL: The patient appears chronically ill. VITAL SIGNS: Blood pressure is 146/79 and pulse 93. LUNGS: Showed diminished breath sounds in the bases. ABDOMEN: Distended and mildly diffusely tender. EXTREMITIES: Showed no clubbing, cyanosis or edema. The patient underwent an endoscopy and was found to have a large cratered necrotic mass in the body of the stomach. Multiple biopsies were obtained. Esophagus and duodenum were normal. 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 Biopsies were obtained and further evaluation will be based on these biopsy results.
[2017-05-28 18:29] LABS: HEMATOCRIT 27.9 % (37-47); HEMOGLOBIN 8.7 g/dL (12.0-16.0)
[2017-05-28] MEDS: SIMVASTATIN 40 MG TAB PO SCH (20:30)
[2017-05-28] MEDS: SENNA 8.6 MG TAB PO SCH (20:31)
[2017-05-28] MEDS: RALOXIFENE 60 MG TAB PO SCH (20:31)
[2017-05-29] VITALS (11 sets, daily range): BP systolic 118–160; BP diastolic 65–93; PULSE 94–113; TEMP 36.5–37.5; O2SAT 87–98
[2017-05-29] MEDS: PANTOprazole INJ 40 MG in DEXTROSE 5% 100ML IV SCH ×5 (01:35→21:03)
[2017-05-29 06:52] LABS: HEMATOCRIT 26.5 % (37-47); HEMOGLOBIN 8.5 g/dL (12.0-16.0); MEAN CELL VOLUME 90.4 fL (80-100); MEAN CORPUSCULAR HGB CONC 32.1 g/dl (32-36); MEAN PLATELET VOLUME 9.5 fL (7.4-10.4); PLATELET COUNT 405 K/uL (130-400); RED CELL DISTRIBUTION WIDTH CV 14.1 % (11.5-14.5); RED CELL DISTRIBUTION WIDTH SD 46.7 fL (36.4-46.3); WHITE BLOOD COUNT 9.06 K/uL (4.8-10.8)
[2017-05-29 07:24] LABS: CALCIUM 8.4 mg/dl (8.5-10.1); CREATININE 0.64 mg/dl (0.60-1.20); POTASSIUM 3.7 mmol/L (3.5-5.1)
[2017-05-29] MEDS: PSYLLIUM 58.6% PWD PACK S\\F PO SCH (08:11)
[2017-05-29] MEDS: CALCIUM 600MG + VIT D 400 IU TAB PO SCH (08:12)
[2017-05-29] MEDS: VERAPAMIL HCL 180 MG TABCR PO SCH (08:12)
[2017-05-29] MEDS: POLYETHYLENE (MIRALAX) 17 GM PACK PO SCH (08:12)
[2017-05-29] MEDS: POTASSIUM CHLORIDE 10 MEQ TABCR PO SCH (08:13)
[2017-05-29] MEDS: CHOLECALCIFEROL 1000 INTER.UNIT TAB PO SCH (08:13)
--- NOTE | 2017-05-29 12:07 | Progress Note ---
Subjective Date of Service: May 29, 2017. Subjective Pt evaluation today including: conversation w/ patient, physical exam, lab review, conversation w/ computer consultant, review of inpatient medication list Pain: no pain PO Intake: tolerating full liquids Voiding: no voiding problems patient c/o shortness of breath, required some supplemental oxygen last night no chest pain, no cough does have some abdominal discomfort reviewed EGD with her, biopsies were taken of the gastric mass, no active bleeding Hb is 8.5 this AM discussed transfusing 1 unit of PRBC since she is symptomatic, she agreed will consult radiation oncology to evaluate the mass Problem List Medical Problems: (1) Abdominal mass Status: Acute (2) Acute headache Status: Acute (3) Anemia Status: Acute (4) Facial droop Status: Acute (5) Hypokalemia Status: Acute (6) Intractable headache Status: Acute (7) Intractable headache Status: Acute (8) Mantle cell lymphoma Status: Acute (9) Right facial numbness Status: Acute Review of Systems Constitutional: + weakness, + fatigue Respiratory: + shortness of breath, + dyspnea on exertion Abdomen: + pain (distension and discomfort) All Other Systems: Reviewed and Negative Medications Current Inpatient Medications Medications (Trade) Dose Ordered Sig/Ant Route Start Time Stop Time Status Last Admin Dose Admin Ioversol (Optiray 320) 125 ml UD PRN IV 05/27/17 11:45 05/31/17 11:44 Pantoprazole Sodium 40 mg/ Dextrose 100 ml @ 20 mls/hr Q5H IV 05/27/17 13:00 06/26/17 12:59 05/29/17 10:04 20 MLS/HR Acetaminophen (Tylenol Tab) 650 mg Q4H PRN PO 05/27/17 15:30 06/26/17 15:29 Ondansetron HCl (Zofran Inj) 4 mg Q6H PRN IV 05/27/17 15:30 06/26/17 15:29 05/28/17 11:19 4 MG Raloxifene HCl (Evista Tab) 60 mg QPM PO 05/27/17 21:00 06/26/17 20:59 05/28/17 20:31 60 MG Senna (Senokot Tab) 8.6 mg QPM PO 05/27/17 21:00 06/26/17 20:59 4/3/18 21:40 8.6 MG Simvastatin (Zocor Tab) 40 mg HS PO 05/27/17 21:00 06/26/17 20:59 05/28/17 20:30 40 MG Verapamil HCl (Calan-Sr Tab) 180 mg DAILY PO 05/28/17 09:00 06/27/17 08:59 05/29/17 08:12 180 MG Calcium/Vitamin D (Caltrate Plus Tab) 1 tab DAILY PO 05/28/17 09:00 06/27/17 08:59 05/29/17 08:12 1 TAB Cholecalciferol (Vitamin D Tab) 2,000 inter.unit DAILY PO 05/28/17 09:00 06/27/17 08:59 05/29/17 08:13 2,000 INTER.UNIT Polyethylene (Miralax Powder Packet) 17 gm DAILY PO 05/28/17 09:00 06/27/17 08:59 Potassium Chloride (Klor-Con M10) 10 meq DAILY PO 05/28/17 09:00 06/27/17 08:59 05/29/17 08:13 10 MEQ Psyllium Hydrophilic Mucilloid (Metamucil Powder) 1 pkt DAILY PO 05/28/17 09:00 06/27/17 08:59 Metoprolol Tartrate (Lopressor Iv) 5 mg Q4 PRN IV 05/27/17 15:30 06/26/17 15:29 Lorazepam (Ativan Tab) 0.5 mg Q4H PRN PO 05/27/17 15:30 06/26/17 15:29 Morphine Sulfate (MoRPHine SULFATE INJ) 2 mg Q4H PRN IV 05/27/17 18:00 06/10/17 17:59 05/27/17 17:57 2 MG Objective Vital Signs Date Time Temp Pulse Resp B/P (MAP) Pulse Ox O2 Delivery O2 Flow Rate FiO2 05/29/17 11:26 36.8 97 20 148/86 97 2.0 05/29/17 10:30 37.0 98 18 132/79 (96) 96 Nasal Cannula 2.0 05/29/17 10:15 Nasal Cannula 2.0 05/29/17 10:08 36.5 94 18 98 2.0 05/29/17 08:43 Room Air 05/29/17 07:32 36.5 94 18 131/80 (97) 98 Room Air 05/29/17 04:00 Nasal Cannula 2.0 05/29/17 03:43 93 Nasal Cannula 2.0 05/29/17 03:41 36.9 96 20 118/65 (82) 87 Room Air 05/28/17 23:59 Nasal Cannula 2.0 05/28/17 23:35 37.6 106 20 126/73 (90) 91 Room Air 05/28/17 20:00 Nasal Cannula 2.0 05/28/17 19:50 36.4 106 20 157/79 (105) 95 Nasal Cannula 2.0 05/28/17 18:17 36.8 103 161/83 (109) 93 Room Air 05/28/17 18:00 36.8 102 143/84 (103) 92 Room Air 05/28/17 17:46 36.9 103 154/69 (97) 93 Room Air 05/28/17 17:38 Room Air 05/28/17 17:34 36.9 106 20 158/79 (105) 91 Room Air 05/28/17 17:01 97 20 157/88 (111) 98 Room Air 05/28/17 16:44 98 16 158/98 (118) 98 Mask 2 05/28/17 16:31 91 16 135/81 (99) 98 Mask 4 05/28/17 15:49 37.2 113 22 168/93 (118) 93 Room Air Physical Exam General Appearance: WD/WN, no apparent distress Eyes: normal inspection, EOMI, sclerae normal ENT: normal ENT inspection, hearing grossly normal, pharynx normal Neck: supple, no adenopathy, no JVD, trachea midline Respiratory/Chest: chest non-tender, lungs clear, no respiratory distress, + decreased breath sounds, + accessory muscle use Cardiovascular: no edema, no gallop, no JVD, no murmur, + tachycardia Abdomen: normal bowel sounds, non tender, soft, no organomegaly Extremities: normal range of motion, non-tender, normal inspection, no pedal edema, no calf tenderness, pelvis stable Neurologic/Psychiatric: legal transcriber II-XII nml as tested, no motor/sensory deficits, alert, normal mood/affect, oriented x 3 Skin: normal color, warm/dry, no rash Laboratory Results Last 24 Hours Test 05/28/17 17:57 05/28/17 19:52 05/29/17 06:21 Hemoglobin 8.7 g/dL 8.5 g/dL Hematocrit 27.9 % 26.5 % Bedside Glucose 120 mg/dl White Blood Count 9.06 K/uL Red Blood Count 2.93 M/uL Mean Corpuscular Volume 90.4 fL Mean Corpuscular Hemoglobin 29.0 pg Mean Corpuscular Hemoglobin Concent 32.1 g/dl RDW Standard Deviation 46.7 fL RDW Coefficient of Variation 14.1 % Platelet Count 405 K/uL Mean Platelet Volume 9.5 fL Sodium Level 135 mmol/L Potassium Level 3.7 mmol/L Chloride Level 99 mmol/L Carbon Dioxide Level 28 mmol/L Anion Gap 8.0 mmol/L Blood Urea Nitrogen 7 mg/dl Creatinine 0.64 mg/dl Est Creatinine Clear Calc Drug Dose 73.0 ml/min Estimated GFR () 103.3 Estimated GFR (Non- 89.2 BUN/Creatinine Ratio 10.8 Random Glucose 94 mg/dl Calcium Level 8.4 mg/dl Assessment and Plan 71 yo female with h/o Mantle cell lymphoma in the neck, presents with melena and bloating and early satiety, dyspnea - GI bleed with acute blood loss anemia most likely due to gastric mass/lymphoma seen on CT continue Protonix IV Hb 8.5 this AM, will give one unit of blood since she is symptomatic with minimal exertion, even at rest no active bleeding or signs of recent bleeding seen on EGD gastric mass with biopsies taken - h/o Mantle cell lymphoma in right neck, now with lymphedema, gastric mass on CT last treatment for lymphoma was in summer had a PET scan in the fall that was normal CT beginning of April of neck was normal biopsies taken of gastric mass via EGD on 05/28, results pending will consult radiation oncology for their recommendations Dr. Chaves following, he will see patient in the office for recommendations on chemotherapy - Sinus tachycardia: likely due to anemia no evidence of PE on CTA chest HR slightly better in low 100s - HTN: BP stable, continue Verapamil consult PT/OT transfer to medical floor today DVT prophylaxis: SCD only due to bleeding
--- NOTE | 2017-05-29 16:01 | Hematology/Oncology Prog Note ---
Hematology/Onc Progress Note Date of Service May 29, 2017. Diagnoses Mantle cell lymphoma GI Bleed Medications Medications Administered Medications (Trade) Dose Ordered Sig/Ant Route Start Time Stop Time Status Last Admin Dose Admin Morphine Sulfate (MoRPHine SULFATE INJ) 4 mg NOW STAT IV 05/27/17 11:31 05/27/17 11:34 DC 05/27/17 12:22 4 MG Metoclopramide HCl (Reglan Inj) 10 mg NOW STAT IV 05/27/17 11:31 05/27/17 11:34 DC 05/27/17 12:22 10 MG Albuterol Sulfate (Ventolin 0.083% 2.5MG/3ML Neb) 2.5 mg NOW STAT INH 05/27/17 11:59 05/27/17 12:01 DC 05/27/17 12:23 2.5 MG Pantoprazole Sodium 80 mg/ Dextrose 120 ml @ 480 mls/hr 1245 IV 05/27/17 12:45 05/27/17 12:59 DC 05/27/17 13:12 480 MLS/HR Pantoprazole Sodium 40 mg/ Dextrose 100 ml @ 20 mls/hr Q5H IV 05/27/17 13:00 06/26/17 12:59 05/29/17 10:04 20 MLS/HR Ondansetron HCl (Zofran Inj) 4 mg Q6H PRN IV 05/27/17 15:30 06/26/17 15:29 05/28/17 11:19 4 MG Raloxifene HCl (Evista Tab) 60 mg QPM PO 05/27/17 21:00 06/26/17 20:59 05/28/17 20:31 60 MG Senna (Senokot Tab) 8.6 mg QPM PO 05/27/17 21:00 06/26/17 20:59 05/27/17 21:40 8.6 MG Simvastatin (Zocor Tab) 40 mg HS PO 05/27/17 21:00 06/26/17 20:59 05/28/17 20:30 40 MG Verapamil HCl (Calan-Sr Tab) 180 mg DAILY PO 05/28/17 09:00 06/27/17 08:59 05/29/17 08:12 180 MG Calcium/Vitamin D (Caltrate Plus Tab) 1 tab DAILY PO 4/4/18 09:00 06/27/17 08:59 05/29/17 08:12 1 TAB Cholecalciferol (Vitamin D Tab) 2,000 inter.unit DAILY PO 05/28/17 09:00 06/27/17 08:59 05/29/17 08:13 2,000 INTER.UNIT Potassium Chloride (Klor-Con M10) 10 meq DAILY PO 05/28/17 09:00 06/27/17 08:59 05/29/17 08:13 10 MEQ Morphine Sulfate (MoRPHine SULFATE INJ) 2 mg Q4H PRN IV 05/27/17 18:00 06/10/17 17:59 05/27/17 17:57 2 MG Subjective Ms. Packer is tired today, more so than yesterday. She also feels more short of breath. She continues to have dark stools, but denies any bright red blood. Review of Systems: Constitutional: + weakness, + fatigue Respiratory: No cough, No shortness of breath Cardiovascular: No chest pain Abdomen: + pain, + GI bleeding Heme: No abnormal bleeding/bruising Vital Signs Vital Signs Past 12 Hours Date Time Temp Pulse Resp B/P (MAP) Pulse Ox O2 Delivery O2 Flow Rate FiO2 05/29/17 14:15 36.8 100 20 153/82 97 2.0 05/29/17 13:15 37.0 99 20 160/82 95 2.0 05/29/17 12:45 36.9 113 20 153/75 94 2.0 05/29/17 12:15 37.5 107 20 159/93 95 2.0 05/29/17 11:26 36.8 97 20 148/86 97 2.0 05/29/17 10:30 37.0 98 18 132/79 (96) 96 Nasal Cannula 2.0 05/29/17 10:15 Nasal Cannula 2.0 05/29/17 10:08 36.5 94 18 98 2.0 05/29/17 08:43 Room Air 05/29/17 07:32 36.5 94 18 131/80 (97) 98 Room Air 05/29/17 04:00 Nasal Cannula 2.0 Physical Exam Constitutional: Level of Distress: NAD, chronically ill Psychiatric: Mental Status: active & alert Orientation: oriented except where noted Lungs: Auscuitation: breath sounds normal Cardiovascular: Heart Auscultation: RRR Abdomen: Inspection & Palpation: soft, no tenderness, guarding & rebound Extremities: no edema Laboratory Last 24 Hours Test 05/28/17 17:57 05/28/17 19:52 05/29/17 06:21 Hemoglobin 8.7 g/dL 8.5 g/dL Hematocrit 27.9 % 26.5 % Bedside Glucose 120 mg/dl White Blood Count 9.06 K/uL Red Blood Count 2.93 M/uL Mean Corpuscular Volume 90.4 fL Mean Corpuscular Hemoglobin 29.0 pg Mean Corpuscular Hemoglobin Concent 32.1 g/dl RDW Standard Deviation 46.7 fL RDW Coefficient of Variation 14.1 % Platelet Count 405 K/uL Mean Platelet Volume 9.5 fL Sodium Level 135 mmol/L Potassium Level 3.7 mmol/L Chloride Level 99 mmol/L Carbon Dioxide Level 28 mmol/L Anion Gap 8.0 mmol/L Blood Urea Nitrogen 7 mg/dl Creatinine 0.64 mg/dl Est Creatinine Clear Calc Drug Dose 73.0 ml/min Estimated GFR () 103.3 Estimated GFR (Non- 89.2 BUN/Creatinine Ratio 10.8 Random Glucose 94 mg/dl Calcium Level 8.4 mg/dl Assessment & Plan Ms. Packer' EGD revealed a mass in her stomach. The pathology is still pending, but preliminarily appears to be a lymphoma. This most likely represents relapse of her prior lymphoma, though we will await final confirmation. She is being transfused today, which I think is prudent, as she is quite symptomatic. If she stabilizes and is no longer bleeding, we could arrange for outpatient treatment. However, if her bleeding does not stop, we may need to consider a course of RT to her stomach to control her bleeding.
--- NOTE | 2017-05-29 16:29 | GASTROENTEROLOGY PROGRESS NOTE ---
DATE: 05/29/2017 GASTROENTEROLOGY INPATIENT PROGRESS NOTE Chart reviewed. The patient examined. The patient underwent an upper endoscopy by Dr. Solano yesterday with biopsies of a large gastric mass. Biopsies are pending at this time. The patient reports that she is feeling well overall and does have some sense of bloating. She has not, however, had nausea or vomiting today and did tolerate some liquids and solids reasonably well. She has no fever and is afebrile at 36.8, blood pressure 153/82, respirations 20, pulse 100, and pulse ox 97% on 2 liters. REVIEW OF SYSTEMS: Otherwise noncontributory based on 13-point exam. MEDICATIONS: Her medications were reviewed including verapamil, calcium, vitamin D, potassium, Metamucil, Evista, senna, simvastatin, Zofran, Lopressor, Ativan, and pantoprazole 40 mg. LABORATORY STUDIES: Today, white count 9.0, hemoglobin 8.5, hematocrit 26.5, and platelets are 405,000. Serum chemistry: Potassium 3.7, BUN and creatinine are 7 and 0.64. Influenzas A and B are negative. PHYSICAL EXAMINATION: VITAL SIGNS: The patient is on her way to radiology for a study. She is awake and alert. Ambulating well. HEART: Normal S1 and S2. LUNGS: Clear to auscultation. ABDOMEN: Mildly distended and mildly tympanitic without rebound or guarding. It is soft. There are positive bowel sounds. EXTREMITIES: Without edema. RECTAL: Deferred. The patient is with a gastric mass on EGD with a history of lymphoma. Results of biopsy pending at this time. Further recommendations to follow. All questions answered.
--- NOTE | 2017-05-29 17:27 | Radiation Oncology Consult ---
Radiation Oncology Consult Date / Reason May 29, 2017. Physicians Radiation Oncologist: Dr. Rupa Rothman Other Providers: Dr. 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, Stage IIE Status post systemic chemotherapy Left neck recurrent mass in July biopsy positive for lymphoma Mantle cell type 10/05/2015 Status post completion of radiation therapy 12/20/2015 received 4500 cGy Recurrent right neck mass March [address] revealing FDG avidity Initiation of immunotherapy with Ibrutinib - started May 2016 PET/CT in 08/2016 showed stable disease Patient admitted to hospital for pain control, further management Status post completion of radiation therapy 10/22/2016 received 4500 cGy Last Edited By: Suzan Heller on Oct 29, 2016 17:22 History of Present Illness I am seeing Ms. Packer in consultation at the request of Dr. Nuno. The patient's neighbor was also present during the consultation. ECOG PS: 2 Ms. Packer is a patient well-known to our service. She recently was treated with radiation therapy to the right neck which completed in 2016 for progressive mantle cell lymphoma. The patient has been under observation and recently presented and was admitted to the hospital due to an upper GI bleed. 05/27/2017 --- CT of chest --- IMPRESSION: 1. No pulmonary emboli identified although segmental and subsegmental pulmonary arteries suboptimally assessed due to respiratory motion. 2. Interval development of large right and small left pleural effusions with suspected 7 mm enhancing right pleural nodule. These effusions may be secondary to lymphomatous involvement. 3. Interval development of right cardiophrenic angle and bilateral internal mammary chain lymphadenopathy consistent with recurrent lymphoma. 4. Large perigastric/ gastric mass which is better depicted on the abdominal CT but suggests recurrent lymphoma. 05/27/2017 --- CT of abdomen/pelvis --- IMPRESSION: 1. There is marked gastric wall thickening, with a large exophytic mass lesion arising from the inferior aspect of the stomach. 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 2. There are moderate right and small left pleural effusions. 3. There is a small volume of abdominopelvic ascites. 4. There is extensive infiltration of the mesentery with foci of nodularity and peritoneal thickening/enhancement. Additionally, there are numerous tiny mesenteric lymph nodes. This likely represents lymphomatous involvement. Peritonitis is considered much less likely but is the top differential consideration. Clinical correlation will be required. 5. There are enlarged right cardiophrenic and upper retroperitoneal lymph nodes. 6. There is thickening of the endometrium which measures up to 8 mm. This is a nonspecific but abnormal finding in this age group. Nonemergent pelvic ultrasound is recommended for further assessment. 7. Additional findings as above. 05/28/2017 --- upper EGD by Dr. Solano --- "Findings: The examined esophagus was normal.A large, ulcerated, partially circumferential (involving one-half of the lumen circumference) mass with no bleeding and no stigmata of recent bleeding was found in the gastric body. Biopsies were taken with a cold forceps for histology. Estimated blood loss was minimal. The examined duodenum was normal." Pathology is pending. 05/29/2017 --- medical oncology evaluation by Dr. Jaime Chaves --- recommended transfusion of PRBC due to anemia. Recommended consideration of potential radiation therapy. We are now seeing the patient in consultation discussed the role of potential radiation therapy for the gastric mass. Currently, the patient complains of dark stools. She also notes some discomfort. She is currently on a liquid diet only. Pacemaker Hx Pacemaker: No Past History Past Medical/Surgical History: Cancer, High Cholesterol, Hypertension, Depression, Other Social History Smoking Status: Never Smoker Hx Tobacco Use In Past Year?: No Do You Dip or Chew Tobacco: No Hx Alcohol Use: No Hx Substance Use : No Allergies Coded Allergies: Propoxyphene (Verified Allergy, Intermediate, RASH, 09/05/16) Lisinopril (Verified Adverse Reaction, Mild, COUGH, 09/05/16) Home Medications Scheduled Aspirin (Aspirin Chewable), 81 MG PO QPM Calcium Carbonate-Vitamin D (Calcium), 1 TAB PO DAILY Cholecalciferol (Vitamin D), 1 CAP PO DAILY Fish Oil ([place]-3), 1 CAP PO DAILY Glucosamine Sulfate (Glucosamine), 1 CAP PO DAILY Polyethylene Glycol 3350 (Miralax), 17 GM PO DAILY Potassium Chloride (K-Tabs), 10 MEQ PO DAILY Psyllium (Metamucil), 1 DOSE PO DAILY Raloxifene (Evista), 60 MG PO QPM Senna (Senokot), 1 TAB PO QPM Simvastatin (Simvastatin), 40 MG PO HS Verapamil Hcl (Verapamil Hcl Er), 180 MG PO DAILY Scheduled PRN Pantoprazole (Protonix), 40 MG PO DAILY PRN for Dyspepsia Review of Systems Extremities: Hx Deep Vein Thrombosis: No Eyes: Hx Cataracts: Yes Ear/Hearing: Ear Side: Bilateral Hearing Ability: Normal Hearing Aid: None Edema: Present?: No Location Body Site Modifier: Bilateral Type: Non-pitting Degree: Trace Sexuality-Female: Patient ?: No Physical Exam Height: 5 (Feet) 0.00 (Inches) 152.4 (Centimeters) 1.5240 (Meters) Weight: 170 (Pounds) 3.1 (Ounces) 77.200 (Kilograms) 39081.000 (Grams) Date Time Temp Pulse Resp B/P (MAP) Pulse Ox O2 Delivery O2 Flow Rate FiO2 05/29/17 17:09 36.8 105 18 142/87 (105) 98 Nasal Cannula 2.0 05/29/17 14:15 36.8 100 20 153/82 97 2.0 05/29/17 13:15 37.0 99 20 160/82 95 2.0 05/29/17 12:45 36.9 113 20 153/75 94 2.0 05/29/17 12:15 37.5 107 20 159/93 95 2.0 05/29/17 11:26 36.8 97 20 148/86 97 2.0 05/29/17 10:30 37.0 98 18 132/79 (96) 96 Nasal Cannula 2.0 05/29/17 10:15 Nasal Cannula 2.0 05/29/17 10:08 36.5 94 18 98 2.0 05/29/17 08:43 Room Air 05/29/17 07:32 36.5 94 18 131/80 (97) 98 Room Air 05/29/17 04:00 Nasal Cannula 2.0 05/29/17 03:43 93 Nasal Cannula 2.0 05/29/17 03:41 36.9 96 20 118/65 (82) 87 Room Air 05/28/17 23:59 Nasal Cannula 2.0 05/28/17 23:35 37.6 106 20 126/73 (90) 91 Room Air 05/28/17 20:00 Nasal Cannula 2.0 05/28/17 19:50 36.4 106 20 157/79 (105) 95 Nasal Cannula 2.0 05/28/17 18:17 36.8 103 161/83 (109) 93 Room Air 05/28/17 18:00 36.8 102 143/84 (103) 92 Room Air 05/28/17 17:46 36.9 103 154/69 (97) 93 Room Air 05/28/17 17:38 Room Air 05/28/17 17:34 36.9 106 20 158/79 (105) 91 Room Air General Appearance: WD/WN Head: normocephalic, atraumatic Eyes: normal inspection, PERRL ENT: normal ENT inspection Neck: supple Respiratory/Chest: chest non-tender, lungs clear, normal breath sounds, no respiratory distress Cardiovascular: regular rate, rhythm, no edema, no gallop Abdomen/GI: normal bowel sounds, non tender Back: normal inspection, no CVA tenderness Extremities: normal inspection, no calf tenderness 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 Laboratory Laboratory Results: were reviewed Pathology Pathology Results: pending Imaging Imaging Studies: were reviewed, and pertinent findings noted in HPI Assessment & Recommendations Assessment: Ms. Packer is a 71-year-old female with likely progressive mantle cell lymphoma now involving the stomach (biopsy results still pending). We have been asked to evaluate the patient for consideration of radiation therapy. I have spoken with Dr. Chaves and we will review her response to her most recent blood transfusion and make a final decision regarding the role of radiation therapy tomorrow. We will bring her down today for tentative simulation to initiate tentative treatment planning for radiation therapy. We will confirm the final plan with Dr. Chaves prior to initiating treatment and also confirm the pathology results. We have explained the indications, alternatives, benefits, risks and side effects of radiation therapy to the abdomen. We have explained the most common side effects including but are not limited to skin erythema, skin break down, hair loss, fibrosis, adhesion development, radiation pneumonitis, rib and bone fracture, renal failure, kidney disease, liver disease, liver failure, bowel obstruction, bowel perforation, urinary symptoms, nausea, vomiting, diarrhea, spinal cord myelopathy, anemia, fatigue and development of secondary malignancy. Women may also have early onset ovarian failure leading to premature menopause and may experience infertility issues depending on her age. We have explained the CT simulation process and treatment planning. We explained what to expect before, during and after treatment on a regular basis. The patient understands and would be willing to consent to treatment. The patient had multiple questions which were answered to their full satisfaction. Thank you for allowing us to participate in the care of this patient. This chart was completed in part utilizing [employer] Speech Voice Recognition software. Attempts were made to minimize the grammatical errors, random word insertions, pronoun errors and incomplete sentences. Any formal questions or concerns about the content, text or information contained within the body of this dictation should be directly addressed to the provider for clarification. Rupa Rothman MD Department of Radiation Oncology [facility] Total Time In Consultation I spent 30 minutes examining and counseling the patient. I spent 15 minutes completing this note. [employer] CON[employer]YOR FEEDER Problem Qualifiers (1) Lymphoma: Lymphoma type: non-Hodgkin Non-Hodgkin lymphoma type: non-follicular Non- follicular lymphoma type: mantle cell Lymphoma site: solid organ excluding spleen Qualified Codes: C83.19 - Mantle cell lymphoma, extranodal and solid organ sites
[2017-05-29] MEDS: RALOXIFENE 60 MG TAB PO SCH (20:15)
[2017-05-29] MEDS: SIMVASTATIN 40 MG TAB PO SCH (20:15)
[2017-05-29] MEDS: SENNA 8.6 MG TAB PO SCH (20:16)
[2017-05-30 00:24] VITALS: BP 121/70; PULSE 94; TEMP 37.3; O2SAT 95
[2017-05-30] MEDS: PANTOprazole INJ 40 MG in DEXTROSE 5% 100ML IV SCH ×2 (02:31→07:25)
[2017-05-30] MEDS: CALCIUM 600MG + VIT D 400 IU TAB PO SCH (07:26)
[2017-05-30] MEDS: POTASSIUM CHLORIDE 10 MEQ TABCR PO SCH (07:27)
[2017-05-30] MEDS: CHOLECALCIFEROL 1000 INTER.UNIT TAB PO SCH (07:27)
[2017-05-30] MEDS: VERAPAMIL HCL 180 MG TABCR PO SCH (07:30)
[2017-05-30 07:47] LABS: HEMATOCRIT 31.5 % (37-47); HEMOGLOBIN 10.1 g/dL (12.0-16.0); MEAN CORPUSCULAR HEMOGLOBIN 28.9 pg (25-34); MEAN CORPUSCULAR HGB CONC 32.1 g/dl (32-36); MEAN PLATELET VOLUME 9.7 fL (7.4-10.4); PLATELET COUNT 371 K/uL (130-400); RED CELL DISTRIBUTION WIDTH CV 14.6 % (11.5-14.5); WHITE BLOOD COUNT 8.94 K/uL (4.8-10.8)
[2017-05-30 07:54] VITALS: BP 143/80; PULSE 104; TEMP 36.6; O2SAT 97
[2017-05-30 08:20] LABS: CALCIUM 8.8 mg/dl (8.5-10.1); CREATININE 0.61 mg/dl (0.60-1.20); POTASSIUM 3.9 mmol/L (3.5-5.1)
[2017-05-30] MEDS: PSYLLIUM 58.6% PWD PACK S\\F PO SCH (08:37)
[2017-05-30] MEDS: POLYETHYLENE (MIRALAX) 17 GM PACK PO SCH (08:37)
[2017-05-30] MEDS ORDERED: PANT40TA PO (13:39)
[2017-05-30] MEDS ORDERED: VRPSR240 PO (13:39)
--- NOTE | 2017-05-30 13:47 | Discharge Instructions ---
Discharge Instructions Date of Service May 30, 2017. Admission Reason for Admission: Gi Bleed Discharge Discharge Diagnosis / Problem: GI bleed, recurrent mantle cell lymphoma Discharge Goals Goal(s): Improve function, Therapeutic intervention (radiation therapy, chemotherapy) Activity Recommendations Activity Limitations: per Instructions/Follow-up section Lifting Limitations: none Exercise/Sports Limitations: as tolerated May Resume Sexual Activity: when tolerated Shower/Bathe: no limitations Driving or Machine Use: no driving until strength improves . Instructions / Follow-Up Instructions / Follow-Up Medications: - VERAPAMIL: dose increased to 240mg daily due to elevated blood pressure and fast heart rate - PROTONIX: please take every day now, no just as needed GI bleed: Hemoglobin up to 10.1 after one unit of blood transfused no further signs of active bleeding there was no bleeding seen on EGD Mantle cell lymphoma: recurrent, in stomach and in lymph nodes in abdomen and chest Dr. Rothman's office will call you about treatment on Friday, they will call you Friday morning with a time and instructions please call Dr. Chaves's office to set up appointment for later next week to discuss chemotherapy FOLLOW UP - Dr. Rothman and Dr. Chaves as above - Dr. Norton, can follow up in 2-3 weeks, call his office for appointment Current Hospital Diet Patient's current hospital diet: Low Fiber Diet Discharge Diet Recommended Diet: Regular Diet Procedures Procedures Performed: EGD, BX - pathology showed blastoid variant of B cell, mantle cell lymphoma Pending Studies Studies pending at discharge: no Medical Emergencies . Who to Call and When: Medical Emergencies: If at any time you feel your situation is an emergency, please call 911 immediately. . Non-Emergent Contact Non-Emergency issues call your: Primary Care Provider, Oncologist Call Non-Emergent contact if: your pain is worsening, you have any medication questions . . "Provider Documentation" section prepared by Florentin Nuno. . [place] Drug Monitoring Program Search Results: no issues identified
[2017-05-30 14:04] VITALS: BP 143/80; PULSE 104; TEMP 36.6; O2SAT 97
[2017-05-30 14:18] VITALS: PULSE 107; O2SAT 96
--- NOTE | 2017-05-31 15:02 | Discharge Summary ---
Discharge Summary Date of Service May 30, 2017. Discharge Summary Admission Date: May 27, 2017 at 15:41 Discharge Date: May 30, 2017 Discharge Disposition: Home Principal Diagnosis: GI bleed with acute blood loss anemia Problems/Secondary Diagnoses: Mantle cell lymphoma, recurrent, gastric mass, abdominal and thoracic lymphadenopathy Dyspnea Tachycardia Immunizations: Have You Had Influenza Vaccine: Yes History of Tetanus Vaccine?: Yes History of Pneumococcal: Yes History of Hepatitis B Vaccine: Yes Procedures: EGD with biopsy of gastric mass Consultations: Gastroenterology Oncology Medication Reconciliation Changed Medications: Verapamil HCl (Verapamil HCl ER) 240 Mg Tabcr 240 MG PO DAILY for 30 Days, #30 TABS 3 Refills (Changed from: Verapamil Hcl ( Verapamil Hcl Er) 180 Mg Tab 180 Mg PO DAILY #30 ) Continued Medications: Aspirin (Aspirin Chewable) 81 Mg Chew 81 MG PO QPM, TAB Calcium Carbonate-Vitamin D (Calcium) 1 Tab Tab 1 TAB PO DAILY Cholecalciferol (Vitamin D) 2,000 Unit Cap 1 CAP PO DAILY Fish Oil ([place]-3) 1 Ea Cap 1 CAP PO DAILY, CAP Glucosamine Sulfate (Glucosamine) 500 Mg Cap 1 CAP PO DAILY Pantoprazole (Protonix) 40 Mg Tab 40 MG PO DAILY, #30 TAB 3 Refills (This prescription has been renewed) Polyethylene Glycol 3350 (Miralax) 1 Pow Pow 17 GM PO DAILY Potassium Chloride (K-Tabs) 10 Meq Tab 10 MEQ PO DAILY Psyllium (Metamucil) 48.57 % Pow 1 DOSE PO DAILY Raloxifene (Evista) 60 Mg Tab 60 MG PO QPM Senna (Senokot) 8.6 Mg Tab 1 TAB PO QPM, TAB Simvastatin (Simvastatin) 40 Mg Tab 40 MG PO HS Discharge Exam Patient feeling well, no melena. Wanting to go home. Ambulated with respiratory therapy, did not require oxygen. HR still up in 100's, discussed increased dose of Verapamil. Discussed with Dr. Rothman, his office will contact patient on Friday morning to set up time for treatment Review of Systems: Constitutional: + weakness, No fever, No chills, No sweats, No weight loss, No fatigue, No problem reported Eyes: No worsening of vision, No eye pain, No redness, No discharge, No diplopia, No problem reported ENT: No hearing loss, No unusual epistaxis, No nasal symptoms, No sore throat, No tinnitus, No dental problems, No trouble swallowing, No problem reported Respiratory: + dyspnea on exertion, No cough, No sputum, No wheezing, No shortness of breath, No dyspnea at rest, No hemoptysis, No problem reported Cardiovascular: No chest pain, No orthopnea, No PND, No edema, No claudication, No palpitations, No problem reported Abdomen: No pain, No nausea, No vomiting, No diarrhea, No constipation, No GI bleeding, No problem reported Musculoskeletal: No joint pain, No muscle pain, No swelling, No calf pain, No problem reported Genitourinary - Female: No dysuria, No urinary frequency, No urinary urgency , No urinary incontinence Neurologic: No memory loss, No paralysis, No weakness, No numbness/tingling , No vertigo, No balance problems, No problem reported Psychiatric: No depression symptoms, No anhedonism, No anxiety, No insomnia , No substance abuse, No problem reported Endocrine: No fatigue, No excessive thirst, No excessive urination, No problem reported Hematologic / Lymphatic: No abnormal bleeding/bruising, No clotting problems , No swollen lymph nodes, No night sweats, No problem reported Integumentary: No rash, No itch, No new/changing skin lesions, No color change, No bleeding, No problem reported Physical Exam: General Appearance: WD/WN, no apparent distress Eyes: normal inspection, EOMI, sclerae normal ENT: normal ENT inspection, hearing grossly normal, pharynx normal Neck: supple, no adenopathy, no JVD, trachea midline Respiratory/Chest: chest non-tender, lungs clear, normal breath sounds, no respiratory distress, no accessory muscle use Cardiovascular: no edema, no gallop, no JVD, no murmur, normal peripheral pulses, + tachycardia Abdomen / GI: normal bowel sounds, non tender, soft, no organomegaly Extremities: normal inspection, no calf tenderness, normal capillary refill , no pedal edema, normal range of motion, pelvis stable Neurologic/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: 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, no motor/sensory deficits , alert, normal mood/affect, normal reflexes, oriented x 3 Skin: normal color, warm/dry, no rash Hospital Course 71 yo female with h/o Mantle cell lymphoma in the neck, presents with melena and bloating and early satiety, dyspnea - GI bleed with acute blood loss anemia most likely due to gastric mass/lymphoma seen on CT treated with Protonix IV while admitted, will change back to PO on discharge Hb 10.1 day of discharge after one unit of PRBC transfused on 05/29 no active bleeding or signs of recent bleeding seen on EGD gastric mass with biopsies taken - h/o Mantle cell lymphoma in right neck, now with lymphedema, gastric mass on CT last treatment for lymphoma was in summer had a PET scan in the fall that was normal CT beginning of April of neck was normal biopsies taken of gastric mass via EGD on 05/28, pathology shows mantle cell lymphomas Dr. Rothman will see patient on Friday 06/[address] Chaves following, he will see patient in the office for recommendations on chemotherapy - Sinus tachycardia: likely due to anemia no evidence of PE on CTA chest HR slightly better in low 100s increase Verapamil to 240mg daily - HTN: BP stable, continue Verapamil d/c to home Total Time Spent: Greater than 30 minutes This includes examination of the patient, discharge planning, medication reconciliation, and communication with other providers. Discharge Instructions Please refer to the electronic Patient Visit Report (Discharge Instructions) for additional information. Follow-Up Dr. Rothman on Friday 06/02 to begin radiation therapy Dr. Chaves in one week, discuss chemotherapy options Additional Copies To Shahzad Norton MD; Jaime Chaves MD; Veeral. Rothman MD
== END 2017-05-30 14:57 | disposition home or self-care (01) | DRG 841 ==
LOC: C.EDB 11:10 → C.2T 15:41 → ENRESERV 15:50 → C.MS2W 05-29 09:16 → ENRESERV 05-29 09:34
PROVIDERS: ADMIT Internal Medicine; ATTEND Internal Medicine
PROC: 0DB68ZX Excision of Stomach, Via Natural or Artificial Opening Endoscopic, Diagnostic (ICD-10-PCS; principal; 2017-05-28 15:44)
DX: C83.19 Mantle cell lymphoma, extranodal and solid organ sites (principal); K92.2 Gastrointestinal hemorrhage, unspecified; D62 Acute posthemorrhagic anemia; R06.02 Shortness of breath; R00.0 Tachycardia, unspecified; R79.1 Abnormal coagulation profile; I10 Essential (primary) hypertension; E78.5 Hyperlipidemia, unspecified; E66.9 Obesity, unspecified; Z66 Do not resuscitate; Z68.33 Body mass index [BMI] 33.0-33.9, adult; Z85.72 Personal history of non-Hodgkin lymphomas; Z92.21 Personal history of antineoplastic chemotherapy; Z92.3 Personal history of irradiation; Z90.49 Acquired absence of other specified parts of digestive tract; Z98.890 Other specified postprocedural states; Z79.810 Long term (current) use of selective estrogen receptor modulators (SERMs); Z79.82 Long term (current) use of aspirin; Z79.899 Other long term (current) drug therapy; Z88.5 Allergy status to narcotic agent; Z88.8 Allergy status to other drugs, medicaments and biological substances; Z80.3 Family history of malignant neoplasm of breast; Z80.0 Family history of malignant neoplasm of digestive organs

== ENCOUNTER 2017-06-03 20:14 | Inpatient (IN) | payer BC, OTHER ==
[~2017-06-03] VITALS: Ht 152.4 cm; Wt 81.1 kg
[~2017-06-03 20:14] MED LIST changes: -ASPCH81X PO; -CALC-51 PO; -CHOL200010 PO; -GLUC500C4 PO; -OMEG10007 PO; -POLY335019 PO; -POTA10TA PO; -PSYL48.59 PO; -RALO60TA31 PO; -SENN-61 PO; -VERA1TAB53 PO; +VRPSR240 PO; -ZCR40 PO
--- NOTE | 2017-06-03 20:50 | DIAGNOSTIC IMAGING REPORT ---
CHEST ONE VIEW PORTABLE HISTORY: 71 years-old Female SOB, lymphoma acute shortness of breath with history of lymphoma COMPARISON: Chest radiograph 05/27/2017, CTA chest 05/27/2017 TECHNIQUE: Portable AP view of the chest FINDINGS: Cardiac silhouette is mildly enlarged, unchanged. Left subclavian Fgvsyo-e-Heoy catheter is in stable positioning. Moderate right and trace left pleural effusions with mildly size of the pleural effusion on the right.] Left basilar opacities. No pneumothorax or overt pulmonary edema. Bones of the chest appear grossly intact. IMPRESSION: 1. Moderate right and small left pleural effusion with mildly increased amount of pleural fluid on the right from comparison. 2. Bibasilar opacities favor atelectasis. The above report was generated using voice recognition software. It may contain grammatical, syntax or spelling errors. Electronically signed by: Connor Hsu M.D. 06/03/2017 8:49 PM Dictated Date/Time: 06/03/2017 8:47 PM
[2017-06-03 21:13] LABS: BASO % 0.1 %; BASO ABS # 0.01 K/uL (0-0.2); EOS % 0.5 %; EOS ABS # 0.05 K/uL (0-0.5); HEMATOCRIT 30.2 % (37-47); HEMOGLOBIN 10.1 g/dL (12.0-16.0); IG# 0.03 K/uL (0.00-0.02); LYMPH % 5.7 %; LYMPH ABS # 0.62 K/uL (1.2-3.4); MEAN CELL VOLUME 88.3 fL (80-100); MEAN CORPUSCULAR HEMOGLOBIN 29.5 pg (25-34); MEAN CORPUSCULAR HGB CONC 33.4 g/dl (32-36); MEAN PLATELET VOLUME 9.4 fL (7.4-10.4); MONO % 7.1 %; MONO ABS # 0.77 K/uL (0.11-0.59); NEUT % 86.3 %; NEUT ABS # 9.41 K/uL (1.4-6.5); PLATELET COUNT 319 K/uL (130-400); RED CELL DISTRIBUTION WIDTH CV 14.5 % (11.5-14.5); RED CELL DISTRIBUTION WIDTH SD 46.3 fL (36.4-46.3); WHITE BLOOD COUNT 10.89 K/uL (4.8-10.8)
[2017-06-03 21:29] LABS: ALBUMIN 2.5 gm/dl (3.4-5.0); CALCIUM 8.7 mg/dl (8.5-10.1); CREATININE 0.61 mg/dl (0.60-1.20); POTASSIUM 4.1 mmol/L (3.5-5.1)
[2017-06-03 21:31] LABS: PTT PATIENT 23.5 SECONDS (21.0-31.0)
[2017-06-03 21:37] LABS: TOTAL PROTEIN 5.9 gm/dl (6.4-8.2)
--- NOTE | 2017-06-03 22:05 | EMERGENCY ROOM VISIT NOTE ---
History Report prepared by Doretha: Vanessa Sadler Under the Supervision of: Dr. Catrina Valladares M.D. First contact with patient: 20:18 Chief Complaint: SHORTNESS OF BREATH Stated Complaint: SOB History of Present Illness The patient is a 71 year old female who presents to the Emergency Room with complaints of worsening shortness of breath starting 4 days ago. The patient states that she got out of the hospital at that time. The patient's friend states that when she left the hospital her O2 was 91% and they didn't think she would need it at home. She reports that she was on oxygen during her stay in the hospital. 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 She reports that rad onc told her this is why she has difficulty breathing. She notes that she had her second treatment at 1330 today and was flushed pink afterwards. The patient complains of a dry mouth, hot flashes, leg swelling, and melena. She states that her stools are not as dark as they were before. The patient's friend complains of the patient being pale. The patient denies fever. The patient notes that she had a colonoscopy last Friday while in the hospital that was normal. Source of History: patient Onset: 4 days ago Position: other (global) Quality: other (shortness of breath) Timing: worsening Associated Symptoms: + melena, No fevers Note: The patient complains of being pale, a dry mouth, having hot flashes, and leg swelling. Review of Systems See HPI for pertinent positives & negatives. A total of 10 systems reviewed and were otherwise negative. Past Medical & Surgical Medical Problems: (1) Cancer (2) Gastroesophageal reflux disease (3) GI bleed (4) History of - hypertension (5) Intractable pain (6) Lymphoma (7) Shortness of breath Family History FH: breast cancer FH: colon cancer Social History Smoking Status: Never Smoker Alcohol Use: none Drug Use: none Marital Status: Housing Status: lives with family Occupation Status: retired Current/Historical Medications Scheduled Calcium Carbonate-Vitamin D (Calcium), 1 TAB PO DAILY Cholecalciferol (Vitamin D), 2,000 UNITS PO DAILY Fish Oil ([place]-3), 1 CAP PO DAILY Glucosamine Sulfate (Glucosamine), 500 MG PO DAILY Pantoprazole (Protonix), 40 MG PO DAILY Polyethylene Glycol 3350 (Miralax), 17 GM PO DAILY Psyllium (Metamucil), 1 DOSE PO DAILY Raloxifene (Evista), 60 MG PO QPM Senna (Senokot), 8.6 MG PO QPM Simvastatin (Simvastatin), 40 MG PO HS Verapamil Sust Rel (Calan Sr Ext Rel), 240 MG PO DAILY Scheduled PRN Ondansetron Hcl (Zofran), 8 MG PO Q6H PRN for Nausea Allergies Coded Allergies: Propoxyphene (Verified Allergy, Intermediate, RASH, 09/05/16) Lisinopril (Verified Adverse Reaction, Mild, COUGH, 09/05/16) Physical Exam Vital Signs Date Time Temp Pulse Resp B/P (MAP) Pulse Ox O2 Delivery O2 Flow Rate FiO2 06/03/17 21:55 101 20 176/99 94 Room Air 4.0 06/03/17 21:50 92 Room Air 06/03/17 20:51 100 06/03/17 20:24 36.8 102 22 169/92 92 Nasal Cannula 06/03/17 20:24 96 Nasal Cannula 4.0 Physical Exam Vital signs reviewed. General: Chronically ill-appearing, in no significant distress. HEENT: No scleral icterus, PERRLA, neck supple. Atraumatic. Cardiovascular: Regular rate and rhythm, no extra sounds. Pulmonary: Clear to auscultation bilaterally, normal work of breathing. Diminished right basilar lung sounds. Abdomen: Soft, nontender, distended, no tympany, positive bowel sounds. Musculoskeletal: Atraumatic, no peripheral edema. Neurologic: Patient awake alert and oriented x 3. Skin: Warm, dry, no rash Medical Decision & Procedures ER Provider Diagnostic Interpretation: Radiology results as stated below per my review and radiologist interpretation: CHEST ONE VIEW PORTABLE HISTORY: 71 years-old Female SOB, lymphoma acute shortness of breath with history of lymphoma COMPARISON: Chest radiograph 05/27/2017, CTA chest 05/27/2017 TECHNIQUE: Portable AP view of the chest FINDINGS: Cardiac silhouette is mildly enlarged, unchanged. Left subclavian [id number] catheter is in stable positioning. Moderate right and trace left pleural effusions with mildly size of the pleural effusion on the right.] Left basilar opacities. No pneumothorax or overt pulmonary edema. Bones of the chest appear grossly intact. IMPRESSION: 1. Moderate right and small left pleural effusion with mildly increased amount of pleural fluid on the right from comparison. 2. Bibasilar opacities favor atelectasis. The above report was generated using voice recognition software. It may contain grammatical, syntax or spelling errors. Electronically signed by: Connor Hsu M.D. 06/03/2017 8:49 PM Dictated Date/Time: 06/03/2017 8:47 PM Laboratory Results 06/03/17 20:59 Red Blood Count 3.42, Mean Corpuscular Volume 88.3, Mean Corpuscular Hemoglobin 29.5, Mean Corpuscular Hemoglobin Concent 33.4, Mean Platelet Volume 9.4, Neutrophils (%) (Auto) 86.3, Lymphocytes (%) (Auto) 5.7, Monocytes (%) (Auto) 7.1, Eosinophils (%) (Auto) 0.5, Basophils (%) (Auto) 0.1, Neutrophils # (Auto) 9.41, Lymphocytes # (Auto) 0.62, Monocytes # (Auto) 0.77, Eosinophils # (Auto) 0.05, Basophils # (Auto) 0.01 06/03/17 20:59 Test 06/03/17 20:59 06/03/17 21:25 White Blood Count 10.89 K/uL (4.8-10.8) Red Blood Count 3.42 M/uL (4.2-5.4) Hemoglobin 10.1 g/dL (12.0-16.0) Hematocrit 30.2 % (37-47) Mean Corpuscular Volume 88.3 fL (80-100) Mean Corpuscular Hemoglobin 29.5 pg (25-34) Mean Corpuscular Hemoglobin Concent 33.4 g/dl (32-36) Platelet Count 319 K/uL (130-400) Mean Platelet Volume 9.4 fL (7.4-10.4) Neutrophils (%) (Auto) 86.3 % Lymphocytes (%) (Auto) 5.7 % Monocytes (%) (Auto) 7.1 % Eosinophils (%) (Auto) 0.5 % Basophils (%) (Auto) 0.1 % Neutrophils # (Auto) 9.41 K/uL (1.4-6.5) Lymphocytes # (Auto) 0.62 K/uL (1.2-3.4) Monocytes # (Auto) 0.77 K/uL (0.11-0.59) Eosinophils # (Auto) 0.05 K/uL (0-0.5) Basophils # (Auto) 0.01 K/uL (0-0.2) RDW Standard Deviation 46.3 fL (36.4-46.3) RDW Coefficient of Variation 14.5 % (11.5-14.5) Immature Granulocyte % (Auto) 0.3 % Immature Granulocyte # (Auto) 0.03 K/uL (0.00-0.02) Prothrombin Time 10.5 SECONDS (9.0-12.0) Prothromb Time International Ratio 1.0 (0.9-1.1) Activated Partial Thromboplast Time 23.5 SECONDS (21.0-31.0) Partial Thromboplastin Ratio 0.9 Anion Gap 8.0 mmol/L (3-11) Est Creatinine Clear Calc Drug Dose 80.6 ml/min Estimated GFR () 105.0 Estimated GFR (Non- 90.6 BUN/Creatinine Ratio 21.4 (10-20) Calcium Level 8.7 mg/dl (8.5-10.1) Total Bilirubin 0.6 mg/dl (0.2-1) Direct Bilirubin 0.2 mg/dl (0-0.2) Aspartate Amino Transf (AST/SGOT) 31 U/L (15-37) Alanine Aminotransferase (ALT/SGPT) 24 U/L (12-78) Alkaline Phosphatase 29 U/L (45-117) Total Protein 5.9 gm/dl (6.4-8.2) Albumin 2.5 gm/dl (3.4-5.0) Urine Color DK YELLOW Urine Appearance CLEAR (CLEAR) Urine pH 6.0 (4.5-7.5) Urine Specific [place] 1.034 (1.000-1.030) Urine Protein 1+ (NEG) Urine Glucose (UA) NEG (NEG) Urine Ketones 2+ (NEG) Urine Occult Blood NEG (NEG) Urine Nitrite NEG (NEG) Urine Bilirubin NEG (NEG) Urine Urobilinogen NEG (NEG) Urine Leukocyte Esterase SMALL (NEG) Urine WBC (Auto) 10-30 /hpf (0-5) Urine RBC (Auto) 0-4 /hpf (0-4) Urine Hyaline Casts (Auto) 5-10 /lpf (0-5) Urine Epithelial Cells (Auto) >30 /lpf (0-5) Urine Bacteria (Auto) NEG (NEG) Urine Renal Epithelial Cells /lpf (0-5) Urine Crystals CALCIUM OXALATE (NONE Laboratory results per my review. Medications Administered Medications (Trade) Dose Ordered Sig/Ant Route Start Time Stop Time Status Last Admin Dose Admin Morphine Sulfate (MoRPHine SULFATE INJ) 2 mg NOW STAT IV 06/03/17 23:07 06/03/17 23:26 DC 06/04/17 00:46 2 MG ECG Per My Interpretation Indication: SOB/dyspnea Rate (beats per minute): 98 Rhythm: normal sinus Findings: no acute ischemic change, no ectopy ED Course 2024: Past medical records reviewed. The patient was evaluated in room C10. A complete history and physical examination was performed. 2137: I reevaluated the patient and she is doing okay. She states that she has never heard of having pleural effusions. 2151: I reviewed the patient's case with Dr. Chris GARCIA Hospitalist. He will evaluate the patient for further management. Medical Decision Differential diagnosis: Etiologies such as infections, reactive airway disease, pneumonia, pneumothorax , COPD, CHF, cardiac ischemia, pulmonary embolism, musculoskeletal, gastrointestinal, as well as others were entertained. This patient was evaluated and appeared to be in no significant distress. Patient is resting on nasal cannula oxygen. Chest x-ray was performed and reveals a large right and smaller left pleural effusion. Given the large size of the patient's abdomen and the pleural effusions with her anemia, I suspect this is contributing to her shortness of breath and swelling. Patient's H&H is stable today. Patient is found to be hyponatremic with a sodium of 126. Her oxygen saturations have remained stable. Patient will likely require evaluation for thoracentesis. Given her multiple medical issues, she will be evaluated by the hospitalist service for further management. Medication Reconcilliation Current Medication List: was personally reviewed by me Blood Pressure Screening Patient's blood pressure: Elevated blood pressure Will be further monitored by the hospitalist. Consults Time Called: 2144 Consulting Physician: Dr. Chris GARCIA Hospitalist Returned Call: 2151 I reviewed the patient's case with Dr. Chris GARCIA Hospitalist. He will evaluate the patient for further management. Impression Primary Impression: Shortness of breath Additional Impressions: Lymphoma Bilateral pleural effusion Anemia Hyponatremia Scribe Attestation The scribe's documentation has been prepared under my direction and personally reviewed by me in its entirety. I confirm that the note above accurately reflects all work, treatment, procedures, and medical decision making performed by me. Departure Information Dispostion Being Evaluated By Hospitalist Referrals No Doctor, Assigned (PCP) Patient Instructions My [facility] Problem Qualifiers
[2017-06-03] MEDS ORDERED: MoRPHine SULFATE 2 MG/ML CARP IV STA (23:07)
[2017-06-03] MEDS ORDERED: ONDANSETRON INJ 2 MG/ML 2 ML VIAL IV PRN (23:15)
[2017-06-03] MEDS ORDERED: MAGNESIUM HYDROXIDE SUSP 30 ML UDC PO PRN (23:15)
[2017-06-03] MEDS ORDERED: ACETAMINOPHEN 325 MG TAB PO PRN (23:15)
[2017-06-03] MEDS ORDERED: POLYETHYLENE (MIRALAX) 17 GM PACK PO PRN (23:15)
[2017-06-03] MEDS ORDERED: FUROSEMIDE INJ 20 MG in SYRINGE 0 ML IV ONE (23:15)
[2017-06-03] MEDS ORDERED: ALUMINUM/MAGNESIUM/SIMETH (MAALOX MAX) 30 ML UDC PO PRN (23:15)
[2017-06-03] MEDS ORDERED: ONDANSETRON 8 MG TAB PO PRN (23:30)
--- NOTE | 2017-06-03 23:33 | History and Physical ---
History & Physical Date & Time of Service: Jun 03, 2017 at 23:20 Chief Complaint: SOB Primary Care Physician: Shahzad Norton MD History of Present Illness Source: patient Patient is a 71 year old female with a PMH of mantle cell lymphoma, HTN, HLD, and GERD that is presenting to [facility] for worsening shortness of breath. Patient was discharged from [facility] on the 30 of May after presenting with abdominal bloating, early satiety and dyspnea. She had an CT scan of her abdomen and chest which showed a gastric mass concerning for mantle cell lymphoma, abdominal ascites, R/L pleural effusions, and retroperitoneal lymphadenopathy. She underwent an EGD and was diagnosed as having a recurrence of her mantle cell lymphoma. She had a 2 step done prior to discharge which she passed and she was therefore sent home without oxygen. She was set up to have radiation of her abdominal mantle cell lymphoma as an outpatient and today she received her second dose. She was also set up to see Dr. Chaves whom she has not seen yet since discharge. She returned to [facility] today due to worsening shortness of breath since being discharged on the . She says that her shortness of breath has gradually been getting worse since being discharged. She feels short of breath at rest and with ambulation. Associated symptoms include bilateral leg swelling (started today), increase in abdominal swelling/pain, decrease appetite, extreme fatigue and she notes she has put on 10 pounds of weight over the past two weeks. She denies any chest pain, cough, PND, fevers, chills, muscle pains, joint pains , rashes, urinary problems, diarrhea or constipation. In the ED today her vital are 36.8, 101 HR, 20 RR, 176/99 BP, 94% on 2L. Her labs were significant for a hgb of 10.1 and Na of 126. Her CXR showed moderate R pleural effusion and small left pleural effusion. Past Medical/Surgical History Medical Problems: (1) Abdominal mass (2) Acute headache (3) Anemia (4) Cancer (5) Chronic cholecystitis (6) Facial droop (7) Gastroesophageal reflux disease (8) GI bleed (9) History of - hypertension (10) Hypokalemia (11) Intractable headache (12) Intractable headache (13) Intractable pain (14) Lymphoma (15) Mantle cell lymphoma (16) Right facial numbness (17) Shortness of breath Family History FH: breast cancer FH: colon cancer Social History Smoking Status: Never Smoker Drug Use: none Marital Status: Housing status: lives with significant other Occupational Status: retired Immunizations History of Influenza Vaccine: Yes History of Tetanus Vaccine?: Yes History of Pneumococcal: Yes History of Hepatitis B Vaccine: Yes Allergies Coded Allergies: Propoxyphene (Verified Allergy, Intermediate, RASH, 09/05/16) Lisinopril (Verified Adverse Reaction, Mild, COUGH, 09/05/16) Home Medications Scheduled Calcium Carbonate-Vitamin D (Calcium), 1 TAB PO DAILY Cholecalciferol (Vitamin D), 2,000 UNITS PO DAILY Fish Oil ([place]-3), 1 CAP PO DAILY Glucosamine Sulfate (Glucosamine), 500 MG PO DAILY Pantoprazole (Protonix), 40 MG PO DAILY Polyethylene Glycol 3350 (Miralax), 17 GM PO DAILY Psyllium (Metamucil), 1 DOSE PO DAILY Raloxifene (Evista), 60 MG PO QPM Senna (Senokot), 8.6 MG PO QPM Simvastatin (Simvastatin), 40 MG PO HS Verapamil Sust Rel (Calan Sr Ext Rel), 240 MG PO DAILY Scheduled PRN Ondansetron Hcl (Zofran), 8 MG PO Q6H PRN for Nausea Review of Systems Constitutional: + weakness, + fatigue, No fever, No chills, No sweats, No weight loss Respiratory: + shortness of breath, + dyspnea on exertion, + dyspnea at rest, No cough, No sputum, No wheezing, No hemoptysis Cardiovascular: + chest pain, + edema, No orthopnea, No palpitations Abdomen: + pain, + nausea, No vomiting, No diarrhea, No constipation, No GI bleeding Musculoskeletal: + swelling, No joint pain, No muscle pain, No calf pain Genitourinary - Female: No dysuria, No urinary frequency, No urinary urgency, No hematuria Neurologic: + weakness, No numbness/tingling, No balance problems Endocrine: No fatigue, No excessive thirst, No excessive urination Integumentary: No rash, No itch, No new/changing skin lesions Physical Exam Vital Signs Date Time Temp Pulse Resp B/P (MAP) Pulse Ox O2 Delivery O2 Flow Rate FiO2 06/03/17 21:55 101 20 176/99 94 Room Air 4.0 06/03/17 21:50 92 Room Air 06/03/17 20:51 100 06/03/17 20:24 36.8 102 22 169/92 92 Nasal Cannula 06/03/17 20:24 96 Nasal Cannula 4.0 General Appearance: WD/WN, + mild distress Head: normocephalic, atraumatic Eyes: normal inspection ENT: hearing grossly normal, pharynx normal Neck: supple, no adenopathy, no JVD, no carotid bruits Respiratory/Chest: + respiratory distress (mild shortness of breath, no use of intercostal muscles), + decreased breath sounds, + crackles (crackles at the bases bilaterally) Cardiovascular: regular rate, rhythm, no murmur, normal peripheral pulses Abdomen/GI: normal bowel sounds, + tenderness (mildly tender throughout), + distended Extremities/Musculoskelatal: no calf tenderness, normal range of motion, + pedal edema (+1 edema to the midshins bilaterally) Neurologic/Psych: alert, normal mood/affect, oriented x 3 Skin: warm/dry, no rash, + pallor Diagnostics Laboratory Results Results Past 24 Hours Test 06/03/17 20:59 06/03/17 21:25 Range/Units White Blood Count 10.89 4.8-10.8 K/uL Red Blood Count 3.42 4.2-5.4 M/uL Hemoglobin 10.1 12.0-16.0 g/dL Hematocrit 30.2 37-47 % Mean Corpuscular Volume 88.3 80-100 fL Mean Corpuscular Hemoglobin 29.5 25-34 pg Mean Corpuscular Hemoglobin Concent 33.4 32-36 g/dl Platelet Count 319 130-400 K/uL Mean Platelet Volume 9.4 7.4-10.4 fL Neutrophils (%) (Auto) 86.3 % Lymphocytes (%) (Auto) 5.7 % Monocytes (%) (Auto) 7.1 % Eosinophils (%) (Auto) 0.5 % Basophils (%) (Auto) 0.1 % Neutrophils # (Auto) 9.41 1.4-6.5 K/uL Lymphocytes # (Auto) 0.62 1.2-3.4 K/uL Monocytes # (Auto) 0.77 0.11-0.59 K/uL Eosinophils # (Auto) 0.05 0-0.5 K/uL Basophils # (Auto) 0.01 0-0.2 K/uL RDW Standard Deviation 46.3 36.4-46.3 fL RDW Coefficient of Variation 14.5 11.5-14.5 % Immature Granulocyte % (Auto) 0.3 % Immature Granulocyte # (Auto) 0.03 0.00-0.02 K/uL Prothrombin Time 10.5 9.0-12.0 SECONDS Prothromb Time International Ratio 1.0 0.9-1.1 Activated Partial Thromboplast Time 23.5 21.0-31.0 SECONDS Partial Thromboplastin Ratio 0.9 Sodium Level 126 136-145 mmol/L Potassium Level 4.1 3.5-5.1 mmol/L Chloride Level 92 98-107 mmol/L Carbon Dioxide Level 26 21-32 mmol/L Anion Gap 8.0 3-11 mmol/L Blood Urea Nitrogen 13 7-18 mg/dl Creatinine 0.61 0.60-1.20 mg/dl Est Creatinine Clear Calc Drug Dose 80.6 ml/min Estimated GFR () 105.0 Estimated GFR (Non- 90.6 BUN/Creatinine Ratio 21.4 10-20 Random Glucose 104 70-99 mg/dl Calcium Level 8.7 8.5-10.1 mg/dl Total Bilirubin 0.6 0.2-1 mg/dl Direct Bilirubin 0.2 0-0.2 mg/dl Aspartate Amino Transf (AST/SGOT) 31 15-37 U/L Alanine Aminotransferase (ALT/SGPT) 24 12-78 U/L Alkaline Phosphatase 29 45-117 U/L Total Protein 5.9 6.4-8.2 gm/dl Albumin 2.5 3.4-5.0 gm/dl Urine Color DK YELLOW Urine Appearance CLEAR CLEAR Urine pH 6.0 4.5-7.5 Urine Specific [place] 1.034 1.000-1.030 Urine Protein 1+ NEG Urine Glucose (UA) NEG NEG Urine Ketones 2+ NEG Urine Occult Blood NEG NEG Urine Nitrite NEG NEG Urine Bilirubin NEG NEG Urine Urobilinogen NEG NEG Urine Leukocyte Esterase SMALL NEG Urine WBC (Auto) 10-30 0-5 /hpf Urine RBC (Auto) 0-4 0-4 /hpf Urine Hyaline Casts (Auto) 5-10 0-5 /lpf Urine Epithelial Cells (Auto) >30 0-5 /lpf Urine Bacteria (Auto) NEG NEG Urine Renal Epithelial Cells 0-5 /lpf Urine Crystals CALCIUM OXALATE NONE PRSENT Microbiology Results 06/03/17 Urine Culture, Received Pending Diagnostic Radiology CXR 1. Moderate right and small left pleural effusion with mildly increased amount of pleural fluid on the right from comparison. 2. Bibasilar opacities favor atelectasis. EKG EKG normal sinus at 98 bmp Impression Assessment and Plan 71 year old female with a PMH of mantle cell lymphoma, HTN, HLD and GERD presented to [facility] due to worsening shortness of breath secondary to bilateral pleural effusions. SOB secondary to bilateral pleural effusions - Likely secondary to malignant pleural effusions - Will obtain echo in the am to rule out CHF as cause of her effusions - O2 via nursing protocol - Morphine 2mg IV to help with shortness of breath and abdominal pain - Consult Pulmonology for pleural tap Hyponatremia secondary to dehydration - + 2 ketones in urine - 90 mls/hr of NS - recheck BMP in the AM Mantle Cell Lymphoma - First diagnosed in the R neck in 2014, has received chemo in 2014, radiation in 2015/2016, immunotherapy in 2016, stable disease recorded on imaging of neck in 08/2016 - Presented on 05/27/17 and diagnosed with worsening of MCL in gastric region with associated pleural effusions and ascites - has already received 2 doses of radiation - planned 3rd dose tomorrow, discuss with radiation oncology in the AM to make aware of patients admission - Scheduled to see Dr. Chaves in the outpatient setting - Likely main contributor to patients shortness of breath HTN - will give labetolol 50mg po one time dose as blood pressure 176/99 - continue verapamil in the AM Moderate protein malnutrition - albumin of 2.5 - secondary to carcinoma - consider Dietary consult during this admission HLD - continue simvastatin Osteoporosis - continue evista DVT prophylaxis - SCD's to knee - hold off on chemical anticoagulation due to likely need for tap in the morning DNR Resident Physician Supervision Note: I was present with Dr. Le during the history and exam. I discussed the case with the resident and agree with the findings and plan as documented in the note. Any exceptions or clarifications are listed here: 71 y/o F Hx HTN, HPL, mantle cell lymphoma - currently receiving chemo and radiation. Presents with progressive SOB and edeme. Enlarging R pleural effusion present on CXR. OE Pale, elderly F in no distress - mild tachypnea noted Decreased air at bases - R>L S1,2 R CTAB NT, ND BL edema 3+ P: Pt will likely require thoracentesis Effusions may be malignant, although we cannot entirely r/o CHF Reg her edema - there is protein malnutrition on labs which may be the cause - CHF is again a consideration The pt is pending an AM echo and we have consulted Pulm for thoracentesis - if the effusions are malignant, she will likely exhibit rapid reaccumulation and may need a thoracic surg eval. It is unclear if her protei levels can be improved presently. Supplements will be provided. Documented By: Amadou Perez Resuscitation Status VTE Prophylaxis Will order VTE Prophylaxis: Yes
[2017-06-04] VITALS (9 sets, daily range): BP systolic 119–172; BP diastolic 76–100; PULSE 96–109; TEMP 36.5–36.8; O2SAT 90–97; Ht 152.4 cm; Wt 81.1 kg
[2017-06-04] MEDS ORDERED: LABETALOL HCL 100 MG TAB PO ONE (00:45)
[2017-06-04] MEDS: SODIUM CHLORIDE 0.9% 1000ML 1,000 ML IV SCH ×3 (00:46→23:27)
[2017-06-04] MEDS ORDERED: LORAZEPAM INJ 2 MG in SYRINGE 1 ML IV ONE (03:00)
[2017-06-04 05:03] LABS: BASO % 0.2 %; BASO ABS # 0.02 K/uL (0-0.2); EOS % 0.2 %; EOS ABS # 0.02 K/uL (0-0.5); HEMATOCRIT 29.9 % (37-47); HEMOGLOBIN 9.6 g/dL (12.0-16.0); IG# 0.05 K/uL (0.00-0.02); LYMPH % 3.9 %; LYMPH ABS # 0.39 K/uL (1.2-3.4); MEAN CORPUSCULAR HEMOGLOBIN 28.6 pg (25-34); MEAN CORPUSCULAR HGB CONC 32.1 g/dl (32-36); MEAN PLATELET VOLUME 9.5 fL (7.4-10.4); MONO % 8.1 %; MONO ABS # 0.82 K/uL (0.11-0.59); NEUT % 87.1 %; NEUT ABS # 8.79 K/uL (1.4-6.5); PLATELET COUNT 325 K/uL (130-400); RED CELL DISTRIBUTION WIDTH CV 14.4 % (11.5-14.5); RED CELL DISTRIBUTION WIDTH SD 47.1 fL (36.4-46.3); WHITE BLOOD COUNT 10.09 K/uL (4.8-10.8)
[2017-06-04 05:20] LABS: ALBUMIN 2.4 gm/dl (3.4-5.0); CALCIUM 8.4 mg/dl (8.5-10.1); CREATININE 0.61 mg/dl (0.60-1.20); POTASSIUM 4.4 mmol/L (3.5-5.1)
[2017-06-04 05:25] LABS: TOTAL PROTEIN 5.8 gm/dl (6.4-8.2)
--- NOTE | 2017-06-04 06:53 | Family Medicine Progress Note ---
Progress Note Date of Service Jun 04, 2017. Subjective Pt evaluation today including: conversation w/ patient Pt was seen and examined at bedside. Had 1.4L drained by Dr. Delgado. Still requires 2L via NC. Scheduled for radiation treatment later today. Is complaining of R sided pain where the drain was done. Constitutional: No fever, No chills, No sweats ENT: No hearing loss Respiratory: + cough, + shortness of breath, No sputum, No wheezing Cardiovascular: No chest pain Abdomen: No nausea, No vomiting, No diarrhea, No constipation Female : No dysuria Objective Physical Exam Notes: General Appearance: WD/WN, no apparent distress Eyes: normal inspection, PERRL ENT: normal ENT inspection Neck: supple, no adenopathy Respiratory/Chest: chest non-tender, no respiratory distress, no accessory muscle use, + pertinent finding (bilateral crackles posteriorly in the lower lobes. wearing 2LNC. Chemoport on left upper chest. ) Cardiovascular: regular rate, rhythm, no gallop, no JVD, no murmur Abdomen: + pertinent finding (hard abdomen, diffusely TTP abdomen, mild rebound tenderness in all quadrants. ) Extremities: + pedal edema (2+ on the lower extremities) Neurologic/Psychiatric: export agent II-XII nml as tested, no motor/sensory deficits, alert, normal mood/affect, oriented x 3 Skin: normal color, warm/dry, no rash Assessment and Plan 71F with a PMH of mantle cell lymphoma, HTN, HLD and GERD presented to [facility] due to worsening shortness of breath secondary to bilateral pleural effusions. 1.4L was drained by Dr. Delgado. Pt has a new oxygen requirement. SOB and hypoxia secondary to bilateral pleural effusions Drained 1.4L from right side, serosanguineous, likely exudative based on fluid protein level of 3.6, Echo was not ordered on admission, ordering now. Per Dr. Delgado's note, will get a Duplex US of the Liver for eval for portal HTN. Will try to wean O2. Incentive Spirometry. Tylenol and Ultram PRN for pain at the site of the pleural tap. Hyponatremia secondary to dehydration + 2 ketones in urine c/w 90 mls/hr of NS recheck BMP in the AM Mantle Cell Lymphoma First diagnosed in the R neck in 2014, has received chemo in 2014, radiation in 2016/2016, immunotherapy in 2017, stable disease recorded on imaging of neck in 08/2016 Presented on 05/27/17 and diagnosed with worsening of MCL in gastric region with associated pleural effusions and ascites has already received 2 doses of radiation Rad Onc consulted (Dr. Rothman), pt will receive 3rd radiation treatment to abdomen today. HTN continue verapamil in the AM Moderate protein malnutrition albumin of 2.5 secondary to carcinoma c/w Boost Supplementation HLD continue simvastatin Osteoporosis continue evista DVT prophylaxis SCD's to knee Hold of AC if needs another tap. Tele. DNR Resident Involvement: Resident Care Provided Care Provided: Adult [facility] Medicine Reviewed: Pt Seen/Exam by Me History shortness of breath much improved after thoracentesis having pain in right flank at the site of thoracentesis. Constitutional: denies: fever Respiratory: negative: short of breath Cardiovascular: denies chest pain General Appearance: no apparent distress Respiratory: no respiratory distress, decreased breath sounds (base) Cardiovascular: regular rate, rhythm Neurologic/Psychiatric: alert, oriented x 3 Skin Characteristics: warm/dry Assessment/Plan Resident Physician Supervision Note: I independently interviewed and examined the patient and verified the ortiz history and physical, reviewed labs and image studies, discussed the case with the resident Dr. Araujo and agree with the findings and care plan.
[2017-06-04] MEDS: VERAPAMIL HCL 240 MG TABCR PO SCH (08:23)
[2017-06-04] MEDS: PANTOprazole SOD 40 MG TAB PO SCH (08:23)
[2017-06-04] MEDS: GLUCOSAMINE SULFATE 500 MG CAP PO SCH (08:24)
[2017-06-04] MEDS: BOOST PLUS VANILLA PO SCH ×3 (08:28→20:47)
--- NOTE | 2017-06-04 08:34 | Procedure Note ---
Procedure Note Date of Service Jun 04, 2017. Procedure Note Procedures: Right sided Thoracentesis Consent: obtained via the patient and placed into the chart Pre-Procedural Dx: Post-Procedural Dx: Analgesia: 8cc of 1% Liquid Lidocaine Procedure: The patient was placed in an upright position and thoracic US was used to select a spot for the procedure. A spot along the posterior axillary line was marked in the 7th intercostal space. The patient was then draped and prepped in a sterile fashion. A modified Seldinger technique was then used for catheter placement. Flowing this approximately 1500cc of serosanguineous pleural fluid was removed. The patient was then cleaned and placed at a 60 degree angle in the bed were the US was used to evaluate for possible pneumothorax. The US showed good lung sliding and starry night sign. EBL: none Complications: none
--- NOTE | 2017-06-04 08:55 | Pulmonary Consultation ---
History General Date of Service: Jun 04, 2017. Stated Complaint: Shortness Of Breath HPI The patient is a 71 year old female who presents to [facility] with complaints of Shortness Of Breath. The patient's primary care provider is Shahzad Norton MD. Patient was admitted 06/03/2017 with progressive dyspnea. She has a significant PmHx: Mantle cell lymphoma, gastric mass, abdominal in thoracic lymphadenopathy, GERD, hypertension, hyperlipidemia. She was recently admitted to [facility] 05/27/2017 through 05/30/2017 for GI bleed/melanotic stool with associated anemia requiring PRBC transfusion in which EGD EGD biopsy of the stomach was consistent with recurrent mantle cell lymphoma. CT scan of her abdomen and chest which showed a gastric mass concerning for mantle cell lymphoma, abdominal ascites, R/L pleural effusions, and retroperitoneal lymphadenopathy. She underwent an EGD and was diagnosed as having a recurrence of her mantle cell lymphoma. She had a 2 step done prior to discharge which she passed and she was therefore sent home without oxygen. She was set up to have radiation of her abdominal mantle cell lymphoma as an outpatient and today she received her second dose. Patient has been experiencing increasing dyspnea on exertion for at least a 5 week window. In the last 48 hours she noted a dramatic increase in the dyspnea to the point where she was notably dyspneic at rest within the last 24 hours. Patient is also been noting increasing early satiety with abdominal bloating but notes regular bowel movements and passing gas. During our conversation she denied: Fever, chills, productive cough, pleurisy, classic cardiac chest pain. Current workup Na: 127 Total protein: 5.8 Albumin: 2.4 Urinalysis: Possible UTI/calcium oxalate crystals Pending: Urine culture Previous imaging CTA chest/abdomen 05/27/2017: Large right-sided pleural effusion which appears to be loculated component associated with right middle lobe and associated atelectasis, subdiaphragmatic right-sided perihepatic fluid PET-CT imaging 08/26/2016: No signs of pleural effusion PmHx: 1. Mantle cell lymphoma: a. Initially diagnosed FNA 07/07/2014 b. Systemic chemotherapy c. 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 Right neck mass March 2016, XRT 10/22/2016 receive 4500 centigray e. PET-CT FDG avid: Initiation of immunotherapy with Ibrutinib - started May 2016 f. EGD 05/28/2017--biopsy consistent recurrence mantle cell lymphoma 2. Headaches 3. Hypercholesterolemia 4. Hypertension 5. Depression 6. GERD 7. History of right facial numbness PsHx: 1. right parotidectomy and cervical lymph node excision 07/22/2014 2. Appendectomy/cholecystectomy Family history Breast cancer, colon cancer, diabetes, hypertension, DVT Social history Tobacco: Never smoker Alcohol: No history of abuse, currently no use Mental status: , lives with family Occupation: Retired Allergies: Propoxyphene (Verified Allergy, Intermediate, RASH, 09/05/16) Lisinopril (Verified Adverse Reaction, Mild, COUGH, 09/05/16) Review of Systems Constitutional: reports: malaise, weakness Eyes: reports: no symptoms ENT: reports: no symptoms Cardiovascular: reports: as stated in HPI Respiratory: reports: as stated in HPI Gastrointestinal: reports: as stated in HPI Genitourinary - Female: reports: no symptoms Musculoskeletal: reports: as stated in HPI Integumentary: reports: no symptoms Neurologic: reports: no symptoms Psychiatric: reports: anxiety Endocrine: no symptoms Hematologic / Lymphatic: no symptoms Allergic / Immunologic: no symptoms Past Medical History Past Medical History: Please refer to HPI Past Surgical History: Please refer to HPI Family History FH: breast cancer FH: colon cancer Social History Please refer to [facility] Hx Tobacco Use In Past Year?: No Smoking Status: Never Smoker Marital status: Housing status: lives with significant other Occupational Status: retired Immunizations History of Influenza Vaccine: Yes History of Tetanus Vaccine?: Yes History of Pneumococcal: Yes History of Hepatitis B Vaccine: Yes History of MDRO History of MDRO: No Allergies Coded Allergies: Propoxyphene (Verified Allergy, Intermediate, RASH, 09/05/16) Lisinopril (Verified Adverse Reaction, Mild, COUGH, 09/05/16) Current Medications Reported Home Medications Medications Dose Route/Sig Max Daily Dose Days Date Category Zofran (Ondansetron HCl) 8 Mg Tab 8 Mg PO Q6H PRN 06/03/17 Reported Calan Sr Ext Rel (Verapamil HCl) 240 Mg Tabcr 240 Mg PO DAILY 06/03/17 Reported Protonix (Pantoprazole Sodium) 40 Mg Tab 40 Mg PO DAILY 06/03/17 Reported Miralax (Polyethylene Glycol 3350) 1 Pow Pow 17 Gm PO DAILY 05/27/17 Reported Glucosamine (Glucosamine Sulfate) 500 Mg Cap 500 Mg PO DAILY 03/25/17 Reported [place]-3 (Fish Oil) 1 Ea Cap 1 Cap PO DAILY 03/25/17 Reported Calcium (Calcium Carbonate-Vitamin D) 1 Tab Tab 1 Tab PO DAILY 03/25/17 Reported Vitamin D (Cholecalciferol) 2,000 Unit Cap 2,000 Units PO DAILY 03/25/17 Reported Metamucil (Psyllium) 48.57 % Pow 1 Dose PO DAILY 09/05/16 Reported Senokot (Senna) 8.6 Mg Tab 8.6 Mg PO QPM 09/05/16 Reported Simvastatin 40 Mg Tab 40 Mg PO HS 07/20/14 Reported Evista (Raloxifene) 60 Mg Tab 60 Mg PO QPM 07/20/14 Reported Physical Physical Exam Vital Signs: Date Time Temp Pulse Resp B/P (MAP) Pulse Ox O2 Delivery O2 Flow Rate FiO2 06/04/17 07:19 36.7 102 18 162/99 (120) 97 Nasal Cannula 3.0 06/04/17 04:55 Nasal Cannula 4.0 06/04/17 04:41 36.6 96 20 156/91 (112) 97 4.0 06/04/17 00:28 36.5 109 22 172/100 97 Nasal Cannula 4.0 06/03/17 23:36 89 22 170/89 96 06/03/17 21:55 101 20 176/99 94 Room Air 4.0 06/03/17 21:50 92 Room Air 06/03/17 20:51 100 06/03/17 20:24 36.8 102 22 169/92 92 Nasal Cannula 06/03/17 20:24 96 Nasal Cannula 4.0 General Appearance: uncomfortable, mild distress Head: NORMOCEPHALIC, ATRAUMATIC Eyes: PERRLA, NO DISCHARGE, EOMI, SCLERAE NORMAL ENT: NORMAL EAR EXAM, NORMAL NASAL EXAM, NORMAL MOUTH EXAM, NORMAL THROAT EXAM , NORMAL DENTAL EXAM Neck: NORMAL RANGE OF MOTION, NO TENDERNESS, TRACHEA MIDLINE, NO STRIDOR Respiratory: other (Decreased breath sounds bilaterally greatest on the right with dullness to percussion. Ultrasound evaluation notes large 1.5-2 L fluid collection appears to be free flowing on the right with small pleural effusion on the left. Cannot evaluate her to determine if there is some diaphragmatic fluid on the right) Cardiovasular: REGULAR RATE/RHYTHM, NORMAL S1S2, NO M/G/R, NO MURMUR, NO GALLOP Abdomen: other (Notably distended positive bowel sounds soft no tenderness to deep palpation mild hepatomegaly noted) Genitourinary - Female: EXTERNAL GENITALIA NORMAL Back: NORMAL INSPECTION, NO MIDLINE TENDERNESS, NO CVA TENDERNESS, NO PARAVERTEBRAL TTP Lower Extremities: NO EDEMA, NO DEFORMITY, NORMAL ROM Edema: Bilateral LE (1+) Pulses: carotid (R) (2+), carotid (L) (2+), posterior tibial (R), posterior tibial (L) (2+) Neuro: ALERT, ORIENTED x 3, other (Facial cranial nerve VII on the right side showing weakness with facial droop and eyedrop) Reflexes: biceps (R) (2+), bicpes (L) (2+), achilles (R) (2+), achilles (L) (2+ ) Babinski Testing: right (downgoing), left (downgoing) Psychiatric: NO SUICIDAL IDEATION, anxious Diagnostics Labs Results Past 24 Hours Test 06/03/17 20:59 06/03/17 21:25 06/04/17 04:37 06/04/17 08:31 Range/Units White Blood Count 10.89 10.09 4.8-10.8 K/uL Red Blood Count 3.42 3.36 4.2-5.4 M/uL Hemoglobin 10.1 9.6 12.0-16.0 g/dL Hematocrit 30.2 29.9 37-47 % Mean Corpuscular Volume 88.3 89.0 80-100 fL Mean Corpuscular Hemoglobin 29.5 28.6 25-34 pg Mean Corpuscular Hemoglobin Concent 33.4 32.1 32-36 g/dl Platelet Count 319 325 130-400 K/uL Mean Platelet Volume 9.4 9.5 7.4-10.4 fL Neutrophils (%) (Auto) 86.3 87.1 % Lymphocytes (%) (Auto) 5.7 3.9 % Monocytes (%) (Auto) 7.1 8.1 % Eosinophils (%) (Auto) 0.5 0.2 % Basophils (%) (Auto) 0.1 0.2 % Neutrophils # (Auto) 9.41 8.79 1.4-6.5 K/uL Lymphocytes # (Auto) 0.62 0.39 1.2-3.4 K/uL Monocytes # (Auto) 0.77 0.82 0.11-0.59 K/uL Eosinophils # (Auto) 0.05 0.02 0-0.5 K/uL Basophils # (Auto) 0.01 0.02 0-0.2 K/uL RDW Standard Deviation 46.3 47.1 36.4-46.3 fL RDW Coefficient of Variation 14.5 14.4 11.5-14.5 % Immature Granulocyte % (Auto) 0.3 0.5 % Immature Granulocyte # (Auto) 0.03 0.05 0.00-0.02 K/uL Prothrombin Time 10.5 9.0-12.0 SECONDS Prothromb Time International Ratio 1.0 0.9-1.1 Activated Partial Thromboplast Time 23.5 21.0-31.0 SECONDS Partial Thromboplastin Ratio 0.9 Sodium Level 126 127 136-145 mmol/L Potassium Level 4.1 4.4 3.5-5.1 mmol/L Chloride Level 92 94 98-107 mmol/L Carbon Dioxide Level 26 26 21-32 mmol/L Anion Gap 8.0 7.0 3-11 mmol/L Blood Urea Nitrogen 13 13 7-18 mg/dl Creatinine 0.61 0.61 0.60-1.20 mg/dl Est Creatinine Clear Calc Drug Dose 80.6 78.6 ml/min Estimated GFR () 105.0 105.0 Estimated GFR (Non- 90.6 90.6 BUN/Creatinine Ratio 21.4 20.5 10-20 Random Glucose 104 95 70-99 mg/dl Calcium Level 8.7 8.4 8.5-10.1 mg/dl Total Bilirubin 0.6 0.6 0.2-1 mg/dl Direct Bilirubin 0.2 0-0.2 mg/dl Aspartate Amino Transf (AST/SGOT) 31 32 15-37 U/L Alanine Aminotransferase (ALT/SGPT) 24 21 12-78 U/L Alkaline Phosphatase 29 28 45-117 U/L Total Protein 5.9 5.8 6.4-8.2 gm/dl Albumin 2.5 2.4 3.4-5.0 gm/dl Urine Color DK YELLOW Urine Appearance CLEAR CLEAR Urine pH 6.0 4.5-7.5 Urine Specific [place] 1.034 1.000-1.030 Urine Protein 1+ NEG Urine Glucose (UA) NEG NEG Urine Ketones 2+ NEG Urine Occult Blood NEG NEG Urine Nitrite NEG NEG Urine Bilirubin NEG NEG Urine Urobilinogen NEG NEG Urine Leukocyte Esterase SMALL NEG Urine WBC (Auto) 10-30 0-5 /hpf Urine RBC (Auto) 0-4 0-4 /hpf Urine Hyaline Casts (Auto) 5-10 0-5 /lpf Urine Epithelial Cells (Auto) >30 0-5 /lpf Urine Bacteria (Auto) NEG NEG Urine Renal Epithelial Cells 0-5 /lpf Urine Crystals CALCIUM OXALATE NONE PRSENT Pro-B-Type Natriuretic Peptide 164 0-900 pg/ml Globulin 3.4 2.5-4.0 gm/dl Albumin/Globulin Ratio 0.7 0.9-2 Microbiology Results 06/03/17 Urine Culture, Received Pending 06/04/17 Acid Fast Stain, Received Pending 06/04/17 Mycobacterial Culture, Received Pending 06/04/17 Gram Stain, Received Pending 06/04/17 Bacterial Culture, Received Pending Diagnostic Radiology Chest x-ray notable for large right-sided opacification consistent with pleural effusion and small costophrenic blunting of the left side Impression Assessment and Plan 71-year-old female mental cell lymphoma and progressive right-sided pleural effusion and associated dyspnea: 1. Pleural effusion: Patient is agreed to undergo thoracentesis of the right side. Please refer to that dictation. Pleural fluid will be sent off for microbiologic, cytology and chemical analysis. I did suggest we obtain an ultrasound to evaluate for possible portal hypertension associated with this patient as I do believe the pleural effusion is coming from sub-diaphragmatic process. 2. Dyspnea: Patient should be reevaluated after the thoracentesis regarding her respiratory status. She does have a dramatic improvement will continue to monitor. This time I do believe the patient has multiple etiologies for shortness of breath such as pleural effusion and a large sub-diaphragmatic mass increasing her overall work of breathing. If we do not note dramatic improvement in her respiratory status and further evaluation with CT angiogram for pneumonia, lung reexpansion and possible pulmonary emboli would be warranted.
--- NOTE | 2017-06-04 09:07 | DIAGNOSTIC IMAGING REPORT ---
SINGLE VIEW CHEST CLINICAL HISTORY: Status post thoracentesis. FINDINGS: An AP, portable, upright chest radiograph is compared to study dated 06/03/2017 and correlated with chest CT dated 05/27/2017. The examination is degraded by portable technique and patient rotation. A left subclavian central venous infusion port is unchanged in position. The cardiomediastinal silhouette is unremarkable. There are small pleural effusions with bibasilar atelectasis. The right pleural effusion has decreased in size from yesterday. No pneumothorax is seen. The bony thorax is grossly intact. IMPRESSION: 1. There are bilateral pleural effusions with associated atelectasis. The right pleural effusion has decreased in size from yesterday. 2. No pneumothorax is identified post procedure. Electronically signed by: Kristopher Betancourt M.D. 06/04/2017 9:05 AM Dictated Date/Time: 06/04/2017 9:02 AM
[2017-06-04 09:28] LABS: PLEURAL FLUID TOTAL PROTEIN 3.6 g/dl
--- NOTE | 2017-06-04 11:56 | Radiation Oncology Progress Nt ---
Radiation Oncology Progress Nt Date of Service Date of Service: Jun 04, 2017. Reason For Admission Pulmonary symptoms (Dyspnea) Requesting Physician Dr. Justyna Hancock Subjective Pt evaluation today including: physical exam, conversation with hospitalist, conversation with inpatient team, chart review, lab review, review of studies, review of inpatient medication list Patient admitted to hospital due to significant dyspnea even at rest. 06/03/2017 - CXR - IMPRESSION: 1. Moderate right and small left pleural effusion with mildly increased amount of pleural fluid on the right from comparison. 2. Bibasilar opacities favor atelectasis. 06/04/2017 - right sided thoracentesis by Dr. Delgado - findings: "The patient was placed in an upright position and thoracic US was used to select a spot for the procedure. A spot along the posterior axillary line was marked in the 7th intercostal space. The patient was then draped and prepped in a sterile fashion. A modified Seldinger technique was then used for catheter placement. Flowing this approximately 1500cc of serosanguineous pleural fluid was removed. The patient was then cleaned and placed at a 60 degree angle in the bed were the US was used to evaluate for possible pneumothorax. The US showed good lung sliding and starry night sign." 06/04/2017 - CXR - IMPRESSION: 1. There are bilateral pleural effusions with associated atelectasis. The right pleural effusion has decreased in size from yesterday. 2. No pneumothorax is identified post procedure. Radiation Therapy Has patient started Radiation: Yes Number of Treatments Received: 1 Number of Treatments Planned: 18 Current Chemotherapy: No Objective Vital Signs Date Time Temp Pulse Resp B/P (MAP) Pulse Ox O2 Delivery O2 Flow Rate FiO2 06/04/17 08:00 Nasal Cannula 4.0 06/04/17 07:19 36.7 102 18 162/99 (120) 97 Nasal Cannula 3.0 06/04/17 04:55 Nasal Cannula 4.0 06/04/17 04:41 36.6 96 20 156/91 (112) 97 4.0 06/04/17 00:28 36.5 109 22 172/100 97 Nasal Cannula 4.0 06/03/17 23:36 89 22 170/89 96 06/03/17 21:55 101 20 176/99 94 Room Air 4.0 06/03/17 21:50 92 Room Air 06/03/17 20:51 100 06/03/17 20:24 36.8 102 22 169/92 92 Nasal Cannula 06/03/17 20:24 96 Nasal Cannula 4.0 Laboratory Results Last 24 Hours Test 06/03/17 20:59 06/03/17 21:25 06/04/17 04:37 06/04/17 08:31 White Blood Count 10.89 K/uL 10.09 K/uL Red Blood Count 3.42 M/uL 3.36 M/uL Hemoglobin 10.1 g/dL 9.6 g/dL Hematocrit 30.2 % 29.9 % Mean Corpuscular Volume 88.3 fL 89.0 fL Mean Corpuscular Hemoglobin 29.5 pg 28.6 pg Mean Corpuscular Hemoglobin Concent 33.4 g/dl 32.1 g/dl Platelet Count 319 K/uL 325 K/uL Mean Platelet Volume 9.4 fL 9.5 fL Neutrophils (%) (Auto) 86.3 % 87.1 % Lymphocytes (%) (Auto) 5.7 % 3.9 % Monocytes (%) (Auto) 7.1 % 8.1 % Eosinophils (%) (Auto) 0.5 % 0.2 % Basophils (%) (Auto) 0.1 % 0.2 % Neutrophils # (Auto) 9.41 K/uL 8.79 K/uL Lymphocytes # (Auto) 0.62 K/uL 0.39 K/uL Monocytes # (Auto) 0.77 K/uL 0.82 K/uL Eosinophils # (Auto) 0.05 K/uL 0.02 K/uL Basophils # (Auto) 0.01 K/uL 0.02 K/uL RDW Standard Deviation 46.3 fL 47.1 fL RDW Coefficient of Variation 14.5 % 14.4 % Immature Granulocyte % (Auto) 0.3 % 0.5 % Immature Granulocyte # (Auto) 0.03 K/uL 0.05 K/uL Prothrombin Time 10.5 SECONDS Prothromb Time International Ratio 1.0 Activated Partial Thromboplast Time 23.5 SECONDS Partial Thromboplastin Ratio 0.9 Sodium Level 126 mmol/L 127 mmol/L Potassium Level 4.1 mmol/L 4.4 mmol/L Chloride Level 92 mmol/L 94 mmol/L Carbon Dioxide Level 26 mmol/L 26 mmol/L Anion Gap 8.0 mmol/L 7.0 mmol/L Blood Urea Nitrogen 13 mg/dl 13 mg/dl Creatinine 0.61 mg/dl 0.61 mg/dl Est Creatinine Clear Calc Drug Dose 80.6 ml/min 78.6 ml/min Estimated GFR () 105.0 105.0 Estimated GFR (Non- 90.6 90.6 BUN/Creatinine Ratio 21.4 20.5 Random Glucose 104 mg/dl 95 mg/dl Calcium Level 8.7 mg/dl 8.4 mg/dl Total Bilirubin 0.6 mg/dl 0.6 mg/dl Direct Bilirubin 0.2 mg/dl Aspartate Amino Transf (AST/SGOT) 31 U/L 32 U/L Alanine Aminotransferase (ALT/SGPT) 24 U/L 21 U/L Alkaline Phosphatase 29 U/L 28 U/L Total Protein 5.9 gm/dl 5.8 gm/dl Albumin 2.5 gm/dl 2.4 gm/dl Urine Color DK YELLOW Urine Appearance CLEAR Urine pH 6.0 Urine Specific [place] 1.034 Urine Protein 1+ Urine Glucose (UA) NEG Urine Ketones 2+ Urine Occult Blood NEG Urine Nitrite NEG Urine Bilirubin NEG Urine Urobilinogen NEG Urine Leukocyte Esterase SMALL Urine WBC (Auto) 10-30 /hpf Urine RBC (Auto) 0-4 /hpf Urine Hyaline Casts (Auto) 5-10 /lpf Urine Epithelial Cells (Auto) >30 /lpf Urine Bacteria (Auto) NEG Urine Renal Epithelial Cells /lpf Urine Crystals CALCIUM OXALATE Pro-B-Type Natriuretic Peptide 164 pg/ml Globulin 3.4 gm/dl Albumin/Globulin Ratio 0.7 Pleural Fluid Source RIGHT LUNG Pleural Fluid Color RED Pleural Fluid Appearance BLOODY Pleural Fluid WBC 7550 /uL Pleural Fluid RBC 36824 /uL Pleural Fluid Other Cells % Pleural Fluid pH 7.24 Pleural Fluid Polynuclear WBCs % 1.9 % Pleural Fluid Mononuclear WBCs % 98.1 % Pleural Fluid Total Protein 3.6 g/dl Pleural Fluid LDH 321 IU Pleural Fluid Glucose 59 mg/dl Pleural Fluid Amylase 23 U/L Assessment and Plan We have discussed the patients care with the primary hospital service. The patients reason for admission is unrelated to radiation therapy. The primary hospital service has recommended the patient continue with radiation therapy while in the inpatient setting. The patient will be evaluated in our department and will continue with radiation therapy during this hospital course. Please call us with any further questions or concerns or if the patients condition changes during her hospital admission.
[2017-06-04] MEDS ORDERED: NURSING VERBAL MED ORDER ONE ×2 (12:00→17:45)
[2017-06-04] MEDS ORDERED: TRAMADOL HCL 50 MG TAB PO PRN (12:30)
[2017-06-04] MEDS ORDERED: ACETAMINOPHEN 325 MG TAB PO PRN (12:30)
--- NOTE | 2017-06-04 13:51 | ECHOCARDIOGRAM REPORT ---
*NOTICE TO RECEIVING DEMOCRAT AGENCY This information is strictly Confidential and protected under [place] law. [place] law prohibits you from making any further disclosure of this information unless further disclosure is expressly permitted by the written consent of the person to whom it pertains or is authorized by law. A general authorization for the release of medical or other information is not sufficient for this purpose. Hospital accepts no responsibility if the information is made available to any other person, INCLUDING THE PATIENT. Interpretation Summary * Name: PADMAJA GORE Study Date: 06/04/2017 06:21 AM BP: 156/91 mmHg * Patient Location: [facility]\S\[id number]\S\1 HR: 91 * : 1945 (M/d/yyyy) Gender: Female Height: 60 in * Age: 71 yrs Ethnicity: CA Weight: 187 lb * Ordering Physician: Elder Stack * Referring Physician: No Doctor, Assigned * Performed By: Edna Garcia RCS * * Reason For Study: CHF / SOB * BSA: 1.8 m2 * -- Conclusions -- * 1. Normal LV size. Mild concentric LVH with asymmetric basal septal hypertrophy. * 2. LVEF 65-70 %. No regional wall motion abnormalities. * 3. Normal RV size and function. * 4. Mitral valve systolic anterior motion. No significant LVOT gradient, trace mitral regurgitation. * 5. Grade 1 diastolic dysfunction. * 6. Normal estimated PA and RA pressures. * 7. Compared with prior study on 08/23/2014: No significant change Procedure Details * A complete two-dimensional transthoracic echocardiogram was performed (2D, M-mode, Doppler and color flow Doppler). Left Ventricle * The left ventricle is grossly normal size. * There is mild concentric left ventricular hypertrophy. * There is mild asymmetric left ventricular hypertrophy. * Ejection Fraction = 65-70%. * No regional wall motion abnormalities noted. Right Ventricle * The right ventricle is grossly normal size. * The right ventricular systolic function is normal as assessed by tricuspid annular plane systolic excursion (TAPSE) (normal >1.5 cm). Atria * The left atrial size is normal. * Right atrial size is normal. * No ASD detected; PFO is not assessed. Mitral Valve * The mitral valve is grossly normal. * There is systolic anterior motion of the mitral valve. * There is no mitral valve stenosis. * There is trace mitral regurgitation. Tricuspid Valve * There is trace tricuspid regurgitation. Aortic Valve * The aortic valve opens well. * The aortic valve is trileaflet. * No hemodynamically significant valvular aortic stenosis. * There is no significant aortic regurgitation. Pulmonic Valve * The pulmonary valve is inadequately visualized, but the Doppler data is adequate for interpretation. * Pulmonic stenosis is absent. * There is no significant pulmonary regurgitation. Great Vessels * The aortic root and proximal ascending aorta are normal sized. Pericardium/Pleural * There is no pericardial effusion. * Moderate size left pleural effusion. * Large right pleural effusion. Great Vessels * Normal inferior vena cava size and collapsability with sniff indicates a normal right atrial pressure of 3 mmHg MMode 2D Measurements and Calculations IVSd 1.6 cm IVSs 1.5 cm LVIDd 2.9 cm LVIDs 1.1 cm LVPWd 1.1 cm LVPWs 1.3 cm IVS/LVPW 1.5 FS 61.2 % EDV(Teich) 32.0 ml ESV(Teich) 2.8 ml EF(Teich) 91.2 % EDV(cubed) 24.2 ml ESV(cubed) 1.4 ml EF(cubed) 94.2 % % IVS thick -3.12 % % LVPW thick 19.9 % LV mass(C)d 121.5 grams LV mass(C)dI 67.0 grams/m\S\2 LV mass(C)s 49.8 grams LV mass(C)sI 27.5 grams/m\S\2 SV(Teich) 29.2 ml SI(Teich) 16.1 ml/m\S\2 SV(cubed) 22.8 ml SI(cubed) 12.5 ml/m\S\2 Ao root diam 2.6 cm Ao root area 5.3 cm\S\2 ACS 1.7 cm LA dimension 2.4 cm LA/Ao 0.93 LVOT diam 2.0 cm LVOT area 3.1 cm\S\2 LVAd ap4 25.5 cm\S\2 LVLd ap4 7.2 cm EDV(MOD-sp4) 74.2 ml EDV(sp4-el) 76.6 ml LVAs ap4 14.3 cm\S\2 LVLs ap4 5.2 cm ESV(MOD-sp4) 32.8 ml ESV(sp4-el) 33.5 ml EF(MOD-sp4) 55.8 % EF(sp4-el) 56.3 % LVAd ap2 28.0 cm\S\2 LVLd ap2 7.8 cm EDV(MOD-sp2) 82.0 ml EDV(sp2-el) 85.2 ml LVAs ap2 16.7 cm\S\2 LVLs ap2 6.2 cm ESV(MOD-sp2) 39.4 ml ESV(sp2-el) 38.3 ml EF(MOD-sp2) 51.9 % EF(sp2-el) 55.1 % LVLd %diff 8.1 % EDV(MOD-bp) 80.5 ml LVLs %diff 16.5 % ESV(MOD-bp) 38.3 ml EF(MOD-bp) 52.5 % SV(MOD-sp4) 41.4 ml SI(MOD-sp4) 22.8 ml/m\S\2 SV(MOD-sp2) 42.5 ml SI(MOD-sp2) 23.5 ml/m\S\2 SV(MOD-bp) 42.2 ml SI(MOD-bp) 23.3 ml/m\S\2 SV(sp4-el) 43.1 ml SI(sp4-el) 23.8 ml/m\S\2 SV(sp2-el) 46.9 ml SI(sp2-el) 25.9 ml/m\S\2 Doppler Measurements and Calculations MV E max ramirez 70.6 cm/sec MV A max ramirez 111.1 cm/sec MV E/A 0.64 MV P1/2t max ramirez 155.2 cm/sec MV P1/2t 46.4 msec MVA(P1/2t) 4.7 cm\S\2 MV dec slope 978.9 cm/sec\S\2 MV dec time 0.14 sec MR max ramirez 603.9 cm/sec MR max PG 145.9 mmHg PA V2 max 100.9 cm/sec PA max PG 4.1 mmHg TR max ramirez 253.3 cm/sec
--- NOTE | 2017-06-04 15:48 | DIAGNOSTIC IMAGING REPORT ---
DUPLEX PORTAL HEPATIC VEINS CLINICAL HISTORY: eval for portal HTN in setting of lower extremity edema and pleural effusions COMPARISON STUDY: Abdomen and pelvis CT 05/27/2017. FINDINGS: The portal veins are patent and demonstrate the normal hepatopedal direction of flow. Velocities are within normal limits. The visualized hepatic veins and IVC are also patent. Small amount of perihepatic ascites. There is also a right pleural effusion. IMPRESSION: 1. The portal veins are patent and demonstrate normal direction of flow. 2. Small amount of perihepatic ascites and a right pleural effusion. Electronically signed by: Micah Agee M.D. 06/04/2017 3:47 PM Dictated Date/Time: 06/04/2017 3:45 PM
[2017-06-04] MEDS ORDERED: ZOLPIDEM TARTRATE 5 MG TAB PO PRN (18:00)
[2017-06-04] MEDS ORDERED: RALOXIFENE 60 MG TAB PO SCH (21:00)
[2017-06-04] MEDS ORDERED: SIMVASTATIN 40 MG TAB PO SCH (21:00)
[2017-06-04] MEDS ORDERED: SENNA 8.6 MG TAB PO SCH (21:00)
[2017-06-05 03:59] VITALS: BP 153/80; PULSE 101; TEMP 36.7; O2SAT 95
--- NOTE | 2017-06-05 07:29 | Family Medicine Progress Note ---
Progress Note Date of Service Jun 05, 2017. Subjective Pt evaluation today including: conversation w/ patient Pt is resting comfortably in bed. No acute overnight events. Pt is still wearing 2LNC. Tolerated radiation well yesterday. Scheduled for repeat radiation today. Constitutional: No fever, No chills, No sweats ENT: No hearing loss Respiratory: + cough, + shortness of breath, + dyspnea on exertion, No sputum, No wheezing Cardiovascular: No chest pain Abdomen: No pain, No nausea, No vomiting, No diarrhea, No constipation Female : No dysuria Neurologic: No memory loss Skin: No rash Objective Physical Exam Notes: General Appearance: WD/WN, no apparent distress Eyes: normal inspection, PERRL ENT: normal ENT inspection Neck: supple, no adenopathy Respiratory/Chest: chest non-tender, no respiratory distress, no accessory muscle use, CTA bilaterally, wearing 2LNC. Chemoport on left upper chest. ) Cardiovascular: regular rate, rhythm, no gallop, no JVD, no murmur Abdomen: + pertinent finding (hard abdomen, diffusely TTP abdomen, mild rebound tenderness in all quadrants. ) Extremities: + pedal edema (2+ on the lower extremities) Neurologic/Psychiatric: buttonhole facer II-XII nml as tested, no motor/sensory deficits, alert, normal mood/affect, oriented x 3 Skin: normal color, warm/dry, no rash Assessment and Plan 71F with a PMH of mantle cell lymphoma, HTN, HLD and GERD presented to [facility] due to worsening shortness of breath secondary to bilateral pleural effusions. 1.4L was drained by Dr. Delgado. Pt is being weaned to room air. SOB and hypoxia secondary to bilateral pleural effusions s/p 1.4L drained from right side, serosanguineous, likely exudative based on fluid protein level of 3.6. Echo is unchanged from previous echo in 2015. Duplex US of the liver with WNL - no portal HTN. Incentive Spirometry. Tylenol and Ultram PRN for pain at the site of the pleural tap. Weaning O2. Hyponatremia secondary to dehydration + 2 ketones in urine, s/p 90 mls/hr of NS Recheck BMP in the AM Mantle Cell Lymphoma First diagnosed in the R neck in 2014, has received chemo in 2014, radiation in , immunotherapy in 2016, stable disease recorded on imaging of neck in 08/2016 Presented on 4/3/18 and diagnosed with worsening of MCL in gastric region with associated pleural effusions and ascites has already received 2 doses of radiation Rad Onc consulted (Dr. Rothman), pt will receive 4th radiation treatment to abdomen today. HTN Continue verapamil in the AM Moderate protein malnutrition Albumin of 2.5 secondary to carcinoma. c/w Boost Supplementation HLD Continue simvastatin Osteoporosis Continue evista DVT prophylaxis SCD's to knee Hold off AC if needs another tap. Transfer to Med Surg. DNR Resident Involvement: Resident Care Provided Care Provided: Adult Hospital Medicine
[2017-06-05 07:30] VITALS: BP 144/85; PULSE 101; TEMP 36.8; O2SAT 97
[2017-06-05] MEDS: VERAPAMIL HCL 240 MG TABCR PO SCH (07:46)
[2017-06-05] MEDS: GLUCOSAMINE SULFATE 500 MG CAP PO SCH (07:46)
[2017-06-05] MEDS: PANTOprazole SOD 40 MG TAB PO SCH (07:46)
[2017-06-05] MEDS: BOOST PLUS VANILLA PO SCH ×2 (07:50→14:00)
[2017-06-05 07:57] LABS: BASO % 0.1 %; BASO ABS # 0.01 K/uL (0-0.2); EOS % 0.9 %; HEMATOCRIT 29.4 % (37-47); HEMOGLOBIN 9.7 g/dL (12.0-16.0); IG# 0.03 K/uL (0.00-0.02); LYMPH % 5.1 %; LYMPH ABS # 0.55 K/uL (1.2-3.4); MEAN CELL VOLUME 88.6 fL (80-100); MEAN CORPUSCULAR HEMOGLOBIN 29.2 pg (25-34); MONO % 7.6 %; MONO ABS # 0.82 K/uL (0.11-0.59); NEUT ABS # 9.28 K/uL (1.4-6.5); PLATELET COUNT 334 K/uL (130-400); RED CELL DISTRIBUTION WIDTH CV 14.7 % (11.5-14.5); RED CELL DISTRIBUTION WIDTH SD 47.3 fL (36.4-46.3); WHITE BLOOD COUNT 10.79 K/uL (4.8-10.8)
--- NOTE | 2017-06-05 08:00 | DIAGNOSTIC IMAGING REPORT ---
CHEST 2 VIEWS ROUTINE HISTORY: 71 years-old Female pleural effusions follow-up study in a patient with pleural effusion COMPARISON: Chest radiograph 06/04/2017 TECHNIQUE: PA and lateral views of the chest FINDINGS: Cardiac silhouette is upper limits of normal, unchanged. Small bilateral pleural effusions are unchanged with right perihilar and bibasilar subsegmental opacities suggesting atelectasis. Left subclavian Cwsfal-s-Euem catheter is unchanged. Lungs are hypoinflated. The bones of the chest appear grossly intact. IMPRESSION: 1. Small bilateral pleural effusions with right perihilar and bibasilar opacities suggesting atelectasis. 2. Hypoinflation. The above report was generated using voice recognition software. It may contain grammatical, syntax or spelling errors. Electronically signed by: Connor Hsu M.D. 06/05/2017 7:59 AM Dictated Date/Time: 06/05/2017 7:41 AM
[2017-06-05 08:19] LABS: ALBUMIN 2.3 gm/dl (3.4-5.0); CALCIUM 8.4 mg/dl (8.5-10.1); CREATININE 0.46 mg/dl (0.60-1.20); POTASSIUM 4.3 mmol/L (3.5-5.1); TOTAL PROTEIN 5.5 gm/dl (6.4-8.2)
[2017-06-05] MEDS ORDERED: NURSING VERBAL MED ORDER ONE (10:15)
[2017-06-05 11:43] VITALS: BP 149/78; PULSE 104; TEMP 36.4; O2SAT 93
--- NOTE | 2017-06-05 12:41 | PROGRESS NOTE ---
DATE: 06/05/2017 PROBLEM LIST: Includes: 1. Pleural effusion. 2. Dyspnea. 3. Mantle cell lymphoma. SUBJECTIVE: The patient underwent thoracentesis yesterday for 1.4 liters of fluid. It does appear to be extreme nature per Dr. Delgado. That is consistent with malignant cells from her mantle cell lymphoma. In talking with the patient, she does feel better today. She feels that her breathing is improved. She is not as short of breath. She is not as tight in her chest. She still does feel some dyspnea. She is using her oxygen and feels that is helpful. She feels more tired than having today. She has less chest pressure, less chest heaviness and tightness. She has less abdominal pressure. She denies a significant cough or wheeze. She denies any pleuritic chest pain. No cardiac symptoms. No palpitations. No nausea or vomiting at this time. She has not had much of an appetite, does not feel like eating. She is not having any increased swelling in her leg, swelling has gone down a little bit. OBJECTIVE: GENERAL: Patient is a 71-year-old female sitting in bedside. Mood is good. Affect is good. VITAL SIGNS: Temp 36.8, pulse 101, respiration 18, blood pressure 144/88, pulse ox 97% on 2 liters. HEENT: Normocephalic, atraumatic. Pupils equal, round and react to light and accommodation. Extraocular movements are intact. [place] moist gingival and buccal mucosa. NECK: Supple. No mass, no adenopathy, no bruit. CHEST: Diminished breath sounds bilaterally. Right is worse than the left. No wheezes noted. CARDIOVASCULAR: Regular rate and rhythm. No murmurs, gallops or rubs appreciated. ABDOMEN: Bowel sounds present. Abdomen soft, nontender. No guarding, rigidity or organomegaly. EXTREMITIES: No erythema or edema. NEUROLOGIC: Cranial nerves II through XII are intact. No focal deficit noted. LABORATORY DATA: Shows white count of 10,000, H and H 9.7 and 29.4, platelet count of 334,000. BUN 11, creatinine 0.46. Pleural fluid shows a pH of 7.24. White blood cell is 7000, red blood cells 41,000. Total protein 3.6, LDH 321. Flow cytometry is pending. Path report is pending. Chest x-ray today shows improvement compared to previous, still has some small bilateral pleural effusions, right is a little bit worse than the left. IMPRESSION: This is a 71-year-old female with history of mantle cell lymphoma who presents with increased shortness of breath and pleural effusion. She did have thoracentesis done and does appear to be consistent with a malignant pleural effusion with possibility being from her mantle cell lymphoma. At this point, her breathing did show some improvement. She still is having oxygen requirement. At this point, we will await recommendations from both oncology and radiation oncology. The patient may need to be considered for a PleurX catheter depending on how quickly the pleural fluid reaccumulates if it does. At this point, we will sign off on the patient. If anything else needed from us, please contact us directly. Patient seen and case reviewed and plan agreed upon. AMIRAH
[2017-06-05] MEDS ORDERED: ZOLP5TAB PO (15:03)
--- NOTE | 2017-06-05 15:18 | Discharge Instructions ---
Discharge Instructions Date of Service Jun 05, 2017. Admission Reason for Admission: Shortness Of Breath Discharge Discharge Diagnosis / Problem: Pleural Effusions Discharge Goals Goal(s): Decrease discomfort, Improve function, Increase independence, Improve disease control, Improve nutritional status, Learn about illness Activity Recommendations Activity Limitations: per Instructions/Follow-up section . Instructions / Follow-Up Instructions / Follow-Up You came into the hospital with shortness of breath. You were found to have fluid in your lunch which was drained. As we discussed during your hospital stay this fluid is likely the result of the cancer in your body. The fluid may reappear in your lungs. Upon discharge you should watch out for shortness of breath at rest and on exertion. A follow up appointment will be arranged for you with Dr. Delgado. Dr. Delgado is the glass mold repairer that drained the fluid from your lungs. If you feel that your shortness of breath is worsening either call your Primary Care Provider, call Dr. Delgado or come to the ER. While in the hospital the echocardiogram of your heart showed no changes from your previous echocardiogram in 2014. The ultrasound of your liver did not show any venous congestion. This is a good finding. It was found that your albumin was low. We recommend a high protein diet so your body can replete the albumin on its own. Your blood cultures were negative. The rest of your blood work was within normal limits (white blood cell, red blood cell count, electrolytes). You are also being discharged on a new medication call Ambien (Zolpidem). Ambien is a medication that can help you go to sleep. Do not take Ambien every day because it may lose its affect after awhile. Information on Ambien will be printed for you on discharge. Please read this information carefully. Please continue to keep your regular Radiation Oncology appointments with Dr. Rothman and your Oncology appointments with [facility]. Current Hospital Diet Patient's current hospital diet: Regular Diet Discharge Diet Recommended Diet: Regular Diet Pending Studies Studies pending at discharge: no Medical Emergencies . Who to Call and When: Medical Emergencies: If at any time you feel your situation is an emergency, please call 911 immediately. . Non-Emergent Contact Non-Emergency issues call your: Primary Care Provider, Oncologist, Equipment Operator/Laborer/Supervisor . . "Provider Documentation" section prepared by Rehan Araujo. . Resident Involvement: Resident Care Provided Care Provided: [facility]
--- NOTE | 2017-06-05 15:34 | Discharge Summary ---
Discharge Summary Date of Service Jun 05, 2017. Discharge Summary Admission Date: Jun 03, 2017 at 23:10 Discharge Date: Jun 05, 2017 Discharge Disposition: Home Principal Diagnosis: Malignent Pleural Effusions Problems/Secondary Diagnoses: (1) Lymphoma Status: Chronic Immunizations: Have You Had Influenza Vaccine: Yes History of Tetanus Vaccine?: Yes History of Pneumococcal: Yes History of Hepatitis B Vaccine: Yes Procedures: ECHOCARDIOGRAM * 1. Normal LV size. Mild concentric LVH with asymmetric basal septal hypertrophy. * 2. LVEF 65-70 %. No regional wall motion abnormalities. * 3. Normal RV size and function. * 4. Mitral valve systolic anterior motion. No significant LVOT gradient, trace mitral regurgitation. * 5. Grade 1 diastolic dysfunction. * 6. Normal estimated PA and RA pressures. * 7. Compared with prior study on 08/23/2014: No significant change DUPLEX PORTAL HEPATIC VEINS IMPRESSION: 1. The portal veins are patent and demonstrate normal direction of flow. 2. Small amount of perihepatic ascites and a right pleural effusion. 2 VIEW Chest X-ray on AM of Day of Discharge IMPRESSION: 1. Small bilateral pleural effusions with right perihilar and bibasilar opacities suggesting atelectasis. 2. Hypoinflation. Consultations: PULMONOLOGY (Brandt EDWARD Note): This is a 71-year-old female with history of mantle cell lymphoma who presents with increased shortness of breath and pleural effusion. She did have thoracentesis done and does appear to be consistent with a malignant pleural effusion with possibility being from her mantle cell lymphoma. At this point, her breathing did show some improvement. She still is having oxygen requirement. At this point, we will await recommendations from both oncology and radiation oncology. The patient may need to be considered for a PleurX catheter depending on how quickly the pleural fluid reaccumulates if it does. At this point, we will sign off on the patient. If anything else needed from us, please contact us directly. Medication Reconciliation New Medications: Zolpidem Tartrate (Ambien) 5 Mg Tab 5 MG PO HS for 30 Days, #7 TAB Do not use in consecutive nights. Continued Medications: Calcium Carbonate-Vitamin D (Calcium) 1 Tab Tab 1 TAB PO DAILY Cholecalciferol (Vitamin D) 2,000 Unit Cap 2000 UNITS PO DAILY Fish Oil ([place]-3) 1 Ea Cap 1 CAP PO DAILY, CAP Glucosamine Sulfate (Glucosamine) 500 Mg Cap 500 MG PO DAILY Ondansetron Hcl (Zofran) 8 Mg Tab 8 MG PO Q6H PRN for Nausea, TAB Pantoprazole (Protonix) 40 Mg Tab 40 MG PO DAILY Polyethylene Glycol 3350 (Miralax) 1 Pow Pow 17 GM PO DAILY Psyllium (Metamucil) 48.57 % Pow 1 DOSE PO DAILY Raloxifene (Evista) 60 Mg Tab 60 MG PO QPM Senna (Senokot) 8.6 Mg Tab 8.6 MG PO QPM, TAB Simvastatin (Simvastatin) 40 Mg Tab 40 MG PO HS Verapamil Sust Rel (Calan Sr Ext Rel) 240 Mg Tabcr 240 MG PO DAILY, TAB Discharge Exam Pt is resting comfortably in bed. No acute overnight events. Pt is still wearing 2LNC. Tolerated radiation well yesterday. Scheduled for repeat radiation today. Constitutional: No fever, No chills, No sweats ENT: No hearing loss Respiratory: + cough, + shortness of breath, + dyspnea on exertion, No sputum, No wheezing Cardiovascular: No chest pain Abdomen: No pain, No nausea, No vomiting, No diarrhea, No constipation Female : No dysuria Neurologic: No memory loss Skin: No rash Physical Exam General Appearance: WD/WN, no apparent distress Eyes: normal inspection, PERRL ENT: normal ENT inspection Neck: supple, no adenopathy Respiratory/Chest: chest non-tender, no respiratory distress, no accessory muscle use, CTA bilaterally, wearing 2LNC. Chemoport on left upper chest. ) Cardiovascular: regular rate, rhythm, no gallop, no JVD, no murmur Abdomen: + pertinent finding (hard abdomen, diffusely TTP abdomen, mild rebound tenderness in all quadrants. - stable finding s/p radiation treatment ) Extremities: + pedal edema (2+ on the lower extremities) Neurologic/Psychiatric: balance truing inspector II-XII nml as tested, no motor/sensory deficits, alert, normal mood/affect, oriented x 3 Skin: normal color, warm/dry, no rash Hospital Course 71F with a PMH of mantle cell lymphoma, HTN, HLD and GERD presented to [facility] due to worsening shortness of breath secondary to bilateral pleural effusions. 1.4L was drained by Dr. Delgado. Effusions were found to be exudative and likely malignant from known mantle cell lymphoma. Patient improved with fluid removal and incentive spirometry. Pt was was able to ambulate on her own without oxygen while maintaining saturations >94%. Patient was advised of the need for close follow up in case the pleural effusions reaccumulated. Follow up with Dr. Norton and Dr. Delgado will be arranged on Discharge. Hospital course is significant for an echocardiogram that was unchanged from 2015 and a liver duplex US that did not show any portal hypertension. (results above) Patient also continued to receive radiation therapy while in the hospital. She had started her therapy earlier in the week. This was supervised by Dr. Rupa Rothman. Pt's albumin was found to be 2.5, she was encouraged to eat a high protein diet on discharge. All meds were continued on discharge. Patient had requested an Rx for Ambien to help her sleep. She was given seven tabs of 5mg PO daily with a warning that the Ambien could lose its affect if taken too frequently. Total Time Spent: Greater than 30 minutes (44 min) This includes examination of the patient, discharge planning, medication reconciliation, and communication with other providers. Discharge Instructions Please refer to the electronic Patient Visit Report (Discharge Instructions) for additional information. Follow-Up Follow up with PCP (Dr. Norton) within one week. A follow up with Dr. Delgado's office will be arranged for you. Additional Copies To Shahzad Norton MD; Veeral. Rothman MD; Yaakov Delgado MD Resident Involvement: Resident Care Provided Care Provided: Adult Hospital Medicine Reviewed: Pt Seen/Exam by Me History breathing improved Constitutional: denies: fever Respiratory: positive: short of breath (mild) Cardiovascular: denies chest pain General Appearance: no apparent distress Respiratory: no respiratory distress, decreased breath sounds (base) Cardiovascular: regular rate, rhythm Gastrointestinal: soft Neurologic/Psychiatric: alert, oriented x 3 Skin Characteristics: warm/dry Assessment/Plan Resident Physician Supervision Note: I independently interviewed and examined the patient and verified the ortiz history and physical, reviewed labs and image studies, discussed the case with the resident Dr. Araujo and agree with the findings and care plan. Time spent in discharge 35 min
[2017-06-05 15:57] VITALS: BP 151/71; PULSE 105; TEMP 36.7; O2SAT 90
[2017-06-05 17:07] VITALS: BP 151/71; PULSE 105; TEMP 36.7; O2SAT 90
[2017-06-06] MEDS ORDERED: ZCR40 PO (09:28)
[2017-06-06] MEDS ORDERED: RALO60TA31 PO (09:28)
[2017-06-06] MEDS ORDERED: POLY335019 PO (12:06)
[2017-06-06] MEDS ORDERED: CALC-51 PO (14:47)
[2017-06-06] MEDS ORDERED: GLUC500C4 PO (14:47)
[2017-06-06] MEDS ORDERED: OMEG10007 PO (14:47)
[2017-06-06] MEDS ORDERED: CHOL200010 PO (14:47)
[2017-06-06] MEDS ORDERED: PSYL48.59 PO (15:10)
[2017-06-06] MEDS ORDERED: SENN-61 PO (15:10)
[2017-06-06] MEDS ORDERED: PANT40TA PO (22:26)
[2017-06-06] MEDS ORDERED: VERA240T20 PO (22:27)
[2017-06-06] MEDS ORDERED: ONDA-170 PO (22:32)
== END 2017-06-05 17:30 | disposition home or self-care (01) | DRG 841 ==
LOC: EDBD 20:14 → C.EDC 20:15 → C.MED 23:10 → ENRESERV 23:24
PROVIDERS: ADMIT Internal Medicine; ATTEND Family Medicine
PROC: 0W993ZZ Drainage of Right Pleural Cavity, Percutaneous Approach (ICD-10-PCS; principal; 2017-06-04)
DX: C83.11 Mantle cell lymphoma, lymph nodes of head, face, and neck (principal); E87.1 Hypo-osmolality and hyponatremia; E44.0 Moderate protein-calorie malnutrition; J91.0 Malignant pleural effusion; K21.9 Gastro-esophageal reflux disease without esophagitis; I10 Essential (primary) hypertension; E78.5 Hyperlipidemia, unspecified; E86.0 Dehydration; M81.0 Age-related osteoporosis without current pathological fracture; Z66 Do not resuscitate; Z79.899 Other long term (current) drug therapy; Z68.34 Body mass index [BMI] 34.0-34.9, adult; Z88.8 Allergy status to other drugs, medicaments and biological substances

== ENCOUNTER → 2017-07-17 | Outpatient (CLI) | payer BC ==
[~2017-07-17] MED LIST changes: +CALC-51 PO; +CHOL200010 PO; +GLUC500C4 PO; +OMEG10007 PO; +ONDA-170 PO; +POLY335019 PO; +PROC10TA PO; +PSYL48.59 PO; +RALO60TA31 PO; +SENN-61 PO; +VERA240T20 PO; -VRPSR240 PO; +ZCR40 PO
--- NOTE | 2017-07-17 12:22 | DIAGNOSTIC IMAGING REPORT ---
(CHEST) THORAX WITHOUT CLINICAL HISTORY: 71 years-old Female presenting with J91.0 Malignant pleural effusion, history of lymphoma. TECHNIQUE: Multidetector CT imaging of the chest was performed without the use of intravenous contrast. IV contrast: None. A dose lowering technique was used consistent with the principles of ALARA (as low as reasonably achievable). COMPARISON: 06/07/2017 and PET/CT from 01/08/2017.. CT DOSE (mGy.cm): The estimated cumulative dose is 223.16 mGy.cm. FINDINGS: Vest Maker topogram: Left pleural effusion. Right pleural drain in place. On soft tissue windows, normal thyroid and thoracic inlet. Left subclavian Mediport terminates in the mid SVC. Bilateral internal mammary lymphadenopathy is stable to slightly increased in size from prior. Decreased prominence of two pericardial lymph nodes in the right cardiophrenic angle. No other evidence of axillary, supraclavicular, or mediastinal lymphadenopathy. Evaluation of the kings limited without intravenous contrast. Normal aorta. The intraventricular blood pool is less dense than adjacent myocardium suggesting anemia. Normal heart size. No pericardial effusion. A right pleural drain terminates at the posterior costophrenic sulcus. Interval decrease in right pleural effusion, which is now moderate in size. Moderate to large left pleural effusion unchanged. Well-defined hypodensity in the right hepatic lobe seen on prior exam, possibly hepatic cyst or hamartoma. On lung windows, dependent volume loss and consolidation compatible with passive atelectasis. Mosaic attenuation could suggest a vascular or airway etiology. No interlobular septal thickening. No additional infiltrate. No significant bronchial wall thickening. Central airways patent. On bone windows, degenerative changes of the spine. Degenerative changes of the left glenohumeral joint. No destructive osseous lesion. IMPRESSION: 1. Interval placement of a right pleural drain with decreased size of the now moderate right pleural effusion. Persistent large left pleural effusion. Extensive passive atelectasis unchanged. 2. Decreased pericardial lymphadenopathy though stable to increased bilateral internal mammary lymphadenopathy. Electronically signed by: Pierre Wheatley M.D. 07/17/2017 12:20 PM Dictated Date/Time: 07/17/2017 12:12 PM
== END | disposition home or self-care (01) ==
LOC: C.CTS 11:57
PROVIDERS: ATTEND Internal Medicine Critical Care Medicine
DX: J91.0 Malignant pleural effusion (principal); R59.1 Generalized enlarged lymph nodes